=== PATIENT | female | born 1940 | race Caucasian/White ===

== ENCOUNTER → 2016-09-24 | Outpatient (REF) | payer MEDICARE, BC ==
[~2016-09-24] MED LIST: ACTO30TA OR; AMLO5TAB OR; CRES20TA OR; HYDR25TA6 OR; LOPERAMIDE OR; PLAV75TA2 OR; TRIC145T19 OR; VITAMIN D50000 UNT OR; XALATIN OU
== END ==
LOC: M LAB REF 09:21
PROVIDERS: ATTEND Physician Assistant
DX: R30.0 Dysuria (principal)

== ENCOUNTER → 2016-11-09 | Outpatient (CLI) | payer MEDICARE, BC ==
[2016-11-09 13:36] LABS: ALBUMIN 3.9 GM/DL (3.2-5.2); ALBUMIN/GLOBULIN RATIO 1.39 (1.00-1.93); BILIRUBIN,TOTAL 0.4 MG/DL (0.2-1.0); CALCIUM LEVEL 9.4 MG/DL (8.8-10.2); CREATININE FOR GFR 1.25 MG/DL (0.55-1.02); GLOMERULAR FILTRATION RATE 44.4 (>39); POTASSIUM SERUM 3.8 MEQ/L (3.5-5.1); TOTAL PROTEIN 6.7 GM/DL (6.4-8.2)
[2016-11-09 14:27] LABS: MEAN CORPUSCULAR HEMOGLOBIN 31.4 pg (27.0-33.0); MEAN CORPUSCULAR HGB CONC 32.9 g/dl (32.0-36.5); MEAN CORPUSCULAR VOLUME 95.6 fl (80.0-96.0); RED CELL DISTRIBUTION WIDTH 13.5 % (11.5-14.5)
== END ==
LOC: M WUC 09:08
PROVIDERS: ATTEND Nurse Practitioner Family
DX: E11.8 Type 2 diabetes mellitus with unspecified complications (principal); I10 Essential (primary) hypertension

== ENCOUNTER → 2017-03-24 | Outpatient (CLI) | payer MEDICARE, BC ==
[2017-03-24 18:28] LABS: CREATININE FOR GFR 1.62 MG/DL (0.55-1.02); GLOMERULAR FILTRATION RATE 32.9 (>39)
== END ==
LOC: M WUC 14:19
PROVIDERS: ATTEND Surgery Vascular Surgery
DX: I71.4 Abdominal aortic aneurysm, without rupture (principal)

== ENCOUNTER → 2017-04-06 | Outpatient (CLI) | payer MEDICARE, BC ==
[~2017-04-06] MED LIST changes: +ISOVUE-370 76% 100ML VIAL (Q9967) As Ordered ONE
--- NOTE | 2017-04-06 14:35 | REP ---
CT ANGIOGRAPHY WITH IV CONTRAST ABDOMINAL AORTA: HISTORY: Abdominal aortic aneurysm. The patient status post aortobi-iliac bypass. COMPARISON: CT study, 03/26/2016. CT CONTRAST DOSE: 100 mL of intravenous Isovue-370. CT TECHNIQUE: Helical scanning is acquired. Axial, coronal MPR, sagittal MPR, and 3D surface rendered color angiography images are acquired and viewed rotationally. Maximum intensity projection coronal images are also generated. CT ANGIOGRAPHIC FINDINGS: Preliminary direct service provider radiograph is unremarkable. There are clips in the right upper quadrant and a pacemaker is noted in the right heart. The lung bases are clear, except for a nodular subpleural density posterolaterally in the left lower lobe measuring 5 mm in greatest diameter. This not visibly calcified. It actually appears a little smaller than it did 03/26/2016 when it measured 8 mm. In any event, it is not new or progressed. The liver and the spleen remain normal in size, homogeneous in texture. Gallbladder is surgically absent. No adrenal lesion is seen. No pancreatic abnormality is noted. Singular renal arteries are noted bilaterally. No stenosis. Left colonic diverticulosis is seen. There is a periumbilical ventral hernia transmitting abdominal fat. Normal appendix seen. Aneurysmal dilation of the distal aorta and left common iliac artery is again seen status post aortobi-iliac graft procedure. The aneurysm measures 4.4 cm x 4.2 cm. By my measurement at the same location in the aorta on 03/26/2016, these measurements would be 4.2 x 4.2 cm and it is not felt to have increased in size. Today's contrast enhanced study does show some contrast enhancement extending into the aneurysm from the common iliac artery just above the distal graft anastomosis. This has an endoleak appearance. The external iliac arteries and internal iliac arteries are patent. 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 Endoleak appearance as above. No change in the size of the aneurysm. Signed by Kale Deleon MD 04/06/2017 05:03 P
== END ==
LOC: M RAD 10:56
PROVIDERS: ATTEND Surgery Vascular Surgery
DX: I71.4 Abdominal aortic aneurysm, without rupture (principal)
CPT/HCPCS: 74174; Q9967

== ENCOUNTER → 2017-05-19 | Outpatient (CLI) | payer MEDICARE, BC ==
[~2017-05-19] MED LIST changes: -ISOVUE-370 76% 100ML VIAL (Q9967) As Ordered ONE
== END ==
LOC: M WUC 15:16
PROVIDERS: ATTEND Family Medicine
DX: M35.3 Polymyalgia rheumatica (principal); N18.3 Chronic kidney disease, stage 3 (moderate)

== ENCOUNTER → 2017-06-23 | Outpatient (CLI) | payer MEDICARE, BC ==
--- NOTE | 2017-06-28 16:25 | REP ---
BILATERAL MAMMOGRAM: FAMILY HISTORY: Breast cancer in sister and paternal grandmother. History of several benign biopsies. COMPARISON: [facility] 12/28/2007. Mild scattered fibroglandular tissue is present, more so on the right than on the left. There is an oval lobulated nodule in the outer right breast posteriorly which has increased in size since the prior examination, measuring 1.5 cm in maximum diameter. New clustered microcalcifications appear to be present in the inferomedial left breast posteriorly. There is a pacemaker in the left axillary region. IMPRESSION: ACR 0 incomplete. Enlarging lobulated nodule lateral posterior right breast. This could represent an intramammary lymph node. I would recommend spot compression views and ultrasound to further evaluate. There appear to be new clustered microcalcifications in the inferomedial left breast. Recommend magnification views for further evaluation. BI-RADS/ACR category 0 mammogram, incomplete. Additional imaging and/or prior mammograms for comparison. This mammogram was interpreted with the aid of an FDA-approved computer-aided detection system. The patient states she/he has not had a clinical breast exam in over a year. The patient letter being requested is M0.
== END ==
LOC: M WHC 09:58
PROVIDERS: ATTEND Family Medicine
DX: Z12.31 Encounter for screening mammogram for malignant neoplasm of breast (principal)

== ENCOUNTER → 2017-07-06 | Outpatient (REF) | payer MEDICARE, BC ==
[2017-07-06 21:57] LABS: BACTERIA, URINE SMALL AMOUNT; HYALINE CAST, URINE NONE SEEN /lpf (0-1); RBC, URINE NONE SEEN /hpf (0-3); SQUAMOUS EPITHELIAL CELL URINE SMALL AMOUNT /hpf (SMALL AMT); WBC, URINE 0-1 /hpf (0-3)
[2017-07-06 21:58] LABS: MICROSCOPIC EXAM PERFORMED
== END ==
LOC: M LAB REF 17:21
PROVIDERS: ATTEND Internal Medicine Nephrology
DX: N18.3 Chronic kidney disease, stage 3 (moderate) (principal); R31.29 Other microscopic hematuria; N39.0 Urinary tract infection, site not specified

== ENCOUNTER → 2017-07-12 | Outpatient (CLI) | payer MEDICARE, BC ==
--- NOTE | 2017-07-12 11:54 | REP ---
RIGHT BREAST ULTRASOUND: 07/12/2017. Comparison: Diagnostic mammogram 07/12/2017, screening mammogram 06/23/2017. Clinical history: An enlarging lobulated nodule lower outer quadrant right breast close to the chest wall. Findings: In the lower outer quadrant at about the 9 o'clock position and far back from the nipple is a lobulated 10.4 x 3.8 x 7.6 mm nodule that is 12 cm from the nipple. It has ultrasound characteristics of a lymph node with hyperechoic central zone and hypoechoic periphery with color flow into it through a notched hilum. Impression: 1. BIRADS ACR category 2, benign. Benign finding. Nodular density lower outer quadrant right breast consistent with an intramammary node corresponding to the finding seen on mammogram. Please see the mammogram report this date for final assessment and recommendation. Signed by Mushtaq Shi MD 07/12/2017 08:29 P
--- NOTE | 2017-07-12 13:11 | REP ---
DIAGNOSTIC DIGITAL BILATERAL MAMMOGRAM: 07/12/2017. Clinical history: Nodular tissue asymmetry lower outer quadrant right breast and new group of microcalcifications left breast for additional imaging. Comparison: Right breast ultrasound 07/12/2017, digital screening mammogram 06/23/2017, 12/28/2007. Findings: Spot magnified CC, MLO and ML views of the lower outer quadrant right breast show lobulated elongated nodule close to the chest wall far back from the nipple. It is seen on the 2007 prior study as a 9 mm long nodule with lobulated margins. No abnormal calcifications are noted within this nodule. There are no other associated findings. The left breast shows spot magnification CC, MLO and true ML images of the pleomorphic group of microcalcifications some of these are coarse, others are fine and irregular. Impression: 1. BI-RADS/ACR category 4 mammogram. Suspicious abnormality - biopsy should be considered. Usually requires biopsy. Some findings suspicious for malignancy in a pleomorphic group of microcalcifications lower inner quadrant left breast. These could be targeted by stereotactic biopsy. 2. The right breast shows a lobulated nodule at least 15 mm long. The ultrasound in this area showed a nodule that measured a little over 10 mm and a previous mammogram in 2007 showed a 9 mm nodule. This is clearly larger than on the previous study and although morphologically it has a resemblance to lymph node by ultrasound and a mammography, it is significantly larger size over the interim raises the question of malignant change. I would recommend a stereotactic biopsy of that nodule as well. Both are quite approachable for needle biopsy. I would recommend stereotactic guided biopsy for both. This mammogram was interpreted with the aid of an FDA-approved computer-aided detection system. The patient states she has not had a clinical breast exam in over a year. The patient letter being requested is M4. Signed by Mushtaq Shi MD 07/12/2017 08:30 P
== END ==
LOC: M RAD 07:47
PROVIDERS: ATTEND Family Medicine
DX: R92.8 Other abnormal and inconclusive findings on diagnostic imaging of breast (principal)
CPT/HCPCS: 76642; G0204

== ENCOUNTER → 2017-08-09 | Outpatient (CLI) | payer MEDICARE, BC ==
[~2017-08-09] MED LIST changes: -ACTO30TA OR; -AMLO5TAB OR; -CRES20TA OR; -HYDR25TA6 OR; +LIDOCAINE 1% MDV 20ML VIAL As Ordered; -LOPERAMIDE OR; -PLAV75TA2 OR; -TRIC145T19 OR; -VITAMIN D50000 UNT OR; -XALATIN OU
== END ==
LOC: M RADPRO 10:04
DX: R92.0 Mammographic microcalcification found on diagnostic imaging of breast (principal); Z53.8 Procedure and treatment not carried out for other reasons
CPT/HCPCS: 77065

== ENCOUNTER 2017-11-08 07:49 | Day surgery (SDC) | payer MEDICARE, BC ==
[2017-11-08] MEDS: LIDOCAINE 5% (LIDODERM) PATCH TD (08:41)
[2017-11-08] MEDS: LR 1,000 ML IV (08:55)
[2017-11-08 09:08] LABS: BEDSIDE GLUCOSE 72 MG/DL (83-110)
[2017-11-08] MEDS ORDERED: diazePAM 5 MG TAB As Ordered (09:19)
[2017-11-08] MEDS: diazePAM 5 MG TAB PO (09:26)
[2017-11-08] MEDS ORDERED: LIDOCAINE 1% MDV 20ML VIAL As Ordered (09:37)
[2017-11-08] MEDS ORDERED: KETAMINE HCL 200 MG/20 ML VIAL As Ordered (11:46)
[2017-11-08] MEDS ORDERED: fentaNYL 100 MCG/2 ML INJECTION (J3010) As Ordered (11:46)
[2017-11-08] MEDS ORDERED: ONDANSETRON 4MG/2ML VIAL (J2405) As Ordered (11:47)
[2017-11-08] MEDS ORDERED: MIDAZOLAM INJ 2 MG/2 ML VIAL (J2250) As Ordered (11:47)
[2017-11-08] MEDS ORDERED: PROPOFOL 200 MG/20 ML VIAL As Ordered (11:47)
[2017-11-08] MEDS ORDERED: LIDOCAINE 2% INJ 100 MG/5 ML SDV (FOR ANES.) As Ordered (12:45)
[2017-11-08] MEDS ORDERED: ePHEDrine SULFATE 25 MG/5 ML(5MG/ML) SYRINGE As Ordered (12:58)
[2017-11-08] MEDS ORDERED: PHENYLephrine HCL 500 MCG/5 ML (100MCG/ML) SYRINGE (J2370) As Ordered (12:58)
[2017-11-08] MEDS: LIDOCAINE 1% SDV INJ 30 ML VIAL As Ordered (13:00)
== END 2017-11-08 14:25 | disposition home or self-care (01) ==
LOC: M SDC 07:49
DX: R92.1 Mammographic calcification found on diagnostic imaging of breast (principal); E11.9 Type 2 diabetes mellitus without complications; I10 Essential (primary) hypertension; E78.5 Hyperlipidemia, unspecified; M35.3 Polymyalgia rheumatica; Z86.73 Personal history of transient ischemic attack (TIA), and cerebral infarction without residual deficits; Z87.891 Personal history of nicotine dependence; Z79.01 Long term (current) use of anticoagulants; Z95.0 Presence of cardiac pacemaker
CPT/HCPCS: 19125

== ENCOUNTER → 2017-11-23 | Outpatient (CLI) | payer MEDICARE, BC ==
[2017-11-23 16:38] LABS: HEMATOCRIT 43.9 % (36.0-47.0); HEMOGLOBIN 14.3 g/dl (12.0-15.5); MEAN CORPUSCULAR HEMOGLOBIN 31.5 pg (27.0-33.0); MEAN CORPUSCULAR HGB CONC 32.6 g/dl (32.0-36.5); MEAN CORPUSCULAR VOLUME 96.7 fl (80.0-96.0); PLATELET COUNT, AUTOMATED 288 10^3/uL (150-450); RED BLOOD COUNT 4.54 10^6/uL (4.00-5.40); RED CELL DISTRIBUTION WIDTH 13.8 % (11.5-14.5); WHITE BLOOD COUNT 11.2 10^3/uL (4.0-10.0)
[2017-11-23 17:23] LABS: ALBUMIN/GLOBULIN RATIO 1.21 (1.00-1.93); ALKALINE PHOSPHATASE 30 U/L (45-117); ALT/SGPT 27 U/L (12-78); ANION GAP 7 MEQ/L (8-16); AST/SGOT 17 U/L (7-37); BILIRUBIN,TOTAL 0.5 MG/DL (0.2-1.0); BLOOD UREA NITROGEN 38 MG/DL (7-18); CALCIUM LEVEL 9.3 MG/DL (8.8-10.2); CARBON DIOXIDE LEVEL 30 MEQ/L (21-32); CHLORIDE LEVEL 107 MEQ/L (98-107); CHOLESTEROL LEVEL 163 MG/DL (<200); CHOLESTEROL RISK RATIO 2.263 (<5); GLOMERULAR FILTRATION RATE 35.8 (>39); GLUCOSE, FASTING 69 MG/DL (70-100); HDL CHOLESTEROL 72 MG/DL (>40); LDL CHOLESTEROL 57.8 MG/DL (<100); NON-HDL-C 91 MG/DL; SODIUM LEVEL 144 MEQ/L (136-145); TOTAL PROTEIN 7.3 GM/DL (6.4-8.2); TRIGLYCERIDES LEVEL 166 MG/DL (<150)
[2017-11-25 08:53] LABS: TOTAL 25(OH) VITAMIN D 31.9 NG/ML (30.0-100.0)
== END ==
LOC: M WUC 12:27
DX: E78.5 Hyperlipidemia, unspecified (principal); E55.9 Vitamin D deficiency, unspecified; R53.83 Other fatigue; I10 Essential (primary) hypertension
CPT/HCPCS: 84443

== ENCOUNTER → 2018-01-19 | Outpatient (CLI) | payer MEDICARE, BC | LOC: M RAD 07:09 | DX: I70.1 Atherosclerosis of renal artery (principal); N18.3 Chronic kidney disease, stage 3 (moderate) ==

== ENCOUNTER → 2018-01-19 | Outpatient (CLI) | payer MEDICARE, BC | LOC: M RAD 07:05 | DX: R93.5 Abnormal findings on diagnostic imaging of other abdominal regions, including retroperitoneum (principal); I71.4 Abdominal aortic aneurysm, without rupture; I70.1 Atherosclerosis of renal artery; N18.3 Chronic kidney disease, stage 3 (moderate) | CPT/HCPCS: 76770 ==

== ENCOUNTER → 2018-11-07 | Outpatient (REF) | payer MEDICARE, BC ==
[~2018-11-07] MED LIST changes: +ACTO30TA OR; +AMLO5TAB OR; +CRES20TA OR; +GLIP5TAB8 PO; +HYDR25TA6 OR; +JANU100T PO; -LIDOCAINE 1% MDV 20ML VIAL As Ordered; +LISI-542 PO; +LOPERAMIDE OR; +PLAV75TA2 OR; +PRED1TABL PO; +TRIC145T19 OR; +TYLE650T35 PO; +VITA100067 PO; +VITAMIN D50000 UNT OR; +XALA0.007 OU; +XALATIN OU; +XANA0.25 PO
== END ==
LOC: M LAB REF 15:25
PROVIDERS: ATTEND Internal Medicine Nephrology
DX: N39.0 Urinary tract infection, site not specified (principal)

== ENCOUNTER → 2019-01-11 | Outpatient (CLI) | payer MEDICARE, BC ==
--- NOTE | 2019-01-11 12:46 | REP ---
LUMBAR SPINE, FIVE VIEWS: HISTORY: Back pain. There is no acute fracture. There is an old compression fracture of the L1 vertebral body with minimal height loss. The lumbar intervertebral discs are decreased in height. Vacuum phenomenon is present at the L5-S1 level. These findings are consistent with disc degeneration. There is narrowing of the right L4-5 and L5-S1 and left L3-4 through L5-S1 facet joints. There are 6 mm of grade 1 spondylolisthesis of L4 on 5. There is scoliosis convex to the left. IMPRESSION: Degenerative change as described above. Electronically Signed by Savage Euceda MD 01/11/2019 01:01 P
[2019-01-11 19:22] LABS: HEMATOCRIT 42.2 % (36.0-47.0); HEMOGLOBIN 13.3 g/dl (12.0-15.5); MEAN CORPUSCULAR HEMOGLOBIN 31.2 pg (27.0-33.0); MEAN CORPUSCULAR HGB CONC 31.5 g/dl (32.0-36.5); MEAN CORPUSCULAR VOLUME 99.1 fl (80.0-96.0); PLATELET COUNT, AUTOMATED 269 10^3/uL (150-450); RED BLOOD COUNT 4.26 10^6/uL (4.00-5.40); WHITE BLOOD COUNT 12.6 10^3/uL (4.0-10.0)
[2019-01-11 20:02] LABS: ERYTHROCYTE SEDIMENTATION RATE 4 mm/hr (0-30)
== END ==
LOC: M WUC 11:31
PROVIDERS: ATTEND Family Medicine
DX: M48.07 Spinal stenosis, lumbosacral region (principal); M35.3 Polymyalgia rheumatica; M43.16 Spondylolisthesis, lumbar region; M41.9 Scoliosis, unspecified

== ENCOUNTER → 2019-02-07 | Outpatient (REF) | payer MEDICARE, BC | LOC: M SFHCPLAZ 08:36 | PROVIDERS: ATTEND Internal Medicine Rheumatology | DX: M35.3 Polymyalgia rheumatica (principal); Z53.8 Procedure and treatment not carried out for other reasons ==

== ENCOUNTER → 2019-02-07 | Outpatient (CLI) | payer MEDICARE, BC ==
[2019-02-07 13:44] LABS: C REACTIVE PROTEIN QUANTITATIV < 0.30 MG/DL (0.00-0.30); RHEUMATOID FACTOR QUANT < 10.0 IU/ML (<15.0)
== END ==
LOC: M WUC 09:05
PROVIDERS: ATTEND Internal Medicine Rheumatology
DX: M35.3 Polymyalgia rheumatica (principal)
CPT/HCPCS: 36415; 85652; 86140; 86200; 86431; G0463

== ENCOUNTER → 2019-03-01 | Outpatient (REF) | payer MEDICARE, BC ==
[2019-03-01 13:04] LABS: C REACTIVE PROTEIN QUANTITATIV < 0.30 MG/DL (0.00-0.30); RHEUMATOID FACTOR QUANT < 10.0 IU/ML (<15.0)
[2019-03-08 00:06] LABS: ANTI DOUBLE STRAND-DNA AB <1 IU/mL (0-9); ANTINUCLEAR ANTIBODIES DIRECT Positive (Negative); HLA-B27 Negative (.); SJOGREN'S ANTI SS-A <0.2 AI (0.0-0.9); SJOGREN'S ANTI SS-B <0.2 AI (0.0-0.9); SMITH ANTIBODIES <0.2 AI (0.0-0.9)
== END ==
LOC: M LABDRAW1 11:11
PROVIDERS: ATTEND Physician Assistant
DX: M47.817 Spondylosis without myelopathy or radiculopathy, lumbosacral region (principal)

== ENCOUNTER → 2019-04-10 | Outpatient (CLI) | payer MEDICARE, BC | LOC: M WUC 13:34 | PROVIDERS: ATTEND Family Medicine | DX: M35.3 Polymyalgia rheumatica (principal) ==

== ENCOUNTER → 2020-01-11 | Outpatient (CLI) | payer MEDICARE, BC ==
[~2020-01-11] MED LIST changes: +AMLO5TAB6 PO; +FENO145T7 PO; +HYDR25TAB PO; +PLAV1TAB2 PO; +PRED10PA PO; +ROSU20TA5 PO; +VITAD1000T PO
== END ==
LOC: M LABSMTC 11:42
PROVIDERS: ATTEND Anesthesiology
DX: Z01.818 Encounter for other preprocedural examination (principal); Z11.59 Encounter for screening for other viral diseases
CPT/HCPCS: C9803; U0003

== ENCOUNTER 2020-01-14 11:27 | Day surgery (SDC) | payer MEDICARE, BC ==
[~2020-01-14] VITALS: Ht 172.7 cm; Wt 74.4 kg
[~2020-01-14 11:27] MED LIST changes: +LIDOCAINE 2% 100MG/5ML SDV (FOR ANES.) As Ordered ONE; +LR 1,000 ML IV SCH; +MIDAZOLAM INJ 2MG/2ML VIAL (J2250 PER 1MG) As Ordered ONE; +ceFAZolin SOD 1 GM in D5W MINI-BAG PLUS 50 ML IV ONE; +fentaNYL 100 MCG/2 ML INJECTION (J3010) As Ordered ONE; +propofoL 500 MG/50 ML VIAL As Ordered ONE
[2020-01-14] MEDS ORDERED: ONDANSETRON 4MG/2ML VIAL As Ordered ONE (13:30)
[2020-01-14] MEDS ORDERED: propofoL 200 MG/20 ML VIAL As Ordered ONE ×2 (13:30→15:05)
[2020-01-14] MEDS ORDERED: fentaNYL 100 MCG/2 ML INJECTION (J3010) As Ordered ONE (13:30)
[2020-01-14] MEDS ORDERED: MIDAZOLAM INJ 2MG/2ML VIAL (J2250 PER 1MG) As Ordered ONE (13:30)
[2020-01-14] MEDS ORDERED: LIDOCAINE 2% 100MG/5ML SDV (FOR ANES.) As Ordered ONE (13:36)
[2020-01-14] MEDS ORDERED: ISOVUE-300 61% 50ML VIAL As Ordered ONE ×2 (13:41→15:18)
[2020-01-14] MEDS ORDERED: MUPIROCIN 2% OINT 22 GM TUBE As Ordered ONE (13:41)
[2020-01-14] MEDS ORDERED: LIDOCAINE 1% SDV 30ML VIAL As Ordered ONE (13:41)
[2020-01-14] MEDS ORDERED: ePHEDrine SULFATE 25 MG/5 ML(5MG/ML) SYRINGE As Ordered ONE (15:44)
[2020-01-14] MEDS ORDERED: ceFAZolin 1GM VIAL (J0690 PER 500MG) As Ordered ONE (15:53)
[2020-01-14] MEDS ORDERED: fentaNYL 100 MCG/2 ML INJECTION (J3010) IV PRN (16:45)
[2020-01-14] MEDS ORDERED: LR 1,000 ML IV SCH (16:45)
[2020-01-14] MEDS ORDERED: ACETAMINOPHEN TAB 650MG DOSE (2X325MG) PO PRN (17:00)
[2020-01-14 18:00] VITALS: BP 132/63
--- NOTE | 2020-01-14 18:54 | RO ---
DATE OF PROCEDURE: 01/14/2020 PREPROCEDURE DIAGNOSES: 1. Pacemaker battery depletion. 2. Complete heart block. POSTPROCEDURE DIAGNOSES: 1. Pacemaker battery depletion. 2. Complete heart block. FINDINGS: 1. Pacemaker battery depletion. 2. Complete heart block. PROCEDURE PERFORMED: Implantation of an atrial pacemaker lead to upgrade to a dual-chamber pacemaker system. Pacemaker pulse generator change. SURGEON: Andrea Gabriel MD MAGNETIC LOCATER: None. ANESTHESIA: Lidocaine 1% local/monitored anesthetic care. SPECIMENS: Old single-chamber pacemaker pulse generator. ESTIMATED BLOOD LOSS: 10 mL. No blood products replaced. No drains. No complications. DESCRIPTION OF PROCEDURE: The patient was prepped and draped over the left pectoral region. 3M Ioban film was applied. A left subclavian venogram was performed via a peripheral IV in the left upper extremity to ensure that the left subclavian vein was still patent to be able to upgrade to a dual-chamber pacemaker system with the addition of a new atrial pacing lead. This demonstrated that the left subclavian vein was patent. An incision approximately 3 inches in length was made over top of the existing pacemaker pulse generator and approximately over top of the course of the left subclavian vein using a #15 blade. Fine scissor dissection was used to get down to and through the anterior capsule overlying the pacemaker pulse generator. The suture holding down the pacemaker pulse generator was then cut. The existing pacemaker pulse generator was removed from the pocket still attached to the ventricular pacemaker lead. Next, some additional left subclavian venograms were injected and used in real time to localize the left subclavian vein percutaneous at the level of the pacemaker pocket using a micropuncture needle. This was then guidewire exchanged for the guidewire that came with the micropuncture needle. This was then guidewire exchanged for the guidewire that came with the micropuncture needle. The guidewire was then exchanged for a guidewire that came with the 7-Hungarian sheath. Next, the 7-Hungarian sheath with introducer was placed into the guidewire and advanced into the left subclavian vein. The sheath was left in place, and the guidewire and introducer were removed. The atrial lead was then placed under fluoroscopic guidance into the region of the right atrial appendage where it was secured with a total of 11 turns. This position was found to be electrically and anatomically satisfactory. The sheath was then broken apart and removed. The atrial lead was then sutured to the pectoral muscle using the supplied tie-down sleeve, using three individual sutures consisting of #0 Ethibond. Next, a TYRX medium size antimicrobial envelope was cut into four pieces and placed into the pacemaker pocket. Next, the terminal pin of the ventricle lead was removed from the existing pacemaker pulse generator and placed into the ventricle port of the new pacemaker pulse generator and secured by tightening the set screw. Next, the atrial lead was plugged into the atrial port of the new dual-chamber pacemaker pulse generator and secured by tightening the set screw. The excess lead material was then coiled underneath the pacemaker pulse generator and placed along with the pacemaker pulse generator into the pacemaker pocket with the pacemaker on top and the excess lead material below. The new pacemaker pulse generator was then secured to the pectoral muscle using an #0 Ethibond suture to secure it to the pectoral muscle. The deep layers was then closed using individual sutures consisting of #2-0 Vicryl. A few #3-0 Vicryl sutures were then used to help approximate the more superficial layer. The skin was then closed using kristen. The patient tolerated the procedure well without any immediate complications. The pacemaker pulse generator that was removed was a [employer] model 5626 with serial #[id number], originally implanted 03/24/2010. The new pacemaker pulse generator implanted was a [employer] Assurity MRI with model #[id number] with serial #[id number]. The existing right ventricle lead was a [employer] model 1948 with serial #[id number] originally implanted 03/24/2010. Testing in the operating room (OR) through the device showed a capture threshold of 0.75 volts at 0.4 milliseconds with R wave amplitude of 2.1 millivolts and lead impedance of 514 ohms. The new right atrial lead was a [employer] model [id number]/52 cm with serial #[id number]. Testing with the PSA analyzer for the new right atrial lead showed capture threshold 1.7 volts at 0.6 milliseconds with P wave amplitude of 3.6 millivolts and a lead impedance of 809 ohms. [facility]
--- NOTE | 2020-01-15 00:36 | ECGEPIP ---
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
--- NOTE | 2020-01-15 02:13 | REP ---
C-ARM VIEW OF THE CHEST: Single C-arm view of the chest is performed during placement of a dual-lead pacemaker. The two leads appear to be in good position. Fluoroscopy time 6 minutes 46 seconds. Electronically Signed by Maycol Morales MD 01/16/2020 09:47 P
--- NOTE | 2020-01-15 03:02 | REP ---
REASON: Pacemaker generator change. The latest prior for comparison is 11/06/2013, also portable. Since the prior exam, an additional lead has been placed. Both leads appear contiguous and appropriate. The lung de la o are clear. The pleural angles are sharp. There is cardiomegaly accentuated by technique. The technique utilized in obtaining the radiograph has magnified the cardiac silhouette and accentuated the interstitial markings. The osseous structures are stable and intact. IMPRESSION: No acute cardiopulmonary disease. Findings as described above. Electronically Signed by Jorge Villegas DO 01/15/2020 11:11 A
== END 2020-01-14 18:20 | disposition home or self-care (01) ==
LOC: M SDC 11:27
PROVIDERS: ATTEND Internal Medicine Cardiovascular Disease
DX: Z45.010 Encounter for checking and testing of cardiac pacemaker pulse generator [battery] (principal); I48.91 Unspecified atrial fibrillation; I44.2 Atrioventricular block, complete; E11.9 Type 2 diabetes mellitus without complications; I10 Essential (primary) hypertension; E78.00 Pure hypercholesterolemia, unspecified; E66.9 Obesity, unspecified; K21.9 Gastro-esophageal reflux disease without esophagitis; F41.9 Anxiety disorder, unspecified; Z88.5 Allergy status to narcotic agent; Z79.02 Long term (current) use of antithrombotics/antiplatelets; Z79.899 Other long term (current) drug therapy
CPT/HCPCS: 33214; 71045; 76000; 93005; C1785; C1898; J0690; J2250; J2405; J3010; Q9967

== ENCOUNTER → 2020-03-05 | Outpatient (REF) | payer MEDICARE, BC ==
[~2020-03-05] MED LIST changes: +ACET650T61 PO; +AMLO1TAB24 PO; -AMLO5TAB6 PO; +D31000TA2 PO; -LIDOCAINE 2% 100MG/5ML SDV (FOR ANES.) As Ordered ONE; -LR 1,000 ML IV SCH; -MIDAZOLAM INJ 2MG/2ML VIAL (J2250 PER 1MG) As Ordered ONE; -TYLE650T35 PO; -VITAD1000T PO; -ceFAZolin SOD 1 GM in D5W MINI-BAG PLUS 50 ML IV ONE; -fentaNYL 100 MCG/2 ML INJECTION (J3010) As Ordered ONE; -propofoL 500 MG/50 ML VIAL As Ordered ONE
[2020-04-10 02:02] LABS: ALBUMIN 3.9 GM/DL (3.2-5.2); CALCIUM LEVEL 9.6 MG/DL (8.8-10.2); CHOLESTEROL RISK RATIO 2.48 (<5); CREATININE FOR GFR 1.51 MG/DL (0.55-1.30); GLOMERULAR FILTRATION RATE 35.4 (>39); PHOSPHORUS LEVEL 3.8 MG/DL (2.5-4.9); POTASSIUM SERUM 4.1 MEQ/L (3.5-5.1)
== END ==
LOC: M WUC 07:31 → M LAB REF 07:31
PROVIDERS: ATTEND Internal Medicine Cardiovascular Disease
DX: E78.2 Mixed hyperlipidemia (principal); I48.0 Paroxysmal atrial fibrillation; I10 Essential (primary) hypertension

== ENCOUNTER → 2020-03-07 | Outpatient (REF) | payer MEDICARE, BC | LOC: M LAB REF 10:26 | PROVIDERS: ATTEND Internal Medicine Cardiovascular Disease | DX: E78.2 Mixed hyperlipidemia (principal); I48.0 Paroxysmal atrial fibrillation; I10 Essential (primary) hypertension ==

== ENCOUNTER → 2020-09-04 | Outpatient (REF) | payer MEDICARE, BC | LOC: M LAB REF 17:03 | PROVIDERS: ATTEND Internal Medicine Nephrology | DX: N39.0 Urinary tract infection, site not specified (principal) ==

== ENCOUNTER → 2020-10-13 | Outpatient (CLI) | payer MEDICARE, BC ==
[~2020-10-13] MED LIST changes: +HYDR-3490 PO; -HYDR25TAB PO; -LISI-542 PO; +LISI-898 PO
[2020-10-13 13:02] LABS: CHOLESTEROL RISK RATIO 2.239 (<5)
== END ==
LOC: M WUC 10:37
PROVIDERS: ATTEND Internal Medicine Cardiovascular Disease
DX: E78.2 Mixed hyperlipidemia (principal)

== ENCOUNTER → 2020-10-13 | Outpatient (CLI) | payer MEDICARE, BC ==
[2020-10-13 12:31] LABS: HEMATOCRIT 42.4 % (36.0-47.0); HEMOGLOBIN 13.6 g/dl (12.0-15.5); MEAN CORPUSCULAR HGB CONC 32.1 g/dl (32.0-36.5); MEAN CORPUSCULAR VOLUME 96.6 fl (80.0-96.0); PLATELET COUNT, AUTOMATED 235 10^3/uL (150-450); RED BLOOD COUNT 4.39 10^6/uL (4.00-5.40); WHITE BLOOD COUNT 11.3 10^3/uL (4.0-10.0)
[2020-10-13 13:10] LABS: BILIRUBIN,TOTAL 0.5 MG/DL (0.2-1.0); CALCIUM LEVEL 9.4 MG/DL (8.8-10.2); CREATININE FOR GFR 1.24 MG/DL (0.55-1.30); GLOMERULAR FILTRATION RATE 44.3 (>32); POTASSIUM SERUM 3.6 MEQ/L (3.5-5.1)
[2020-10-13 13:11] LABS: ALBUMIN 3.7 GM/DL (3.2-5.2); CHOLESTEROL RISK RATIO 2.404 (<5); THYROID STIMULATING HORMONE 1.71 uIU/ML (0.358-3.740); TOTAL PROTEIN 6.5 GM/DL (6.4-8.2)
[2020-10-13 20:19] LABS: ERYTHROCYTE SEDIMENTATION RATE 5 mm/hr (0-30)
== END ==
LOC: M WUC 10:32
PROVIDERS: ATTEND Family Medicine
DX: E11.22 Type 2 diabetes mellitus with diabetic chronic kidney disease (principal); I48.0 Paroxysmal atrial fibrillation; E78.2 Mixed hyperlipidemia; M35.3 Polymyalgia rheumatica

== ENCOUNTER → 2020-10-21 | Outpatient (REF) | payer MEDICARE, BC ==
[2020-10-21 17:27] LABS: CREATININE, URINE 55.4 MG/DL; MALB URINE SIEMENS < 5.0 MG/L
== END ==
LOC: M LAB REF 16:08
PROVIDERS: ATTEND Family Medicine
DX: E11.22 Type 2 diabetes mellitus with diabetic chronic kidney disease (principal)

== ENCOUNTER 2021-02-25 08:56 | Observation (INO) | payer BC, MEDICARE ==
[~2021-02-25] VITALS: Ht 172.7 cm; Wt 74.2 kg
--- NOTE | 2021-02-25 09:57 | REP ---
INDICATION: Altered Mental Status. COMPARISON: 01/14/2020. TECHNIQUE: Single portable AP view of the chest was performed. FINDINGS: There is no acute infiltrate or pulmonary edema. There is mild elevation of the left hemidiaphragm. The heart is not significantly enlarged. The mediastinal silhouette is unchanged. Left 2 lead pacemaker is noted. IMPRESSION: No acute pulmonary disease. <Electronically signed by Maycol Morales > 02/25/21 [id number]
[2021-02-25] MEDS ORDERED: ONDANSETRON 4MG/2ML VIAL IV ONE (10:00)
[2021-02-25] MEDS ORDERED: NS 1,000 ML IV ONE ×2 (10:00→16:00)
[2021-02-25 10:06] LABS: HEMATOCRIT 53.6 % (36.0-47.0); HEMOGLOBIN 17.7 g/dl (12.0-15.5); MEAN CORPUSCULAR HEMOGLOBIN 31.8 pg (27.0-33.0); MEAN CORPUSCULAR VOLUME 96.2 fl (80.0-96.0); PLATELET COUNT, AUTOMATED 277 10^3/uL (150-450); RED BLOOD COUNT 5.57 10^6/uL (4.00-5.40); WHITE BLOOD COUNT 19.7 10^3/uL (4.0-10.0)
[2021-02-25 10:32] LABS: ALBUMIN 4.3 GM/DL (3.2-5.2); ALT/SGPT 47 U/L (12-78); BILIRUBIN,DIRECT 0.3 MG/DL (0.0-0.2); BILIRUBIN,TOTAL 0.9 MG/DL (0.2-1.0); BLOOD UREA NITROGEN 44 MG/DL (7-18); CALCIUM LEVEL 10.4 MG/DL (8.8-10.2); CARBON DIOXIDE LEVEL 24 MEQ/L (21-32); CHLORIDE LEVEL 102 MEQ/L (98-107); CK-MB VALUE MASS 1.6 NG/ML (<3.6); CPK CREATINE PHOSPHOKINASE 58 U/L (26-192); CREATININE FOR GFR 1.74 MG/DL (0.55-1.30); ETHYL ALCOHOL (ETHANOL) < 0.003 % (0.000-0.010); FREE T4 1.22 NG/DL (0.76-1.46); GLUCOSE, FASTING 222 MG/DL (70-100); MB/CK RELATIVE INDEX 2.76 (< OR =4); PHOSPHORUS LEVEL 3.7 MG/DL (2.5-4.9); POTASSIUM SERUM 3.4 MEQ/L (3.5-5.1); SODIUM LEVEL 140 MEQ/L (136-145); TOTAL PROTEIN 8.1 GM/DL (6.4-8.2); TROPONIN I < 0.02 NG/ML (< 0.10)
--- NOTE | 2021-02-25 10:33 | REP ---
INDICATION: altered mental status. COMPARISON: 01/30/2014. TECHNIQUE: CT BRAIN PERFORMED IN THE AXIAL PLANE. CORONAL RECONSTRUCTION IMAGES ARE PERFORMED. FINDINGS: THE VENTRICLES ARE MIDLINE, SYMMETRIC AND THEIR SIZE PROPORTIONATE TO THE MILD DIFFUSE CEREBRAL AND CEREBELLAR ATROPHY, ALL AGE-APPROPRIATE AND WITHOUT SIGNIFICANT CHANGE. ATROPHY GREATEST IN THE TEMPORAL AND FRONTAL LOBES BUT PRESENT THROUGHOUT. THERE IS NO MIDLINE SHIFT OR MASS EFFECT. DONALDSON-WHITE DIFFERENTIATION IS WELL MAINTAINED. FEW SCATTERED HETEROGENEOUS WHITE MATTER CHANGES ARE NOTED SUGGESTING SMALL VESSEL ISCHEMIC DISEASE. THERE IS NO ACUTE INTRACRANIAL HEMORRHAGE OR EXTRA-AXIAL FLUID COLLECTION. BONE WINDOW EXAMINATION IS UNREMARKABLE. VISUALIZED MASTOID AIR CELLS AND PARANASAL SINUSES ARE CLEAR. ATHEROSCLEROTIC CALCIFICATIONS IN THE CAROTID SIPHONS. IMPRESSION: MILD VENTRICULAR ENLARGEMENT AND PROPORTIONATE CEREBRAL/CEREBELLAR ATROPHY. SOME MILD CHRONIC SMALL VESSEL WHITE MATTER ISCHEMIC CHANGES. NO ACUTE INFARCT, INTRACRANIAL HEMORRHAGE, MASS, MASS EFFECT OR EDEMA. CALVARIUM, SKULL BASE, MASTOIDS AND SINUSES GROSSLY UNREMARKABLE. NOTHING ACUTE. <Electronically signed by Mushtaq Shi > 02/25/21 [id number]
[2021-02-25] MEDS ORDERED: POTASSIUM CHLORIDE 10 MEQ SR TABLET PO ONE (10:40)
[2021-02-25 11:07] LABS: LYMPHOCYTES 17 % (16-44); NEUTROPHILS 82 % (28-66); PLATELET ESTIMATE NORMAL (NORMAL)
[2021-02-25] MEDS ORDERED: GLIP2.5T6 PO (12:53)
[2021-02-25] MEDS ORDERED: XARE15TA PO (12:53)
[2021-02-25] MEDS ORDERED: ALPR0.5T3 PO (12:53)
[2021-02-25] MEDS ORDERED: SITA50TAB PO (12:53)
[2021-02-25] MEDS ORDERED: MAGN400T2 PO (12:53)
[2021-02-25] MEDS ORDERED: C 50TAB PO (12:53)
[2021-02-25] MEDS ORDERED: XALA0.007 OU (12:53)
[2021-02-25] MEDS ORDERED: VASC1CAP2 PO (12:53)
[2021-02-25] MEDS ORDERED: CYCL5TAB PO (12:53)
[2021-02-25] MEDS ORDERED: PRED10TA2 PO (12:53)
[2021-02-25] MEDS ORDERED: REFR0.5D8 OU (12:56)
[2021-02-25] MEDS ORDERED: KCL 20MEQ in NS 1000ML 1,000 ML IV SCH (13:05)
[2021-02-25] MEDS ORDERED: GLUCAGON INJ 1MG VIAL SC PRN (13:05)
[2021-02-25] MEDS ORDERED: HEPARIN SOD (PORCINE) 5000UNITS/ML 1ML VIAL/SYRINGE SC SCH (13:05)
[2021-02-25] MEDS ORDERED: GLUCOSE 4GM CHEW TABLET PO PRN (13:05)
[2021-02-25] MEDS ORDERED: DEXTROSE 50% 50 ML SYRINGE IV PRN (13:05)
--- NOTE | 2021-02-25 13:32 | HPEPDOC ---
General Date of Admission Date of Service: Feb 25, 2021 Primary Care Physician: Rach Baez Attending Physician: ILENE JACOBO MD Chief Complaint The patient is a 80-year-old female admitted with a reason for visit of Weakness, Diarrhea. Source: Patient Exam Limitations: No limitations Timing/Duration: 24 hours Severity: Moderate Associated Symptoms: Weakness, Hypotension, Dizziness, Other (diarrhea) History of Present Illness Nadine is a 80-year-old woman with a past medical history of diabetes mellitus type 2, hypertension, hyperlipidemia, brain aneurysm and aortic aneurysm status post aortic iliac bypass in the past. Patient was in her usual state of health up until yesterday. Patient states that she ate a spicy salad dressing as well as mushrooms yesterday which really did not agree with her, since that time she's had ongoing diarrhea began approximately 2 AM morning. She reports having bloody diarrhea. When she attempted to stand up lightheaded and felt quite weak. EMS was summoned to her home, was brought to the emergency room. She was found to have potassium of 3.4, white blood cell count of 19,700, a creatinine of 1.7. She was initially noted to have soft blood pressures with a systolic blood pressure in the 90s, however her blood pressure has improved with IV fluids. At present moment she continues to have diarrhea and is also complaining of some lower abdominal tenderness. She denies any recent history of antibiotics, states that approximately 6 months ago she had antibiotics for a UTI. Home Medications Scheduled Acetaminophen (Tylenol Arthritis) 650 Mg Tab, 1,300 MG PO DAILY, (Reported) Alprazolam (Alprazolam) 0.5 Mg Tablet, 0.25 MG PO BID, (Reported) Amlodipine Besylate (Amlodipine Besylate) 5 Mg Tablet, 5 MG PO QHS, (Reported) Ascorbic Acid (Vitamin C) 500 Mg Tablet, 500 MG PO DAILY, (Reported) Carboxymethylcellulose Sodium (Refresh Tears) 15 Ml Drops, 1 DROP OU BID, (Reported) Cholecalciferol (Vitamin D3) (Vitamin D3) 1,000 Unit Tablet, 1,000 UNITS PO DAILY, (Reported) Cyclobenzaprine HCl (Cyclobenzaprine HCl) 5 Mg Tablet, 2.5 MG PO QHS, (Reported) Glipizide (Glipizide ER) 2.5 Mg Tab.er.24, 2.5 MG PO QHS, (Reported) Hydrochlorothiazide (Hydrochlorothiazide) 25 Mg Tablet, 25 MG PO DAILY, (Reported) Icosapent Ethyl (Vascepa) 1 Gm Capsule, 1 GM PO BID, (Reported) Latanoprost (Xalatan) 0.005% 2.5ML Drops, 1 DROP OU QHS, (Reported) Lisinopril (Lisinopril) 5 Mg Tab, 2.5 MG PO QHS, (Reported) Magnesium Oxide (Magnesium Oxide) 400 Mg Tablet, 800 MG PO DAILY, (Reported) Prednisone (Prednisone) 10 Mg Tablet, 10 MG PO DAILY, (Reported) Rivaroxaban (Xarelto) 15 Mg Tablet, 15 MG PO QPM, (Reported) Rosuvastatin Calcium (Rosuvastatin Calcium) 20 Mg Tablet, 20 MG PO QHS, (Reported) Sitagliptin (Januvia) 50 Mg Tablet, 50 MG PO DAILY, (Reported) Allergies Coded Allergies: codeine (Verified Adverse Reaction, Mild, feels seasick, 01/14/20) morphine (Verified Adverse Reaction, Mild, feels seasick, 01/14/20) Past Medical History Medical History Diabetes mellitus Hypertension Hyperlipidemia Brain aneurysm which she states are non-operative Sick sinus syndrome Aortic abdominal aneurysm Surgical History Status post aortic iliac bypass Cholecystectomy Cyst removed from breast Social History * Smoker: former Smoker, quit greater than 1 year Alcohol: Denies Drugs: denies Recent Travel/Sick Contacts: Denies: Recent travel A-FIB/[facility]ADSVASC A-FIB History Current/History of A-Fib/PAF?: Yes Current PO Anticoag Therapy: Yes Review of Systems Constitutional: Denies: Chills, Fever, Night Sweats Eyes: Denies: Pain, Vision change ENT: Denies: Head Aches, Ear Pain, Dysphagia Skin: Denies: Rash, Lesions, Breakdown Pulmonary: Denies: Dyspnea, Cough Cardiovascular: Reports: Lt Headedness Gastrointestinal: Reports: Abdominal Pain, Diarrhea Genitourinary: Denies: Dysuria, Frequency, Incontinence, Retention Hematologic: Denies: Bruising, Bleeding Excessively Musculoskeletal: Denies: Neck Pain, Back Pain, Joint Pain, Muscle Pain, Spasms Neurological: Denies: Weakness, Numbness, Change in speech, Confusion Psych: Reports: Mood Normal; Denies: Depression, Memory Issues Physical Examination General Exam: Positive: Alert, No Acute Distress Eye Exam: Positive: PERRLA, Conjunctiva & lids normal, EOMI; Negative: Sclera icteric ENT Exam: Positive: Atraumatic, Mucous membr. moist/pink, Pharynx Normal Neck Exam: Positive: Supple; Negative: JVD, thyromegaly Chest Exam: Positive: Clear to auscultation, Normal air movement Heart Exam: Positive: Rate Normal, Regular Rhythm, Normal S1, Normal S2; Negative: Murmurs, Rubs Telemetry: Positive: Other Telemetry: (AV paced rhythm) Abdomen Exam: Positive: Normal bowel sounds, Soft, Tenderness (mild tenderness in the mid lower abdominal quadrant); Negative: Hepatospenomegaly Extremity Exam: Positive: Normal pulses; Negative: Clubbing, Cyanosis, Edema Skin Exam: Positive: Nl turgor and temperature; Negative: Breakdown, Lesion Neuro Exam: Positive: Normal Gait, Normal Speech, Cranial Nerves 3-12 NL, Reflexes 2+ Psych Exam: Positive: Mental status NL, Mood NL, Oriented x 3 Vital Signs Vital Signs Date Time Temp Pulse Resp B/P (MAP) Pulse Ox O2 Delivery O2 Flow Rate FiO2 02/25/21 10:15 92/55 (67) 02/25/21 10:11 94 91 02/25/21 09:00 95.7 18 Room Air Laboratory Data Labs 24H Laboratory Tests 2 02/25/21 09:55: Neutrophils (%) (Auto) , Nucleated Red Blood Cells % (auto) 0.0, Neutrophils 82H, Band Neutrophils 1, Lymphocytes (Manual) 17, Macrocytosis 1+, Platelet Estimate NORMAL, Anion Gap 14, Glomerular Filtration Rate 30.0L, Calcium Level 10.4H, Phosphorus Level 3.7, Magnesium Level 2.0, Total Bilirubin 0.9, Direct B ilirubin 0.3H, Aspartate Amino Transf (AST/SGOT) 20, Alanine Aminotransferase (ALT/SGPT) 47, Alkaline Phosphatase 59, Ammonia 27, Total Creatine Kinase 58, Creatine Kinase MB 1.6, Creatine Kinase MB Relative Index 2.76, Troponin I < 0.02, Total Protein 8.1, Albumin 4.3, Albumin/Globulin Ratio 1.1L, Thyroid Stimulating Hormone (TSH) 8.520H, Free Thyroxine 1.22, Ethyl Alcohol Level < 0.003 CBC/BMP Laboratory Tests 02/25/21 09:55 RAD Interpretation STUDY: Assessment/Plan #Acute diarrhea rule out colitis Patient be admitted to observation for now. Obtain CT of the abdomen and pelvis with IV and oral contrast Will determine whether the patient requires any antibiotics based on imaging Check GI panel Clear liquid diet following imaging studies Normal saline with KCl at 100 mils an hour Check cortisol level in a.m. to rule out adrenal insufficiency as it appears patient is on chronic prednisone #Acute kidney injury secondary to prerenal losses #Chronic kidney disease stage III Repeat BMP in a.m. following IV hydration #Mild hypokalemia #Mild hypercalcemia Patient will have potassium supplementation Patient will be hydrated IV fluids we will recheck calcium levels #Diabetes mellitus type 2 with hyperglycemia Clear diabetic liquid diet for now Hold home medications #Hypertension Hold home medications. Blood pressure #Hyperlipidemia Continue with statin #Ethics DO NOT RESUSCITATE and DO NOT INTUBATE #DVT prophylaxis Xarelto Plan / VTE VTE Prophylaxis Ordered?: No VTE Exclusion Mechanical Proph: Other (patient is on Cymbalta) ILENE JACOBO MD Feb 25, 2021 13:32
[2021-02-25] MEDS: GASTROGRAFIN SOLUTION 30ML PO SCH ×2 (14:05→15:16)
[2021-02-25] MEDS ORDERED: ISOVUE-370 76% 100ML VIAL As Ordered ONE (15:06)
[2021-02-25 15:20] LABS: RSV AMPLIFICATION NEGATIVE (NEGATIVE)
--- NOTE | 2021-02-25 17:31 | ECGEPIP ---
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
[2021-02-25 18:00] VITALS: BP 133/65
[2021-02-25] MEDS: HumaLOG INSULIN (NovoLOG) PER UNIT SC SCH ×2 (18:00→18:28)
[2021-02-25] MEDS: ALPRAZolam 0.25 MG TAB PO SCH ×2 (18:27→20:09)
--- NOTE | 2021-02-25 18:36 | REPVR ---
PROCEDURE INFORMATION: Exam: CT Abdomen And Pelvis With Contrast Exam date and time: 02/25/2021 5:45 PM Age: 80 years old Clinical indication: Abdominal pain; Generalized; Additional info: Abd pain with diarrhea TECHNIQUE: Imaging protocol: Computed tomography of the abdomen and pelvis with contrast. Radiation optimization: All CT scans at this facility use at least one of these dose optimization techniques: automated exposure control; mA and/or kV adjustment per patient size (includes targeted exams where dose is matched to clinical indication); or iterative reconstruction. Contrast material: ISOVUE 370; Contrast volume: 100 ml; Contrast route: INTRAVENOUS (IV); COMPARISON: CT ABD PELVIS W/O CONTRAST 03/26/2016 7:51 AM FINDINGS: Lungs: The there are bibasilar dependent atelectatic changes. Mediastinal space: Small hiatal hernia. Liver: Normal. No mass. Gallbladder and bile ducts: Previous cholecystectomy. Pancreas: There is pancreatic atrophy. Spleen: Normal. No splenomegaly. Adrenal glands: Normal. No mass. Kidneys and ureters: There is bilateral renal atrophy. No hydronephrosis. Stable right peripelvic cyst. Stomach and bowel: There is diverticulosis without diverticulitis. Regions of colonic thickening are likely secondary to under distention. No acute pericolonic inflammatory change. Nonspecific colonic fluid. Appendix: Normal appendix. Intraperitoneal space: Unremarkable. No free air. No significant fluid collection. Vasculature: Vascular calcification. 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 This measures larger compared to prior study. Lymph nodes: Unremarkable. No enlarged lymph nodes. Urinary bladder: Unremarkable as visualized. Reproductive: Atrophic uterus. Bones/joints: There are degenerative changes involving the spine. Chronic appearing superior endplate compression fracture involving L1. Soft tissues: There are several small areas of ventral herniation containing fat. No bowel containing hernia. IMPRESSION: 1. No acute inflammatory process. 2. Colonic fluid without associated inflammatory change, nonspecific diarrheal disease. 3. Infrarenal abdominal aorta measuring 5.4 x 4.4 cm with extensive mural thrombus. This measures increased in size compared to prior study, 4.5 cm in maximal dimension on prior. 4. Additional findings as above. Electronically signed by: Bello Malave On 02/25/2021 18:36:13 PM
[2021-02-25] MEDS: ACETAMINOPHEN 650MG ER TAB (TYLENOL ARTHRITIS) PO SCH (18:37)
[2021-02-25] MEDS: CIPROFLOXACIN 400 MG in IV 1 EA IV SCH (18:37)
[2021-02-25] MEDS: predniSONE 10 MG TAB PO SCH (18:37)
[2021-02-25] MEDS: RIVAROXABAN 15 MG TAB (XARELTO) PO SCH (18:37)
[2021-02-25] MEDS: metroNIDAZOLE 500 MG in IV 1 EA IV SCH (20:08)
[2021-02-25] MEDS: CYCLOBENZAPRINE 5MG TABLET PO SCH (20:09)
[2021-02-25] MEDS: LATANOPROST 0.005% OPHTH SOLN 2.5 ML OU SCH (20:09)
[2021-02-25] MEDS: ROSUVASTATIN 10 MG TAB (CRESTOR) PO SCH (20:09)
[2021-02-25] MEDS ORDERED: NS 500 ML IV ONE (21:50)
[2021-02-25 22:00] VITALS: BP 110/60
[2021-02-26] MEDS: HumaLOG INSULIN (NovoLOG) PER UNIT SC SCH ×4 (01:06→18:16)
[2021-02-26] MEDS: metroNIDAZOLE 500 MG in IV 1 EA IV SCH (01:06)
[2021-02-26 02:00] VITALS: BP 101/56
[2021-02-26] MEDS: CIPROFLOXACIN 400 MG in IV 1 EA IV SCH (05:47)
[2021-02-26 06:00] VITALS: BP 110/60
[2021-02-26 07:19] LABS: HEMATOCRIT 39.4 % (36.0-47.0); MEAN CORPUSCULAR HEMOGLOBIN 32.1 pg (27.0-33.0); MEAN CORPUSCULAR HGB CONC 32.2 g/dl (32.0-36.5); MEAN CORPUSCULAR VOLUME 99.5 fl (80.0-96.0); PLATELET COUNT, AUTOMATED 178 10^3/uL (150-450); RED BLOOD COUNT 3.96 10^6/uL (4.00-5.40); WHITE BLOOD COUNT 11.9 10^3/uL (4.0-10.0)
[2021-02-26 07:21] LABS: HEMOGLOBIN 12.7 g/dl (12.0-15.5)
[2021-02-26 07:25] LABS: CREATININE FOR GFR 1.45 MG/DL (0.55-1.30); POTASSIUM SERUM 5.2 MEQ/L (3.5-5.1)
[2021-02-26 07:26] LABS: ALBUMIN 2.7 GM/DL (3.2-5.2); BILIRUBIN,TOTAL 0.6 MG/DL (0.2-1.0); CALCIUM LEVEL 7.9 MG/DL (8.8-10.2); TOTAL PROTEIN 6.2 GM/DL (6.4-8.2)
[2021-02-26] MEDS: predniSONE 10 MG TAB PO SCH (08:42)
[2021-02-26] MEDS: ALPRAZolam 0.25 MG TAB PO SCH ×2 (08:42→20:51)
[2021-02-26] MEDS: ACETAMINOPHEN 650MG ER TAB (TYLENOL ARTHRITIS) PO SCH (08:42)
[2021-02-26] MEDS: LR 1,000 ML IV SCH ×2 (08:42→20:52)
--- NOTE | 2021-02-26 11:13 | IPNPDOC ---
Subjective Date Seen The patient was seen on 02/26/21. Subjective Chief Complaint/HPI Nadine feels well this morning. She's not complaining of abdominal pain nor is she having any diarrhea. Her blood pressure stable. Objective Physical Examination General Exam: Positive: Alert, No Acute Distress Eye Exam: Positive: PERRLA, Conjunctiva & lids normal, EOMI; Negative: Sclera icteric ENT Exam: Positive: Atraumatic, Mucous membr. moist/pink, Pharynx Normal Neck Exam: Positive: Supple; Negative: JVD, thyromegaly Chest Exam: Positive: Clear to auscultation, Normal air movement Heart Exam: Positive: Rate Normal, Regular Rhythm, Normal S1, Normal S2; Negative: Murmurs, Rubs Telemetry: Positive: Other Telemetry: (AV paced rhythm) Abdomen Exam: Positive: Normal bowel sounds, Soft; Negative: Tenderness, Hepatospenomegaly Extremity Exam: Positive: Normal pulses; Negative: Clubbing, Cyanosis, Edema Skin Exam: Positive: Nl turgor and temperature; Negative: Breakdown, Lesion Neuro Exam: Positive: Normal Gait, Normal Speech, Cranial Nerves 3-12 NL, Reflexes 2+ Psych Exam: Positive: Mental status NL, Mood NL, Oriented x 3 Assessment /Plan Assessment #Acute diarrhea rule out colitis, this is been ruled out by a negative CT abdomen and pelvis Reduce IV fluid rate Cortisol level is pending #Acute kidney injury secondary to prerenal losses #Chronic kidney disease stage III #Hyperkalemia Creatinine is improved this a.m. Patient has mild hyperkalemia, we will stop her IV fluids which have potassium in it Patient will be transition LR 75 ML's an hour Will recheck BMP in a.m. #Mild hypokalemia #Mild hypercalcemia Hypokalemia has resolved Hypercalcemia has resolved #Diabetes mellitus type 2 with hyperglycemia Diabetic diet Hold home medications #Hypertension Hold home medications. Blood pressure #Hyperlipidemia Continue with statin #Ethics DO NOT RESUSCITATE and DO NOT INTUBATE #DVT prophylaxis Xarelto Plan/VTE VTE Prophylaxis Ordered?: No (on xarelto) VTE Exclusion Mechanical Proph: Other (patient is on Cymbalta) VS, I&O, 24H, Fishbone Vital Signs/I&O Vital Signs Date Time Temp Pulse Resp B/P (MAP) Pulse Ox O2 Delivery O2 Flow Rate FiO2 02/26/21 10:00 97.0 70 18 95 Nasal Cannula 1.0 02/26/21 06:00 110/60 (77) I&O- Last 24 Hours up to 6 AM 02/26/21 06:00 Intake Total 4050 ml Output Total 150 ml Balance 3900 ml Laboratory Data 24H LABS Laboratory Tests 2 02/25/21 13:59: Lactic Acid Level 4.4*H 02/25/21 14:26: Coronavirus (COVID-19)(PCR) NEGATIVE, Influenza Type A (RT-PCR) NEGATIVE, Influenza Type B (RT-PCR) NEGATIVE, Respiratory Syncytial Virus (PCR) NEGATIVE 02/25/21 18:37: Bedside Glucose (Misc Panel) 136H 02/25/21 18:39: Lactic Acid Followup at 4 Hours 4.2*H 02/26/21 00:06: Bedside Glucose (Misc Panel) 148H 02/26/21 05:38: Bedside Glucose (Misc Panel) 142H 02/26/21 06:28: Nucleated Red Blood Cells % (auto) 0.0, Anion Gap 6L, Glomerular Filtration Rate 37.0, Lactic Acid Level 1.4, Calcium Level 7.9#L, Total Bilirubin 0.6, Aspartate Amino Transf (AST/SGOT) 21, Alanine Aminotransferase (ALT/SGPT) 31, Alkaline Phosphatase 40L, Total Protein 6.2#L, Albumin 2.7#L, Albumin/Globulin Ratio 0.8L 02/26/21 07:58: CBC/BMP Laboratory Tests 02/26/21 06:28 ILENE JACOBO MD Feb 26, 2021 11:13
[2021-02-26 14:00] VITALS: BP_SYST 130; BP_SYST 156; BP_DIAS 60; BP_DIAS 70
[2021-02-26 18:00] VITALS: BP 140/60
[2021-02-26] MEDS: RIVAROXABAN 15 MG TAB (XARELTO) PO SCH (18:15)
[2021-02-26] MEDS: CYCLOBENZAPRINE 5MG TABLET PO SCH (20:51)
[2021-02-26] MEDS: ROSUVASTATIN 10 MG TAB (CRESTOR) PO SCH (20:51)
[2021-02-26] MEDS: LATANOPROST 0.005% OPHTH SOLN 2.5 ML OU SCH (20:52)
[2021-02-26] MEDS ORDERED: HumaLOG INSULIN (NovoLOG) PER UNIT SC SCH (21:00)
[2021-02-26 22:00] VITALS: BP 142/66
[2021-02-27 02:00] VITALS: BP 137/62
[2021-02-27 06:00] VITALS: BP 126/60
[2021-02-27] MEDS: HumaLOG INSULIN (NovoLOG) PER UNIT SC SCH (07:30)
[2021-02-27 08:46] LABS: BLOOD UREA NITROGEN 22 MG/DL (7-18); CALCIUM LEVEL 7.9 MG/DL (8.8-10.2); CARBON DIOXIDE LEVEL 26 MEQ/L (21-32); CHLORIDE LEVEL 114 MEQ/L (98-107); GLOMERULAR FILTRATION RATE > 60.0 (>32); GLUCOSE, FASTING 87 MG/DL (70-100); POTASSIUM SERUM 3.6 MEQ/L (3.5-5.1); SODIUM LEVEL 147 MEQ/L (136-145)
[2021-02-27] MEDS: ALPRAZolam 0.25 MG TAB PO SCH (09:30)
[2021-02-27] MEDS: ACETAMINOPHEN 650MG ER TAB (TYLENOL ARTHRITIS) PO SCH (09:31)
[2021-02-27] MEDS: predniSONE 10 MG TAB PO SCH (09:31)
--- NOTE | 2021-02-27 12:56 | ECHO ---
ECHOCARDIOGRAM DATE OF PROCEDURE: 02/26/2021 Age: 80 Gender: Female Height: 172 cm Weight: 78 kg REFERRING PHYSICIAN: Dr. Luiz Luna INDICATION: Syncope 2D MEASUREMENTS: Left atrium 4.0 cm Left atrial volume index 16 Aortic root 3.0 cm Intraventricular septum 1.25 cm Posterior wall 1.30 cm Left ventricle diastole 4.0 cm Inferior vena cava 2.6 cm with more than 50% respiratory variation Doppler Measurements: No aortic stenosis No aortic regurgitation Aortic valve velocity 177 cm/s Very mild mitral regurgitation Mitral E velocity 52.3 cm/s Mitral A velocity 76.7 cm/s Mitral deceleration time 203 msec Mild tricuspid regurgitation Estimated right ventricle systolic pressure 29-34 mmHg Estimated right atrial pressure 5-10 mmHg Pulmonary artery acceleration time 100 msec No pulmonic regurgitation MITRAL ANNULAR TISSUE DOPPLER E prime septal 4.4 cm/s DESCRIPTION: Rhythm was AV sequential paced rhythm at 70 beats per minute. Image quality was fair. This was a 2D, M-mode, color flow Doppler, and pulsed wave Doppler examination including mitral annular tissue Doppler. CONCLUSIONS: 1. Mild concentric left ventricle hypertrophy. Slight paradoxical septal motion involving the apical portion of the left ventricle. Normal regional LV wall motion and wall thickening. Normal LV systolic function. LVEF 65% by visual estimate. Grade 1 LV diastolic dysfunction. 2. No pericardial effusion. 3. Normal left atrial size by left atrial volume index. 4. Very mild aortic valve sclerosis of a 3-cusp aortic valve. No aortic regurgitation. 5. Visual appearance of mild right ventricle hypertrophy. Normal right ventricle size. Normal right ventricle systolic function. 6. Presence of endocardial, right atrial and right ventricle pacemaker leads. 7. Suggestive of estimated right ventricle systolic pressure to be near the upper limits of normal to mildly elevated. Suggestive of mild elevation of pulmonary artery systolic pressure. Suggestive of normal CVP. 8. Otherwise normal appearing echocardiogram Doppler findings. MTDD
--- NOTE | 2021-02-27 16:40 | DSES ---
DISCHARGE SUMMARY DATE OF ADMISSION: 02/25/2021 DATE OF DISCHARGE: 02/27/2021 DISCHARGE DIAGNOSES: 1. Acute diarrhea, likely secondary to irritable bowel syndrome. 2. Acute kidney injury secondary to prerenal losses. 3. Chronic kidney disease, stage III. 4. Hyperkalemia. 5. Mild hypokalemia. 6. Mild hypercalcemia. 7. Diabetes mellitus, type 2, with hyperglycemia. 8. Hypertension. 9. Hyperlipidemia. PROCEDURES PERFORMED DURING HOSPITALIZATION: None. CONSULTANTS ON THE CASE: None. DISPOSITION: Patient discharged home. CONDITION ON DISCHARGE: Stable, improved, improvement in her kidney function as well as resolution of her diarrhea. RELEVANT LABORATORY DATA: Gastrointestinal (GI) panel is negative. White count 11.9, hemoglobin 12.7, hematocrit 39.4, platelet count 178.000. Sodium 140, potassium 3.6, chloride 111, bicarbonate 23, BUN 22, creatinine 0.9, calcium 7.9. Cortisol is 7.3. Alcohol is less than 0.03. COVID swab and influenza swabs were negative. IMAGING STUDIES: Chest x-ray was unremarkable. A CT of the head without contrast unremarkable. CT of the abdomen and pelvis with oral and intravenous (IV) contrast showed no acute findings. DISCHARGE MEDICATIONS: - Tylenol 1300 mg daily - alprazolam 0.25 mg twice a day - Norvasc 5 mg at bedtime - ascorbic acid 500 mg by mouth daily - Refresh Tears 15 mL drops, one drop both eyes twice a day - cholecalciferol 1000 units daily - Flexeril 2.5 mg at bedtime - glipizide 2.5 mg at bedtime - hydrochlorothiazide 25 mg by mouth daily - Xalatan 0.005%, 2.5 mL drops, one drop both eyes at bedtime - lisinopril 5 mg tablets, half a tablet at bedtime - magnesium oxide 800 mg daily - prednisone 10 mg daily - Xarelto 15 mg in the evening - rosuvastatin 20 mg at bedtime - Januvia 50 mg by mouth daily DISCHARGE INSTRUCTIONS: Patient is instructed to followup with her primary care physician (PCP) as needed in the next 1-2 week's time. FOLLOWUP LABORATORIES AT THE TIME OF DISCHARGE: None. HOSPITAL COURSE: Nadine is an 80-year-old woman who presented to the hospital from home with acute onset of intractable diarrhea, abdominal pain. The patient was evaluated in the emergency room, where she was noted to be hemodynamically stable. The patient was noted to have acute kidney injury with mild hypokalemia and hypercalcemia. She was admitted to the hospitalist service for observation status. She was empirically placed on antibiotics. A CT of the abdomen and pelvis with oral and IV contrast was obtained, which was unremarkable. Patient was hydrated with IV fluids given her history of being on chronic steroids. Cortisol level was checked in the morning to rule out adrenal insufficiency. She was found to have appropriate level. The patient was weaned off of fluids after 48 hours with resolution of her acute kidney injury (SHANE) and diarrhea, and she was discharged home in stable condition. At the time of discharge her pulse is 69 and regular, temperature is 97.8, respirations 18, blood pressure 126/60, oxygen saturation 95% on room air. General: The patient is alert and oriented times three. She appears in no acute distress. Her skin is intact and warm to touch. Head is atraumatic. Pupils symmetric and reactive to light. Oropharynx is clear. Neck supple. Lung sounds present without rales or rhonchi. Heart is S1, S2 without murmurs, rubs, or gallops. Abdomen is soft, nontender, nondistended. Extremities without any cyanosis, clubbing or edema. A total of 30 minutes was spent completing all discharge paperwork.
== END 2021-02-27 11:05 | disposition home or self-care (01) ==
LOC: EDBD 08:56 → M ED 08:56 → M ED INP 08:57 → ENRESERV 16:15 → M MSPAV 17:58
PROVIDERS: ADMIT Internal Medicine; ATTEND Internal Medicine
DX: R19.7 Diarrhea, unspecified (principal); N17.9 Acute kidney failure, unspecified; N18.30 Chronic kidney disease, stage 3 unspecified; E87.5 Hyperkalemia; E87.6 Hypokalemia; E83.52 Hypercalcemia; E11.65 Type 2 diabetes mellitus with hyperglycemia; E78.5 Hyperlipidemia, unspecified; R53.1 Weakness; I67.1 Cerebral aneurysm, nonruptured; I12.9 Hypertensive chronic kidney disease with stage 1 through stage 4 chronic kidney disease, or unspecified chronic kidney disease; R10.9 Unspecified abdominal pain; R42 Dizziness and giddiness; Z66 Do not resuscitate; F41.9 Anxiety disorder, unspecified; M54.9 Dorsalgia, unspecified; Z95.0 Presence of cardiac pacemaker; Z79.899 Other long term (current) drug therapy; Z79.52 Long term (current) use of systemic steroids; Z79.01 Long term (current) use of anticoagulants; Z79.84 Long term (current) use of oral hypoglycemic drugs; Z87.891 Personal history of nicotine dependence; Z88.5 Allergy status to narcotic agent
CPT/HCPCS: 36415; 70450; 71045; 74177; 80048; 80053; 80076; 82077; 82140; 82533; 82550; 82553; 83605; 83735; 84100; 84439; 84443; 84484; 85025; 85027; 87631; 93005; 93041; 93306; 94760; 96361; 96365; 96366; 96367; 96375; 96376; 99285; J0744; J2405; J7512; Q9963; Q9967

== ENCOUNTER → 2021-04-10 | Outpatient (REF) | payer BC ==
[~2021-04-10] MED LIST changes: +ALPR0.5T3 PO; +C 50TAB PO; +CYCL5TAB PO; +GLIP2.5T6 PO; +MAGN400T2 PO; +PRED10TA2 PO; +REFR0.5D8 OU; +SITA50TAB PO; +VASC1CAP2 PO; +XARE15TA PO
== END ==
LOC: M LAB REF 13:11
PROVIDERS: ATTEND Internal Medicine Nephrology
DX: E83.42 Hypomagnesemia (principal)

== ENCOUNTER → 2021-06-04 | Outpatient (CLI) | payer MEDICARE, BC ==
--- NOTE | 2021-06-04 15:40 | REP ---
INDICATION: AAA W/O RUPTURE COMPARISON: 04/28/2020 TECHNIQUE: Multiple ultrasonographic images of the abdominal aorta were obtained from the level of the celiac access to the aortoiliac bifurcation and the longitudinal and transverse scan planes along with color Doppler imaging. FINDINGS: The maximal AP dimension of the abdominal aorta as measured in the longitudinal scan plane is 4.8 cm this has increased from the prior exam when the measurement was 4.4 cm. There is a bypass graft which appears patent. The proximal abdominal aorta was not able to be identified due to the patient's intestinal gas pattern. There is evidence of left common iliac arterial ectasia measuring 2.1 cm. IMPRESSION: Findings and limitations as described. <Electronically signed by Jorge Villegas > 06/04/21 [id number]
== END ==
LOC: M WHC 08:54
PROVIDERS: ATTEND Surgery Vascular Surgery
DX: I71.4 Abdominal aortic aneurysm, without rupture (principal)

== ENCOUNTER 2021-06-09 13:07 | Inpatient (IN) | payer MEDICARE, BC ==
[~2021-06-09] VITALS: Ht 170.2 cm; Wt 68.8 kg
[2021-06-09 09:18] VITALS: BP 109/69
[2021-06-09 14:25] LABS: BASO # 0.1 10^3/uL (0.0-0.2); BASO % 0.4 % (0.0-1.0); EOS # 0.1 10^3/uL (0.0-0.5); EOS % 0.5 % (0.0-3.0); HEMATOCRIT 46.8 % (36.0-47.0); HEMOGLOBIN 15.6 g/dl (12.0-15.5); LYMPH # 1.8 10^3/uL (1.5-5.0); LYMPH % 13.5 % (24.0-44.0); MEAN CORPUSCULAR HEMOGLOBIN 31.9 pg (27.0-33.0); MEAN CORPUSCULAR HGB CONC 33.3 g/dl (32.0-36.5); MEAN CORPUSCULAR VOLUME 95.7 fl (80.0-96.0); MONO # 1.2 10^3/uL (0.0-0.8); NEUTROPHILS % 76.4 % (36.0-66.0); PLATELET COUNT, AUTOMATED 228 10^3/uL (150-450); RED BLOOD COUNT 4.89 10^6/uL (4.00-5.40); WHITE BLOOD COUNT 13.1 10^3/uL (4.0-10.0)
--- OUTSIDE RECORDS SUMMARY | 2021-06-09 14:34 | CCD | Continuity of Care Document ---
Author Author [facility], Nadine Kylie Organization Unknown Address [address], [place] [address] Phone Unavailable Care Team Providers Care Tankroom Tender Name Role Phone Tri Enciso MD AUTM [phone] Lynn Preciado MD AUTM [phone] Venkata Philip MD AUTM [phone] Rach Baez MD AUTM [phone] Problems Active Problems Provider Date Pacemaker battery depletion Andrea Gabriel MD Onset: 11/2019 Paroxysmal atrial fibrillation Andrea Gabriel MD Onset: 0 01/10/2020 Complete atrioventricular block Andrea Gabriel MD Onset: 01/10/2020 Essential hypertension Andrea Gabriel MD Onset: 0 Mixed hyperlipidemia Andrea Gabriel MD Onset: 01/10/2020 Overweight Andrea Gabriel MD Onset: 01/10/2020 Dietary management surveillance Andrea Gabriel MD Onset: 01/10/2020 Cardiac pacemaker in situ Andrea Gabriel MD Onset: 2019 Electrocardiogram abnormal POONAM Dockery Onset: Social History Type Date Description Comments Sex Unknown ETOH Use Does not consume alcohol Tobacco Use Start: Unknown End: Unknown Patient is a former smoker smoked for about 30 years, stopped in 1988 Smoking Status Reviewed: 05/28/21 Patient is a former smoker sm oked for about 30 years, stopped in 1988 Exercise Type/Frequency Does housework sporadica lly Exercise Limitations Back Pain Exercise Limitations Other Pain in raul ateral legs, polymyalgia rheumatica Allergies and adverse reactions Active Allergies Criticality Reaction | Severity Comments Date Codeine Unable to assess criticality 01/10/2020 Morphine Unable to assess criticality 01/10/2020 Gabapentin Unable to assess criticality Dizziness 03/05/2020 Tramadol Unable to assess criticality Constipation 03/05/2020 Cyclobenzaprine Unable to assess criticality very dizz y 05/27/2021 Medications Active Medications SIG Qnty Indications Ordering Provide r Date Alprazolam 0.5mg Tablets 1/2 by mouth twice a day as needed mdd=1 Rach Baez MD 05/27/2021 Vitamin C 500mg Tablets 1 by mouth every day Unknown 05/27/2021 Vascepa 1gm Capsules 2 caps by mouth twice a day (take with meals) 360caps E78.2 Andrea Gabriel MD 06/2020 Xarelto 15mg Tablets Take 1 Tablet By Mouth Once Daily With The Evening Meal 90tabs I48.0 Andrea Gabriel MD 03/05/2020 Latanoprost 0.005% Solution 1 drop both eyes every night at bedtime Unknown 02/06 Refresh 1.4-0.6% Solution instill 2 drops into both eyes twice daily Unknown 03/04 Magnesium 400mg Tablets 1 by mouth twice every day Unknown 03/04/2020 Prednisone 10mg Tablets 1 by mouth every day Unknown 01/09/2020 Hydrochlorothiazide 25mg Tablets 1 by mouth every day Unknown 01/09/2020 Lisinopril 5mg Tablets 1/2 by mouth every day Unknown 01/09/2020 Glipizide ER 2.5mg Tablets ER 24HR 1 by mouth every day Unknown 01/09/2020 Vitamin D3 25mcg (1000 Ut) Capsule s 1 by mouth every day Unknown 01/09/2020 Rosuvastatin Calcium 20mg Tablets 1 by mouth daily at bedtime Unknown 0 Amlodipine Besylate 5mg Tablets 1 by mouth every day Unknown 01/09/2020 Januvia 50mg Tablets 1 by mouth every day Unknown 01/09/2020 Tylenol 8 Hour Arthritis Pain 650mg Tablets ER 1 by mouth three times a day Unknown 01/09/2020 Immunizations Description No Information Available Vital Signs Date Vital Result Comment 05/28/2021 2:44pm Weight 156.00 lb Home Weight 156lb Height 67 inches 5'7" BMI (Body Mass Index) 24.4 kg/m2 Heart Rate 70 /min BP Systolic Sitting 124 mmHg Ra, large cuff BP Diastolic Sitting 76 mmHg Ra, large cuff 10/13/2020 9:39am Weight 167.00 lb Home Weight 168lb home weight Height 67 inches 5'7" BMI (Body Mass Index) 26.2 kg/m2 Heart Rate 69 /min BP Systolic Sitting 133 mmHg CBP, adult cuff/Ra BP Diastolic Sitting 75 mmHg CBP, adult cuff/Ra Results Test Acquired Date Facility Test Result H/L Range Note Laboratory test finding 04/10/2021 [facility] - not interf aced (315)- - Magnesium Level 1.7 Low 1.8-2.4 BMP 02/27/2021 [facility] - not interfaced (315)- - Calcium Ser/Plasma Mass/Vol 7.9 Sodium 147 Carbon Dioxide Ser/Plasm 26 Chloride Serum/Plasma 114 Potassium 3.6 Glucose 87 83-110 Blood Urea Nitrogen 22 High 7-18 Creatinine 0.90 0.6-1.0 G F R >60.0 CBC without Differential 02/26/2021 [facility] - not inter faced (315)- - White Blood Count 11.9 High 5.0-10.0 Red Blood Count 3.96 Low 4.00-5.40 Platelets 178 172-450 Hemoglobin 12.7 Hematocrit 39.4 CMP 02/26/2021 [facility] - not interfaced (315)- - Albumin Serum/Plasma 2.7 Alt - SGPT 31 Calcium Ser/Plasma Mass/Vol 7.9 Carbon Dioxide Ser/Plasm 23 Chloride Serum/Plasma 111 Alkaline Phosphatase 40 Potassium 5.2 Protein Total 6.2 Sodium 140 Ast - Sgot 21 BUN - Urea Nitrogen 40 Glucose 154 High 83-110 Creatinine For GFR 1.45 Procedures Date Code Description Status 06/03/2021 43927 Remote Pacemaker/Cardio-Defibril lator Data Acquistion Completed 06/03/2021 42535 Remote Interrogation Device Eval Pacemaker System Up To 90 Days Completed 05/28/2021 67029 Office/Outpatient Established Mo d MDM 30-39 Min Completed 05/28/2021 44089 ECG 12-Lead Completed 03/04/2021 44428 Pacer Interrogation Any Leads Co mpleted Medical Devices Description No Information Available Encounters Type Date Location Provider Dx Diagnosis Office Visit 05/28/2021 3:00p Main Office POONAM Dockery I48 .0 Paroxysmal atrial fibrillation I10 Essential (primary) hyperten sarkis Z95.0 Presence of cardiac pacemake r I44.2 Atrioventricular block, comp lete E78.2 Mixed hyperlipidemia R94.31 Abnormal electrocardiogram [ ECG] [EKG] Z71.3 Dietary counseling and surve illance Assessments Date Code Description Provider 06/03/2021 Z95.0 Presence of cardiac pacemaker [facility] 05/28/2021 I48.0 Paroxysmal atrial fibrillation C POONAM Hanna 05/28/2021 I10 Essential (primary) hypertension POONAM Dockery 05/28/2021 Z95.0 Presence of cardiac pacemaker Ca POONAM Avila 05/28/2021 I44.2 Atrioventricular block, complete POONAM Dockery 05/28/2021 E78.2 Mixed hyperlipidemia POONAM Mares 05/28/2021 R94.31 Abnormal electrocardiogram [ECG] [EKG] POONAM Dockery 05/28/2021 Z71.3 Dietary counseling and surveilla nce POONAM Dockery 03/04/2021 Z95.0 Presence of cardiac pacemaker Ca POONAM Avila Plan of Treatment Future Appointment(s):* 09/02/2021 7:00 am - [facility] at Main Office * 11/27/2021 2:30 pm - POONAM Dockery at Main Office 05/28/2021 - POONAM Dockery* I48.0 Paroxysmal atrial fibrillation* Recommendations:* Continue Xarelto at the current dosage Patient agreeable to contact us with any episodes of tachycardia or palpitations * I10 Essential (primary) hypertension* New Labs:* BMP, Ordered: 05/28/21 * Recommendations:* Continue amlodipine and lisinopril at the current dosages Advised patient to please monitor blood pressures at home and to alert our office for readings >140/>90 or <110/<60 * Z95.0 Presence of cardiac pacemaker* Recommendations:* Continue 91 day home/12 month office pacer checks * I44.2 Atrioventricular block, complete * E78.2 Mixed hyperlipidemia* New Labs:* Lipid Panel, Ordered: 05/28/21 * Recommendations:* Continue rosuvastatin and Vascepa at the current dosages * R94.31 Abnormal electrocardiogram [ECG] [EKG]* Recommendations:* No further evaluation is needed at this time. * Z71.3 Dietary counseling and surveillance* Recommendations:* Recommended for patient to follow a more whole food diet. Advised patient to avoid overly processed foods and packaged foods. Advised patient to avoid sodas, juices and other liquid calories. Recommended at least 30 minutes of exercise 3 days a week. * All * Follow up:* Follow up in 6 months Functional Status Functional Condition Comment Date Status Independent with all ADL's Activ e Mental Status Description No Information Available Referrals Description No Information Available
--- OUTSIDE RECORDS SUMMARY | 2021-06-09 14:34 | CCD | Continuity of Care Document ---
Author Author Nadine TINSLEY Organization Unknown Address [address] [place] [address], [place] [address] Phone [phone] Care Team Providers Care Rubber Compounder Formulator Name Role Phone Tri Enciso MD AUTM [phone] Lynn Preciado MD AUTM [phone] Venkata Philip MD AUTM [phone] Rach Baez MD AUTM [phone] Problems Active Problems Provider Date Pacemaker battery [...] H/L Range Note Laboratory test finding 04/10/2021 [facility] - not interf aced (315)- - Magnesium Level 1.7 Low 1.8-2.4 BMP 02/27/2021 [facility] - not interfaced (315)- - Calcium Ser/Plasma Mass/Vol 7.9 Sodium 147 Carbon Dioxide Ser/Plasm 26 Chloride Serum/Plasma 114 Potassium 3.6 Glucose 87 83-110 Blood Urea Nitrogen 22 High 7-18 Creatinine 0.90 0.6-1.0 G F R >60.0 CBC without Differential 02/26/2021 [facility] - not inter faced (315)- - White Blood Count 11.9 High 5.0-10.0 Red Blood Count 3.96 Low 4.00-5.40 Platelets 178 172-450 Hemoglobin 12.7 Hematocrit 39.4 CMP 02/26/2021 [facility] - not interfaced (315)- - Albumin Serum/Plasma 2.7 Alt - SGPT 31 Calcium Ser/Plasma Mass/Vol 7.9 Carbon Dioxide Ser/Plasm 23 Chloride Serum/Plasma 111 Alkaline Phosphatase 40 Potassium 5.2 Protein Total 6.2 Sodium 140 Ast - Sgot 21 BUN - Urea Nitrogen 40 Glucose 154 High 83-110 Creatinine For GFR 1.45 Procedures Date Code Description Status 03/04/2021 23556 Pacer Interrogation Any Leads Co mpleted 12/03/2020 66496 Remote Pacemaker/Cardio-Defibril lator Data Acquistion Completed 12/03/2020 59764 Remote Interrogation Device Eval Pacemaker System Up To 90 Days Completed Medical Devices Description No Information Available Encounters Description No Information Available Assessments Date Code Description Provider 05/28/2021 I48.0 Paroxysmal atrial fibrillation C POONAM Hanna 05/28/2021 I10 Essential (primary) hypertension POONAM Dockery 05/28/2021 Z95.0 Presence of cardiac pacemaker Ca POONAM Avila 05/28/2021 I44.2 Atrioventricular block, complete POONAM Dockery 05/28/2021 E78.2 Mixed hyperlipidemia POONAM Mares 05/28/2021 R94.31 Abnormal electrocardiogram [ECG] [EKG] POONAM Dockery 05/28/2021 Z71.3 Dietary counseling and surveilla nce POONAM Dockery 03/04/2021 Z95.0 Presence of cardiac pacemaker POONAM Puga 12/03/2020 Z95.0 Presence of cardiac pacemaker [facility] Plan of Treatment Future Appointment(s):* 11/27/2021 2:30 pm - POONAM Dockery at Main Office * 06/03/2021 7:00 am - [facility] at Main Office 05/28/2021 - POONAM Dockery* [...]
--- OUTSIDE RECORDS SUMMARY | 2021-06-09 14:34 | CCD | Continuity of Care Document ---
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 Andrea Gabriel MD Onset: 2019 Social History Type Date Description Comments Sex Unknown ETOH Use Does not consume alcohol Tobacco Use Start: Unknown End: Unknown Patient is a former smoker smoked for about 30 years, stopped in 1988 Smoking Status Reviewed: 10/13/20 Patient is a former smoker sm oked for about 30 years, stopped in 1988 Exercise Type/Frequency Does housework sporadica lly Exercise Limitations Back Pain Exercise Limitations Other Pain in raul ateral legs Allergies and adverse reactions Active Allergies Criticality Reaction | Severity Comments Date Codeine Unable to assess criticality 01/10/2020 Morphine Unable to assess criticality 01/10/2020 Gabapentin Unable to assess criticality Dizziness 03/05/2020 Tramadol Unable to assess criticality Constipation 03/05/2020 Medications Active Medications SIG Qnty Indications Ordering Provide r Date Vascepa 1gm Capsules 2 caps by mouth [...] 1 by mouth every day Unknown 01/09/2020 Alprazolam 0.5mg Tablets 1 by mouth twice a day as needed mdd=2 Unknown 01/09/2020 Lisinopril 5mg Tablets 1/2 by [...] Available Vital Signs Date Vital Result Comment 10/13/2020 9:39am Weight 167.00 lb Home Weight 168lb home weight Height 67 inches 5'7" BMI (Body Mass Index) 26.2 kg/m2 Heart Rate 69 /min BP Systolic Sitting 133 mmHg CBP, adult cuff/Ra BP Diastolic Sitting 75 mmHg CBP, adult cuff/Ra 03/05/2020 10:51am Weight 162.00 lb Home Weight 164lb home weight Height 67 inches 5'7" BMI (Body Mass Index) 25.4 kg/m2 Heart Rate 71 /min BP Systolic Sitting 135 mmHg CBP, adult cuff/Ra BP Diastolic Sitting 78 mmHg CBP, adult cuff/Ra Results Test Acquired Date Facility Test Result H/L Range Note Laboratory test finding 04/10/2021 [facility] - not interf aced (315)- - Magnesium Level 1.7 Low 1.8-2.4 BMP 02/27/2021 [facility] - not interfaced (315)- - Calcium Ser/Plasma Mass/Vol 7.9 Sodium 147 Carbon Dioxide Ser/Plasm 26 Chloride Serum/Plasma 114 Potassium 3.6 Glucose 87 83-110 Blood Urea Nitrogen 22 High 7-18 Creatinine 0.90 0.6-1.0 G F R >60.0 CBC without Differential 02/26/2021 [facility] - not inter faced (315)- - White Blood Count 11.9 High 5.0-10.0 Red Blood Count 3.96 Low 4.00-5.40 Platelets 178 172-450 Hemoglobin 12.7 Hematocrit 39.4 CMP 02/26/2021 [facility] - not interfaced (315)- - Albumin Serum/Plasma 2.7 Alt - SGPT 31 Calcium Ser/Plasma Mass/Vol 7.9 Carbon Dioxide Ser/Plasm 23 Chloride Serum/Plasma 111 Alkaline Phosphatase 40 Potassium 5.2 Protein Total 6.2 Sodium 140 Ast - Sgot 21 BUN - Urea Nitrogen 40 Glucose 154 High 83-110 Creatinine For GFR 1.45 Procedures Date Code Description Status 03/04/2021 96061 Pacer Interrogation Any Leads Co mpleted 12/03/2020 56456 Remote Pacemaker/Cardio-Defibril lator Data Acquistion Completed 12/03/2020 86516 Remote Interrogation Device Eval Pacemaker System Up To 90 Days Completed Medical Devices Description No Information Available Encounters Description No Information Available Assessments Date Code Description Provider 03/04/2021 Z95.0 Presence of cardiac pacemaker POONAM Puga 12/03/2020 Z95.0 Presence of cardiac pacemaker [facility] Plan of Treatment Future Appointment(s):* 06/03/2021 7:00 am - [facility] at Main Office 10/13/2020 - Andrea Gabriel MD* I48.0 Paroxysmal atrial fibrillation* Recommendations:* Echocardiogram Doppler was ordered for further evaluation. Continue Xarelto at the current dosage. * I10 Essential (primary) hypertension* Recommendations:* Continue lisinopril, amlodipine, hydrochlorothiazide at the current dosages. * E78.2 Mixed hyperlipidemia* Recommendations:* Fasting lipid panel was ordered. Continue rosuvastatin Vascepa at the current dosages. Patient was encouraged to follow a low-fat, whole-food, plant-based diet. * E66.3 Overweight* Recommendations:* Nutrition advice as above. * Z71.3 Dietary counseling and surveillance * All * Follow up:* Follow-up in 6 months. Functional Status Functional Condition Comment Date Status Independent with all ADL's Activ e Mental Status Description No Information Available Referrals Description No Information Available
--- OUTSIDE RECORDS SUMMARY | 2021-06-09 14:34 | CCD | Continuity of Care Document ---
Author Author Nadine TINSLEY Organization Unknown Address [address] [place] [address], [place] [address] Phone [phone] Care Team Providers Care Handkerchief Folder Name Role Phone Tri Enciso MD AUTM [phone] Lynn Preciado MD AUTM [phone] Venkata Philip MD AUTM [phone] Rach Baez MD AUTM [phone] Problems Active Problems Provider Date Pacemaker battery [...] 1.45 Procedures Date Code Description Status 03/04/2021 84350 Pacer Interrogation Any Leads Co mpleted 12/03/2020 88631 Remote Pacemaker/Cardio-Defibril lator Data Acquistion Completed 12/03/2020 41943 Remote Interrogation Device Eval Pacemaker System Up [...]
--- OUTSIDE RECORDS SUMMARY | 2021-06-09 14:34 | CCD | Continuity of Care Document ---
Author Author Nadine TINSLEY Organization Unknown Address [address] [place] [address], [place] [address] Phone [phone] Care Team Providers Care Salt Plant Operator Name Role Phone Tri Enciso MD AUTM [phone] Lynn Preciado MD AUTM [phone] Venkata Philip MD AUTM [phone] Rach Baez MD AUTM [phone] Problems Active Problems Provider Date Pacemaker battery [...] H/L Range Note Laboratory test finding 04/10/2021 [facility] - not interf aced (315)- - Magnesium Level 1.7 Low 1.8-2.4 BMP 02/27/2021 [facility] - not interfaced (315)- - Calcium Ser/Plasma Mass/Vol 7.9 Sodium 147 Carbon Dioxide Ser/Plasm 26 Chloride Serum/Plasma 114 Potassium 3.6 Glucose 87 83-110 Blood Urea Nitrogen 22 High 7-18 Creatinine 0.90 0.6-1.0 G F R >60.0 CBC without Differential 02/26/2021 [facility] - not inter faced (315)- - White Blood Count 11.9 High 5.0-10.0 Red Blood Count 3.96 Low 4.00-5.40 Platelets 178 172-450 Hemoglobin 12.7 Hematocrit 39.4 CMP 02/26/2021 [facility] - not interfaced (315)- - Albumin Serum/Plasma 2.7 Alt - SGPT 31 Calcium Ser/Plasma Mass/Vol 7.9 Carbon Dioxide Ser/Plasm 23 Chloride Serum/Plasma 111 Alkaline Phosphatase 40 Potassium 5.2 Protein Total 6.2 Sodium 140 Ast - Sgot 21 BUN - Urea Nitrogen 40 Glucose 154 High 83-110 Creatinine For GFR 1.45 Procedures Date Code Description Status 03/04/2021 94488 Pacer Interrogation Any Leads Co mpleted 12/03/2020 19189 Remote Pacemaker/Cardio-Defibril lator Data Acquistion Completed 12/03/2020 79191 Remote Interrogation Device Eval Pacemaker System Up [...]
--- OUTSIDE RECORDS SUMMARY | 2021-06-09 14:34 | CCD ---
Continuity of Care Document (CCD) Created on: 05/28/2021 Nadine Kendall External Reference #: [id number] : [id number] Sex: Female Author Author Nadine TINSLEY Organization Unknown Address [address] [place] [address], [place] [address] Phone [phone] Care Team Providers Care Poultry Husbandry Teacher Name Role Phone Tri Enciso MD AUTM [phone] Lynn Preciado MD AUTM [phone] Venkata Philip MD AUTM [phone] Rach Baez MD AUTM [phone] Problems Active Problems Provider Date Pacemaker battery [...] H/L Range Note Laboratory test finding 04/10/2021 [facility] - not interf aced (315)- - Magnesium Level 1.7 Low 1.8-2.4 BMP 02/27/2021 [facility] - not interfaced (315)- - Calcium Ser/Plasma Mass/Vol 7.9 Sodium 147 Carbon Dioxide Ser/Plasm 26 Chloride Serum/Plasma 114 Potassium 3.6 Glucose 87 83-110 Blood Urea Nitrogen 22 High 7-18 Creatinine 0.90 0.6-1.0 G F R >60.0 CBC without Differential 02/26/2021 [facility] - not inter faced (315)- - White Blood Count 11.9 High 5.0-10.0 Red Blood Count 3.96 Low 4.00-5.40 Platelets 178 172-450 Hemoglobin 12.7 Hematocrit 39.4 CMP 02/26/2021 [facility] - not interfaced (315)- - Albumin Serum/Plasma 2.7 Alt - SGPT 31 Calcium Ser/Plasma Mass/Vol 7.9 Carbon Dioxide Ser/Plasm 23 Chloride Serum/Plasma 111 Alkaline Phosphatase 40 Potassium 5.2 Protein Total 6.2 Sodium 140 Ast - Sgot 21 BUN - Urea Nitrogen 40 Glucose 154 High 83-110 Creatinine For GFR 1.45 Procedures Date Code Description Status 03/04/2021 27301 Pacer Interrogation Any Leads Co mpleted 12/03/2020 51052 Remote Pacemaker/Cardio-Defibril lator Data Acquistion Completed 12/03/2020 97689 Remote Interrogation Device Eval Pacemaker System Up [...]
--- OUTSIDE RECORDS SUMMARY | 2021-06-09 14:34 | CCD | Continuity of Care Document ---
Author Author Nadine TINSLEY Organization Unknown Address [address] [place] [address], [place] [address] Phone [phone] Care Team Providers Care Welt Trimming Machine Operator Name Role Phone Tri Enciso MD AUTM [phone] Lynn Preciado MD AUTM [phone] Venkata Philip MD AUTM [phone] Rach Baez MD AUTM [phone] Problems Active Problems Provider Date Pacemaker battery [...] H/L Range Note Laboratory test finding 04/10/2021 [facility] - not interf aced (315)- - Magnesium Level 1.7 Low 1.8-2.4 BMP 02/27/2021 [facility] - not interfaced (315)- - Calcium Ser/Plasma Mass/Vol 7.9 Sodium 147 Carbon Dioxide Ser/Plasm 26 Chloride Serum/Plasma 114 Potassium 3.6 Glucose 87 83-110 Blood Urea Nitrogen 22 High 7-18 Creatinine 0.90 0.6-1.0 G F R >60.0 CBC without Differential 02/26/2021 [facility] - not inter faced (315)- - White Blood Count 11.9 High 5.0-10.0 Red Blood Count 3.96 Low 4.00-5.40 Platelets 178 172-450 Hemoglobin 12.7 Hematocrit 39.4 CMP 02/26/2021 [facility] - not interfaced (315)- - Albumin Serum/Plasma 2.7 Alt - SGPT 31 Calcium Ser/Plasma Mass/Vol 7.9 Carbon Dioxide Ser/Plasm 23 Chloride Serum/Plasma 111 Alkaline Phosphatase 40 Potassium 5.2 Protein Total 6.2 Sodium 140 Ast - Sgot 21 BUN - Urea Nitrogen 40 Glucose 154 High 83-110 Creatinine For GFR 1.45 Procedures Date Code Description Status 03/04/2021 16418 Pacer Interrogation Any Leads Co mpleted 12/03/2020 32428 Remote Pacemaker/Cardio-Defibril lator Data Acquistion Completed 12/03/2020 87252 Remote Interrogation Device Eval Pacemaker System Up [...] Clinic at Main Office 05/28/2021 - POONAM Dokcery* I48.0 Paroxysmal atrial fibrillation* Recommendations:* Continue Xarelto [...]
--- OUTSIDE RECORDS SUMMARY | 2021-06-09 14:34 | CCD | Continuity of Care Document ---
Author Author Nadine TINSLEY Organization Unknown Address [address] [place] [address], [place] [address] Phone [phone] Care Team Providers Care Financial Sales Professional Name Role Phone Tri Enciso MD AUTM [phone] Lynn Preciado MD AUTM [phone] Venkata Philip MD AUTM [phone] Rach Baez MD AUTM [phone] Problems Active Problems Provider Date Pacemaker battery [...] H/L Range Note Laboratory test finding 04/10/2021 [facility] - not interf aced (315)- - Magnesium Level 1.7 Low 1.8-2.4 BMP 02/27/2021 [facility] - not interfaced (315)- - Calcium Ser/Plasma Mass/Vol 7.9 Sodium 147 Carbon Dioxide Ser/Plasm 26 Chloride Serum/Plasma 114 Potassium 3.6 Glucose 87 83-110 Blood Urea Nitrogen 22 High 7-18 Creatinine 0.90 0.6-1.0 G F R >60.0 CBC without Differential 02/26/2021 [facility] - not inter faced (315)- - White Blood Count 11.9 High 5.0-10.0 Red Blood Count 3.96 Low 4.00-5.40 Platelets 178 172-450 Hemoglobin 12.7 Hematocrit 39.4 CMP 02/26/2021 [facility] - not interfaced (315)- - Albumin Serum/Plasma 2.7 Alt - SGPT 31 Calcium Ser/Plasma Mass/Vol 7.9 Carbon Dioxide Ser/Plasm 23 Chloride Serum/Plasma 111 Alkaline Phosphatase 40 Potassium 5.2 Protein Total 6.2 Sodium 140 Ast - Sgot 21 BUN - Urea Nitrogen 40 Glucose 154 High 83-110 Creatinine For GFR 1.45 Procedures Date Code Description Status 05/28/2021 42303 Office/Outpatient Established Mo d MDM 30-39 Min Completed 05/28/2021 88669 ECG 12-Lead Completed 03/04/2021 72943 Pacer Interrogation Any Leads Co mpleted 12/03/2020 62501 Remote Pacemaker/Cardio-Defibril lator Data Acquistion Completed 12/03/2020 81457 Remote Interrogation Device Eval Pacemaker System Up [...] surve illance Assessments Date Code Description Provider 05/28/2021 I48.0 [...]
--- OUTSIDE RECORDS SUMMARY | 2021-06-09 14:35 | CCD | Continuity of Care Document ---
Author Organization Unknown Address Unknown Phone Unavailable Care Team Providers Care Developmental Electronics Assembler Name Role Phone Tri Enciso MD AUTM [phone] Lynn Preciado MD AUTM [phone] Venkata Philpi MD AUTM [phone] Rach Baez MD AUTM [phone] Problems Active Problems Provider Date Pacemaker battery [...] Date Facility Test Result H/L Range Note CBC without Differential 02/26/2021 [facility] - not inter faced (315)- - White Blood Count 11.9 High 5.0-10.0 Red Blood Count 3.96 Low 4.00-5.40 Platelets 178 172-450 Hemoglobin 12.7 Hematocrit 39.4 CMP 02/26/2021 [facility] - not interfaced (315)- - Albumin Serum/Plasma 2.7 Alt - SGPT 31 Calcium Ser/Plasma Mass/Vol 7.9 Carbon Dioxide Ser/Plasm 23 Chloride Serum/Plasma 111 Alkaline Phosphatase 40 Potassium 5.2 Protein Total 6.2 Sodium 140 Ast - Sgot 21 BUN - Urea Nitrogen 40 Glucose 154 High 83-110 Creatinine For GFR 1.45 Procedures Date Code Description Status 03/04/2021 68515 Pacer Interrogation Any Leads Co mpleted 12/03/2020 03100 Remote Pacemaker/Cardio-Defibril lator Data Acquistion Completed 12/03/2020 64822 Remote Interrogation Device Eval Pacemaker System Up To 90 Days Completed Medical Devices Description No Information Available Encounters Description No Information Available Assessments Date Code Description Provider 03/04/2021 Z95.0 Presence of cardiac pacemaker Ca POONAM Avila 12/03/2020 Z95.0 Presence of cardiac pacemaker Pa [...]
--- OUTSIDE RECORDS SUMMARY | 2021-06-09 14:35 | CCD | Continuity of Care Document ---
Author Organization Unknown Address Unknown Phone Unavailable Care Team Providers Care Food Beverage Manager Name Role Phone Tri Enciso MD AUTM [phone] Lynn Preciado MD AUTM [phone] Venkata Philip MD AUTM [phone] Rach Baez MD AUTM [phone] Problems Active Problems Provider Date Pacemaker battery [...] Date Facility Test Result H/L Range Note BMP 02/27/2021 [facility] - not interfaced (315)- - Calcium Ser/Plasma Mass/Vol 7.9 Sodium 147 Carbon Dioxide Ser/Plasm 26 Chloride Serum/Plasma 114 Potassium 3.6 Glucose 87 83-110 Blood Urea Nitrogen 22 High 7-18 Creatinine 0.90 0.6-1.0 G F R >60.0 CBC without Differential 02/26/2021 [facility] - not inter faced (315)- - White Blood Count 11.9 High 5.0-10.0 Red Blood Count 3.96 Low 4.00-5.40 Platelets 178 172-450 Hemoglobin 12.7 Hematocrit 39.4 CMP 02/26/2021 [facility] - not interfaced (315)- - Albumin Serum/Plasma 2.7 Alt - SGPT 31 Calcium Ser/Plasma Mass/Vol 7.9 Carbon Dioxide Ser/Plasm 23 Chloride Serum/Plasma 111 Alkaline Phosphatase 40 Potassium 5.2 Protein Total 6.2 Sodium 140 Ast - Sgot 21 BUN - Urea Nitrogen 40 Glucose 154 High 83-110 Creatinine For GFR 1.45 Procedures Date Code Description Status 03/04/2021 02423 Pacer Interrogation Any Leads Co mpleted 12/03/2020 83895 Remote Pacemaker/Cardio-Defibril lator Data Acquistion Completed 12/03/2020 29819 Remote Interrogation Device Eval Pacemaker System Up [...]
--- OUTSIDE RECORDS SUMMARY | 2021-06-09 14:35 | CCD ---
Author Author [facility] Organization [facility] Address Unknown Phone Unavailable Care Team Providers Care Wound Care Nurse Name Role Phone Tyler Baez MD Unavailable Unavailable NestorTyler MD Unavailable Unavailable Nestor, Tyler Loyd MD Unavailable Unavailable Nestor, Tyler Loyd MD Unavailable Unavailable Nestor, Tyler Loyd MD Unavailable Unavailable Nestor, Tyler Loyd MD Unavailable Unavailable Nestor, Tyler Loyd MD Unavailable Unavailable Nestor, Tyler Loyd MD Unavailable Unavailable Nestor, Tyler Loyd MD Unavailable Unavailable Nestor, Tyler Loyd MD Unavailable Unavailable Nestor, Tyler Loyd MD Unavailable Unavailable Nestor, Tyler Loyd MD Unavailable Unavailable Nestor, Tyler Loyd MD Unavailable Unavailable Nestor, Tyler Loyd MD Unavailable Unavailable Nestor, Tyler Loyd MD Unavailable Unavailable NestorTyler MD Unavailable Unavailable Nestor, Tyler Loyd MD Unavailable Unavailable Nestor, Tyler Loyd MD Unavailable Unavailable Nestor, Tyler Loyd MD Unavailable Unavailable Nestor, Tyler Loyd MD Unavailable Unavailable Nestor, Tyler Loyd MD Unavailable Unavailable Nestor, Tyler Loyd MD Unavailable Unavailable Nestor, Tyler Loyd MD Unavailable Unavailable Nestor, Tyler Loyd MD Unavailable Unavailable Nestor, Tyler Loyd MD Unavailable Unavailable Nestor, Tyler Loyd MD Unavailable Unavailable Nestor, Tyler Loyd MD Unavailable Unavailable Nestor, Tyler Loyd MD Unavailable Unavailable Nestor, Tyler Loyd MD Unavailable Unavailable Nestor, Tyler Loyd MD Unavailable Unavailable Nestor, Tyler Loyd MD Unavailable Unavailable Nestor, Tyler Loyd MD Unavailable Unavailable Nestor, Tyler Loyd MD Unavailable Unavailable Nestor, Tyler Loyd MD Unavailable Unavailable Nestor, Tyler Loyd MD Unavailable Unavailable Nestor, Tyler Loyd MD Unavailable Unavailable Nestor, Tyler Loyd MD Unavailable Unavailable Nestor, Tyler Loyd MD Unavailable Unavailable Nestor, Tyler Loyd MD Unavailable Unavailable Nestor, Tyler Loyd MD Unavailable Unavailable Nestor, Tyler Loyd MD Unavailable Unavailable Nestor, Tyler Loyd MD Unavailable Unavailable Nestor, Tyler Loyd MD Unavailable Unavailable Nestor, Tyler Loyd MD Unavailable Unavailable Nsetor, Tyler Loyd MD Unavailable Unavailable Nestor, Tyler Loyd MD Unavailable Unavailable Nestor, Tyler Loyd MD Unavailable Unavailable Nestor, Tyler Loyd MD Unavailable Unavailable Nestor, Tyler Loyd MD Unavailable Unavailable Nestor, Tyler Loyd MD Unavailable Unavailable Nestor, Tyler Loyd MD Unavailable Unavailable Nestor, Tyler Loyd MD Unavailable Unavailable Nestor, Tyler Loyd MD Unavailable Unavailable Nestor, Tyler Loyd MD Unavailable Unavailable Nestor, Tyler Loyd MD Unavailable Unavailable Nestor, Tyler Loyd MD Unavailable Unavailable Nestor, Tyler Loyd MD Unavailable Unavailable Nestor, Tyler Loyd MD Unavailable Unavailable Nestor, Tyler Loyd MD Unavailable Unavailable Nestor, Tyler Loyd MD Unavailable Unavailable Nestor, Tyler Loyd MD Unavailable Unavailable Nestor, Tyler Loyd MD Unavailable Unavailable Nestor, Tyler Loyd MD Unavailable Unavailable Nestor, Tyler Loyd MD Unavailable Unavailable Nestor, Tyler Loyd MD Unavailable Unavailable Nestor, Tyler Loyd MD Unavailable Unavailable Nestor, Tyler Loyd MD Unavailable Unavailable Nestor, Tyler Loyd MD Unavailable Unavailable Nestor, Tyler Loyd MD Unavailable Unavailable Nestor, Tyler Loyd MD Unavailable Unavailable Nestor, Tyler Loyd MD Unavailable Unavailable Nestor, Tyler Loyd MD Unavailable Unavailable Nestor, Tyler Loyd MD Unavailable Unavailable Nestor, Tyler Loyd MD Unavailable Unavailable Nestor, Tyler Loyd MD Unavailable Unavailable Nestor, Tyler Loyd MD Unavailable Unavailable Nestor, Tyler Loyd MD Unavailable Unavailable ALVINA, L VAUGHN PA Unavailable Unavailable ALVINA, L VAUGHN PA Unavailable Unavailable ALVINA, L VAUGHN PA Unavailable Unavailable ALVINA, L VAUGHN PA Unavailable Unavailable ALVINA, L VAUGHN PA Unavailable Unavailable ALVINA, L VAUGHN PA Unavailable Unavailable ALVINA, L VAUGHN PA Unavailable Unavailable ALVINA, L VAUGHN PA Unavailable Unavailable ALVINA, L VAUGHN PA Unavailable Unavailable ALVINA, L VAUGHN PA Unavailable Unavailable ALVINA, L VAUGHN PA Unavailable Unavailable ALVINA, L VAUGHN PA Unavailable Unavailable ALVINA, L VAUGHN PA Unavailable Unavailable ALVINA, L VAUGHN PA Unavailable Unavailable ALVINA, L VAUGHN PA Unavailable Unavailable ALVINA, L VAUGHN PA Unavailable Unavailable ANTECOL, Usman MANCILLA MD Unavailable Unavailable ANTECOL, Usman MANCILLA MD Unavailable Unavailable ANTECOL, Usman MANCILLA MD Unavailable Unavailable ANTECOL, Usman MANCILLA MD Unavailable Unavailable ANTECOL, Usman MANCILLA MD Unavailable Unavailable ANTECOL, Usman MANCILLA MD Unavailable Unavailable ANTECOL, Usman MANCILLA MD Unavailable Unavailable ANTECOL, Usman MANCILLA MD Unavailable Unavailable ANTECOL, Usman MANCILLA MD Unavailable Unavailable ANTECOL, Usman MANCILLA MD Unavailable Unavailable ANTECOL, Usman MANCILLA MD Unavailable Unavailable ANTECOL, Usman MANCILLA MD Unavailable Unavailable ANTECOL, Usman MANCILLA MD Unavailable Unavailable ANTECOL, Usman MANCILLA MD Unavailable Unavailable ANTECOL, Usman MANCILLA MD Unavailable Unavailable ANTECOL, Usman MANCILLA MD Unavailable Unavailable ANTECOL, Usman MANCILLA MD Unavailable Unavailable ANTECOL, Usman MANCILLA MD Unavailable Unavailable ANTECOL, Usman MANCILLA MD Unavailable Unavailable ANTECOL, Usman MANCILLA MD Unavailable Unavailable ANTECOL, Usman MANCILLA MD Unavailable Unavailable ANTECOL, Usman MANCILLA MD Unavailable Unavailable ANTECOL, Usman MANCILLA MD Unavailable Unavailable ANTECOL, Usman MANCILLA MD Unavailable Unavailable ANTECOL, Usman MANCILLA MD Unavailable Unavailable ANTECOL, Usman MANCILLA MD Unavailable Unavailable ANTECOL, Usman MANCILLA MD Unavailable Unavailable ANTECOL, Usman MANCILLA MD Unavailable Unavailable ANTECOL, Usman MANCILLA MD Unavailable Unavailable ANTECOL, Usman MANCILLA MD Unavailable Unavailable ANTECOL, Usman MANCILLA MD Unavailable Unavailable ANTECOL, Usman MANCILLA MD Unavailable Unavailable ANTECOL, Usman MANCILLA MD Unavailable Unavailable ANTECOL, Usman MANCILLA MD Unavailable Unavailable ANTECOL, Usman MANCILLA MD Unavailable Unavailable ANTECOL, Usman MANCILLA MD Unavailable Unavailable ANTECOL, Usman MANCILLA MD Unavailable Unavailable ANTECOL, Usman MANCILLA MD Unavailable Unavailable ANTECOL, Usman MANCILLA MD Unavailable Unavailable ANTECOL, Usman MANCILLA MD Unavailable Unavailable ANTECOL, Usman MANCILLA MD Unavailable Unavailable ANTECOL, Usman MANCILLA MD Unavailable Unavailable ANTECOL, Usman MANCILLA MD Unavailable Unavailable ANTECOL, Usman MANCILLA MD Unavailable Unavailable ANTECOL, Usman MANCILLA MD Unavailable Unavailable ANTECOL, Usman MANCILLA MD Unavailable Unavailable ANTECOL, Usman MANCILLA MD Unavailable Unavailable ANTECOL, Usman MANCILLA MD Unavailable Unavailable ANTECOL, Usman MANCILLA MD Unavailable Unavailable ANTECOL, Usman MANCILLA MD Unavailable Unavailable ANTECOL, Usman MANCILLA MD Unavailable Unavailable ANTECOL, Usman MANCILLA MD Unavailable Unavailable ANTECOL, Usman MANCILLA MD Unavailable Unavailable ANTECOL, Usman MANCILLA MD Unavailable Unavailable RING, K RAMON PA Unavailable Unavailable RING, K RAMON PA Unavailable Unavailable RING, K RAMON PA Unavailable Unavailable RING, K RAMON PA Unavailable Unavailable RING, K RAMON PA Unavailable Unavailable RING, K RAMON PA Unavailable Unavailable RING, K RAMON PA Unavailable Unavailable RING, K RAMON PA Unavailable Unavailable RING, K RAMON PA Unavailable Unavailable RING, K RAMON PA Unavailable Unavailable RING, K RAMON PA Unavailable Unavailable RING, K RAMON PA Unavailable Unavailable RING, K RAMON PA Unavailable Unavailable RING, K RAMON PA Unavailable Unavailable RING, K RAMON PA Unavailable Unavailable RING, K RAMON PA Unavailable Unavailable RING, K RAMON PA Unavailable Unavailable RING, K RAMON PA Unavailable Unavailable RING, K RAMON PA Unavailable Unavailable RING, K RAMON PA Unavailable Unavailable RING, K RAMON PA Unavailable Unavailable Darrel, Mariae Fabiola METAL DOOR ASSEMBLER Unavailable Unavailable [place], Mariae [place] METAL DOOR ASSEMBLER Unavailable Unavailable [place], Mariae Fabiola METAL DOOR ASSEMBLER Unavailable Unavailable Darrel, Mariae Fabiola METAL DOOR ASSEMBLER Unavailable Unavailable [place], Mariae Fabiola METAL DOOR ASSEMBLER Unavailable Unavailable Darrel, Mariae Fabiola METAL DOOR ASSEMBLER Unavailable Unavailable [place], Mariae Fabiola METAL DOOR ASSEMBLER Unavailable Unavailable [place], Mariae [place] METAL DOOR ASSEMBLER Unavailable Unavailable [place], Mariae Fabiola METAL DOOR ASSEMBLER Unavailable Unavailable Darrel, Mariae Fabiola METAL DOOR ASSEMBLER Unavailable Unavailable Darrel, Mariae [place] METAL DOOR ASSEMBLER Unavailable Unavailable [place], Mariae Fabiola METAL DOOR ASSEMBLER Unavailable Unavailable Darrel, Mariae [place] METAL DOOR ASSEMBLER Unavailable Unavailable Darrel, Bubba Hicks METAL DOOR ASSEMBLER Unavailable Unavailable [place], Bubba Hicks METAL DOOR ASSEMBLER Unavailable Unavailable Darrel, Bubba Archuletaica METAL DOOR ASSEMBLER Unavailable Unavailable [place], Bubba Hicks METAL DOOR ASSEMBLER Unavailable Unavailable Re-disclosure Warning The records that you are about to access may contain information from federally-assisted alcohol or drug abuse programs. If such information is present, then the following federally mandated warning applies: This information has been disclosed to you from records protected by federal confidentiality rules (42 CFR part 2). The federal rules prohibit you from making any further disclosure of this information unless further disclosure is expressly permitted by the written consent of the person to whom it pertains or as otherwise permitted by 42 CFR part 2. A general authorization for the release of medical or other information is NOT sufficient for this purpose. The Federal rules restrict any use of the information to criminally investigate or prosecute any alcohol or drug abuse patient.The records that you are about to access may contain highly sensitive health information, the redisclosure of which is protected by Article 27-F of the [facility] Public Health law. If you continue you may have access to information: Regarding HIV / AIDS; Provided by facilities licensed or operated by the [facility] Office of Mental Health; or Provided by the [facility] Office for People With Developmental Disabilities. If such information is present, then the following [facility] mandated warning applies: This information has been disclosed to you from confidential records which are protected by state law. State law prohibits you from making any further disclosure of this information without the specific written consent of the person to whom it pertains, or as otherwise permitted by law. Any unauthorized further disclosure in violation of state law may result in a fine or correction sentence or both. A general authorization for the release of medical or other information is NOT sufficient authorization for further disc losure. Family History Family Member Name Family Member Gender Family Member Status Date o f Status Description Data Source(s) Unknown Unknown Problem [facility] ([facility]) mother,father Unknown Male Problem [facility] ([facility]) () Encounters Encounter Providers Location Date Indications Data Source(s ) Outpatient Attender: VAUGHN LEVIN Main Office 05/28/2021 0 3:00:00 PM EDT [facility] ([facility]) <td ID="encounterTypeDescriptionID0">STA NDARD OV</td><td>Fabiola Rojo NP</td><td>[facility]</td><td>02/03/2021</td><td>12:45PM</td><td>1:43PM</td><td><content ID="encounterDiagnosisID0-0">Muscle Spasm of Back</content>, <content ID="encounterDiagnosisID0-1">Diabetes Mellitus Type 2</content>, <content ID="encounterDiagnosisID0-2">Polymyalgia Rheumatica</content>, <content ID="encounterDiagnosisID0-3">Generalized Anxiety Disorder</content>, <content ID="encounterDiagnosisID0-4">Essential Hypertension Benign</content>, <content ID="encounterDiagnosisID0-5">Hyperlipidemia</content></td>Outpatient Attender: Faibola Rojo NP [facility] 02/03/2021 12:45:00 PM EDT - 02/03/2021 01:43:00 PM EDT Generalized Anxiety DisorderMuscle Spasm of BackPolymyalgia RheumaticaDiabetes Mellitus Type 2HyperlipidemiaEssential Hypertension Benign [place] ([facility]) Generalized Anxiety Disorder Muscle Spasm of Back Polymyalgia Rheumatica Diabetes Mellitus Type 2 Hyperlipidemia Essential Hypertension Benign Outpatient<td ID="encounterTypeDescripti onID1">RX UPDATE</td><td>Fabiola Rojo NP</td><td>[facility]</td><td>01/06/2021</td><td>11/05/2020 2:29PM</td><td>11/05/2020 11:59PM</td><td></td> Attender: Fabiola Rojo NP [facility] 11/05/2020 02:29:00 PM EDT - 11/05/2020 11:59:00 PM EDT [place] ([facility]) Outpatient<td ID="encounterTypeDescripti onID2">EXTENDED VISIT</td><td>Fabiolajordyn Taylorgabby Darrel INFANTE</td><td>[facility]</td><td>11/05/2020</td><td>10:21AM</td><td>11:37AM</td><td><content ID="encounterDiagnosisID2-0">Diabetes Mellitus Type 2</content>, <content ID="encounterDiagnosisID2-1">Polymyalgia Rheumatica</content>, <content ID="encounterDiagnosisID2-2">Generalized Anxiety Disorder</content>, <content ID="encounterDiagnosisID2-3">Essential Hypertension Benign</content>, <content ID="encounterDiagnosisID2-4">Hyperlipidemia</content>, <content ID="encounterDiagnosisID2-5">Vertigo</content>, <content ID="encounterDiagnosisID2-6">Cerumen Impaction - Right Ear</content>, <content ID="encounterDiagnosisID2-7">Otitis Media Left Ear</content></td> Attender: Fabiola Rojo NP [facility] 11/05/2020 10:21:00 AM EDT - 11/05/2020 11:37:00 AM EDT Otitis Media Left EarCerumen Impaction - Right EarVertigoGeneralized Anxiety DisorderOtitis Media Left EarCerumen Impaction - Right EarVertigoGeneralized Anxiety DisorderOtitis Media Left EarCerumen Impaction - Right EarVertigoGeneralized Anxiety DisorderPolymyalgia RheumaticaPolymyalgia RheumaticaPolymyalgia RheumaticaDiabetes Mellitus Type 2Diabetes Mellitus Type 2Diabetes Mellitus Type 2HyperlipidemiaEssential Hypertension BenignHyperlipidemiaEssential Hypertension BenignHyperlipidemiaEssential Hypertension Benign [place] ([facility]) Otitis Media Left Ear Cerumen Impaction - Right Ear Vertigo Generalized Anxiety Disorder Otitis Media Left Ear Cerumen Impaction - Right Ear Vertigo Generalized Anxiety Disorder Otitis Media Left Ear Cerumen Impaction - Right Ear Vertigo Generalized Anxiety Disorder Polymyalgia Rheumatica Polymyalgia Rheumatica Polymyalgia Rheumatica Diabetes Mellitus Type 2 Diabetes Mellitus Type 2 Diabetes Mellitus Type 2 Hyperlipidemia Essential Hypertension Benign Hyperlipidemia Essential Hypertension Benign Hyperlipidemia Essential Hypertension Benign Outpatient Attender: LAURENT GABRIEL MD Main Office 10/13/2020 09:00:00 AM EST [facility] ([facility]) Outpatient Attender: RAMON Brand [facility] 10/02/2020 12:00:00 PM EST [facility] ([facility]) <td ID="encounterTypeDescriptionID3">EXT ENDED VISIT</td><td>Rach Baez MD</td><td>[facility],</td><td>08/14/2020</td><td>9:00AM</td><td>10:52AM</td><td><content ID="encounterDiagnosisID3-0">Diabetes Mellitus Type 2</content>, <content ID="encounterDiagnosisID3-1">Peripheral Vascular Disease</content>, <content ID="encounterDiagnosisID3-2">Paroxysmal Atrial Fibrillation</content>, <content ID="encounterDiagnosisID3-3">Chronic Kidney Dis Stage 3 Due To Type 2 Diab Mellitus W/ Hypertension</content>, <content ID="encounterDiagnosisID3-4"> Polymyalgia Rheumatica</content>, <content ID="encounterDiagnosisID3- 5">Obesity</content>, <content ID="encounterDiagnosisID3-6">Essential Hypertension Benign</content>, <content ID="encounterDiagnosisID3-7">Hyperlipidemia</content></td>Outpatient Attender: Rach Baez MD [facility], 08/14/2020 09:00:00 AM EST - 08/14/2020 10:52:00 AM EST ObesityChronic Kidney Dis Stage 3 Due To Type 2 Diab Mellitus W/ HypertensionParoxysmal Atrial FibrillationPeripheral Vascular DiseaseObesityChronic Kidney Dis Stage 3 Due To Type 2 Diab Mellitus W/ HypertensionParoxysmal Atrial FibrillationPeripheral Vascular DiseaseObesityChronic Kidney Dis Stage 3 Due To Type 2 Diab Mellitus W/ HypertensionParoxysmal Atrial FibrillationPeripheral Vascular DiseasePolymyalgia RheumaticaPolymyalgia RheumaticaPolymyalgia RheumaticaDiabetes Mellitus Type 2Diabetes Mellitus Type 2Diabetes Mellitus Type 2HyperlipidemiaEssential Hypertension BenignHyperlipidemiaEssential Hypertension BenignHyperlipidemiaEssential Hypertension Benign [place] ([facility]) Obesity Chronic Kidney Dis Stage 3 Due To Type 2 Diab Mellitus W/ Hypertension Paroxysmal Atrial Fibrillation Peripheral Vascular Disease Obesity Chronic Kidney Dis Stage 3 Due To Type 2 Diab Mellitus W/ Hypertension Paroxysmal Atrial Fibrillation Peripheral Vascular Disease Obesity Chronic Kidney Dis Stage 3 Due To Type 2 Diab Mellitus W/ Hypertension Paroxysmal Atrial Fibrillation Peripheral Vascular Disease Polymyalgia Rheumatica Polymyalgia Rheumatica Polymyalgia Rheumatica Diabetes Mellitus Type 2 Diabetes Mellitus Type 2 Diabetes Mellitus Type 2 Hyperlipidemia Essential Hypertension Benign Hyperlipidemia Essential Hypertension Benign Hyperlipidemia Essential Hypertension Benign <td ID="encounterTypeDescriptionID5">EXT ENDED VISIT</td><td>Rach Baez MD</td><td>[facility]</td><td>04/22/2020</td><td>12:46PM</td><td>2:06PM</td><td></td>Outpa tient Attender: Rach Baez MD [facility] 12:46:00 PM EDT - 04/22/2020 02:06:00 PM EDT [place] ([facility]) Outpatient<td ID="encounterTypeDescripti onID4">CLINICAL USE ONLY</td><td>Fabiola Rojo NP</td><td>[facility]</td><td>06/11/2020</td><td>04/22/2020 8:09AM</td><td>04/22/2020 11:59PM</td><td></td> Attender: Fabiola Rojo NP [facility] 04/22/2020 08:09:00 AM EDT - 04/22/2020 11:59:00 PM EDT [place] ([facility]) Immunizations Vaccine Date Status Description Data Source(s) COVID-19 VACCINE Moderna 11/10/2020 12:00:00 AM EDT completed [facility] Vaccine Series Complete: YESThis Data wa s Submitted to [facility] Via [employer]. COVID-19 VACCINE, MRNA-1273, LNP-S (MODERNA)/PF 11/10/2020 1 2:00:00 AM EDT completed [facility] COVID-19 VACCINE, MRNA-1273, LNP-S (MODERNA)/PF 10/09/2020 1 2:00:00 AM EST completed [facility] COVID-19 VACCINE Moderna 10/09/2020 12:00:00 AM EST completed [facility] Vaccine Series Complete: NOThis Data was Submitted to [facility] Via [employer]. 06/24/2020 02:26:00 PM EST completed <td ID="Qksyzwbpglasz-Qyygukxqquw-YC92">[employer]</td><td ID="ImmunizationDose- 14">2</td><td>06/24/2020</td><td ID="Vyyfcbqcnkfuh-FftmpMtcp-RL44"></td><td></td><td ID="Tgzkcqcvyxncc-Xetiav-MW44">Complete (Reported)</td><td>Patient</td><td ID="Plpwkgsthtvvm-Cxelv-Ykex-Comment-[id number]"></td> [facility]) VARICELLA-ZOSTER VIRUS GLYCOPROTEIN E,REC/AS01B ADJUVA NT/PF 06/19/2020 12:00:00 AM EST completed [facility] 04/20/2020 02:25:00 PM EDT completed <td ID="Tagalzgkbaewo-Dwyivimtowx-HM89">[employer]</td><td ID="ImmunizationDose- 13">1</td><td>04/20/2020</td><td ID="Dosqdcclslfxx-HwlgjTgql-HH12"></td><td></td><td ID="Kzmciixlgnxdc-Hylcya-PK35">Complete (Reported)</td><td>Patient</td><td ID="Zrecxjvytkrrs-Eqrxn-Awwj-Comment-[id number]"></td> [facility]) INFLUENZA VACCINE QUADRIVALENT 2019- (65 YR UP)/MF59 C.1/PF 04/18/2020 12:00:00 AM EDT completed [facility] VARICELLA-ZOSTER VIRUS GLYCOPROTEIN E,REC/AS01B ADJUVA NT/PF 04/18/2020 12:00:00 AM EDT completed [facility] Medications Medication Brand Name Start Date Product Form Dose Route Admi nistrative Instructions Pharmacy Instructions Status Indications Reaction Description Data Source(s) Alprazolam 0.5 MG Oral Tablet Alprazolam 05/27/2021 12:00:00 AM EDT ORAL active [facility] ([facility]) Ascorbic Acid 500 MG Oral Tablet Vitamin C 05/27/2021 12:00:00 AM EDT ORAL active [facility] ([facility] 5 mg 05/15/2021 12:00:00 AM EDT tablet 90 TAKE ONE TABLET BY MOUTH EVERY DAY TAKE ONE TABLET BY MOUTH EVERY DAY SOLD: 05/18/2021 [facility] 5 mg 05/15/2021 12:00:00 AM EDT tablet 45 TAKE ONE HALF TABLET BY MOUTH DAILY TAKE ONE HALF TABLET BY MOUTH DAILY SOLD: 05/18/2021 [facility] 25 mg 05/15/2021 12:00:00 AM EDT tablet 90 TAKE ONE TABLET BY MOUTH EVERY DAY TAKE ONE TABLET BY MOUTH EVERY DAY SOLD: 05/18/2021 [facility] Rosuvastatin calcium 20 MG Oral Tablet ROSUVASTATIN CALCIUM 05/15/2021 12:00:00 AM EDT tablet 90 TAKE ONE TABLET BY MOUTH IKER RY DAY TAKE ONE TABLET BY MOUTH EVERY DAY SOLD: 05/18/2021 [facility] 2.5 mg 05/15/2021 12:00:00 AM EDT tablet extended release 24hr 90 TAKE ONE TABLET BY MOUTH EVERY DAY TAKE ONE TABLET BY MOUTH EVERY DAY SOLD: 05/18/2021 [facility] 50 mg 05/15/2021 12:00:00 AM EDT tablet 90 TAKE ONE TABLET BY MOUTH EVERY DAY TAKE ONE TABLET BY MOUTH EVERY DAY SOLD: 05/18/2021 [facility] Alprazolam 0.5 MG Oral Tablet ALPRAZOLAM 04/25/2021 12:00:00 AM EDT ta blet 90 TAKE ONE TABLET BY MOUTH THREE TIMES A DAY NEEDED FOR ANXIETY MAXIMUM DAILY DOSE = 3 TABLETS TAKE ONE TABLET BY MOUTH THREE TIMES A D AY NEEDED FOR ANXIETY MAXIMUM DAILY DOSE = 3 TABLETS SOLD: 04/29/2021 [facility] 0.005 % 04/17/2021 12:00:00 AM EDT drops 2 INSTILL 1 DROP IN EACH EYE AT BEDTIME DIRECTED INSTILL 1 DROP IN EACH EYE AT BEDTIME DIRECTED SOLD : 04/24/2021 [facility] 4 mg 04/16/2021 12:00:00 AM EDT tablet 42 TAKE ONE TABLET BY MOUTH EVERY 8 HOURS NEEDED FOR NAUSEA TAKE ONE TABLET BY MOUTH EVERY 8 HOURS A S NEEDED FOR NAUSEA SOLD: 04/17/2021 [facility] 10 mg 04/06/2021 12:00:00 AM EDT tablet 90 TAKE ONE TABLET BY MOUTH EVERY DAY TAKE ONE TABLET BY MOUTH EVERY DAY SOLD: 04/24/2021 [facility] Cyclobenzaprine hydrochloride 5 MG Oral Tablet CYCLOBENZAPRI NE HCL 03/11/2021 12:00:00 AM EDT tablet 45 TAKE ONE-HALF TA BLET BY MOUTH AT BEDTIME NEEDED FOR SPASMS TAKE ONE-HALF TABLET BY MOUTH AT BEDTIME NEEDED FOR SPASMS SOLD: 03/12/2021 [facility] Alprazolam 0.5 MG Oral Tablet ALPRAZOLAM 03/11/2021 12:00:00 AM EDT ta blet 90 TAKE ONE TABLET BY MOUTH THREE TIMES A DAY NEEDED FOR ANXIETY MAXIMUM DAILY DOSE = 3 TABLETS TAKE ONE TABLET BY MOUTH THREE TIMES A D AY NEEDED FOR ANXIETY MAXIMUM DAILY DOSE = 3 TABLETS SOLD: 03/12/2021 [facility] Cyclobenzaprine hydrochloride 5 MG Oral Tablet CYCLOBENZAPRI NE HCL 02/14/2021 12:00:00 AM EDT tablet 7 TAKE ONE TABLET BY MOUTH AT BEDTIME TAKE ONE TABLET BY MOUTH AT BEDTIME SOLD: 02/16/2021 [facility] Cyclobenzaprine hydrochloride 5 MG Oral Tablet CYCLOBENZAPRI NE HCL 02/10/2021 12:00:00 AM EDT tablet 7 TAKE ONE TABLET BY MOUTH AT BEDTIME TAKE ONE TABLET BY MOUTH AT BEDTIME SOLD: 02/10/2021 [facility] Cyclobenzaprine hydrochloride 5 MG Oral Tablet CYCLOBENZAPRI NE HCL 02/03/2021 12:00:00 AM EDT tablet 2 TAKE ONE-HALF TABLET BY M OUTH AT BEDTIME TAKE ONE- HALF TABLET BY MOUTH AT BEDTIME SOLD: 02/03/2021 [facility] Prednisone 10 MG Oral Tablet predniSONE 10 MG Oral Tab let predniSONE 10 MG Oral Tablet 02/03/2021 12:00:00 AM EDT active prednisone 10 MG Oral Tablet [facility]) Rosuvastatin calcium 20 MG Oral Tablet Rosuvastatin Ca lcium 20 MG Oral Tablet Rosuvastatin Calcium 20 MG Oral Tablet 02/03/2021 12:00:00 AM EDT active rosuvastatin calcium 20 MG Oral Tablet [facility]) sitagliptin 50 MG Oral Tablet [Januvia] Januvia 50 MG Oral Tablet Januvia 50 MG Oral Tablet 02/03/2021 12:00:00 AM EDT active sitagliptin 50 MG Oral Tablet [Januvia] [place] ([facility]) Lisinopril 5 MG Oral Tablet Lisinopril 5 MG Oral Tablet 01/07 12:00:00 AM EDT active lisinopril 5 MG O ral Tablet [facility]) Alprazolam 0.5 MG Oral Tablet ALPRAZOLAM 02/03/2021 12:00:00 AM EDT ta blet 90 TAKE ONE TABLET BY MOUTH THREE TIMES A DAY NEEDED FOR ANXIETY MAXIMUM DAILY DOSE = THREE TABLETS TAKE ONE TABLET BY MOUTH THREE TIMES A D AY NEEDED FOR ANXIETY MAXIMUM DAILY DOSE = THREE TABLETS SOLD: 02/03/2021 [facility] Hydrochlorothiazide 25 MG Oral Tablet hydroCHLOROthiaz meghann 25 MG Oral Tablet hydroCHLOROthiazide 25 MG Oral Tablet 02/03/2021 12:00:00 AM EDT active hydrochlorothiazide 25 MG Oral T ablet [facility]) 24 HR Glipizide 2.5 MG Extended Release Oral Tablet glipiZIDE ER 2.5 MG Oral Tablet Extended Release 24 Hour glipiZIDE ER 2.5 MG Oral Tablet Extended Release 24 Hour 02/03/2021 12:00:00 AM EDT active 24 HR glipizide 2.5 MG Extended Release Oral Tablet [facility]) Amlodipine 5 MG Oral Tablet amLODIPine Besylate 5 MG O ral Tablet amLODIPine Besylate 5 MG Oral Tablet 02/03/2021 12:00:00 AM EDT 1 active amlodipine 5 MG Oral Tablet [facility]) Cyclobenzaprine hydrochloride 5 MG Oral Tablet Cyclobenzaprine HCl 5 MG Oral Tablet Cyclobenzaprine HCl 5 MG Oral Tablet 02/03/2021 12:00:00 AM EDT active cyclobenzaprine hydrochlorid e 5 MG Oral Tablet [place] ([facility]) Alprazolam 0.5 MG Oral Tablet ALPRAZolam 0.5 MG Oral T ablet ALPRAZolam 0.5 MG Oral Tablet 02/03/2021 12:00:00 AM EDT 1 active alprazolam 0.5 MG Oral Tablet [place] ([facility]) 25 mg 01/07/2021 12:00:00 AM EDT tablet 90 TAKE ONE TABLET BY MOUTH EVERY DAY TAKE ONE TABLET BY MOUTH EVERY DAY SOLD: 01/08/2021 [facility] 5 mg 01/07/2021 12:00:00 AM EDT tablet 90 TAKE ONE TABLET BY MOUTH EVERY DAY TAKE ONE TABLET BY MOUTH EVERY DAY SOLD: 01/08/2021 [facility] 5 mg 01/07/2021 12:00:00 AM EDT tablet 45 TAKE ONE-HALF TABLET BY MOUTH ONCE DAILY TAKE ONE-HALF TABLET BY MOUTH ONCE DAILY SOLD: 01/08/2021 [facility] Lisinopril 5 MG Oral Tablet Lisinopril 5 MG Oral Tablet 08/2020 12:00:00 AM EDT aborted lisinopril 5 MG Oral Tablet [place] ([facility]) Hydrochlorothiazide 25 MG Oral Tablet hydroCHLOROthiaz meghann 25 MG Oral Tablet hydroCHLOROthiazide 25 MG Oral Tablet 01/06/2021 12:00:00 AM EDT aborted hydrochlorothiazide 25 MG Oral T ablet [place] ([facility]) Amlodipine 5 MG Oral Tablet amLODIPine Besylate 5 MG O ral Tablet amLODIPine Besylate 5 MG Oral Tablet 01/06/2021 12:00:00 AM EDT 1 aborted amlodipine 5 MG Oral Tablet [place] ([facility]) 15 mg 12/29/2020 12:00:00 AM EDT tablet 90 TAKE 1 TABLET BY MOUTH ONCE DAILY WITH THE EVENING MEAL TAKE 1 TABLET BY MOUTH ONCE DAILY WITH THE EVENING PATTY L SOLD: 01/08/2021 [facility] 15 mg 12/29/2020 12:00:00 AM EDT tablet 90 TAKE 1 TABLET BY MOUTH ONCE DAILY WITH THE EVENING MEAL TAKE 1 TABLET BY MOUTH ONCE DAILY WITH THE EVENING PATTY L SOLD: 04/01/2021 [facility] 10 mg 12/23/2020 12:00:00 AM EDT tablet 90 TAKE ONE TABLET BY MOUTH EVERY DAY TAKE ONE TABLET BY MOUTH EVERY DAY SOLD: 01/08/2021 [facility] Rosuvastatin calcium 20 MG Oral Tablet ROSUVASTATIN CALCIUM 12/23/2020 12:00:00 AM EDT tablet 90 TAKE 1 TABLET BY MOUTH ONCE DAILY TAKE 1 TABLET BY MOUTH ONCE DAILY SOLD: 01/08/2021 [facility] 2.5 mg 12/22/2020 12:00:00 AM EDT tablet extended release 24hr 90 TAKE ONE TABLET BY MOUTH EVERY DAY TAKE ONE TABLET BY MOUTH EVERY DAY SOLD: 01/08/2021 [facility] 1 gram 12/21/2020 12:00:00 AM EDT capsule 360 TAKE TWO CAPSULES BY MOUTH TWICE A DAY TAKE WITH MEALS TAKE TWO CAPSULES BY MOUTH TWICE A DAY T [place]UR[place] WITH MEALS SOLD: 01/08/2021 [facility] 1 gram 12/21/2020 12:00:00 AM EDT capsule 360 TAKE TWO CAPSULES BY MOUTH TWICE A DAY TAKE WITH MEALS TAKE TWO CAPSULES BY MOUTH TWICE A DAY T [place] WITH MEALS SOLD: 04/01/2021 [facility] 50 mg 12/15/2020 12:00:00 AM EDT tablet 90 TAKE ONE TABLET BY MOUTH EVERY DAY TAKE ONE TABLET BY MOUTH EVERY DAY SOLD: 01/08/2021 [facility] 5 mg 11/27/2020 12:00:00 AM EDT tablet 30 TAKE ONE TABLET BY MOUTH EVERY DAY TAKE ONE TABLET BY MOUTH EVERY DAY SOLD: 11/27/2020 [facility] 0.005 % 11/22/2020 12:00:00 AM EDT drops 7 INSTILL ONE DROP INTO BOTH EYES AT BEDTIME DIRECTED INSTILL ONE DROP INTO BOTH EYES AT BEDTIME DIRECTED SOLD: 11/25/2020 [facility] 0.005 % 11/22/2020 12:00:00 AM EDT drops 7 INSTILL ONE DROP INTO BOTH EYES AT BEDTIME DIRECTED INSTILL ONE DROP INTO BOTH EYES AT BEDTIME DIRECTED SOLD: 05/07/2021 [facility] 25 mg 11/10/2020 12:00:00 AM EDT tablet 60 TAKE ONE TABLET BY MOUTH EVERY DAY TAKE ONE TABLET BY MOUTH EVERY DAY SOLD: 11/10/2020 [facility] Alprazolam 0.5 MG Oral Tablet ALPRAZOLAM 11/05/2020 12:00:00 AM EDT ta blet 90 TAKE ONE TABLET BY MOUTH THREE TIMES A DAY NEEDED FOR ANXIETY MAXIMUM DAILY DOSE = 3 TABLETS TAKE ONE TABLET BY MOUTH THREE TIMES A D AY NEEDED FOR ANXIETY MAXIMUM DAILY DOSE = 3 TABLETS SOLD: 11/05/2020 [facility] 24 HR Glipizide 2.5 MG Extended Release Oral Tablet glipiZIDE ER 2.5 MG Oral Tablet Extended Release 24 Hour glipiZIDE ER 2.5 MG Oral Tablet Extended Release 24 Hour 11/05/2020 12:00:00 AM EDT aborted 24 HR glipizide 2.5 MG Extended Release Oral Tablet [place] ([facility]) Amlodipine 5 MG Oral Tablet amLODIPine Besylate 5 MG O ral Tablet amLODIPine Besylate 5 MG Oral Tablet 11/05/2020 12:00:00 AM EDT 1 aborted amlodipine 5 MG Oral Tablet [place] ([facility]) Alprazolam 0.5 MG Oral Tablet ALPRAZolam 0.5 MG Oral T ablet ALPRAZolam 0.5 MG Oral Tablet 11/05/2020 12:00:00 AM EDT 1 aborte d alprazolam 0.5 MG Oral Tablet [place] ([facility]) Lisinopril 5 MG Oral Tablet Lisinopril 5 MG Oral Tablet 10/08 12:00:00 AM EDT aborted lisinopril 5 MG Oral Tablet [place] ([facility]) Hydrochlorothiazide 25 MG Oral Tablet hydroCHLOROthiaz meghann 25 MG Oral Tablet hydroCHLOROthiazide 25 MG Oral Tablet 11/05/2020 12:00:00 AM EDT aborted hydrochlorothiazide 25 MG Oral T ablet [place] ([facility]) 500 mg 11/05/2020 12:00:00 AM EDT capsule 20 TAKE ONE CAPSULE BY MOUTH TWICE A DAY FOR 10 DAYS TAKE ONE CAPSULE BY MOUTH TWICE A DAY FOR 10 DAYS SOLD : 11/05/2020 [facility] 5 mg 11/05/2020 12:00:00 AM EDT tablet 45 TAKE ONE-HALF TABLET BY MOUTH ONCE DAILY TAKE ONE-HALF TABLET BY MOUTH ONCE DAILY SOLD: 11/10/2020 [facility] Alprazolam 0.5 MG Oral Tablet ALPRAZolam 0.5 MG Oral T ablet ALPRAZolam 0.5 MG Oral Tablet 11/05/2020 12:00:00 AM EDT 1 aborte d alprazolam 0.5 MG Oral Tablet [facility]) Fluconazole 150 MG Oral Tablet Fluconazole 150 MG Oral Table t 11/05/2020 12:00:00 AM EDT aborted flucona zole 150 MG Oral Tablet [facility]) 150 mg 11/05/2020 12:00:00 AM EDT tablet 2 ONE TABLET BY MOUTH ONCE A WEEK FOR 2 WEEKS ONE TABLET BY MOUTH ONCE A WEEK FOR 2 WEEKS SOLD: 11/05/2020 [facility] sitagliptin 50 MG Oral Tablet [Januvia] Januvia 50 MG Oral Tablet Januvia 50 MG Oral Tablet 11/05/2020 12:00:00 AM EDT aborte d sitagliptin 50 MG Oral Tablet [Januvia] [facility]) Rosuvastatin calcium 20 MG Oral Tablet Rosuvastatin Ca lcium 20 MG Oral Tablet Rosuvastatin Calcium 20 MG Oral Tablet 11/05/2020 12:00:00 AM EDT aborted rosuvastatin calcium 20 MG Oral Tablet [facility]) Prednisone 10 MG Oral Tablet predniSONE 10 MG Oral Tab let predniSONE 10 MG Oral Tablet 11/05/2020 12:00:00 AM EDT aborted prednisone 10 MG Oral Tablet [facility]) Amoxicillin 500 MG Oral Tablet Amoxicillin 500 MG Oral Table t 11/05/2020 12:00:00 AM EDT aborted amoxici llin 500 MG Oral Tablet [place] ([facility]) carbamide peroxide 65 MG/ML Otic Solution [Debrox] Kirstie jennyfer 6.5% Otic Solution Debrox 6.5% Otic Solution 11/05/2020 12:00:00 AM EDT aborted carbamide peroxide 65 MG/ML Otic Solution [Debrox] [place] ([facility]) Rosuvastatin calcium 20 MG Oral Tablet ROSUVASTATIN CALCIUM 10/21/2020 12:00:00 AM EDT tablet 75 TAKE ONE TABLET BY MOUTH IKER RY DAY TAKE ONE TABLET BY MOUTH EVERY DAY SOLD: 10/21/2020 [facility] 10 mg 10/20/2020 12:00:00 AM EDT tablet 75 TAKE ONE TABLET BY MOUTH EVERY DAY TAKE ONE TABLET BY MOUTH EVERY DAY SOLD: 10/21/2020 [facility] 2.5 mg 10/07/2020 12:00:00 AM EST tablet extended release 24hr 90 TAKE ONE TABLET BY MOUTH EVERY DAY TAKE ONE TABLET BY MOUTH EVERY DAY SOLD: 10/09/2020 [facility] 0.3-0.1 % 10/02/2020 12:00:00 AM EST drops,suspension 7 INSTILL 4 DROPS INT RIGHT EAR EVERY 12 HOURS FOR 7 DAYS INSTILL 4 DROPS INT RIGHT EAR EVERY 12 H OURS FOR 7 DAYS SOLD: 10/02/2020 [facility] Ciprofloxacin 3 MG/ML / Dexamethasone 1 MG/ML Otic Elisa pension [Ciprodex] Ciprodex 10/02/2020 12:00:00 AM EST AURICULAR active [place] ([facility]) rivaroxaban 15 MG Oral Tablet [Xarelto] Xarelto 10/02/2020 12:00:0 0 AM EST active [facility] ([facility]) icosapent ethyl 1000 MG Oral Capsule [Vascepa] Vascepa 10/02/2020 12:00:00 AM EST active [facility] ([facility]) 50 mg 09/29/2020 12:00:00 AM EST tablet 90 TAKE ONE TABLET BY MOUTH EVERY DAY TAKE ONE TABLET BY MOUTH EVERY DAY SOLD: 10/01/2020 [facility] sitagliptin 50 MG Oral Tablet [Januvia] Januvia 50 MG Oral Tablet Januvia 50 MG Oral Tablet 2020 12:00:00 AM EST aborte d sitagliptin 50 MG Oral Tablet [Januvia] [place] ([facility]) 5 mg 09/09/2020 12:00:00 AM EST tablet 90 TAKE ONE TABLET BY MOUTH EVERY DAY TAKE ONE TABLET BY MOUTH EVERY DAY SOLD: 09/11/2020 [facility] 250 mg 09/08/2020 12:00:00 AM EST tablet 3 TAKE ONE TABLET BY MOUTH EVERY DAY TAKE ONE TABLET BY MOUTH EVERY DAY SOLD: 09/08/2020 [facility] Prednisone 10 MG Oral Tablet predniSONE 10 MG Oral Tab let predniSONE 10 MG Oral Tablet 08/30/2020 12:00:00 AM EST aborted prednisone 10 MG Oral Tablet [facility]) Rosuvastatin calcium 20 MG Oral Tablet Rosuvastatin Ca lcium 20 MG Oral Tablet Rosuvastatin Calcium 20 MG Oral Tablet 08/30/2020 12:00:00 AM EST aborted rosuvastatin calcium 20 MG Oral Tablet [facility]) 0.005 % 08/20/2020 12:00:00 AM EST drops 7 INSTILL ONE DROP EVERY DAY INTO BOTH EYES AT BEDTIME DIRECTED INSTILL ONE DROP EVERY DAY INTO BOTH EYE S AT BEDTIME DIRECTED SOLD: 10/01/2020 [facility] 0.005 % 08/20/2020 12:00:00 AM EST drops 7 INSTILL ONE DROP EVERY DAY INTO BOTH EYES AT BEDTIME DIRECTED INSTILL ONE DROP EVERY DAY INTO BOTH EYE S AT BEDTIME DIRECTED SOLD: 08/20/2020 [facility] 24 HR Glipizide 2.5 MG Extended Release Oral Tablet glipiZIDE ER 2.5 MG Oral Tablet Extended Release 24 Hour glipiZIDE ER 2.5 MG Oral Tablet Extended Release 24 Hour 08/18/2020 12:00:00 AM EST aborted 24 HR glipizide 2.5 MG Extended Release Oral Tablet [facility]) Hydrochlorothiazide 25 MG Oral Tablet hydroCHLOROthiaz meghann 25 MG Oral Tablet hydroCHLOROthiazide 25 MG Oral Tablet 08/18/2020 12:00:00 AM EST aborted hydrochlorothiazide 25 MG Oral T ablet [facility]) Amlodipine 5 MG Oral Tablet amLODIPine Besylate 5 MG O ral Tablet amLODIPine Besylate 5 MG Oral Tablet 08/18/2020 12:00:00 AM EST 1 aborted amlodipine 5 MG Oral Tablet [facility]) Lisinopril 5 MG Oral Tablet Lisinopril 5 MG Oral Tablet 08/08 12:00:00 AM EST aborted lisinopril 5 MG Oral Tablet [facility]) 5 mg 08/14/2020 12:00:00 AM EST tablet 30 TAKE ONE TABLET BY MOUTH EVERY DAY TAKE ONE TABLET BY MOUTH EVERY DAY SOLD: 08/15/2020 [facility] icosapent ethyl 1000 MG Oral Capsule [Vascepa] Vascepa 1 GM Oral Capsule Vascepa 1 GM Oral Capsule 08/14/2020 12:00:00 AM EST active icosapent ethyl 1000 MG Oral Capsule [Vascepa] [place] ([facility]) Alprazolam 0.5 MG Oral Tablet ALPRAZOLAM 08/14/2020 12:00:00 AM EST ta blet 90 TAKE ONE TABLET BY MOUTH THREE TIMES A DAY NEEDED FOR ANXIETY MAXIMUM DAILY DOSE = THREE TABLETS TAKE ONE TABLET BY MOUTH THREE TIMES A D AY NEEDED FOR ANXIETY MAXIMUM DAILY DOSE = THREE TABLETS SOLD: 08/15/2020 [facility] Alprazolam 0.5 MG Oral Tablet ALPRAZolam 0.5 MG Oral T ablet ALPRAZolam 0.5 MG Oral Tablet 08/14/2020 12:00:00 AM EST 1 aborte d alprazolam 0.5 MG Oral Tablet [facility]) Hydrochlorothiazide 25 MG Oral Tablet hydroCHLOROthiaz meghann 25 MG Oral Tablet hydroCHLOROthiazide 25 MG Oral Tablet 08/14/2020 12:00:00 AM EST aborted hydrochlorothiazide 25 MG Oral T ablet [place] ([facility]) 24 HR Glipizide 2.5 MG Extended Release Oral Tablet glipiZIDE ER 2.5 MG Oral Tablet Extended Release 24 Hour glipiZIDE ER 2.5 MG Oral Tablet Extended Release 24 Hour 08/14/2020 12:00:00 AM EST aborted 24 HR glipizide 2.5 MG Extended Release Oral Tablet [place] ([facility]) Docusate Sodium 100 MG Oral Capsule [Colace] Colace 10 0 MG Oral Capsule Colace 100 MG Oral Capsule 08/14/2020 12:00:00 AM EST active docusate sodium 100 MG Oral Capsule [Colace] [place] ([facility]) Lisinopril 5 MG Oral Tablet Lisinopril 5 MG Oral Tablet 02/2021 12:00:00 AM EST aborted lisinopril 5 MG Oral Tablet [place] ([facility]) Amlodipine 5 MG Oral Tablet amLODIPine Besylate 5 MG O ral Tablet amLODIPine Besylate 5 MG Oral Tablet 08/14/2020 12:00:00 AM EST 1 aborted amlodipine 5 MG Oral Tablet [place] ([facility]) 24 HR Glipizide 2.5 MG Extended Release Oral Tablet glipiZIDE ER 2.5 MG Oral Tablet Extended Release 24 Hour glipiZIDE ER 2.5 MG Oral Tablet Extended Release 24 Hour 07/21/2020 12:00:00 AM EST aborted 24 HR glipizide 2.5 MG Extended Release Oral Tablet [place] ([facility]) Lisinopril 5 MG Oral Tablet Lisinopril 5 MG Oral Tablet 07/08 12:00:00 AM EST aborted lisinopril 5 MG Oral Tablet [place] ([facility]) 25 mg 07/21/2020 12:00:00 AM EST tablet 30 TAKE ONE TABLET BY MOUTH EVERY DAY TAKE ONE TABLET BY MOUTH EVERY DAY SOLD: 07/28/2020 [facility] 5 mg 07/21/2020 12:00:00 AM EST tablet 15 TAKE ONE-HALF TABLET BY MOUTH EVERY DAY TAKE ONE-HALF TABLET BY MOUTH EVERY DAY SOLD: 07/28/2020 [facility] Hydrochlorothiazide 25 MG Oral Tablet hydroCHLOROthiaz meghann 25 MG Oral Tablet hydroCHLOROthiazide 25 MG Oral Tablet 07/21/2020 12:00:00 AM EST aborted hydrochlorothiazide 25 MG Oral T ablet [place] ([facility]) 2.5 mg 07/21/2020 12:00:00 AM EST tablet extended release 24hr 30 TAKE ONE TABLET BY MOUTH EVERY DAY TAKE ONE TABLET BY MOUTH EVERY DAY SOLD: 07/28/2020 [facility] 50 mg 07/16/2020 12:00:00 AM EST tablet 90 TAKE ONE TABLET BY MOUTH EVERY DAY TAKE ONE TABLET BY MOUTH EVERY DAY SOLD: 07/28/2020 [facility] sitagliptin 50 MG Oral Tablet [Januvia] Januvia 50 MG Oral Tablet Januvia 50 MG Oral Tablet 07/14/2020 12:00:00 AM EST aborte d sitagliptin 50 MG Oral Tablet [Januvia] [place] ([facility]) 5 mg 07/14/2020 12:00:00 AM EST tablet 30 TAKE ONE TABLET BY MOUTH EVERY DAY TAKE ONE TABLET BY MOUTH EVERY DAY SOLD: 07/28/2020 [facility] 10 mg 07/12/2020 12:00:00 AM EST tablet 90 TAKE ONE TABLET BY MOUTH EVERY DAY TAKE ONE TABLET BY MOUTH EVERY DAY SOLD: 07/28/2020 [facility] Rosuvastatin calcium 20 MG Oral Tablet ROSUVASTATIN CALCIUM 07/12/2020 12:00:00 AM EST tablet 90 TAKE ONE TABLET BY MOUTH IKER DAY TAKE ONE TABLET BY MOUTH EVERY DAY SOLD: 07/28/2020 [facility] Rosuvastatin calcium 20 MG Oral Tablet Rosuvastatin Ca lcium 20 MG Oral Tablet Rosuvastatin Calcium 20 MG Oral Tablet 07/11/2020 12:00:00 AM EST aborted rosuvastatin calcium 20 MG [facility]t [facility] Prednisone 10 MG Oral Tablet predniSONE 10 MG Oral Tab let predniSONE 10 MG Oral Tablet 07/11/2020 12:00:00 AM EST aborted prednisone 10 MG Oral Tablet [facility]) Amlodipine 5 MG Oral Tablet amLODIPine Besylate 5 MG O ral Tablet amLODIPine Besylate 5 MG Oral Tablet 07/06/2020 12:00:00 AM EST 1 aborted amlodipine 5 MG Oral Tablet [facility]) Alprazolam 0.5 MG Oral Tablet ALPRAZolam 0.5 MG Oral T ablet ALPRAZolam 0.5 MG Oral Tablet 04/29/2020 12:00:00 AM EDT 1 aborte d alprazolam 0.5 MG Oral Tablet [facility]) Alprazolam 0.5 MG Oral Tablet ALPRAZOLAM 04/24/2020 12:00:00 AM EDT ta blet 90 TAKE ONE TABLET BY MOUTH THREE TIMES A DAY MAXIMUM DAILY DOSE = THREE TABLETS TAKE ONE TABLET BY MOUTH THREE TIMES A DAY MAXIMUM DAILY DOSE = THREE TABLETS SOLD: 04/24/2020 [facility] 5 mg 04/23/2020 12:00:00 AM EDT tablet 90 TAKE ONE TABLET BY MOUTH EVERY DAY TAKE ONE TABLET BY MOUTH EVERY DAY SOLD: 04/24/2020 [facility] 5 mg 04/23/2020 12:00:00 AM EDT tablet 45 TAKE ONE-HALF TABLET BY MOUTH EVERY DAY TAKE ONE-HALF TABLET BY MOUTH EVERY DAY SOLD: 04/24/2020 [facility] 25 mg 04/23/2020 12:00:00 AM EDT tablet 90 TAKE ONE TABLET BY MOUTH EVERY DAY TAKE ONE TABLET BY MOUTH EVERY DAY SOLD: 04/24/2020 [facility] 50 mg 04/23/2020 12:00:00 AM EDT tablet 90 TAKE ONE TABLET BY MOUTH EVERY DAY TAKE ONE TABLET BY MOUTH EVERY DAY SOLD: 04/24/2020 [facility] 2.5 mg 04/23/2020 12:00:00 AM EDT tablet extended release 24hr 90 TAKE ONE TABLET BY MOUTH EVERY DAY TAKE ONE TABLET BY MOUTH EVERY DAY SOLD: 04/24/2020 [facility] 10 mg 04/23/2020 12:00:00 AM EDT tablet 90 TAKE ONE TABLET BY MOUTH EVERY DAY TAKE ONE TABLET BY MOUTH EVERY DAY SOLD: 04/24/2020 [facility] Lisinopril 5 MG Oral Tablet Lisinopril 5 MG Oral Tablet 04/08 12:00:00 AM EDT aborted lisinopril 5 MG Oral Tablet [facility]) Hydrochlorothiazide 25 MG Oral Tablet hydroCHLOROthiaz meghann 25 MG Oral Tablet hydroCHLOROthiazide 25 MG Oral Tablet 04/22/2020 12:00:00 AM EDT aborted hydrochlorothiazide 25 MG Oral T ablet [facility]) Rosuvastatin calcium 20 MG Oral Tablet ROSUVASTATIN CALCIUM 04/22/2020 12:00:00 AM EDT tablet 90 TAKE ONE TABLET BY MOUTH IKER RY DAY TAKE ONE TABLET BY MOUTH EVERY DAY SOLD: 04/24/2020 [facility] Amlodipine 5 MG Oral Tablet [Norvasc] Norvasc 5 MG Ora l Tablet Norvasc 5 MG Oral Tablet 04/22/2020 12:00:00 AM EDT aborted amlodipine 5 MG Oral Tablet [Norvasc] [facility]) Prednisone 10 MG Oral Tablet predniSONE 10 MG Oral Tab let predniSONE 10 MG Oral Tablet 04/22/2020 12:00:00 AM EDT aborted prednisone 10 MG Oral Tablet [facility]) Rosuvastatin calcium 20 MG Oral Tablet [Crestor] Crest or 20 MG Oral Tablet Crestor 20 MG Oral Tablet 04/22/2020 12:00:00 AM EDT aborted rosuvastatin calcium 20 MG Oral Tablet [Crestor] [facility]) sitagliptin 50 MG Oral Tablet [Januvia] Januvia 50 MG Oral Tablet Januvia 50 MG Oral Tablet 04/22/2020 12:00:00 AM EDT aborte d sitagliptin 50 MG Oral Tablet [Januvia] [facility]) glipiZIDE XL 2.5 MG Oral Tablet Extended Release 24 Ho ur glipiZIDE XL 2.5 MG Oral Tablet Extended Release 24 Hour 04/22/2020 12:00:00 AM EDT aborted glipiZIDE XL [place] ([facility]) Ascorbic Acid 500 MG Oral Capsule Vitamin C 500 MG Ora l Capsule Vitamin C 500 MG Oral Capsule 04/22/2020 12:00:00 AM EDT acti ve ascorbic acid 500 MG Oral Capsule [facility]) icosapent ethyl 1000 MG Oral Capsule [Vascepa] Vascepa 1 GM Oral Capsule Vascepa 1 GM Oral Capsule 04/22/2020 12:00:00 AM EDT aborted icosapent ethyl 1000 MG Oral Capsule [Vascepa] [facility]) rivaroxaban 15 MG Oral Tablet [Xarelto] Xarelto 15 MG Oral Tablet Xarelto 15 MG Oral Tablet 04/22/2020 12:00:00 AM EDT active rivaroxaban 15 MG Oral Tablet [Xarelto] [facility]) 1 gram 03/18/2020 12:00:00 AM EDT capsule 120 TAKE TWO CAPSULES BY MOUTH TWICE A DAY WITH MEALS TAKE TWO CAPSULES BY MOUTH TWICE A DAY WITH MEALS SOLD : 09/11/2020 [facility] 1 gram 03/18/2020 12:00:00 AM EDT capsule 360 TAKE TWO CAPSULES BY MOUTH TWICE A DAY WITH MEALS TAKE TWO CAPSULES BY MOUTH TWICE A DAY WITH MEALS SOLD : 06/14/2020 [facility] 1 gram 03/18/2020 12:00:00 AM EDT capsule 360 TAKE TWO CAPSULES BY MOUTH TWICE A DAY WITH MEALS TAKE TWO CAPSULES BY MOUTH TWICE A DAY WITH MEALS SOLD : 10/09/2020 [facility] 15 mg 03/05/2020 12:00:00 AM EDT tablet 90 TAKE 1 TABLET BY MOUTH ONCE DAILY WITH THE EVENING MEAL TAKE 1 TABLET BY MOUTH ONCE DAILY WITH THE EVENING PATTY L SOLD: 09/01/2020 [facility] 15 mg 03/05/2020 12:00:00 AM EDT tablet 40 TAKE 1 TABLET BY MOUTH ONCE DAILY WITH THE EVENING MEAL TAKE 1 TABLET BY MOUTH ONCE DAILY WITH THE EVENING PATTY L SOLD: 11/27/2020 [facility] 15 mg 03/05/2020 12:00:00 AM EDT tablet 90 TAKE 1 TABLET BY MOUTH ONCE DAILY WITH THE EVENING MEAL TAKE 1 TABLET BY MOUTH ONCE DAILY WITH THE EVENING PATTY L SOLD: 06/03/2020 [facility] Alprazolam 0.5 MG Oral Tablet ALPRAZolam 0.5 MG Oral T ablet ALPRAZolam 0.5 MG Oral Tablet 01/22/2020 12:00:00 AM EDT 1 aborte d alprazolam 0.5 MG Oral Tablet [place] ([facility]) sitagliptin 50 MG Oral Tablet [Januvia] Januvia 50 MG Oral Tablet Januvia 50 MG Oral Tablet 01/15/2020 12:00:00 AM EDT aborte d sitagliptin 50 MG Oral Tablet [Januvia] [place] ([facility]) Lisinopril 5 MG Oral Tablet Lisinopril 5 MG Oral Tablet 04/2020 12:00:00 AM EDT aborted lisinopril 5 MG Oral Tablet [place] ([facility]) clopidogrel 75 MG Oral Tablet [Plavix] Plavix 75 MG Or al Tablet Plavix 75 MG Oral Tablet 01/15/2020 12:00:00 AM EDT aborte d clopidogrel 75 MG Oral Tablet [Plavix] [place] ([facility]) Fenofibrate 145 MG Oral Tablet [Tricor] Tricor 145 MG Oral Tablet Tricor 145 MG Oral Tablet 01/15/2020 12:00:00 AM EDT aborte d fenofibrate 145 MG Oral Tablet [Tricor] [place] ([facility]) Rosuvastatin calcium 20 MG Oral Tablet [Crestor] Crest or 20 MG Oral Tablet Crestor 20 MG Oral Tablet 01/15/2020 12:00:00 AM EDT aborted rosuvastatin calcium 20 MG Oral Tablet [Crestor] [place] ([facility]) glipiZIDE XL 2.5 MG Oral Tablet Extended Release 24 Ho ur glipiZIDE XL 2.5 MG Oral Tablet Extended Release 24 Hour 01/15/2020 12:00:00 AM EDT aborted glipiZIDE XL [place] ([facility]) Prednisone 10 MG Oral Tablet predniSONE 10 MG Oral Tab let predniSONE 10 MG Oral Tablet 01/15/2020 12:00:00 AM EDT aborted prednisone 10 [facility] Amlodipine 5 MG Oral Tablet [Norvasc] Norvasc 5 MG Ora l Tablet Norvasc 5 MG Oral Tablet 01/15/2020 12:00:00 AM EDT aborted amlodipine 5 MG Oral Tablet [Norvasc] [place] ([facility]) Hydrochlorothiazide 25 MG Oral Tablet hydroCHLOROthiaz meghann 25 MG Oral Tablet hydroCHLOROthiazide 25 MG Oral Tablet 01/15/2020 12:00:00 AM EDT aborted hydrochlorothiazide 25 MG Oral T ablet [place] (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 Supplemental Policy 0 [id number] Self 0 BCBS of [facility] Supplemental Policy 0 [id number] Self 0 BCBS of [facility] Supplemental Policy 0 [id number] Self 0 BCBS of [facility] Supplemental Policy 0 [id number] Self 0 BCBS of [facility] Supplemental Policy 0 [id number] Self 0 BCBS of [facility] Supplemental Policy 0 [id number] Self 0 BCBS of [facility] Supplemental Policy 0 [id number] Self 0 BCBS of [facility] [place] Supplemental Policy 0 [id number] Self 0 [facility] of [facility] [place] Supplemental Policy 0 [id number] Self 0 [facility] of [facility] [place] Supplemental Policy 0 [id number] Self 0 [facility] of [facility] [place] Supplemental Policy 0 [id number] Self 0 [facility] of [facility] [place] Supplemental Policy 0 [id number] Self 0 [facility] of [facility] [place] Supplemental Policy 0 [id number] Self 0 [facility] of [facility] [place] Supplemental Policy 0 [id number] Self 0 [facility] of [facility] [place] Supplemental Policy 0 [id number] Self 0 [facility] of [facility] [place] Supplemental Policy 0 [id number] Self 0 [place] 200/700 [id number] SP [id number] BCBS of [facility] [place] Supplemental Policy 0 [id number] Self 0 [facility] of [facility] [place] Supplemental Policy 0 [id number] Self 0 [facility] of [facility] [place] Supplemental Policy 0 [id number] Self 0 [facility] of [facility] [place] Supplemental Policy 0 [id number] Self 0 BC[facility] of [facility] [place] Supplemental Policy 0 [id number] Self 0 [facility] of [facility] [place] Supplemental Policy 0 [id number] Self 0 BCBS of [facility] [place] Supplemental Policy 0 [id number] Self 0 [facility] of [facility] [place] Supplemental Policy 0 [id number] Self 0 BC[facility] of [facility] [place] Supplemental Policy 0 [id number] Self 0 [place] 200/700 [id number] SP [id number] BCBS of [facility] [place] Supplemental Policy 0 [id number] Self 0 BCBS of [facility] [place] Supplemental Policy 0 [id number] Self 0 BCBS of [facility] [place] Supplemental Policy 0 [id number] Self 0 BCBS of [facility] Supplemental Policy 0 [id number] Self 0 [place] 200/700 [id number] SP [id number] MEDICARE PART A-O/P UNAVAILABLE UNAVAILABLE Medicare Part B of [facility] Other 0 [id number] Self 0 BS [facility] Medigap Part B [id number] Self Medicare Natl Gov't Servi Medicare Primary [id number] Self Medicare Part B of [facility] Other 0 [id number] Self 0 [place] 200/700 UNAVAILABLE SP UNAVAILABLE Medicare Part B of [facility] Other 0 [id number] Self 0 BCBS OF [facility] 305/805 [id number] SP [id number] Medicare Part B of [facility] Medicare Primary 0 [id number] Self 0 Medicare Part B of [place] Medicare Primary 0 [id number] Self 0 Medicare Part B of [facility] Other 0 [id number] Self 0 Medicare Part B of [facility] Medicare Primary 0 [id number] Self 0 BS [facility] Medigap Part B [id number] Self [id number] Medicare Natl Gov't Servi Medicare Primary [id number] Self [id number] MEDICARE C [id number] S [id number] A [place] P [id number] S [id number] Medicare Part B of [facility] Medicare Primary 0 [id number] Self 0 EXCELL[employer] BCBS O [id number] S [id number] Medicare Part B of [facility] Medicare Primary 0 [id number] Self 0 MEDICARE S [id number] S [id number] Medicare Part B of [facility] Medicare Primary 0 [id number] Self 0 Medicare Part B of [facility] Other 0 [id number] Self 0 [place] 200/700 [id number] SP [id number] MEDICARE [id number] SP [id number] A [employer] (HMO) [id number] Self [id number] [employer] BCBS Medigap Part B [id number] Self [id number] Medicare [place] Medicare Primary [id number] Self [id number] OTHER NO FAULT P [id number] S [id number] Medicare Part B of [place] Medicare Primary 0 [id number] Self 0 [employer] NO FAULT [id number] SP [id number] [employer] BCBS Medigap Part B [id number] Self [id number] Medicare [place] Medicare Primary [id number] Self [id number] OTHER NO FAULT [id number] SP [id number] Medicare Part B of [place] Medicare Primary 0 [id number] Self 0 [employer] BCBS Medigap Part B [id number] Self [id number] Medicare [place] Medicare Primary [id number] Self [id number] [employer] BCBS Medigap Part B [id number] Self [id number] Medicare [place] Medicare Primary [id number] Self [id number] [employer] BCBS B [id number] S [id number] BS [place] Medigap Part B [id number] Self [id number] Medicare Natl Gov't Servi Medicare Primary [id number] Self [id number] Medicare Part B of [facility] Other 0 [id number] Self 0 Medicare Part B of [facility] Other 0 [id number] Self 0 BCBS [place] 302/307 [id number] SP [id number] Medicare Part B of [facility] Other 0 [id number] Self 0 MEDICARE C [id number] S [id number] Medicare Part B of [facility] Other 0 [id number] Self 0 [place] OF [place] 200/700 [id number] SP [id number] Medicare Part B of [facility] Other 0 [id number] Self 0 [id number] Medicare Part B of [facility] Other 0 [id number] Self 0 BCBS [place] PPO 302/307 [id number] SP [id number] Medicare Part B of [facility] Other 0 [id number] Self 0 Medicare Part B of [facility] Other 0 [id number] Self 0 Medicare Part B of [facility] Other 0 [id number] Self 0 MEDICARE PART A-O/P [id number] Medicare Part B of [facility] Other 0 [id number] Self 0 MEDICARE [id number] SP [id number] Medicare Part B of [facility] Other 0 [id number] Self 0 Medicare Part B [facility] Other 0 [id number] Self 0 Medicare Part B [facility] Other 0 [id number] Self 0 [employer] [id number] Self [id number] [facility] [id number] Self [id number] Medicare [place] Medicare Primary [id number] Self [id number] ANSI-Commercial [id number] ANSI-Medicare Part B [id number] Problems, Conditions, and Diagnoses Code Display Name Description Problem Type Effective Dates Data Source(s) R94.31 Electrocardiogram abnormal Electrocardiogram abnormal Problem 05/28/2021 12:00:00 AM EDT [facility] ([facility]) Surgeries/Procedures Procedure Description Date Indications Data Source(s) INTERROGATION EVAL REMOTE </90 D 1/2/ASSISTANT ASSOCIATE PROFESSOR LEAD PM 06/03 12:00:00 AM EDT [facility] ([facility]) INTERROGATION REMOTE </90 D SOCIAL INSURANCE ANALYST REVIEW 06/03/20 12:00:00 AM EDT [facility] ([facility]) ECG ROUTINE ECG W/LEAST 12 LDS W/I&R 05/28/2021 12:00: 00 AM EDT [facility] ([facility]) OFFICE OUTPATIENT VISIT 25 MINUTES 05/28/2021 12:00:00 AM EDT [facility] ([facility]) INTERROGATION EVAL IN PERSON 1/DUAL/ASSISTANT ASSOCIATE PROFESSOR LEAD PM 2020 12:00:00 AM EDT [facility] ([facility]) INTERROGATION EVAL REMOTE </90 D 1/2/ASSISTANT ASSOCIATE PROFESSOR LEAD PM 12/03 12:00:00 AM EDT [facility] ([facility]) INTERROGATION REMOTE </90 D SOCIAL INSURANCE ANALYST REVIEW 12/04/19 12:00:00 AM EDT [facility] ([facility]) REMOVE CERUMEN (w/LAVAGE,IRRIGATION) REMOVE CERUMEN (w/LAVAG E,IRRIGATION) 11/05/2020 12:00:00 AM EDT [place] ([facility]) REMOVE CERUMEN (w/LAVAGE,IRRIGATION) REMOVE CERUMEN (w/LAVAG E,IRRIGATION) 11/05/2020 12:00:00 AM EDT [place] ([facility]) ECHO TTHRC R-T 2D W/WOM-MODE COMPL SPEC&COLR DOP 11/03 12:00:00 AM EDT [facility] ([facility]) ECG ROUTINE ECG W/LEAST 12 LDS W/I&R 10/13/2020 12:00: 00 AM EST [facility] ([facility]) Arterial Pressure Waveform Analysis For Assessment Of Centra l Art 10/13/2020 12:00:00 AM EST [facility] (M[facility]ally [facility]) OFFICE OUTPATIENT VISIT 25 MINUTES 10/13/2020 12:00:00 AM EST [facility] ([facility]) INTERROGATION EVAL REMOTE </90 D 1/2/ASSISTANT ASSOCIATE PROFESSOR LEAD PM 09/03 12:00:00 AM EST [facility] ([facility]) INTERROGATION REMOTE </90 D SOCIAL INSURANCE ANALYST REVIEW 09/03/19 12:00:00 AM EST [facility] ([facility]) HbA1c (Glycosolated) (waived laboratory) HbA1c (Glycos olated) (waived laboratory) 08/14/2020 12:00:00 AM EST [place] ([facility]) GLUCOSE (waived laboratory) GLUCOSE (waived laboratory) 02/2021 12:00:00 AM [facility] ([facility]) ROUTINE VENIPUNCTURE ROUTINE VENIPUNCTURE 08/14/2020 12:00:00 AM ES [facility] ([facility]) INTERROGATION EVAL REMOTE </90 D 1/2/ASSISTANT ASSOCIATE PROFESSOR LEAD PM 06/04 12:00:00 AM EDT [facility] ([facility]) INTERROGATION REMOTE </90 D SOCIAL INSURANCE ANALYST REVIEW 06/04/20 12:00:00 AM EDT [facility] ([facility]) HbA1c (Glycosolated) (waived laboratory) HbA1c (Glycos olated) (waived laboratory) 04/22/2020 12:00:00 AM EDT [place] ([facility]) GLUCOSE (waived laboratory) GLUCOSE (waived laboratory) 04/08 12:00:00 AM EDT [place] ([facility]) ROUTINE VENIPUNCTURE ROUTINE VENIPUNCTURE 04/22/2020 12:00:00 AM [facility] ([facility]) Results ID Date Data Source [id number] 04/10/2021 10:13:00 AM EDT [facility]) Name Value Range Interpretation Code Description Data Deysi rce(s) Supporting Document(s) Magnesium Level 1.7 1.8-2.4 [facility] ([facility]) ID Date Data Source [id number] 02/27/2021 10:12:00 AM EDT [facility] ([facility]i [facility]) Name Value Range Interpretation Code Description Data Deysi rce(s) Supporting Document(s) Sodium 147 [facility] ([facility]) Calcium [Mass/volume] in Serum or Plasma 7.9 [facility] ([facility]) Carbon dioxide, total [Moles/volume] in Serum or Plasma 26 [facility] ([facility]) Chloride [Moles/volume] in Serum or Plasma 114 [facility] ([facility]) Blood Urea Nitrogen 22 7-18 [facility] (Ca [facility]di[facility]) Potassium [Moles/volume] in Serum or Plasma 3.6 [facility] ([facility]) Glucose 87 83-110 [facility] ([facility]) Glomerular filtration rate/1.73 sq M.pre dicted [Volume Rate/Area] in Serum or Plasma by Creatinine-based formula (MDRD) Laboratory test result [facility] ([facility]) Creatinine 0.90 0.6-1.0 [facility] ([facility]) ID Date Data Source [id number] 02/26/2021 10:11:00 AM EDT [facility] Name Value Range Interpretation Code Description Data Deysi rce(s) Supporting Document(s) Albumin [Mass/volume] in Serum or Plasma 2.7 [facility] ([facility]) Alanine aminotransferase [Enzymatic activity/volume] in Serum or Pl asma 31 [facility] ([facility]) Calcium [Mass/volume] in Serum or Plasma 7.9 [facility] ([facility]) Carbon dioxide, total [Moles/volume] in Serum or Plasma 23 [facility] ([facility]) Chloride [Moles/volume] in Serum or Plasma 111 [facility] ([facility]) Alkaline phosphatase [Enzymatic activity/volume] in Serum or Plasma 4 0 [facility] ([facility]) Potassium [Moles/volume] in Serum or Plasma 5.2 [facility] ([facility]) Protein [Mass/volume] in Serum or Plasma 6.2 [facility] ([facility]) Aspartate aminotransferase [Enzymatic activity/volume] in Serum or Plasma 21 [facility] ([facility]) Sodium 140 [facility] ([facility]) Urea nitrogen [Mass/volume] in Serum or Plasma 40 [facility] ([facility]) Creatinine For GFR 1.45 [facility] ([facility]) Glucose 154 83-110 [facility] ([facility]iology [facility]) ID Date Data Source [id number] 02/26/2021 10:11:00 AM EDT [facility] Name Value Range Interpretation Code Description Data Deysi rce(s) Supporting Document(s) White Blood Count 11.9 5.0-10.0 [facility] ([facility]) Red Blood Count 3.96 4.00-5.40 [facility] ([facility]) Platelets 178 172-450 [facility] ([facility]) Hemoglobin 12.7 [facility] ([facility]) Hematocrit 39.4 [facility] ([facility]) ID Date Data Source [id number] 02/25/2021 02:26:00 PM EDT [facility] Name Value Range Interpretation Code Description Data Deysi rce(s) Supporting Document(s) SARS coronavirus 2 RNA [Presence] in Res piratory specimen by DARIUS with probe detection NEGATIVE [facility] This lab was ordered by [facility] a nd reported by [facility]. ID Date Data Source [id number] 11/05/2020 11:22:00 AM EDT [place] ([facility]) Name Value Range Interpretation Code Description Data Deysi rce(s) Supporting Document(s) Glucose [Mass/volume] in Urine collected for unspecified duration 9 5 Normal Glucose [place] ([facility]) ID Date Data Source [id number] 11/05/2020 11:22:00 AM EDT [place] ([facility]) Name Value Range Interpretation Code Description Data Deysi rce(s) Supporting Document(s) Hemoglobin A1c/Hemoglobin.total in Blood 7.1 Abnormal (applies to non-numeric results) HbA1C [place] ([facility]) ID Date Data Source [id number] 10/21/2020 09:20:00 AM EDT [place] ([facility]) Name Value Range Interpretation Code Description Data Deysi rce(s) Supporting Document(s) Reported Physicians See Note Reported Physici ans [place] ([facility]) Note: Reported Physicians:Ordering: Rach Evans AAttending: Harris Baez To: Rach Baez ID Date Data Source [id number] 10/21/2020 09:20:00 AM EDT [place] ([facility]) Name Value Range Interpretation Code Description Data Deysi rce(s) Supporting Document(s) CREATININE, URINE 55.4 MG/DL Normal CREATININE, URINE [place] ([facility]) MALB URINE SIEMENS < 5.0 MG/L Normal MALB URINE SIEMEN S [place] ([facility]) SHANAE/CREAT RATIO 9.0 MCG/MG Normal SHANAE/CREAT RATIO [facility] ([facility]) Note: THE [employer] STATES THAT MICROALBUMINURIA IS PRESENT IF THE MICROALBUMIN/CREATININE RATIO EXCEEDS 30 MCG/MG. THE THRESHOLD FOR CLINICAL ALBUMINURIA IS REACHED AT 300 MCG/MG. THE CLASSIFICATION OF A PATIENT SHOULD BE BASED UPON AT LEAST 2 OF 3 ABNORMAL RESULTS ON SPECIMENS COLLECTED WITHIN A 3 TO 6 MONTH TIME FRAME. ID Date Data Source [id number] 10/13/2020 10:59:00 AM EST [facility] ([facility]) Name Value Range Interpretation Code Description Data Deysi rce(s) Supporting Document(s) White Blood Count 11.3 4.3-10.9 [facility] (Card [facility]) Red Blood Count 4.39 4.70-6.20 [facility] ([facility]io [facility]) Hemoglobin 13.6 13.0-17.0 [facility] (Cardiology [facility]) Platelets 235 130-400 [facility] (Cardiology [facility]) Hematocrit 42.4 39.0-50.0 [facility] ([facility]iology [facility]) ID Date Data Source [id number] 10/13/2020 10:34:00 AM EST [facility] ([facility]) Name Value Range Interpretation Code Description Data Deysi rce(s) Supporting Document(s) Erythrocyte sedimentation rate by Westergren method 5 mm/hr 0-30 [facility] ([facility]) ID Date Data Source [id number] 10/13/2020 10:34:00 AM EST [facility] ([facility]) Name Value Range Interpretation Code Description Data Deysi rce(s) Supporting Document(s) White Blood Count 11.3 10 4.0-10.0 [facility] ([facility]) Red Blood Count 4.39 10 4.00-5.40 [facility] (Card[facility]) Hemoglobin 13.6 g/dL 12.0-15.5 [facility] ([facility]) Hematocrit 42.4 % 36.0-47.0 [facility] ([facility]) Mean Corpuscular Volume 96.6 fl 80.0-96.0 M [facility] ([facility]) Mean Corpuscular Hemoglobin 31.0 pg 27.0-33.0 [facility] ([facility]) Mean Corpuscular HGB Conc 32.1 g/dL 32.0-36.5 [facility] ([facility]iology [facility]) Platelet Count, Automated 235 10 150-450 [facility] ([facility]) Red Cell Distribution Width 13.6 % 11.5-14.5 [facility] ([facility]) Nucleated Red Blood Cell % 0.0 % 0-0 [facility] ([facility]) ID Date Data Source [id number] 10/13/2020 10:34:00 AM EST [facility] ([facility]) Name Value Range Interpretation Code Description Data Deysi rce(s) Supporting Document(s) Thyrotropin [Units/volume] in Serum or Plasma 1.710 uIU/ML 0.358-3.74 0 [facility] ([facility]) Creatine kinase [Enzymatic activity/volume] in Serum or Plasma 67 U /L 26-192 [facility] ([facility]iology [facility]) ID Date Data Source [id number] 10/13/2020 10:34:00 AM EST [facility] ([facility]) Name Value Range Interpretation Code Description Data Deysi rce(s) Supporting Document(s) Triglycerides Level 215 mg/dL [facility] ([facility]) Cholesterol Level 214 mg/dL [facility] (Card [facility]) HDL Cholesterol 89 mg/dL [facility] ([facility]io [facility]) LDL Cholesterol 82 mg/dL [facility] ([facility]io [facility]) Non-HDL-C 125 mg/dL [facility] ([facility]) Cholesterol Risk Ratio 2.404 [facility] (Cardiology [facility]) ID Date Data Source [id number] 10/13/2020 10:34:00 AM EST [facility] ([facility]) Name Value Range Interpretation Code Description Data Deysi rce(s) Supporting Document(s) Glucose, Fasting 93 mg/dL 70-100 [facility] ([facility]) Blood Urea Nitrogen 36 mg/dL 7-18 [facility] ([facility]) Glomerular Filtration Rate 44.3 [facility] ([facility]iology [facility]) <content>Units are mL/min/1.73 m2</content>
<content></content>
<content>Chronic Kidney Disease Staging per NKF:</content>
<content></content>
<content>Stage I & II GFR >=60 Normal to Mildly Decreased</content>
<content>Stage III GFR 30-59 Moderately Decreased</content>
<content>Stage IV GFR 15-29 Severely Decreased</content>
<content>Stage V GFR <15 Very Little GFR Left</content>
<content>ESRD GFR <15 on SET O TYPE OPERATOR</content>
<content></content> Creatinine For GFR 1.24 mg/dL 0.55-1.30 [facility] ([facility]) Sodium Level 141 meq/L 136-145 [facility] ([facility]) Chloride Level 106 meq/L 98-107 [facility] ([facility]iol [facility]) Potassium Serum 3.6 meq/L 3.5-5.1 [facility] ([facility]io [facility]) Carbon Dioxide Level 28 meq/L 21-32 [facility] (C ar[facility]) Anion Gap 7 meq/L 8-16 [facility] ([facility]iology A [facility]) Alt/SGPT 35 U/L 12-78 [facility] ([facility]) Calcium Level 9.4 mg/dL 8.8-10.2 [facility] ([facility]) Ast/Sgot 13 U/L 7-37 [facility] ([facility]) Alkaline Phosphatase 49 U/L 45-117 [facility] ([facility]) Bilirubin,Total 0.5 mg/dL 0.2-1.0 [facility] ([facility]) Total Protein 6.5 GM/DL 6.4-8.2 [facility] (Cardiolo gy [facility]) Albumin 3.7 GM/DL 3.2-5.2 [facility] ([facility]) Albumin/Globulin Ratio 1.3 1.2-2.2 [facility] ([facility]) ID Date Data Source [id number] 10/13/2020 10:34:00 AM EST [facility] ([facility]i [facility]) Name Value Range Interpretation Code Description Data Deyis rce(s) Supporting Document(s) Triglycerides Level 219 mg/dL [facility] (Ca [facility]) LDL Cholesterol 70 mg/dL [facility] ([facility]io [facility]) Cholesterol Level 206 mg/dL [facility] ([facility] [place] [facility] HDL Cholesterol 92 mg/dL [facility] ([facility]) Cholesterol Risk Ratio 2.239 [facility] ([facility]) Non-HDL-C 114 mg/dL [facility] ([facility]) ID Date Data Source [id number] 10/13/2020 10:34:00 AM EST [place] ([facility]) Name Value Range Interpretation Code Description Data Deysi rce(s) Supporting Document(s) TRIGLYCERIDES LEVEL 215 MG/DL Above high normal TRIGLYCER IDES LEVEL [place] ([facility]) HDL CHOLESTEROL 89 MG/DL Normal HDL CHOLESTEROL [facility] ([facility]) CHOLESTEROL LEVEL 214 MG/DL Above high normal CHOLESTEROL LEVEL [place] ([facility]) CHOLESTEROL RISK RATIO 2.404 Normal CHOLESTEROL R ISK RATIO [place] ([facility]) LDL CHOLESTEROL 82 MG/DL Normal LDL CHOLESTEROL [facility] ([facility]) NON-HDL-C 125 MG/DL Normal NON-HDL-C [place] ([facility]) ID Date Data Source [id number] 10/13/2020 10:34:00 AM EST [facility] ([facility]) Name Value Range Interpretation Code Description Data Deysi rce(s) Supporting Document(s) Reported Physicians See Note Reported Physici ans [place] ([facility]) Note: Reported Physicians:Ordering: Rach vEans AAttending: Rach BaezReferring: Antecol, DavidCopy To: Doug BaezynCopy To: Antecol, Laurent ID Date Data Source [id number] 10/13/2020 10:34:00 AM EST [facility] ([facility]) Name Value Range Interpretation Code Description Data Deysi rce(s) Supporting Document(s) Hematocrit [Pure volume fraction] of Blood by Automated count 42.4 % Normal HEMATOCRIT [place] ([facility]) RED BLOOD COUNT 4.39 6/uL Normal [facility] WHITE BLOOD COUNT 11.3 3/uL Above high normal WHITE BLOOD COUNT [facility]) Hemoglobin [Mass/volume] in Mixed venous blood by Oximetry 13.6 g/d l Normal HEMOGLOBIN [facility]) MEAN CORPUSCULAR HGB CONC 32.1 g/dl Normal MEAN CORPU SCULAR HGB CONC [facility]) MEAN CORPUSCULAR VOLUME 96.6 fl Above high normal MEAN CORPUSCULAR VOLUME [facility]) MEAN CORPUSCULAR HEMOGLOBIN 31.0 pg Normal MEAN COR PUSCULAR HEMOGLOBIN [facility]) RED CELL DISTRIBUTION WIDTH 13.6 % Normal RED CELL DISTRIBUTION WIDTH [facility]) PLATELET COUNT, AUTOMATED 235 3/uL Normal PLATELET C OUNT, AUTOMATED [place] ([facility]) NUCLEATED RED BLOOD CELL % 0.0 % Normal NUCLEATED RED BLOOD CELL % [place] ([facility]) ID Date Data Source [id number] 10/13/2020 10:34:00 AM EST [place] ([facility]) Name Value Range Interpretation Code Description Data Deysi rce(s) Supporting Document(s) Reported Physicians See Note Reported Physici ans [place] ([facility]) Note: Reported Physicians:Ordering: Malaika Evanscelyn AAttending: Rach BaezReferring: Antecol, DavidCopy To: Nestor JocelynCopy To: Antecol, Laurent ID Date Data Source [id number] 10/13/2020 10:34:00 AM EST [place] ([facility]) Name Value Range Interpretation Code Description Data Deysi rce(s) Supporting Document(s) Erythrocyte sedimentation rate by [place] method 5 mm/hr Normal ERYTHROCYTE SEDIMENTATION RATE [facility]) ID Date Data Source [id number] 10/13/2020 10:34:00 AM EST [facility] ([facility]) Name Value Range Interpretation Code Description Data Deysi rce(s) Supporting Document(s) Reported Physicians See Note Reported Physici ans [place] ([facility]) Note: Reported Physicians:Ordering: Shin e, Rach AAttending: Doug BaezynReferring: Antecol, DavidCopy To: Nestor JocelynCopy To: Antecol, Laurent ID Date Data Source [id number] 10/13/2020 10:34:00 AM EST [place] ([facility]) Name Value Range Interpretation Code Description Data Deysi rce(s) Supporting Document(s) CPK CREATINE PHOSPHOKINASE 67 U/L Normal CPK CREAT INE PHOSPHOKINASE [facility]) ID Date Data Source [id number] 10/13/2020 10:34:00 AM EST [place] ([facility]) Name Value Range Interpretation Code Description Data Deysi rce(s) Supporting Document(s) Reported Physicians See Note Reported Physici ans [place] ([facility]) Note: Reported Physicians:Ordering: Rach Evans AAttending: Doug BaezynReferring: Antecol, DavidCopy To: Malaika BaezcelynCopy To: YolandaolLaurent ID Date Data Source [id number] 10/13/2020 10:34:00 AM EST [place] ([facility]) Name Value Range Interpretation Code Description Data [facility] rce(s) Supporting Document(s) GLUCOSE, FASTING 93 MG/DL Normal [facility], FASTING [facility]) GLOMERULAR FILTRATION RATE 44.3 Normal GLOMERULA R FILTRATION RATE [facility]) Note: Units are mL/min/1.73 m2 Chroni c Kidney Disease Staging per NKF: Stage I & II GFR >=60 Normal to Mildly Decreased Stage III GFR 30- 59 Moderately Decreased Stage IV GFR 15-29 Severely Decreased Stage V GFR <15 Very Little GFR Left ESRD GFR <15 on SET O TYPE OPERATOR CREATININE FOR GFR 1.24 MG/DL Normal CREATININE FOR GF R [place] ([facility]) BLOOD UREA NITROGEN 36 MG/DL Above high normal BLOOD URE A NITROGEN [place] ([facility]) POTASSIUM SERUM 3.6 MEQ/L Normal POTASSIUM SERUM [facility]) SODIUM LEVEL 141 MEQ/L Normal SODIUM LEVEL [facility]) CARBON DIOXIDE LEVEL 28 MEQ/L Normal CARBON DIOXIDE LEVEL [facility]) Anion gap in Body fluid 7 MEQ/L Below low normal ANION GAP [facility]) CHLORIDE LEVEL 106 MEQ/L Normal CHLORIDE LEVEL [facility]) AST/SGOT 13 U/L Normal AST/SGOT [place] ([facility]) ALT/SGPT 35 U/L Normal ALT/SGPT [facility]) CALCIUM LEVEL 9.4 MG/DL Normal CALCIUM LEVEL [facility]) Alkaline phosphatase [Enzymatic activity/volume] in Se rum, Plasma or Blood 49 U/L Normal ALKALINE PHOSPHATASE [facility]) TOTAL PROTEIN 6.5 GM/DL Normal TOTAL PROTEIN [facility]) BILIRUBIN,TOTAL 0.5 MG/DL Normal BILIRUBIN,TOTAL [facility] ([facility]) ALBUMIN/GLOBULIN RATIO 1.3 Normal ALBUMIN/GLOBU RAF RATIO [facility]) Albumin [Mass/volume] in Blood by Bromocresol purple ( BCP) dye binding method 3.7 GM/DL Normal ALBUMIN [facility]) ID Date Data Source [id number] 10/13/2020 10:34:00 AM EST [place] ([facility]) Name Value Range Interpretation Code Description Data Deysi rce(s) Supporting Document(s) Reported Physicians See Note Reported Physici ans [facility]) Note: Reported Physicians:Ordering: Rach Evans AAttending: Rach BaezReferring: Laurent GabrielCopy To: Rach BaezCopy To: Laurent Gabriel ID Date Data Source [id number] 10/13/2020 10:34:00 AM EST [place] ([facility]) Name Value Range Interpretation Code Description Data Deysi rce(s) Supporting Document(s) THYROID STIMULATING HORMONE 1.710 uIU/ML Normal THYROI D STIMULATING HORMONE [facility]) ID Date Data Source [id number] 10/13/2020 10:34:00 AM EST [place] ([facility]) Name Value Range Interpretation Code Description Data Deysi rce(s) Supporting Document(s) Reported Physicians See Note Reported Physici ans [place] ([facility]) Note: Reported Physicians:Ordering: Rach Evans AAttending: Rach BaezReferring: Zoë Gabriel To: Harris Baez To: Laurent Gabriel ID Date Data Source [id number] 08/14/2020 10:43:00 AM EST [place] ([facility]) Name Value Range Interpretation Code Description Data Deysi rce(s) Supporting Document(s) GLUCOSE (FASTING) 98 Normal GLUCOSE (FASTING) [place] ([facility]) ID Date Data Source [id number] 08/14/2020 10:42:00 AM EST [place] ([facility]) Name Value Range Interpretation Code Description Data Deysi rce(s) Supporting Document(s) Hemoglobin A1c/Hemoglobin.total in Blood 7.8 Abnormal (applies to non-numeric results) HbA1C [place] ([facility]) ID Date Data Source [id number] 07/18/2020 12:00:00 AM EST [facility] Fabiola Darrel Avery Patient Name: CINTHYA BENNETT [facility] [place] [place] [address]- Date of Exam: 07/18/2020#: Fax: [phone] EXAM: MAMMO SCREENING WITH CADCLINICAL INFORMATION: Screening.Comparison 06/15/2019 as well as other prior exams.Family history of sister with breast cancer at age 61 and grandmother in30's.Based on the personal and family history information your patient suppliedat the time of imaging, her lifetime risk of breast cancer estimated by theTyrer-Cuzick model is 7.8%. Given that this patient has less than 20% TCrisk score, no further medical management is currently recommended at thistime.Your patient's personal and/or family history of cancer submitted at thetime of imaging is suggestive of a hereditary cancer syndrome. She meetsthe criteria for genetic testing established by [facility] and [place] [employer] guidelines. She should pursue arisk assessment with a hereditary cancer specialist which may includetesting based on these criteria. The benefits and limitations of genetictesting would be discussed, including potential changes to medicalmanagement based on the results. Your patient declined myRisk genetictesting at this time.Digital screening (2D) mammography was performed bilaterally.Additionally, breast tomosynthesis (3D mammography) was performedbilaterally in the CC and MLO projections and compared to the priorexam(s).There is a fairly symmetric fibroglandular pattern in the breasts. Therehas been no interval development of masses, areas of structural distortionor clusters of microcalcifications typical of malignancy. Large coarsecalcifications are present, of no clinical significance. There are stablepost surgical changes on the left.The Volpara volumetric breast density category is B, there are scatteredareas of fibroglandular density.IMPRESSION:BI- RADS Category 2 - Benign Finding(s). Currently no mammographic evidenceof malignancy. Routine follow-up is recommended.This mammogram was read with the assistance of Liz MyEdu, an FDAapproved computer aided detection system for mammography.Negative x-ray reports should not delay surgical consultation if a dominantor clinically suspicious mass is present.Not all breast cancers can be identified by mammography. Therefore, werecommend that you continue to perform regular breast self-examination andphysical examination and then promptly contact your physician of anyconcerns or changes.Adenosis and dense breasts may obscure an underlying neoplasm.The patient states that a clinical breast examination was over a year ago.LEENA Owen/Joann you for referring ALICIA DAILY to our office. Electronically Signed - ALEA DONALDSON MD 07/18/20 18:53 Name Value Range Interpretation Code Description Data Deysi rce(s) Supporting Document(s) ID Date Data Source [id number] 04/28/2020 12:00:00 AM EDT [facility] Lorraine Aditya LEVIN Patient Name: DAILY,RAY [address] Date of : [address] Date of Exam: 04/28/2020LU[place] [id number]#: Fax: [phone] EXAM: US RETROPERITONEAL, LIMITED (AORTA, NODES OR KID)CLINICAL INFORMATION: Followup abdominal aortic aneurysm.Prior examination 03/26/2019 was reviewed. That examination showed a stable4.4 cm sized infrarenal abdominal aortic aneurysm which measured 5.6 cm inlength.Today's examination was performed in the same fashion as the prior exam.There is no significant change in the appearance of the infrarenalabdominal aortic aneurysm. Once again, it measures approximately 4.4 cm inits AP dimension measured on the longitudinal scan plane and measuresapproximately 5.6 cm in length.IMPRESSION:No change.Accredited by the [employer] in General Ultrasound.SALVADOR Stone/Joann you for referring ALICIA DAILY to our office.Electronically Signed - GREG LANDRUM DO 04/28/20 13:16 Name Value Range Interpretation Code Description Data Deysi rce(s) Supporting Document(s) ID Date Data Source [id number] 04/22/2020 01:45:00 PM EDT [place] ([facility]) Name Value Range Interpretation Code Description Data Deysi rce(s) Supporting Document(s) Glucose [Mass/volume] in Urine collected for unspecified duration 1 66 Normal Glucose [place] ([facility]) ID Date Data Source [id number] 04/22/2020 01:45:00 PM EDT [place] ([facility]) Name Value Range Interpretation Code Description Data Deysi rce(s) Supporting Document(s) Hemoglobin A1c/Hemoglobin.total in Blood 6.8 Abnormal (applies to non-numeric results) HbA1C [place] ([facility]) Procedure Social History Code Duration Value Status Description Data Source(s ) Smoking 05/28/2021 12:00:00 AM EDT Patient is a former smoker completed Patient is a former smoker [facility] ([facility]) Smoking 10/02/2020 12:00:00 AM EST Patient is a former smoker completed Patient is a former smoker [facility] ([facility]) Vital Signs ID Date Data Source UNK Name Value Range Interpretation Code Description Data Source(s) Body weight 156.00 [lb_av] 156.00 [lb_av] [facility] ([facility]) Body height 67 [in_i] 67 [in_i] [facility] 5'7" Body mass index (BMI) [Ratio] 24.4 kg/m2 24.4 k g/m2 [facility] ([facility]) Heart rate 70 /min 70 /min [facility] ([facility]) Systolic blood pressure--sitting 124 mm[Hg] 124 mm[Hg] [facility]) Ra, large cuff Diastolic blood pressure--sitting 76 mm[Hg] 76 mm[Hg] [facility] ([facility]) Ra, large cuff Body surface area Derived from formula 1.85 m2 1.85 m2 [place] ([facility]) Systolic blood pressure 122 mm[Hg] 122 mm[Hg] [facility] ([facility]) Body height 67 [in_i] 67 [in_i] [place] ([facility]) Body weight 163 [lb_av] 163 [lb_av] [place] ([facility]) Body mass index (BMI) [Ratio] 25.5 kg/m2 25.5 k g/m2 [place] ([facility]) Oxygen saturation in Arterial blood by Pulse oximetry 98 % 98 % [place] ([facility]) Inhaled oxygen flow rate 0 L/min 0 L/min [place] ([facility]) Diastolic blood pressure 68 mm[Hg] 68 mm[Hg] [place] ([facility]) Heart rate 68 /min 68 /min [place] ([facility]) Inhaled oxygen concentration 21 % 21 % [place] ([facility]) Respiratory rate 24 /min 24 /min [place] ([facility]) Body temperature 97.8 [degF] 97.8 [degF] [place] ([facility]) Body weight 167 [lb_av] 167 [lb_av] [place] ([facility]) Systolic blood pressure 118 mm[Hg] 118 mm[Hg] G [facility] ([facility]) Diastolic blood pressure 68 mm[Hg] 68 mm[Hg] [place] ([facility]) Heart rate 74 /min 74 /min [place] ([facility]) Respiratory rate 20 /min 20 /min [place] ([facility]) Body temperature 96.5 [degF] 96.5 [degF] [place] ([facility]) Body height 67 [in_i] 67 [in_i] [place] ([facility]) Body mass index (BMI) [Ratio] 26.2 kg/m2 26.2 k g/m2 [place] ([facility]) Body surface area Derived from formula 1.87 m2 1.87 m2 [place] ([facility]) Oxygen saturation in Arterial blood by Pulse oximetry 96 % 96 % [place] ([facility]) Body weight 167.00 [lb_av] 167.00 [lb_av] [facility] ([facility] Body height 67 [in_i] 67 [in_i] [facility] ([facility]) 5'7" Body mass index (BMI) [Ratio] 26.2 kg/m2 26.2 k g/m2 [facility] ([facility]) Heart rate 69 /min 69 /min [facility] ([facility]) Systolic blood pressure--sitting 133 mm[Hg] 133 mm[Hg] [facility] ([facility]) CBP, adult cuff/Ra Diastolic blood pressure--sitting 75 mm[Hg] 75 mm[Hg] [facility] ([facility]) CBP, adult cuff/Ra Oxygen saturation in Arterial blood by Pulse oximetry 98 % 98 % [facility]) Body temperature 97.5 [degF] 97.5 [degF] [facility]) Body weight 165.00 [lb_av] 165.00 [lb_av] [facility] ([facility]) Body height 68 [in_i] 68 [in_i] [facility] ([facility]) 5'8" Body mass index (BMI) [Ratio] 25.1 kg/m2 25.1 k g/m2 [facility] ([facility]) Systolic blood pressure 129 mm[Hg] 129 mm[Hg] [facility] Diastolic blood pressure 81 mm[Hg] 81 mm[Hg] [facility] ([facility]) Heart rate 75 /min 75 /min [facility] ([facility]) Respiratory rate 13 /min 13 /min [facility] ( [facility]) Body mass index (BMI) [Ratio] 26.3 kg/m2 26.3 k g/m2 [place] ([facility]) Systolic blood pressure 120 mm[Hg] 120 mm[Hg] [facility]) Diastolic blood pressure 68 mm[Hg] 68 mm[Hg] [place] ([facility]) Heart rate 73 /min 73 /min [place] ([facility]) Respiratory rate 24 /min 24 /min [place] ([facility]) Body temperature 97.6 [degF] 97.6 [degF] [facility] ([facility]) Body height 67 [in_i] 67 [in_i] [place] ([facility]) Body weight 168 [lb_av] 168 [lb_av] [place] ([facility]) Body surface area Derived from formula 1.88 m2 1.88 m2 [place] ([facility]) Oxygen saturation in Arterial blood by Pulse oximetry 98 % 98 % [place] ([facility]) Inhaled oxygen flow rate 0 L/min 0 L/min [place] ([facility]) Inhaled oxygen concentration 21 % 21 % [place] ([facility]) Body temperature 97.4 [degF] 97.4 [degF] [facility] ([facility]) Body surface area Derived from formula 1.88 m2 1.88 m2 [place] ([facility]) Systolic blood pressure 118 mm[Hg] 118 mm[Hg] [facility]) Diastolic blood pressure 70 mm[Hg] 70 mm[Hg] [place] ([facility]) Heart rate 64 /min 64 /min [place] ([facility]) Respiratory rate 20 /min 20 /min [place] ([facility]) Body height 67 [in_i] 67 [in_i] [place] [facility] Body weight 168 [lb_av] 168 [lb_av] [facility] ( [facility] Body mass index (BMI) [Ratio] 26.3 kg/m2 26.3 k g/m2 [place] ([facility]) Oxygen saturation in Arterial blood by Pulse oximetry 96 % 96 % [place] ([facility]) Patient Treatment Plan of Care Planned Activity Planned Date Details Description Data Source (s) Alprazolam 0.5 MG Oral Tablet 02/03/2021 12:00:00 AM EDT [place] ([facility]) Cyclobenzaprine hydrochloride 5 MG Oral Tablet 02/03/2021 12:00:00 AM EDT [place] ([facility]) Amlodipine 5 MG Oral Tablet 02/03/2021 12:00:00 AM EDT [facility]) 24 HR Glipizide 2.5 MG Extended Release Oral Tablet 02/04/20 12:00:00 AM EDT [place] ([facility]) Hydrochlorothiazide 25 MG Oral Tablet 02/03/2021 12:00:00 AM EDT [place] ([facility]) Lisinopril 5 MG Oral Tablet 02/03/2021 12:00:00 AM EDT [place] ([facility]) sitagliptin 50 MG Oral Tablet [Januvia] 02/03/2021 12:00:00 AM EDT [facility]) Prednisone 10 MG Oral Tablet 02/03/2021 12:00:00 AM EDT [place] ([facility]) Rosuvastatin calcium 20 MG Oral Tablet 02/03/2021 12:00:00 AM EDT [place] ([facility]) Lisinopril 5 MG Oral Tablet 01/06/2021 12:00:00 AM EDT [facility]) Hydrochlorothiazide 25 MG Oral Tablet 01/06/2021 12:00:00 AM EDT [facility]) Amlodipine 5 MG Oral Tablet 01/06/2021 12:00:00 AM EDT [facility]) Alprazolam 0.5 MG Oral Tablet 11/05/2020 12:00:00 AM EDT [facility]) Amlodipine 5 MG Oral Tablet 11/05/2020 12:00:00 AM EDT [facility]) 24 HR Glipizide 2.5 MG Extended Release Oral Tablet 11/06/19 12:00:00 AM EDT [facility]) Hydrochlorothiazide 25 MG Oral Tablet 11/05/2020 12:00:00 AM EDT [facility]) Lisinopril 5 MG Oral Tablet 11/05/2020 12:00:00 [facility] Prednisone 10 MG Oral Tablet 11/05/2020 12:00:00 AM EDT [place] ([facility]) Rosuvastatin calcium 20 MG Oral Tablet 11/05/2020 12:00:00 AM EDT [facility]) sitagliptin 50 MG Oral Tablet [Januvia] 11/05/2020 12:00:00 AM EDT [place] ([facility]) carbamide peroxide 65 MG/ML Otic Solution [Debrox] 11/05/2020 12 :00:00 AM EDT [place] ([facility]) Amoxicillin 500 MG Oral Tablet 11/05/2020 12:00:00 AM EDT [place] ([facility]) Fluconazole 150 MG Oral Tablet 11/05/2020 12:00:00 AM EDT [place] ([facility] [facility] Alprazolam 0.5 MG Oral Tablet 11/05/2020 12:00:00 AM EDT [place] ([facility]) sitagliptin 50 MG Oral Tablet [Januvia] 2020 12:00:00 AM EST [place] ([facility]) Rosuvastatin calcium 20 MG Oral Tablet 08/30/2020 12:00:00 AM EST [place] [facility]) Prednisone 10 MG Oral Tablet 08/30/2020 12:00:00 AM EST [place] [facility]) Amlodipine 5 MG Oral Tablet 08/18/2020 12:00:00 AM EST [place] [facility]) 24 HR Glipizide 2.5 MG Extended Release Oral Tablet 08/18/19 21 12:00:00 AM EST [place] [facility]) Hydrochlorothiazide 25 MG Oral Tablet 08/18/2020 12:00:00 AM EST [place] [facility]) Lisinopril 5 MG Oral Tablet 08/18/2020 12:00:00 AM EST [place] [facility]) Alprazolam 0.5 MG Oral Tablet 08/14/2020 12:00:00 AM EST [place] [facility]) 24 HR Glipizide 2.5 MG Extended Release Oral Tablet 08/14/19 21 12:00:00 AM EST [place] [facility]) Hydrochlorothiazide 25 MG Oral Tablet 08/14/2020 12:00:00 AM EST [place] [facility]) Lisinopril 5 MG Oral Tablet 08/14/2020 12:00:00 AM EST [place] ([facility]) Amlodipine 5 MG Oral Tablet 08/14/2020 12:00:00 AM EST [place] [facility]) Lisinopril 5 MG Oral Tablet 07/21/2020 12:00:00 AM EST [place] ([facility]) 24 HR Glipizide 2.5 MG Extended Release Oral Tablet 07/21/20 20 12:00:00 AM EST [place] [facility]) Hydrochlorothiazide 25 MG Oral Tablet 07/21/2020 12:00:00 AM EST [place] [facility]) sitagliptin 50 MG Oral Tablet [Januvia] 07/14/2020 12:00:00 AM EST [place] [facility]) Rosuvastatin calcium 20 MG Oral Tablet 07/11/2020 12:00:00 AM EST [place] [facility]) Prednisone 10 MG Oral Tablet 07/11/2020 12:00:00 AM EST [place] [facility]) Amlodipine 5 MG Oral Tablet 07/06/2020 [facility] Alprazolam 0.5 MG Oral Tablet 04/29/2020 12:00:00 AM EDT [place] [facility]) glipiZIDE XL 2.5 MG Oral Tablet Extended Release 24 Ho ur 04/22/2020 12:00:00 AM EDT [place] ([facility]) sitagliptin 50 MG Oral Tablet [Januvia] 04/22/2020 12:00:00 [facility] Hydrochlorothiazide 25 MG Oral Tablet 04/22/2020 12:00:00 AM EDT [place] [facility]) Lisinopril 5 MG Oral Tablet 04/22/2020 12:00:00 AM EDT [place] ([facility]) Amlodipine 5 MG Oral Tablet [Norvasc] 04/22/2020 12:00:00 AM EDT [place] [facility]) Prednisone 10 MG Oral Tablet 04/22/2020 12:00:00 AM EDT [place] [facility]) Rosuvastatin calcium 20 MG Oral Tablet [Crestor] 04/22/2020 12:00:0 0 AM EDT [place] [facility]) Alprazolam 0.5 MG Oral Tablet 01/22/2020 12:00:00 AM EDT [place] ([facility]) Fenofibrate 145 MG Oral Tablet [Tricor] 01/15/2020 12:00:00 AM EDT [place] ([facility]) glipiZIDE XL 2.5 MG Oral Tablet Extended Release 24 Ho ur 01/15/2020 12:00:00 AM EDT [place] ([facility]) Hydrochlorothiazide 25 MG Oral Tablet 01/15/2020 12:00:00 AM EDT [place] ([facility]) sitagliptin 50 MG Oral Tablet [Januvia] 01/15/2020 12:00:00 AM EDT [place] ([facility]) Prednisone 10 MG Oral Tablet 01/15/2020 12:00:00 AM EDT [place] ([facility]) Rosuvastatin calcium 20 MG Oral Tablet [Crestor] 01/15/2020 12:00:0 0 AM EDT [place] ([facility]) Lisinopril 5 MG Oral Tablet 01/15/2020 12:00:00 AM EDT [place] ([facility]) Amlodipine 5 MG Oral Tablet [Norvasc] 01/15/2020 12:00:00 AM EDT [place] ([facility]) clopidogrel 75 MG Oral Tablet [Plavix] 01/15/2020 12:00:00 [facility]
[2021-06-09] MEDS ORDERED: ISOVUE-370 76% 100ML VIAL As Ordered ONE (14:39)
[2021-06-09] MEDS ORDERED: NS 1,000 ML IV ONE (14:40)
--- NOTE | 2021-06-09 15:25 | REP ---
INDICATION: rectal pain; r/o abscess COMPARISON: 02/25/2021. TECHNIQUE: CT Scan of the abdomen and pelvis was performed with intravenous administration of 100 cc of Isovue 370, without oral contrast. Sagittal and coronal reconstruction images are performed. FINDINGS: Lung bases: Mild chronic changes. There is a small hiatal hernia. Liver: Normal Gallbladder: Prior cholecystectomy, no evidence of biliary dilatation. Spleen: Normal. Adrenals: Normal. Pancreas: Normal. Kidneys: There are small bilateral parapelvic cysts. Small and large bowel: There is a large amount of fecal material in the rectum likely representing fecal impaction. There is mild edema in the perirectal fat. There is sigmoid diverticulosis without evidence of acute diverticulitis. There are several small anterior abdominal wall hernias containing noninflamed fat. Free fluid: None. Abdominal aorta: There is a large stable aneurysm of the distal abdominal aorta just above and at the aortic bifurcation. It contains intraluminal thrombus. Portion of the lumen is patent. It measures 5.7 x 4.3 cm and is essentially unchanged in size compared to the prior study.. Adenopathy: None. Appendix: Not inflamed. Osseous structures: There are degenerative changes of the spine without acute compression deformity. Pelvis: There is a small stable cystic structure of the left ovary 1.9 cm in diameter. IMPRESSION: There are findings compatible with fecal impaction in the rectum. There is mild edema in the perirectal fat. No free fluid or fluid collection is seen. There is sigmoid diverticulosis without evidence of acute diverticulitis. Stable abdominal aortic aneurysm. <Electronically signed by Maycol Morales > 06/09/21 [id number]
[2021-06-09] MEDS ORDERED: FLEET OIL RETENTION ENEMA PR STA (15:32)
[2021-06-09] MEDS ORDERED: LIDOCAINE 2% 5ML JELLY UROJET TOP ONE (15:35)
[2021-06-09] MEDS ORDERED: fentaNYL 100 MCG/2 ML INJECTION (J3010) IV ONE (16:55)
[2021-06-09] MEDS ORDERED: cefTRIAXone SOD 1 GM in D5W MINI-BAG PLUS 50 ML IV ONE (17:20)
[2021-06-09] MEDS ORDERED: HOME MED LIST COMPLETE! XX SCH (18:05)
[2021-06-09 18:29] LABS: RSV AMPLIFICATION NEGATIVE (NEGATIVE)
--- OUTSIDE RECORDS SUMMARY | 2021-06-09 18:37 | CCD ---
Author Author [facility] Organization [facility] Address Unknown Phone Unavailable Care Team Providers Care Ceiling Insulation Blower Name Role Phone Tyler Baez MD Unavailable [...] Nestor, Tyler Loyd MD Unavailable Unavailable Nestor, Tylre Loyd MD Unavailable Unavailable Nestor, Tyler Loyd [...] Unavailable Nestor, Tyler Loyd MD Unavailable Unavailable Enstor, Tyler Loyd MD Unavailable Unavailable Nestor, Tyler [...] RAMON PA Unavailable Unavailable Darrel, Mariae Fabiola CLOTHING CONSULTANT Unavailable Unavailable Albin, Mariae Guilford CLOTHING CONSULTANT Unavailable Unavailable Albin, Mariae Fabiola CLOTHING CONSULTANT Unavailable Unavailable Darrel, Mariae Fabiola CLOTHING CONSULTANT Unavailable Unavailable Albin, Mariae Fabiola CLOTHING CONSULTANT Unavailable Unavailable Darrel, Mariae Fabiola CLOTHING CONSULTANT Unavailable Unavailable Albin, Mariae Fabiola CLOTHING CONSULTANT Unavailable Unavailable Albin, Mariae Guilford CLOTHING CONSULTANT Unavailable Unavailable Albin, Mariae Fabiola CLOTHING CONSULTANT Unavailable Unavailable Darrel, Mariae Fabiola CLOTHING CONSULTANT Unavailable Unavailable Darrel, Mariae Guilford CLOTHING CONSULTANT Unavailable Unavailable Albin, Mariae Fabiola CLOTHING CONSULTANT Unavailable Unavailable Darrel, Mariae Guilford CLOTHING CONSULTANT Unavailable Unavailable Darrel, Bubba Hicks CLOTHING CONSULTANT Unavailable Unavailable Albin, Bubba Hicks CLOTHING CONSULTANT Unavailable Unavailable Darrel, Bubba Archuletaica CLOTHING CONSULTANT Unavailable Unavailable Albin, Bubba Hicks CLOTHING CONSULTANT Unavailable Unavailable Re-disclosure Warning The records that [...] is protected by Article 27-F of the [facility] Public Health law. If you continue you may have access to information: Regarding HIV / AIDS; Provided by facilities licensed or operated by the [facility] Office of Mental Health; or Provided by the [facility] Office for People With Developmental Disabilities. If such information is present, then the following [facility] mandated warning applies: This information has [...] law may result in a fine or intermediate sentence or both. A general authorization for [...] PM EDT [facility] ([facility]) Outpatient<td ID="encounterTypeDescripti onID0">STANDARD OV</td><td>Fabiola Rojo NP</td><td>[facility]</td><td>02/03/2021</td><td>12:45PM</td><td>1:43PM</td><td><content ID="encounterDiagnosisID0-0">Muscle Spasm of Back</content>, <content ID="encounterDiagnosisID0-1">Diabetes Mellitus Type 2</content>, <content ID="encounterDiagnosisID0-2">Polymyalgia Rheumatica</content>, <content ID="encounterDiagnosisID0-3">Generalized Anxiety Disorder</content>, <content ID="encounterDiagnosisID0-4">Essential Hypertension Benign</content>, <content ID="encounterDiagnosisID0-5">Hyperlipidemia</content></td> Attender: Fabiola Rojo NP [facility] 02/03/2021 12:45:00 PM EDT - 02/03/2021 01:43:00 PM EDT Generalized Anxiety DisorderMuscle Spasm of BackPolymyalgia RheumaticaDiabetes Mellitus Type 2HyperlipidemiaEssential Hypertension Benign [place] ([facility]) Generalized Anxiety Disorder Muscle Spasm of Back Polymyalgia Rheumatica Diabetes Mellitus Type 2 Hyperlipidemia Essential Hypertension Benign Outpatient<td ID="encounterTypeDescripti onID1">RX UPDATE</td><td>Fabiola Rojo NP</td><td>[facility]</td><td>01/06/2021</td><td>11/05/2020 2:29PM</td><td>11/05/2020 11:59PM</td><td></td> Attender: Fabiola Rojo NP [facility] gabby 11/05/2020 02:29:00 PM EDT - 11/05/2020 11:59:00 PM EDT [place] ([facility]) Outpatient<td ID="encounterTypeDescripti onID2">EXTENDED VISIT</td><td>Fabiola Taylorgabby Darrel INFANTE</td><td>[facility]</td><td>11/05/2020</td><td>10:21AM</td><td>11:37AM</td><td><content ID="encounterDiagnosisID2-0">Diabetes Mellitus Type 2</content>, <content ID="encounterDiagnosisID2-1">Polymyalgia Rheumatica</content>, <content ID="encounterDiagnosisID2-2">Generalized Anxiety Disorder</content>, <content ID="encounterDiagnosisID2-3">Essential Hypertension Benign</content>, <content ID="encounterDiagnosisID2-4">Hyperlipidemia</content>, <content ID="encounterDiagnosisID2-5">Vertigo</content>, <content ID="encounterDiagnosisID2-6">Cerumen Impaction - Right Ear</content>, <content ID="encounterDiagnosisID2-7">Otitis Media Left Ear</content></td> Attender: Fabiola Rojo NP [facility] 11/05/2020 10:21:00 AM EDT - 11/05/2020 11:37:00 AM EDT Otitis Media Left EarCerumen Impaction - Right EarVertigoGeneralized Anxiety DisorderOtitis Media Left EarCerumen Impaction - Right EarVertigoGeneralized Anxiety DisorderOtitis Media Left EarCerumen Impaction - Right EarVertigoGeneralized Anxiety DisorderPolymyalgia RheumaticaPolymyalgia RheumaticaPolymyalgia RheumaticaDiabetes Mellitus Type 2Diabetes Mellitus Type 2Diabetes Mellitus Type 2HyperlipidemiaEssential Hypertension BenignHyperlipidemiaEssential Hypertension BenignHyperlipidemiaEssential Hypertension Benign [place] ([facility]) Otitis Media Left Ear Cerumen Impaction - [...] 10/13/2020 09:00:00 AM EST [facility] ([facility]) Outpatient Attender: RAMON Brand [facility] 10/02/2020 12:00:00 PM EST [facility] ([facility]) Outpatient<td ID="encounterTypeDescripti onID3">EXTENDED VISIT</td><td>Rach Baez MD</td><td>[facility],</td><td>08/14/2020</td><td>9:00AM</td><td>10:52AM</td><td><content ID="encounterDiagnosisID3-0">Diabetes Mellitus Type 2</content>, <content ID="encounterDiagnosisID3-1">Peripheral Vascular Disease</content>, <content ID="encounterDiagnosisID3-2">Paroxysmal Atrial Fibrillation</content>, <content ID="encounterDiagnosisID3-3">Chronic Kidney Dis Stage 3 Due To Type 2 Diab Mellitus W/ Hypertension</content>, <content ID="encounterDiagnosisID3-4"> Polymyalgia Rheumatica</content>, <content ID="encounterDiagnosisID3- 5">Obesity</content>, <content ID="encounterDiagnosisID3-6">Essential Hypertension Benign</content>, <content ID="encounterDiagnosisID3-7">Hyperlipidemia</content></td> Attender: Rach Baez MD [facility] 08/14/2020 09:00:00 AM EST - 08/14/2020 10:52:00 [...] Hypertension BenignHyperlipidemiaEssential Hypertension BenignHyperlipidemiaEssential Hypertension Benign [place] ([facility]) Obesity Chronic Kidney Dis Stage 3 Due [...] Essential Hypertension Benign Hyperlipidemia Essential Hypertension Benign Outpatient<td ID="encounterTypeDescripti onID5">EXTENDED VISIT</td><td>Rach Baez MD</td><td>[facility]</td><td>04/22/2020</td><td>12:46PM</td><td>2:06PM</td><td></td> Attender: Rach Baez MD [facility], 04/22/2020 12:46:00 PM EDT - 04/22/2020 02:06:00 PM EDT [place] ([facility]) <td ID="encounterTypeDescriptionID4">CLI NICAL USE ONLY</td><td>Fabiola Rojo NP</td><td>[facility]</td><td>06/11/2020</td><td>04/22/2020 8:09AM</td><td>04/22/2020 11:59PM</td><td></td>Outpatient Attender: Fabiola Rojo NP [facility] 04/22/2020 08:09:00 AM EDT - 04/22/2020 11:59:00 PM EDT [place] ([facility]) Immunizations Vaccine Date Status Description Data Source(s) COVID-19 VACCINE Moderna 11/10/2020 12:00:00 AM EDT completed [facility] Vaccine Series Complete: YESThis Data wa s Submitted to [facility] Via [employer] COVID-19 VACCINE, MRNA-1273, LNP-S (MODERNA)/PF 11/10/2020 1 2:00:00 AM EDT completed [facility] COVID-19 VACCINE, MRNA-1273, LNP-S (MODERNA)/PF 10/09/2020 1 2:00:00 AM EST completed [facility] COVID-19 VACCINE Moderna 10/09/2020 12:00:00 AM EST completed [facility] Vaccine Series Complete: NOThis Data was Submitted to [facility] Via [employer] 06/24/2020 02:26:00 PM EST completed <td ID="Jgejyxxuussvd-Bypsxzevfai-BK66">[facility]</td><td ID="ImmunizationDose- 14">2</td><td>06/24/2020</td><td ID="Xewdzntrepxte-LkavqGins-AT86"></td><td></td><td ID="Wicisoyndjyak-Orskmm-UO14">Complete (Reported)</td><td>Patient</td><td ID="Ljjichbfpizuc-Bkqeq-Vvln-Comment-ID14"></td> [facility]) VARICELLA-ZOSTER VIRUS GLYCOPROTEIN E,REC/AS01B ADJUVA NT/PF 06/19/2020 12:00:00 AM EST completed [facility] 04/20/2020 02:25:00 PM EDT completed <td ID="Rgtjiaklwxjuz-Ospywoohctb-TK76">[employer]</td><td ID="ImmunizationDose- 13">1</td><td>04/20/2020</td><td ID="Bzcsvdnfjiyeu-AbsqxPrtb-MA86"></td><td></td><td ID="Noayyainyzult-Btmflc-JF38">Complete (Reported)</td><td>Patient</td><td ID="Zreiivrtkdiss-Qawdt-Ebdy-Comment-ID13"></td> [facility]) INFLUENZA VACCINE QUADRIVALENT (65 YR UP)/MF59 C.1/PF 04/18/2020 12:00:00 AM EDT completed [facility] VARICELLA-ZOSTER VIRUS GLYCOPROTEIN E,REC/AS01B ADJUVA NT/PF 04/18/2020 12:00:00 AM EDT completed [facility] Medications Medication Brand Name Start Date Product Form Dose Route Admi nistrative Instructions Pharmacy Instructions Status Indications Reaction Description Data Source(s) Alprazolam 0.5 MG Oral Tablet Alprazolam 05/27/2021 12:00:00 AM EDT ORAL [facility] Ascorbic Acid 500 MG Oral Tablet Vitamin C 05/27/2021 12:00:00 AM EDT ORAL active [facility] 5 mg 05/15/2021 12:00:00 AM EDT tablet [...] BEDTIME NEEDED FOR SPASMS SOLD: 03/12/2021 [facility] Alprazolam 0.5 MG Oral Tablet ALPRAZOLAM 03/11/2021 [...] EDT active prednisone 10 MG Oral Tablet [facility]) Rosuvastatin calcium 20 MG Oral Tablet Rosuvastatin Ca lcium 20 MG Oral Tablet Rosuvastatin Calcium 20 MG Oral Tablet 02/03/2021 12:00:00 AM EDT active rosuvastatin calcium 20 MG Oral Tablet [place] ([facility]) sitagliptin 50 MG Oral Tablet [Januvia] Januvia 50 MG Oral Tablet Januvia 50 MG Oral Tablet 02/03/2021 12:00:00 AM EDT active sitagliptin 50 MG Oral Tablet [Januvia] [facility] ([facility]) Lisinopril 5 MG Oral Tablet Lisinopril 5 MG Oral Tablet 01/07 12:00:00 AM EDT active lisinopril 5 MG O ral Tablet [facility]) Alprazolam 0.5 MG Oral Tablet ALPRAZOLAM 02/03/2021 [...] active hydrochlorothiazide 25 MG Oral T ablet [facility]) 24 HR Glipizide 2.5 MG Extended Release Oral Tablet glipiZIDE ER 2.5 MG Oral Tablet Extended Release 24 Hour glipiZIDE ER 2.5 MG Oral Tablet Extended Release 24 Hour 02/03/2021 12:00:00 AM EDT active 24 HR glipizide 2.5 MG Extended Release Oral Tablet [facility]) Amlodipine 5 MG Oral Tablet amLODIPine Besylate 5 MG O ral Tablet amLODIPine Besylate 5 MG Oral Tablet 02/03/2021 12:00:00 AM EDT 1 active amlodipine 5 MG Oral Tablet [facility]) Cyclobenzaprine hydrochloride 5 MG Oral Tablet Cyclobenzaprine HCl 5 MG Oral Tablet Cyclobenzaprine HCl 5 MG Oral Tablet 02/03/2021 12:00:00 AM EDT active cyclobenzaprine hydrochlorid e 5 MG Oral Tablet [place] ([facility]) Alprazolam 0.5 MG Oral Tablet ALPRAZolam 0.5 MG Oral T ablet ALPRAZolam 0.5 MG Oral Tablet 02/03/2021 12:00:00 AM EDT 1 active alprazolam 0.5 MG Oral Tablet [place] ([facility]) 25 mg 01/07/2021 12:00:00 AM EDT tablet [...] EDT aborted lisinopril 5 MG Oral Tablet [place] ([facility]) Hydrochlorothiazide 25 MG Oral Tablet hydroCHLOROthiaz meghann 25 MG Oral Tablet hydroCHLOROthiazide 25 MG Oral Tablet 01/06/2021 12:00:00 AM EDT aborted hydrochlorothiazide 25 MG Oral T ablet [place] ([facility]) Amlodipine 5 MG Oral Tablet amLODIPine Besylate 5 MG O ral Tablet amLODIPine Besylate 5 MG Oral Tablet 01/06/2021 12:00:00 AM EDT 1 aborted amlodipine 5 MG Oral Tablet [place] ([facility]) 15 mg 12/29/2020 12:00:00 AM EDT tablet [...] glipizide 2.5 MG Extended Release Oral Tablet [place] ([facility]) Amlodipine 5 MG Oral Tablet amLODIPine Besylate 5 MG O ral Tablet amLODIPine Besylate 5 MG Oral Tablet 11/05/2020 12:00:00 AM EDT 1 aborted amlodipine 5 MG Oral Tablet [place] ([facility]) Alprazolam 0.5 MG Oral Tablet ALPRAZolam 0.5 MG Oral T ablet ALPRAZolam 0.5 MG Oral Tablet 11/05/2020 12:00:00 AM EDT 1 aborte d alprazolam 0.5 MG Oral Tablet [place] ([facility]) Lisinopril 5 MG Oral Tablet Lisinopril 5 MG Oral Tablet 10/08 12:00:00 AM EDT aborted lisinopril 5 MG Oral Tablet [place] ([facility]) Hydrochlorothiazide 25 MG Oral Tablet hydroCHLOROthiaz meghann 25 MG Oral Tablet hydroCHLOROthiazide 25 MG Oral Tablet 11/05/2020 12:00:00 AM EDT aborted hydrochlorothiazide 25 MG Oral T ablet [place] ([facility]) 500 mg 11/05/2020 12:00:00 AM EDT capsule [...] aborte d alprazolam 0.5 MG Oral Tablet [facility]) Fluconazole 150 MG Oral Tablet Fluconazole 150 MG Oral Table t 11/05/2020 12:00:00 AM EDT aborted flucona zole 150 MG Oral Tablet [facility]) 150 mg 11/05/2020 12:00:00 AM EDT tablet 2 ONE TABLET BY MOUTH ONCE A WEEK FOR 2 WEEKS ONE TABLET BY MOUTH ONCE A WEEK FOR 2 WEEKS SOLD: 11/05/2020 [facility] sitagliptin 50 MG Oral Tablet [Januvia] Januvia 50 MG Oral Tablet Januvia 50 MG Oral Tablet 11/05/2020 12:00:00 AM EDT aborte d sitagliptin 50 MG Oral Tablet [Januvia] [facility]) Rosuvastatin calcium 20 MG Oral Tablet Rosuvastatin Ca lcium 20 MG Oral Tablet Rosuvastatin Calcium 20 MG Oral Tablet 11/05/2020 12:00:00 AM EDT aborted rosuvastatin calcium 20 MG Oral Tablet [facility]) Prednisone 10 MG Oral Tablet predniSONE 10 MG Oral Tab let predniSONE 10 MG Oral Tablet 11/05/2020 12:00:00 AM EDT aborted prednisone 10 MG Oral Tablet [place] ([facility]) Amoxicillin 500 MG Oral Tablet Amoxicillin 500 MG Oral Table t 11/05/2020 12:00:00 AM EDT aborted amoxici llin 500 MG Oral Tablet [place] ([facility]) carbamide peroxide 65 MG/ML Otic Solution [Debrox] Kirstie jennyfer 6.5% Otic Solution Debrox 6.5% Otic Solution 11/05/2020 12:00:00 AM EDT aborted carbamide peroxide 65 MG/ML Otic Solution [Debrox] [place] ([facility]) Rosuvastatin calcium 20 MG Oral Tablet ROSUVASTATIN [...] 10/02/2020 12:00:00 AM EST AURICULAR active [facility] ([facility]) rivaroxaban 15 MG Oral Tablet [Xarelto] Xarelto 10/02/2020 12:00:0 0 AM EST active [facility] ([facility]) icosapent ethyl 1000 MG Oral Capsule [Vascepa] Vascepa 10/02/2020 12:00:00 AM EST active [facility] ([facility]) 50 mg 09/29/2020 12:00:00 AM EST tablet 90 TAKE ONE TABLET BY MOUTH EVERY DAY TAKE ONE TABLET BY MOUTH EVERY DAY SOLD: 10/01/2020 [facility] sitagliptin 50 MG Oral Tablet [Januvia] Januvia 50 MG Oral Tablet Januvia 50 MG Oral Tablet 2020 12:00:00 AM EST aborte d sitagliptin 50 MG Oral Tablet [Januvia] [place] ([facility]) 5 mg 09/09/2020 12:00:00 AM EST tablet [...] EST aborted prednisone 10 MG Oral Tablet [facility]) Rosuvastatin calcium 20 MG Oral Tablet Rosuvastatin Ca lcium 20 MG Oral Tablet Rosuvastatin Calcium 20 MG Oral Tablet 08/30/2020 12:00:00 AM EST aborted rosuvastatin calcium 20 MG Oral Tablet [place] ([facility]) 0.005 % 08/20/2020 12:00:00 AM EST drops [...] glipizide 2.5 MG Extended Release Oral Tablet [facility]) Hydrochlorothiazide 25 MG Oral Tablet hydroCHLOROthiaz meghann 25 MG Oral Tablet hydroCHLOROthiazide 25 MG Oral Tablet 08/18/2020 12:00:00 AM EST aborted hydrochlorothiazide 25 MG Oral T ablet [facility]) Amlodipine 5 MG Oral Tablet amLODIPine Besylate 5 MG O ral Tablet amLODIPine Besylate 5 MG Oral Tablet 08/18/2020 12:00:00 AM EST 1 aborted amlodipine 5 MG Oral Tablet [facility]) Lisinopril 5 MG Oral Tablet Lisinopril 5 MG Oral Tablet 08/08 12:00:00 AM EST aborted lisinopril 5 MG Oral Tablet [facility]) 5 mg 08/14/2020 12:00:00 AM EST tablet 30 TAKE ONE TABLET BY MOUTH EVERY DAY TAKE ONE TABLET BY MOUTH EVERY DAY SOLD: 08/15/2020 [facility] icosapent ethyl 1000 MG Oral Capsule [Vascepa] Vascepa 1 GM Oral Capsule Vascepa 1 GM Oral Capsule 08/14/2020 12:00:00 AM EST active icosapent ethyl 1000 MG Oral Capsule [Vascepa] [place] ([facility]) Alprazolam 0.5 MG Oral Tablet ALPRAZOLAM 08/14/2020 [...] aborte d alprazolam 0.5 MG Oral Tablet [place] ([facility]) Hydrochlorothiazide 25 MG Oral Tablet hydroCHLOROthiaz meghann 25 MG Oral Tablet hydroCHLOROthiazide 25 MG Oral Tablet 08/14/2020 12:00:00 AM EST aborted hydrochlorothiazide 25 MG Oral T ablet [place] ([facility]) 24 HR Glipizide 2.5 MG Extended Release Oral Tablet glipiZIDE ER 2.5 MG Oral Tablet Extended Release 24 Hour glipiZIDE ER 2.5 MG Oral Tablet Extended Release 24 Hour 08/14/2020 12:00:00 AM EST aborted 24 HR glipizide 2.5 MG Extended Release Oral Tablet [place] ([facility]) Docusate Sodium 100 MG Oral Capsule [Colace] Colace 10 0 MG Oral Capsule Colace 100 MG Oral Capsule 08/14/2020 12:00:00 AM EST active docusate sodium 100 MG Oral Capsule [Colace] [place] ([facility]) Lisinopril 5 MG Oral Tablet Lisinopril 5 MG Oral Tablet 02/2021 12:00:00 AM EST aborted lisinopril 5 MG Oral Tablet [place] ([facility]) Amlodipine 5 MG Oral Tablet amLODIPine Besylate 5 MG O ral Tablet amLODIPine Besylate 5 MG Oral Tablet 08/14/2020 12:00:00 AM EST 1 aborted amlodipine 5 MG Oral Tablet [place] ([facility]) 24 HR Glipizide 2.5 MG Extended Release Oral Tablet glipiZIDE ER 2.5 MG Oral Tablet Extended Release 24 Hour glipiZIDE ER 2.5 MG Oral Tablet Extended Release 24 Hour 07/21/2020 12:00:00 AM EST aborted 24 HR glipizide 2.5 MG Extended Release Oral Tablet [place] ([facility]) Lisinopril 5 MG Oral Tablet Lisinopril 5 MG Oral Tablet 07/08 12:00:00 AM EST aborted lisinopril 5 MG Oral Tablet [place] ([facility]) 25 mg 07/21/2020 12:00:00 AM EST tablet 30 TAKE ONE TABLET BY MOUTH EVERY DAY TAKE ONE TABLET BY MOUTH EVERY DAY SOLD: 07/28/2020 [facility] 5 mg 07/21/2020 12:00:00 AM EST tablet 15 TAKE ONE-HALF TABLET BY MOUTH EVERY DAY TAKE ONE-HALF TABLET BY MOUTH EVERY DAY SOLD: 07/28/2020 [facility] Hydrochlorothiazide 25 MG Oral Tablet hydroCHLOROthiaz meghann 25 MG Oral Tablet hydroCHLOROthiazide 25 MG Oral Tablet 07/21/2020 12:00:00 AM EST aborted hydrochlorothiazide 25 MG Oral T ablet [place] ([facility]) 2.5 mg 07/21/2020 12:00:00 AM EST tablet [...] d sitagliptin 50 MG Oral Tablet [Januvia] [place] ([facility]) 5 mg 07/14/2020 12:00:00 AM EST tablet [...] aborted rosuvastatin calcium 20 MG Oral Tablet [place] ([facility]) Prednisone 10 MG Oral Tablet predniSONE 10 MG Oral Tab let predniSONE 10 MG Oral Tablet 07/11/2020 12:00:00 AM EST aborted prednisone 10 MG Oral Tablet [facility]) Amlodipine 5 MG Oral Tablet amLODIPine Besylate 5 MG O ral Tablet amLODIPine Besylate 5 MG Oral Tablet 07/06/2020 12:00:00 AM EST 1 aborted amlodipine 5 MG Oral Tablet [facility]) Alprazolam 0.5 MG Oral Tablet ALPRAZolam 0.5 MG Oral T ablet ALPRAZolam 0.5 MG Oral Tablet 04/29/2020 12:00:00 AM EDT 1 aborte d alprazolam 0.5 MG Oral Tablet [facility]) Alprazolam 0.5 MG Oral Tablet ALPRAZOLAM 04/24/2020 [...] EDT aborted lisinopril 5 MG Oral Tablet [facility]) Hydrochlorothiazide 25 MG Oral Tablet hydroCHLOROthiaz meghann 25 MG Oral Tablet hydroCHLOROthiazide 25 MG Oral Tablet 04/22/2020 12:00:00 AM EDT aborted hydrochlorothiazide 25 MG Oral T ablet [facility]) Rosuvastatin calcium 20 MG Oral Tablet ROSUVASTATIN CALCIUM 04/22/2020 12:00:00 AM EDT tablet 90 TAKE ONE TABLET BY MOUTH IKER RY DAY TAKE ONE TABLET BY MOUTH EVERY DAY SOLD: 04/24/2020 [facility] Amlodipine 5 MG Oral Tablet [Norvasc] Norvasc 5 MG Ora l Tablet Norvasc 5 MG Oral Tablet 04/22/2020 12:00:00 AM EDT aborted amlodipine 5 MG Oral Tablet [Norvasc] [facility]) Prednisone 10 MG Oral Tablet predniSONE 10 MG Oral Tab let predniSONE 10 MG Oral Tablet 04/22/2020 12:00:00 AM EDT aborted prednisone 10 MG Oral Tablet [facility]) Rosuvastatin calcium 20 MG Oral Tablet [Crestor] Crest or 20 MG Oral Tablet Crestor 20 MG Oral Tablet 04/22/2020 12:00:00 AM EDT aborted rosuvastatin calcium 20 MG Oral Tablet [Crestor] [facility]) sitagliptin 50 MG Oral Tablet [Januvia] Januvia 50 MG Oral Tablet Januvia 50 MG Oral Tablet 04/22/2020 12:00:00 AM EDT aborte d sitagliptin 50 MG Oral Tablet [Januvia] [facility]) glipiZIDE XL 2.5 MG Oral Tablet Extended Release 24 Ho ur glipiZIDE XL 2.5 MG Oral Tablet Extended Release 24 Hour 04/22/2020 12:00:00 AM EDT aborted glipiZIDE XL [place] ([facility]) Ascorbic Acid 500 MG Oral Capsule Vitamin C 500 MG Ora l Capsule Vitamin C 500 MG Oral Capsule 04/22/2020 12:00:00 AM EDT acti ve ascorbic acid 500 MG Oral Capsule [facility]) icosapent ethyl 1000 MG Oral Capsule [Vascepa] Vascepa 1 GM Oral Capsule Vascepa 1 GM Oral Capsule 04/22/2020 12:00:00 AM EDT aborted icosapent ethyl 1000 MG Oral Capsule [Vascepa] [facility]) rivaroxaban 15 MG Oral Tablet [Xarelto] Xarelto 15 MG Oral Tablet Xarelto 15 MG Oral Tablet 04/22/2020 12:00:00 AM EDT active rivaroxaban 15 MG Oral Tablet [Xarelto] [facility]) 1 gram 03/18/2020 12:00:00 AM EDT capsule [...] aborte d alprazolam 0.5 MG Oral Tablet [place] ([facility]) sitagliptin 50 MG Oral Tablet [Januvia] Januvia 50 MG Oral Tablet Januvia 50 MG Oral Tablet 01/15/2020 12:00:00 AM EDT aborte d sitagliptin 50 MG Oral Tablet [Januvia] [facility] ([facility]) Lisinopril 5 MG Oral Tablet Lisinopril 5 MG Oral Tablet 04/2020 12:00:00 AM EDT aborted lisinopril 5 MG Oral Tablet [facility] ([facility]) clopidogrel 75 MG Oral Tablet [Plavix] Plavix 75 MG Or al Tablet Plavix 75 MG Oral Tablet 01/15/2020 12:00:00 AM EDT aborte d clopidogrel 75 MG Oral Tablet [Plavix] [facility] ([facility]) Fenofibrate 145 MG Oral Tablet [Tricor] Tricor 145 MG Oral Tablet Tricor 145 MG Oral Tablet 01/15/2020 12:00:00 AM EDT aborte d fenofibrate 145 MG Oral Tablet [Tricor] [facility] ([facility]) Rosuvastatin calcium 20 MG Oral Tablet [Crestor] Crest or 20 MG Oral Tablet Crestor 20 MG Oral Tablet 01/15/2020 12:00:00 AM EDT aborted rosuvastatin calcium 20 MG Oral Tablet [Crestor] [facility] ([facility]) glipiZIDE XL 2.5 MG Oral Tablet Extended Release 24 Ho ur glipiZIDE XL 2.5 MG Oral Tablet Extended Release 24 Hour 01/15/2020 12:00:00 AM EDT aborted glipiZIDE XL [place] ([facility]) Prednisone 10 MG Oral Tablet predniSONE 10 MG Oral Tab let predniSONE 10 MG Oral Tablet 01/15/2020 12:00:00 AM EDT aborted prednisone 10 MG Oral Tablet [facility]) Amlodipine 5 MG Oral Tablet [Norvasc] Norvasc 5 MG Ora l Tablet Norvasc 5 MG Oral Tablet 01/15/2020 12:00:00 AM EDT aborted amlodipine 5 MG Oral Tablet [Norvasc] [facility] ([facility]) Hydrochlorothiazide 25 MG Oral Tablet hydroCHLOROthiaz meghann 25 MG Oral Tablet hydroCHLOROthiazide 25 MG Oral Tablet 01/15/2020 12:00:00 AM EDT aborted hydrochlorothiazide 25 MG Oral T ablet [facility] ([facility]) 0.005 % 11/10/2019 12:00:00 AM EDT drops 7 INSTILL ONE DROP IN EACH EYE AT BEDTIME DIRECTED INSTILL ONE DROP IN EACH EYE AT BEDTIME DIRECTED SO LD: 06/17/2020 [facility] Insurance Providers Payer name Policy type / Coverage type Policy ID Covered democrat ID Covered democrat's relationship to clay Policy Clay Plan Information Medicare Part B of [place] Medicare Primary 0 [id number] Self 0 [place] OF [place] 200/700 [id number] SP [id number] MEDICARE [id number] SP [id number] MEDICARE [id number] SP [id number] A MEDICARE [id number] SP [id number] Medicare Part B of [place] Medicare Primary 0 [id number] Self 0 [id number] Medicare Part B of [place] Medicare Primary 0 [id number] Self 0 BCBS of [facility] [place] Supplemental Policy 0 [id number] Self 0 BCBS of [facility] [place] Supplemental Policy 0 [id number] Self 0 BCBS of [facility] [place] Supplemental Policy 0 [id number] Self 0 BCBS of [facility] [place] Supplemental Policy 0 [id number] Self 0 BCBS of [facility] [place] Supplemental Policy 0 [id number] Self 0 BCBS of [facility] [place] Supplemental Policy 0 [id number] Self 0 BCBS of [facility] [place] Supplemental Policy 0 [id number] Self 0 [place] of [place] Supplemental Policy 0 [id number] Self 0 [place] Supplemental Policy 0 [id number] Self 0 [place] Supplemental Policy 0 [id number] Self 0 [place] Supplemental Policy 0 [id number] Self 0 [place] Supplemental Policy 0 [id number] Self 0 [place] Supplemental Policy 0 [id number] Self 0 [place] Supplemental Policy 0 [id number] Self 0 [place] Supplemental Policy 0 [id number] Self 0 [place] Supplemental Policy 0 [id number] Self 0 [place] 200/700 [id number] SP [id number] BC[place] Supplemental Policy 0 [id number] Self 0 [place] Supplemental Policy 0 [id number] Self 0 [place] Supplemental Policy 0 [id number] Self 0 [place] Supplemental Policy 0 [id number] Self 0 [place] Supplemental Policy 0 [id number] Self 0 BC[place] of [place] Supplemental Policy 0 [id number] Self 0 BC[place] Supplemental Policy 0 [id number] Self 0 [place] Supplemental Policy 0 [id number] Self 0 [place] Supplemental Policy 0 [id number] Self 0 [place] 200/700 [id number] SP [id number] BCBS of [place] Supplemental Policy 0 [id number] Self 0 [place] Supplemental Policy 0 [id number] Self 0 [place] Supplemental Policy 0 [id number] Self 0 BCBS of [facility] Supplemental Policy 0 [id number] Self 0 [place] 200/700 [id number] SP [id number] MEDICARE PART A-O/P UNAVAILABLE UNAVAILABLE Medicare Part B of [facility] Other 0 [id number] Self 0 BS [facility] Medigap Part B [id number] Self Medicare Natl Gov't Servi Medicare Primary [id number] Self Medicare Part B of [facility] Other 0 [id number] Self 0 [place] 200/700 UNAVAILABLE SP UNAVAILABLE Medicare Part B of [facility] Other 0 [id number] Self 0 BCBS OF [facility] 305/805 [id number] SP [id number] Medicare Part B of [facility] Medicare Primary 0 [id number] Self 0 Medicare Part B of [place] Medicare Primary 0 [id number] Self 0 Medicare Part B of [facility] Other 0 [id number] Self 0 Medicare Part B of [facility] Medicare Primary 0 [id number] Self 0 BS [facility] Medigap Part B [id number] Self [id number] Medicare Natl Gov't Servi Medicare Primary [id number] Self [id number] MEDICARE C [id number] S [id number] A STATE [facility] INS. NF P [id number] S [id number] Medicare Part B of [facility] Medicare Primary 0 [id number] Self 0 EXCELLUS BCBS O [id number] S [id number] Medicare Part B of [facility] Medicare Primary 0 [id number] Self 0 MEDICARE S [id number] S [id number] Medicare Part B of [facility] Medicare Primary 0 [id number] Self 0 Medicare Part B of [facility] Other 0 [id number] Self 0 [place] 200/700 [id number] SP [id number] MEDICARE [id number] SP [id number] A [employer] (HMO) [id number] Self [id number] Excell[employer] BCBS Medigap Part B [id number] Self [id number] Medicare [place] Medicare Primary [id number] Self [id number] OTHER NO FAULT P [id number] S [id number] Medicare Part B of [place] Medicare Primary 0 [id number] Self 0 STATE [employer] NO FAULT [id number] SP [id number] [employer] BCBS Medigap Part B [id number] Self [id number] Medicare [place]GS Medicare Primary [id number] Self [id number] OTHER NO FAULT [id number] SP [id number] Medicare Part B of [facility] Medicare Primary 0 [id number] Self 0 Excell[employer] BCBS Medigap Part B [id number] Self [id number] Medicare [place] Medicare Primary [id number] Self [id number] Excell[employer] BCBS Medigap Part B [id number] Self [id number] Medicare [place] Medicare Primary [id number] Self [id number] EXCELLUS BCBS B [id number] S [id number] BS [place] Medigap Part B [id number] Self [id number] Medicare Natl Gov't Servi Medicare Primary [id number] Self [id number] Medicare Part B of [facility] Other 0 [id number] Self 0 Medicare Part B of [facility] Other 0 [id number] Self 0 BCBS [place] 302/307 [id number] SP [id number] Medicare Part B of [facility] Other 0 [id number] Self 0 MEDICARE C [id number] S [id number] Medicare Part B of [facility] Other 0 [id number] Self 0 BC[place] 200/700 [id number] SP [id number] Medicare Part B of [facility] Other 0 [id number] Self 0 [id number] Medicare Part B of [facility] Other 0 [id number] Self 0 BCBS [place] P[place] 302/307 [id number] SP [id number] Medicare Part B of [facility] Other 0 [id number] Self 0 Medicare Part B of [facility] Other 0 [id number] Self 0 Medicare Part B of [facility] Other 0 [id number] Self 0 MEDICARE PART A-O/P [id number] 18 [id number] Medicare Part B of [facility] Other 0 [id number] Self 0 MEDICARE [id number] SP [id number] Medicare Part B of [facility] Other 0 [id number] Self 0 Medicare Part B [facility] Other 0 [id number] Self 0 Medicare Part B [facility] Other 0 [id number] Self 0 [employer] ([employer] Workers Compensation [id number] Self [id number] [place] Part B [id number] Self [id number] Medicare [place] Medicare Primary [id number] Self [id number] ANSI-Commercial [id number] ANSI-Medicare Part B [id number] Problems, Conditions, and Diagnoses Code Display Name Description Problem Type Effective Dates Data Source(s) R94.31 Electrocardiogram abnormal Electrocardiogram abnormal Problem 05/28/2021 12:00:00 AM EDT 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) ECG ROUTINE ECG W/LEAST 12 LDS W/I&R 05/28/2021 12:00: 00 AM EDT [facility] ([facility]) OFFICE OUTPATIENT VISIT 25 MINUTES 05/28/2021 12:00:00 AM EDT [facility]) INTERROGATION EVAL IN PERSON 1/DUAL/AUTO CLOCKS REPAIRER LEAD PM 2020 12:00:00 AM EDT [facility]) INTERROGATION EVAL REMOTE </90 D 1/2/AUTO CLOCKS REPAIRER LEAD PM 12/03 12:00:00 AM EDT [facility] ([facility]) INTERROGATION REMOTE </90 D FURNITURE SALES ASSOCIATE REVIEW 12/04/19 12:00:00 AM EDT [facility]) REMOVE CERUMEN (w/LAVAGE,IRRIGATION) REMOVE CERUMEN (w/LAVAG E,IRRIGATION) 11/05/2020 12:00:00 AM EDT [facility] ([facility]) REMOVE CERUMEN (w/LAVAGE,IRRIGATION) REMOVE CERUMEN (w/LAVAG E,IRRIGATION) 11/05/2020 12:00:00 AM EDT [facility] ([facility]) ECHO TTHRC R-T 2D W/WOM-MODE COMPL SPEC&COLR DOP 11/03 12:00:00 AM EDT [facility]) ECG ROUTINE ECG W/LEAST 12 LDS W/I&R 10/13/2020 12:00: 00 AM EST [facility] ([facility]) Arterial Pressure Waveform Analysis For Assessment Of Centra l Art 10/13/2020 12:00:00 AM EST [facility] (Health And Safety Representative [facility]) OFFICE OUTPATIENT VISIT 25 MINUTES 10/13/2020 12:00:00 AM EST [facility]) INTERROGATION EVAL REMOTE </90 D 1/2/AUTO CLOCKS REPAIRER LEAD PM 09/03 12:00:00 AM EST [facility] ([facility]) INTERROGATION REMOTE </90 D FURNITURE SALES ASSOCIATE REVIEW 09/03/19 12:00:00 AM EST 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 ([facility]) HbA1c (Glycosolated) (waived laboratory) HbA1c (Glycos olated) (waived laboratory) 04/22/2020 12:00:00 AM EDT [facility] ([facility]) GLUCOSE (waived laboratory) GLUCOSE (waived laboratory) 04/08 12:00:00 AM EDT [facility] ([facility]) ROUTINE VENIPUNCTURE ROUTINE VENIPUNCTURE 04/22/2020 12:00:[address] [facility] ([facility]) Results ID Date Data Source [id number] 04/10/2021 10:13:00 AM EDT [facility] ([facility]) Name Value Range Interpretation Code Description Data Deysi rce(s) Supporting Document(s) Magnesium Level 1.7 1.8-2.4 [facility] ([facility]) ID Date Data Source [id number] 02/27/2021 10:12:00 AM EDT [facility] ([facility]) Name Value Range Interpretation Code Description Data Deysi rce(s) Supporting Document(s) Sodium 147 [facility] ([facility]) Calcium [Mass/volume] in Serum or Plasma 7.9 [facility] ([facility]) Carbon dioxide, total [Moles/volume] in Serum or Plasma 26 [facility] ([facility]) Chloride [Moles/volume] in Serum or Plasma 114 [facility] ([facility]) Blood Urea Nitrogen 22 7-18 [facility] ([facility]) Potassium [Moles/volume] in Serum or Plasma 3.6 [facility] ([facility]) Glucose 87 83-110 [facility] ([facility]) Glomerular filtration rate/1.73 sq M.pre dicted [Volume Rate/Area] in Serum or Plasma by Creatinine-based formula (MDRD) Laboratory test result [facility] ([facility]) Creatinine 0.90 0.6-1.0 [facility] ([facility]) ID Date Data Source [id number] 02/26/2021 10:11:00 AM EDT [facility] Name Value Range Interpretation Code Description Data Deysi rce(s) Supporting Document(s) Albumin [Mass/volume] in Serum or Plasma 2.7 [facility] ([facility]) Alanine aminotransferase [Enzymatic activity/volume] in Serum or Pl asma 31 [facility] ([facility]) Calcium [Mass/volume] in Serum or Plasma 7.9 [facility] ([facility]) Carbon dioxide, total [Moles/volume] in Serum or Plasma 23 [facility] ([facility]) Chloride [Moles/volume] in Serum or Plasma 111 [facility] ([facility]) Alkaline phosphatase [Enzymatic activity/volume] in Serum or Plasma 4 0 [facility] ([facility]) Potassium [Moles/volume] in Serum or Plasma 5.2 [facility] ([facility]) Protein [Mass/volume] in Serum or Plasma 6.2 [facility] ([facility]) Aspartate aminotransferase [Enzymatic activity/volume] in Serum or Plasma 21 [facility] ([facility]) Sodium 140 [facility] ([facility]) Urea nitrogen [Mass/volume] in Serum or Plasma 40 [facility] ([facility]) Creatinine For GFR 1.45 [facility] ([facility]) Glucose 154 83-110 [facility] ([facility]) ID Date Data Source [id number] 02/26/2021 10:11:00 AM EDT [facility] Name Value Range Interpretation Code Description Data Deysi rce(s) Supporting Document(s) White Blood Count 11.9 5.0-10.0 [facility] ([facility]) Red Blood Count 3.96 4.00-5.40 [facility] ([facility]) Platelets 178 172-450 [facility] ([facility]) Hemoglobin 12.7 [facility] ([facility]) Hematocrit 39.4 [facility] ([facility]) ID Date Data Source [id number] 02/25/2021 02:26:00 PM EDT [facility] Name Value Range Interpretation Code Description Data Deysi rce(s) Supporting Document(s) SARS coronavirus 2 RNA [Presence] in Res piratory specimen by DARIUS with probe detection NEGATIVE [facility] This lab was ordered by [facility] a nd reported by [facility]. ID Date Data Source [id number] 11/05/2020 11:22:00 AM EDT [facility] ([facility]) Name Value Range Interpretation Code Description Data Deysi rce(s) Supporting Document(s) Glucose [Mass/volume] in Urine collected for unspecified duration 9 5 Normal Glucose [facility] ([facility]) ID Date Data Source [id number] 11/05/2020 11:22:00 AM EDT [facility] ([facility]) Name Value Range Interpretation Code Description Data Deysi rce(s) Supporting Document(s) Hemoglobin A1c/Hemoglobin.total in Blood 7.1 Abnormal (applies to non-numeric results) HbA1C [facility] ([facility]) ID Date Data Source [id number] 10/21/2020 09:20:00 AM EDT [facility] ([facility]) Name Value Range Interpretation Code Description Data Deysi rce(s) Supporting Document(s) Reported Physicians See Note Reported Physici ans [facility] ([facility]) Note: Reported Physicians:Ordering: Rach Evans AAttending: Harris Baez To: Rach Baez ID Date Data Source [id number] 10/21/2020 09:20:00 AM EDT [facility] ([facility]) Name Value Range Interpretation Code Description Data Deysi rce(s) Supporting Document(s) CREATININE, URINE 55.4 MG/DL Normal CREATININE, URINE [facility] ([facility]) MALB URINE SIEMENS < 5.0 MG/L Normal MALB URINE SIEMEN S [facility] ([facility]) SHANAE/CREAT RATIO 9.0 MCG/MG Normal SHANAE/CREAT RATIO [facility] ([facility]) Note: THE [employer] STATES THAT MICROALBUMINURIA IS PRESENT IF THE MICROALBUMIN/CREATININE RATIO EXCEEDS 30 MCG/MG. THE THRESHOLD FOR CLINICAL ALBUMINURIA IS REACHED AT 300 MCG/MG. THE CLASSIFICATION OF A PATIENT SHOULD BE BASED UPON AT LEAST 2 OF 3 ABNORMAL RESULTS ON SPECIMENS COLLECTED WITHIN A 3 TO 6 MONTH TIME FRAME. ID Date Data Source [id number] 10/13/2020 10:59:00 AM EST [facility] ([facility]) Name Value Range Interpretation Code Description Data Deysi rce(s) Supporting Document(s) White Blood Count 11.3 4.3-10.9 [facility] Red Blood Count 4.39 4.70-6.20 [facility] Hemoglobin 13.6 13.0-17.0 [facility] (Cardiology [facility]) Platelets 235 130-400 [facility] ([facility]iology [facility]) Hematocrit 42.4 39.0-50.0 [facility] (Cardiology [facility]) ID Date Data Source [id number] 10/13/2020 10:34:00 AM EST [facility] ([facility]) Name Value Range Interpretation Code Description Data Deysi rce(s) Supporting Document(s) Erythrocyte sedimentation rate by Westergren method 5 mm/hr 0-30 [facility] (Cardiology [facility]) ID Date Data Source [id number] 10/13/2020 10:34:00 AM EST [facility] ([facility]) Name Value Range Interpretation Code Description Data Deysi rce(s) Supporting Document(s) White Blood Count 11.3 10 4.0-10.0 [facility] ([facility] Red Blood Count 4.39 10 4.00-5.40 [facility] (Cardio logy [facility]) Hemoglobin 13.6 g/dL 12.0-15.5 [facility] (Cardiology [facility]) Hematocrit 42.4 % 36.0-47.0 [facility] ([facility]iology [facility]) Mean Corpuscular Volume 96.6 fl 80.0-96.0 M EDENT ([facility]iology [facility]) Mean Corpuscular Hemoglobin 31.0 pg 27.0-33.0 [facility] ([facility]iology [facility]) Mean Corpuscular HGB Conc 32.1 g/dL 32.0-36.5 [facility] ([facility]iology [facility]) Platelet Count, Automated 235 10 150-450 [facility] ([facility]iology [facility]) Red Cell Distribution Width 13.6 % 11.5-14.5 [facility] ([facility]) Nucleated Red Blood Cell % 0.0 % 0-0 [facility] (Cardiology [facility]) ID Date Data Source [id number] 10/13/2020 10:34:00 AM EST [facility] Name Value Range Interpretation Code Description Data Deysi rce(s) Supporting Document(s) Thyrotropin [Units/volume] in Serum or Plasma 1.710 uIU/ML 0.358-3.74 0 [facility] (Cardiology [facility]) Creatine kinase [Enzymatic activity/volume] in Serum or Plasma 67 U /L 26-192 [facility] (Cardiology [facility]) ID Date Data Source [id number] 10/13/2020 10:34:00 AM EST [facility] ([facility]) Name Value Range Interpretation Code Description Data Deysi rce(s) Supporting Document(s) Triglycerides Level 215 mg/dL [facility] ([facility]) Cholesterol Level 214 mg/dL [facility] ([facility]) HDL Cholesterol 89 mg/dL [facility] ([facility]) LDL Cholesterol 82 mg/dL [facility] ([facility]) Non-HDL-C 125 mg/dL [facility] Cholesterol Risk Ratio 2.404 [facility] (Cardiology [facility]) ID Date Data Source [id number] 10/13/2020 10:34:00 AM EST [facility] ([facility]) Name Value Range Interpretation Code Description Data Deysi rce(s) Supporting Document(s) Glucose, Fasting 93 mg/dL 70-100 [facility] ([facility]) Blood Urea Nitrogen 36 mg/dL 7-18 [facility] ([facility]) Glomerular Filtration Rate 44.3 MED [facility] ([facility]) <content>Units are mL/min/1.73 m2</content>
<content></content>
<content>Chronic Kidney Disease Staging per NKF:</content>
<content></content>
<content>Stage I & II GFR >=60 Normal to Mildly Decreased</content>
<content>Stage III GFR 30-59 Moderately Decreased</content>
<content>Stage IV GFR 15-29 Severely Decreased</content>
<content>Stage V GFR <15 Very Little GFR Left</content>
<content>ESRD GFR <15 on COORDINATOR VOLUNTEER SERVICES</content>
<content></content> Creatinine For GFR 1.24 mg/dL 0.55-1.30 [facility] ([facility]) Sodium Level 141 meq/L 136-145 [facility] ([facility]) Chloride Level 106 meq/L 98-107 [facility] ([facility]) Potassium Serum 3.6 meq/L 3.5-5.1 [facility] ([facility]) Carbon Dioxide Level 28 meq/L 21-32 MED[facility] ([facility]) Anion Gap 7 meq/L 8-16 MED[facility] ([facility]) Alt/SGPT 35 U/L 12-78 [facility] ([facility]) Calcium Level 9.4 mg/dL 8.8-10.2 [facility] ([facility]) Ast/Sgot 13 U/L 7-37 MED[facility] ([facility]) Alkaline Phosphatase 49 U/L 45-117 [facility] ([facility]) Bilirubin,Total 0.5 mg/dL 0.2-1.0 [facility] ([facility]) Total Protein 6.5 GM/DL 6.4-8.2 [facility] ([facility]) Albumin 3.7 GM/DL 3.2-5.2 [facility] ([facility]) Albumin/Globulin Ratio 1.3 1.2-2.2 [facility] ([facility]) ID Date Data Source [id number] 10/13/2020 10:34:00 AM EST MEDENT ([facility]) Name Value Range Interpretation Code Description Data Deysi rce(s) Supporting Document(s) Triglycerides Level 219 mg/dL MEDENT ([facility]) LDL Cholesterol 70 mg/dL [facility] ([facility]) Cholesterol Level 206 mg/dL [facility] ([facility]) HDL Cholesterol 92 mg/dL [facility] ([facility]) Cholesterol Risk Ratio 2.239 MEDENT ([facility]) Non-HDL-C 114 mg/dL [facility] ([facility]) ID Date Data Source [id number] 10/13/2020 10:34:00 AM EST [facility] ([facility]) Name Value Range Interpretation Code Description Data Deysi rce(s) Supporting Document(s) TRIGLYCERIDES LEVEL 215 MG/DL Above high normal TRIGLYCER IDES LEVEL [facility] ([facility]) HDL CHOLESTEROL 89 MG/DL Normal HDL CHOLESTEROL [facility]) CHOLESTEROL LEVEL 214 MG/DL Above high normal CHOLESTEROL LEVEL [facility] ([facility]) CHOLESTEROL RISK RATIO 2.404 Normal CHOLESTEROL R ISK RATIO [facility] ([facility]) LDL CHOLESTEROL 82 MG/DL Normal [facility] ([facility]) NON-HDL-C 125 MG/DL Normal NON-HDL-C [facility] ([facility]) ID Date Data Source [id number] 10/13/2020 10:34:00 AM [employer] ([facility]) Name Value Range Interpretation Code Description Data Deysi rce(s) Supporting Document(s) Reported Physicians See Note Reported Physici ans [facility] ([facility]) Note: Reported Physicians:Ordering: Rach Evans AAttending: Rach BaezReferring: Antecol, DavidCopy To: Doug BaezynCopy To: Antecol, Laurent ID Date Data Source [id number] 10/13/2020 10:34:00 AM [employer] ([facility]) Name Value Range Interpretation Code Description Data Deysi rce(s) Supporting Document(s) Hematocrit [Pure volume fraction] of Blood by Automated count 42.4 % Normal HEMATOCRIT [facility] ([facility]) RED BLOOD COUNT 4.39 6/uL Normal RED [facility]LOOD COUNT [facility] ([facility]) WHITE BLOOD COUNT 11.3 3/uL Above high normal WHITE BLOOD COUNT [facility]) Hemoglobin [Mass/volume] in Mixed venous blood by Oximetry 13.6 g/d l Normal HEMOGLOBIN [facility]) MEAN CORPUSCULAR HGB CONC 32.1 g/dl Normal MEAN CORPU SCULAR HGB CONC [facility]) MEAN CORPUSCULAR VOLUME 96.6 fl Above high normal MEAN CORPUSCULAR VOLUME [facility]) MEAN CORPUSCULAR HEMOGLOBIN 31.0 pg Normal MEAN COR PUSCULAR HEMOGLOBIN [facility]) RED CELL DISTRIBUTION WIDTH 13.6 % Normal RED CELL DISTRIBUTION WIDTH [facility]) PLATELET COUNT, AUTOMATED 235 3/uL Normal PLATELET C OUNT, AUTOMATED [facility] ([facility]) NUCLEATED RED BLOOD CELL % 0.0 % Normal NUCLEATED RED BLOOD CELL % [facility] ([facility]) ID Date Data Source [id number] 10/13/2020 10:34:00 AM EST [facility] ([facility]) Name Value Range Interpretation Code Description Data Deysi rce(s) Supporting Document(s) Reported Physicians See Note Reported Physici ans [facility] ([facility]) Note: Reported Physicians:Ordering: Shin e Rach AAttending: Nestor JocelynReferring: Antecol, DavidCopy To: Nestor JocelynCopy To: Antecol, Laurent ID Date Data Source [id number] 10/13/2020 10:34:00 AM EST [facility] ([facility]) Name Value Range Interpretation Code Description Data Deysi rce(s) Supporting Document(s) Erythrocyte sedimentation rate by [place] method 5 mm/hr Normal ERYTHROCYTE SEDIMENTATION RATE [facility]) ID Date Data Source [id number] 10/13/2020 10:34:00 AM EST [place] ([facility]) Name Value Range Interpretation Code Description Data Deysi rce(s) Supporting Document(s) Reported Physicians See Note Reported Physici ans [facility] ([facility]) Note: Reported Physicians:Ordering: Shin e, Rach AAttending: Nestor, JocelynReferring: Antecol, DavidCopy To: Nestor, JocelynCopy To: Antecol, Laurent ID Date Data Source [id number] 10/13/2020 10:34:00 AM EST [facility] ([facility]) Name Value Range Interpretation Code Description Data Deysi rce(s) Supporting Document(s) CPK CREATINE PHOSPHOKINASE 67 U/L Normal CPK CREAT INE PHOSPHOKINASE [facility]) ID Date Data Source [id number] 10/13/2020 10:34:00 AM EST [facility] ([facility]) Name Value Range Interpretation Code Description Data Deysi rce(s) Supporting Document(s) Reported Physicians See Note Reported Physici ans [facility] ([facility]) Note: Reported Physicians:Ordering: Rach Evans AAttending: Malaika BaezcelynReferring: Antecol, DavidCopy To: Malaika BaezcelynCopy To: YolandaolLaurent ID Date Data Source [id number] 10/13/2020 10:34:00 AM EST [facility] ([facility]) Name Value Range Interpretation Code Description Data [facility] rce(s) Supporting Document(s) GLUCOSE, FASTING 93 MG/DL Normal GLUCOSE, FASTING [facility]) GLOMERULAR FILTRATION RATE 44.3 Normal GLOMERULA R FILTRATION RATE [facility]) Note: Units are mL/min/1.73 m2 Chroni c Kidney Disease Staging per NKF: Stage I & II GFR >=60 Normal to Mildly Decreased Stage III GFR 30- 59 Moderately Decreased Stage IV GFR 15-29 Severely Decreased Stage V GFR <15 Very Little GFR Left ESRD GFR <15 on [employer] CREATININE FOR GFR 1.24 MG/DL Normal CREATININE FOR GF R [facility] ([facility]) BLOOD UREA NITROGEN 36 MG/DL Above high normal BLOOD URE A NITROGEN [facility] ([facility]) POTASSIUM SERUM 3.6 MEQ/L Normal POTASSIUM SERUM [facility]) SODIUM LEVEL 141 MEQ/L Normal SODIUM LEVEL [facility]) CARBON DIOXIDE LEVEL 28 MEQ/L Normal CARBON DIOXIDE LEVEL [facility]) Anion gap in Body fluid 7 MEQ/L Below low normal ANION GAP [facility] ([facility]) CHLORIDE LEVEL 106 MEQ/L Normal CHLORIDE LEVEL [facility]) AST/SGOT 13 U/L Normal AST/SGOT [facility] ([facility]) ALT/SGPT 35 U/L Normal ALT/SGPT [facility]) CALCIUM LEVEL 9.4 MG/DL Normal CALCIUM LEVEL [facility] ([facility]) Alkaline phosphatase [Enzymatic activity/volume] in Se rum, Plasma or Blood 49 U/L Normal ALKALINE PHOSPHATASE [facility] ([facility]) TOTAL PROTEIN 6.5 GM/DL Normal TOTAL PROTEIN [facility]) BILIRUBIN,TOTAL 0.5 MG/DL Normal BILIRUBIN,TOTAL GREE [facility] ([facility]) ALBUMIN/GLOBULIN RATIO 1.3 Normal ALBUMIN/GLOBU RAF RATIO [facility]) Albumin [Mass/volume] in Blood by Bromocresol purple ( BCP) dye binding method 3.7 GM/DL Normal ALBUMIN [facility]) ID Date Data Source [id number] 10/13/2020 10:34:00 AM EST [facility] ([facility]) Name Value Range Interpretation Code Description Data Deysi rce(s) Supporting Document(s) Reported Physicians See Note Reported Physici ans [facility]) Note: Reported Physicians:Ordering: Rach Evans AAttending: Rach BaezReferring: Laurent GabrielCopy To: Rach BaezCopy To: Laurent Gabriel ID Date Data Source [id number] 10/13/2020 10:34:00 AM EST [facility] ([facility]) Name Value Range Interpretation Code Description Data Deysi rce(s) Supporting Document(s) THYROID STIMULATING HORMONE 1.710 uIU/ML Normal THYROI D STIMULATING HORMONE [facility]) ID Date Data Source [id number] 10/13/2020 10:34:00 AM EST [facility] ([facility]) Name Value Range Interpretation Code Description Data Deysi rce(s) Supporting Document(s) Reported Physicians See Note Reported Physici ans [facility] ([facility]) Note: Reported Physicians:Ordering: Rach Evans AAttending: Rach BaezReferring: Zoë Gabriel To: Harris Baez To: Laurent Gabriel ID Date Data Source [id number] 08/14/2020 10:43:00 AM EST [facility] ([facility]) Name Value Range Interpretation Code Description Data Deysi rce(s) Supporting Document(s) GLUCOSE (FASTING) 98 Normal GLUCOSE (FASTING) [facility] ([facility]) ID Date Data Source [id number] 08/14/2020 10:42:00 AM EST [facility] ([facility]) Name Value Range Interpretation Code Description Data Deysi rce(s) Supporting Document(s) Hemoglobin A1c/Hemoglobin.total in Blood 7.8 Abnormal (applies to non-numeric results) HbA1C [facility] ([facility]) ID Date Data Source [id number] 07/18/2020 12:00:00 AM EST [facility] Fabiola Darrel Avery Patient Name: CINTHYA BENNETT [facility] Date [place] : [address] [address]- Date of Exam: 07/18/2020#: Fax: [phone] EXAM: [...] criteria for genetic testing established by National [facility] and [employer] guidelines. She should [facility] with a hereditary cancer specialist which may includetesting based on these criteria. The benefits and limitations of genetictesting would be discussed, including potential changes to medicalmanagement based on the results. [facility].Digital screening (2D) mammography [...] was read with the assistance of Liz Riggins Downstream, an FDAapproved computer aided detection system for [...] rce(s) Supporting Document(s) ID Date Data Source [id number] 04/28/2020 12:00:00 AM EDT [facility] Lorraine Aditya LEVIN Patient Name: DAILY,RAY [address] Date of : [address] Date of Exam: 04/28/2020LUPE Abbott [id number]#: Fax: [phone] EXAM: US RETROPERITONEAL, LIMITED (AORTA, [...] 5.6 cm in length.IMPRESSION:No change.Accredited by the [employer] in General Ultrasound.SALVADOR Stone/Joann you for referring ALICIA DAILY to our office.Electronically Signed - GREG LANDRUM DO 04/28/20 13:16 Name Value Range Interpretation Code Description Data Deysi rce(s) Supporting Document(s) ID Date Data Source [id number] 04/22/2020 01:45:00 PM MARIELA MARINA ([facility]) Name Value Range Interpretation Code Description Data Deysi rce(s) Supporting Document(s) Glucose [Mass/volume] in Urine collected for unspecified duration 1 66 Normal Glucose [facility] ([facility]) ID Date Data Source [id number] 04/22/2020 01:45:00 PM EDT [facility] ([facility]) Name Value Range Interpretation Code Description Data Deysi rce(s) Supporting Document(s) Hemoglobin A1c/Hemoglobin.total in Blood 6.8 Abnormal (applies to non-numeric results) HbA1C [facility] ([facility]) Procedure Social History Code Duration Value Status Description Data Source(s ) Smoking 05/28/2021 12:00:00 AM EDT Patient is a former smoker completed Patient is a former smoker [facility] ([facility]) Smoking 10/02/2020 12:00:00 AM EST Patient is a former smoker completed Patient is a former smoker [facility] ([facility]) Vital Signs ID Date Data Source UNK Name Value Range Interpretation Code Description Data Source(s) Body weight 156.00 [lb_av] 156.00 [lb_av] MEDEN T ([facility]) Body height 67 [in_i] 67 [in_i] [facility] 5'7" Body mass index (BMI) [Ratio] 24.4 kg/m2 24.4 k g/m2 [facility] Heart rate 70 /min 70 /min [facility]) Systolic blood pressure--sitting 124 mm[Hg] 124 mm[Hg] [facility]) Ra, large cuff Diastolic blood pressure--sitting 76 mm[Hg] 76 mm[Hg] [facility]) Ra, large cuff Body surface area Derived from formula 1.85 m2 1.85 m2 [facility] ([facility]) Systolic blood pressure 122 mm[Hg] 122 mm[Hg] [facility] ([facility]) Body height 67 [in_i] 67 [in_i] [facility] ([facility]) Body weight 163 [lb_av] 163 [lb_av] LA[facility] ([facility]) Body mass index (BMI) [Ratio] 25.5 kg/m2 25.5 k g/m2 [facility] ([facility]) Oxygen saturation in Arterial blood by Pulse oximetry 98 % 98 % [facility] ([facility]) Inhaled oxygen flow rate 0 L/min 0 L/min [facility] ([facility]) Diastolic blood pressure 68 mm[Hg] 68 mm[Hg] [facility] ([facility]) Heart rate 68 /min 68 /min [facility] ([facility]) Inhaled oxygen concentration 21 % 21 % [facility] ([facility]) Respiratory rate 24 /min 24 /min [facility] ([facility]) Body temperature 97.8 [degF] 97.8 [degF] [place] ([facility]) Body weight 167 [lb_av] 167 [lb_av] [facility] ([facility]) Systolic blood pressure 118 mm[Hg] 118 mm[Hg] [facility] Diastolic blood pressure 68 mm[Hg] 68 mm[Hg] [facility] ([facility]) Heart rate 74 /min 74 /min [facility] ([facility]) Respiratory rate 20 /min 20 /min [facility] ([facility]) Body temperature 96.5 [degF] 96.5 [degF] [place] ([facility]) Body height 67 [in_i] 67 [in_i] [facility] ([facility]) Body mass index (BMI) [Ratio] 26.2 kg/m2 26.2 k g/m2 [facility] ([facility]) Body surface area Derived from formula 1.87 m2 1.87 m2 [facility] ([facility]) Oxygen saturation in Arterial blood by Pulse oximetry 96 % 96 % [facility] ([facility]) Body weight 167.00 [lb_av] 167.00 [lb_av] MEDEN T ([facility]) Body height 67 [in_i] 67 [in_i] MED[facility] ([facility]) 5'7" Body mass index (BMI) [Ratio] 26.2 kg/m2 26.2 k g/m2 [facility] ([facility]) Heart rate 69 /min 69 /min [facility] ([facility]) Systolic blood pressure--sitting 133 mm[Hg] 133 mm[Hg] [facility] ([facility]) CBP, adult cuff/Ra Diastolic blood pressure--sitting 75 mm[Hg] 75 mm[Hg] [facility]) CBP, adult cuff/Ra Oxygen saturation in Arterial blood by Pulse oximetry 98 % 98 % [facility] ([facility], [facility]) Body temperature 97.5 [degF] 97.5 [degF] [facility], [facility]) Body weight 165.00 [lb_av] 165.00 [lb_av] MEDEN T ([facility], [facility]) Body height 68 [in_i] 68 [in_i] [facility] ([facility], [facility]) 5'8" Body mass index (BMI) [Ratio] 25.1 kg/m2 25.1 k g/m2 [facility] ([facility]) Systolic blood pressure 129 mm[Hg] 129 mm[Hg] [facility], [facility]) Diastolic blood pressure 81 mm[Hg] 81 mm[Hg] [facility] ([facility], [facility]) Heart rate 75 /min 75 /min [facility] ([facility], [facility]) Respiratory rate 13 /min 13 /min [facility] ( [facility], [facility]) Body mass index (BMI) [Ratio] 26.3 kg/m2 26.3 k g/m2 [facility] ([facility]) Systolic blood pressure 120 mm[Hg] 120 mm[Hg] [facility]) Diastolic blood pressure 68 mm[Hg] 68 mm[Hg] [facility] ([facility]) Heart rate 73 /min 73 /min [facility] ([facility]) Respiratory rate 24 /min 24 /min [facility] ([facility]) Body temperature 97.6 [degF] 97.6 [degF] [facility] ([facility]) Body height 67 [in_i] 67 [in_i] [facility] ([facility]) Body weight 168 [lb_av] 168 [lb_av] [facility] ([facility]) Body surface area Derived from formula 1.88 m2 1.88 m2 [facility] ([facility]) Oxygen saturation in Arterial blood by Pulse oximetry 98 % 98 % [facility] ([facility]) Inhaled oxygen flow rate 0 L/min 0 L/min [facility] ([facility]) Inhaled oxygen concentration 21 % 21 % [facility] ([facility]) Body temperature 97.4 [degF] 97.4 [degF] [facility] ([facility]) Body surface area Derived from formula 1.88 m2 1.88 m2 [facility] ([facility]) Systolic blood pressure 118 mm[Hg] 118 mm[Hg] [facility] Diastolic blood pressure 70 mm[Hg] 70 mm[Hg] [facility] ([facility]) Heart rate 64 /min 64 /min [facility] ([facility]) Respiratory rate 20 /min 20 /min [facility] ([facility]) Body height 67 [in_i] 67 [in_i] [facility] ([facility]) Body weight 168 [lb_av] 168 [lb_av] [facility] ([facility]) Body mass index (BMI) [Ratio] 26.3 kg/m2 26.3 k g/m2 [facility] ([facility]) Oxygen saturation in Arterial blood by Pulse oximetry 96 % 96 % [facility] ([facility]) Patient Treatment Plan of Care Planned Activity Planned Date Details Description Data Source (s) Alprazolam 0.5 MG Oral Tablet 02/03/2021 12:00:00 AM EDT [facility] ([facility]) Cyclobenzaprine hydrochloride 5 MG Oral Tablet 02/03/2021 12:00:00 AM EDT [facility] ([facility]) Amlodipine 5 MG Oral Tablet 02/03/2021 12:00:00 AM EDT [facility]) 24 HR Glipizide 2.5 MG Extended Release Oral Tablet 02/04/20 12:00:00 AM EDT [facility]) Hydrochlorothiazide 25 MG Oral Tablet 02/03/2021 12:00:00 AM EDT [facility]) Lisinopril 5 MG Oral Tablet 02/03/2021 12:00:00 AM EDT [place] ([facility]) sitagliptin 50 MG Oral Tablet [Januvia] 02/03[facility]2021 [facility] Prednisone 10 MG Oral Tablet 02/03/2021 12:00:00 AM EDT [place] ([facility]) Rosuvastatin calcium 20 MG Oral Tablet 02/03/2021 12:00:00 AM EDT [place] ([facility]) Lisinopril 5 MG Oral Tablet 01/06/2021 12[facility]00[facility] Hydrochlorothiazide 25 MG Oral Tablet 01/06/2021 12:00:00 AM EDT [facility]) Amlodipine 5 MG Oral Tablet 01/06/2021 12:00:00 AM EDT [facility]) Alprazolam 0.5 MG Oral Tablet 11/05/2020 12:00:00 AM EDT [place] ([facility]) Amlodipine 5 MG Oral Tablet 11/05/2020 12:00[facility] 24 HR Glipizide 2.5 MG Extended Release Oral Tablet 11/06/19 12:00:00 AM EDT [facility]) Hydrochlorothiazide 25 MG Oral Tablet 11/05/2020 12[facility]00[facility] Lisinopril 5 MG Oral Tablet 11/05/2020 12:00:00 AM EDT [place] ([facility]) Prednisone 10 MG Oral Tablet 11/05/2020 12:00:00 AM EDT [place] ([facility]) Rosuvastatin calcium 20 MG Oral Tablet 11/05/2020 12:00:00 AM EDT [place] ([facility]) sitagliptin 50 MG Oral Tablet [Januvia] 11/05/2020 12:00:00 AM EDT [place] ([facility]) carbamide peroxide 65 MG/ML Otic Solution [Debrox] 11/05/2020 12 :00:00 AM EDT [place] ([facility]) Amoxicillin 500 MG Oral Tablet 11/05/2020 12:00:00 AM EDT [place] ([facility]) Fluconazole 150 MG Oral Tablet 11/05/2020 12:00:00 AM EDT [place] ([facility]) Alprazolam 0.5 MG Oral Tablet 11/05/2020 12:00:00 AM EDT [place] ([facility]) sitagliptin 50 MG Oral Tablet [Januvia] 2020 12:00:00 AM EST [place] ([facility]) Rosuvastatin calcium 20 MG Oral Tablet 08/30/2020 12:00:00 AM EST [facility]) Prednisone 10 MG Oral Tablet 08/30/2020 12:00:00 AM EST [facility]) Amlodipine 5 MG Oral Tablet 08/18/2020 12:00:00 AM EST [facility]) 24 HR Glipizide 2.5 MG Extended Release Oral Tablet 08/18/19 21 12:00:00 AM EST [facility]) Hydrochlorothiazide 25 MG Oral Tablet 08/18/2020 12:00:00 AM EST [facility]) Lisinopril 5 MG Oral Tablet 08/18/2020 12:00:00 AM EST [facility]) Alprazolam 0.5 MG Oral Tablet 08/14/2020 12:00:00 AM EST [facility]) 24 HR Glipizide 2.5 MG Extended Release Oral Tablet 08/14/19 21 12:00:00 AM EST [facility]) Hydrochlorothiazide 25 MG Oral Tablet 08/14/2020 12:00:00 AM EST [facility]) Lisinopril 5 MG Oral Tablet 08/14/2020 12:00:00 AM EST [place] ([facility]) Amlodipine 5 MG Oral Tablet 08/14/2020 12:00:00 AM EST [facility]) Lisinopril 5 MG Oral Tablet 07/21/2020 12:00:00 AM EST [place] ([facility]) 24 HR Glipizide 2.5 MG Extended Release Oral Tablet 07/21/20 20 12:00:00 AM EST [facility]) Hydrochlorothiazide 25 MG Oral Tablet 07/21/2020 12:00:00 AM EST [facility]) sitagliptin 50 MG Oral Tablet [Januvia] 07/14/2020 12:00:00 AM EST [facility]) Rosuvastatin calcium 20 MG Oral Tablet 07/11/2020 12:00:00 AM EST [facility]) Prednisone 10 MG Oral Tablet 07/11/2020 12:00:00 AM EST [facility]) Amlodipine 5 MG Oral Tablet 07/06[facility]2020 [facility] Alprazolam 0.5 MG Oral Tablet 04/29/2020 12:00:00 AM EDT [facility] ([facility]) glipiZIDE XL 2.5 MG Oral Tablet Extended Release 24 Ho ur 04/22/2020 12:00:00 AM EDT [facility] ([facility]) sitagliptin 50 MG Oral Tablet [Januvia] 04/22/2020 [facility] Hydrochlorothiazide 25 MG Oral Tablet 04/22/2020 12:00:00 AM EDT [facility]) Lisinopril 5 MG Oral Tablet 04/22/2020 12:00:00 AM EDT [facility] ([facility]) Amlodipine 5 MG Oral Tablet [Norvasc] 04/22/2020 12:00:00 AM EDT [facility] ([facility]) Prednisone 10 MG Oral Tablet 04/22/2020 12:00:00 AM EDT [facility]) Rosuvastatin calcium 20 MG Oral Tablet [Crestor] 04/22/2020 12:00:0 0 AM EDT [facility]) Alprazolam 0.5 MG Oral Tablet 01/22/2020 12:00:00 AM EDT [facility] ([facility]) Fenofibrate 145 MG Oral Tablet [Tricor] 01/15/2020 12:00:00 AM EDT [facility] ([facility]) glipiZIDE XL 2.5 MG Oral Tablet Extended Release 24 Ho ur 01/15/2020 12:00:00 AM EDT [facility] ([facility]) Hydrochlorothiazide 25 MG Oral Tablet 01/15/2020 12:00:00 AM EDT [facility] ([facility]) sitagliptin 50 MG Oral Tablet [Januvia] 01/15/2020 12:00:00 AM EDT [facility] ([facility]) Prednisone 10 MG Oral Tablet 01/15/2020 12:00:00 AM EDT [facility] ([facility]) Rosuvastatin calcium 20 MG Oral Tablet [Crestor] 01/15/2020 12:00:0 0 AM EDT [facility] ([facility]) Lisinopril 5 MG Oral Tablet 01/15/2020 12:00:00 AM EDT [facility] ([facility]) Amlodipine 5 MG Oral Tablet [Norvasc] 01/15/2020 12:00:00 AM EDT [facility] ([facility]) clopidogrel 75 MG Oral Tablet [Plavix] 01/15/2020 [facility]
[2021-06-09] MEDS ORDERED: SOD POLYSTYRENE SULFONATE SUSP 15 GM/60 ML UD PO STA (19:03)
[2021-06-09] MEDS ORDERED: GLUCAGON INJ 1MG VIAL SC PRN (19:05)
[2021-06-09] MEDS ORDERED: DEXTROSE 50% 50 ML SYRINGE IV PRN (19:05)
[2021-06-09] MEDS ORDERED: GLUCOSE 4GM CHEW TABLET PO PRN (19:05)
[2021-06-09 20:33] LABS: ALBUMIN 2.8 GM/DL (3.2-5.2); BILIRUBIN,DIRECT 0.6 MG/DL (0.0-0.2); BILIRUBIN,TOTAL 1.3 MG/DL (0.2-1.0); TOTAL PROTEIN 6.2 GM/DL (6.4-8.2)
[2021-06-09] MEDS: HumaLOG INSULIN (NovoLOG) PER UNIT SC SCH (21:00)
[2021-06-09] MEDS ORDERED: MIRALAX *UNIT DOSE* 17GM PACKET PO PRN (21:35)
--- NOTE | 2021-06-09 22:00 | HPEPDOC ---
General Date of Admission Jun 09, 2021 at 18:25 Date of Service: Jun 09, 2021 Chief Complaint The patient is a 80-year-old female admitted with a reason for visit of Elpidio, Fecal Impaction, Uti. History of Present Illness Mrs. Kendall is an 80 year old female with hypertension, dyslipidemia, and diabet es mellitus who presents with rectal discomfort and found to have UTI. Tuesday was patient's last good BM. Since then, she has not yet had a good bowel movement, but had some liquid diarrhea. On Tuesday, she took Senna and strained, but she pushed too hard and bled. She started to have rectal discomfort on Tuesday. She came in today for evaluation. While here, she had a CT abd/pelvis which demonstrated fecal impaction. Patient was given 2 enemas. She eventually had a good bowel movement. Otherwise, her UA is highly suspicious of UTI. Patient tells me that she has been having dysuria and incontinence (of a few drops) since her rectal discomfort started. Patient's creatinine is mildly elevated. Patient will be admitted for UTI. Home Medications Scheduled Acetaminophen (Tylenol Arthritis) 650 Mg Tab, 1,300 MG PO DAILY, (Reported) Alprazolam (Alprazolam) 0.5 Mg Tablet, 0.25 MG PO BID, (Reported) Amlodipine Besylate (Amlodipine Besylate) 5 Mg Tablet, 5 MG PO QHS, (Reported) Ascorbic Acid (Vitamin C) 500 Mg Tablet, 500 MG PO DAILY, (Reported) Carboxymethylcellulose Sodium (Refresh Tears) 15 Ml Drops, 1 DROP OU BID, (Reported) Cholecalciferol (Vitamin D3) (Vitamin D3) 1,000 Unit Tablet, 1,000 UNITS PO DAILY, (Reported) Glipizide (Glipizide ER) 2.5 Mg Tab.er.24, 2.5 MG PO DAILY, (Reported) Hydrochlorothiazide (Hydrochlorothiazide) 25 Mg Tablet, 25 MG PO DAILY, (Reported) Icosapent Ethyl (Vascepa) 1 Gm Capsule, 2 GM PO BID, (Reported) TAKES WITH LUNCH/DINNER Latanoprost (Xalatan) 0.005% 2.5ML Drops, 1 DROP OU QHS, (Reported) Lisinopril (Lisinopril) 5 Mg Tab, 2.5 MG PO QHS, (Reported) Magnesium Oxide (Magnesium Oxide) 400 Mg Tablet, 800 MG PO DAILY, (Reported) Prednisone (Prednisone) 10 Mg Tablet, 10 MG PO DAILY, (Reported) Rivaroxaban (Xarelto) 15 Mg Tablet, 15 MG PO QPM, (Reported) Rosuvastatin Calcium (Rosuvastatin Calcium) 20 Mg Tablet, 20 MG PO QHS, (Reported) Sitagliptin (Januvia) 50 Mg Tablet, 50 MG PO DAILY, (Reported) Allergies Coded Allergies: gabapentin (Verified Allergy, Mild, 06/09/21) codeine (Verified Adverse Reaction, Mild, feels seasick, 01/14/20) morphine (Verified Adverse Reaction, Mild, feels seasick, 01/14/20) Past Medical History Medical History 1. Diabetes mellitus 2. Hypertension 3. Hyperlipidemia 4. Brain aneurysm 5. Sick sinus syndrome 6. Aortic abdominal aneurysm Surgical History 1. Status post aortic iliac bypass 2. Cholecystectomy 3. Cyst removed from breast Family History Noncontributory Social History * Smoker: former Smoker Alcohol: rarely Drugs: denies A-FIB/CHADSVASC A-FIB History Current/History of A-Fib/PAF?: Yes Current PO Anticoag Therapy: Yes Review of Systems Constitutional: Denies: Chills, Fever Eyes: Denies: Vision change ENT: Reports: Sore Throat Skin: Denies: Rash Pulmonary: Denies: Dyspnea, Cough Cardiovascular: Denies: Chest Pain Gastrointestinal: Reports: Constipation, Other Symptoms (rectal discomfort); Denies: Abdominal Pain Genitourinary: Reports: Dysuria, Incontinence Hematologic: Denies: Bruising Neurological: Denies: Numbness Psych: Reports: Anxiety Physical Examination General Exam: Positive: Alert, Cooperative Eye Exam: Positive: EOMI; Negative: Sclera icteric ENT Exam: Positive: Atraumatic Neck Exam: Positive: Supple Chest Exam: Positive: Clear to auscultation; Negative: Rales, Rhonchi, Wheezing Heart Exam: Positive: Rate Normal, Regular Rhythm Abdomen Exam: Positive: BS Hypoactive, Soft; Negative: Tenderness Extremity Exam: Negative: Edema Neuro Exam: Positive: Normal Speech, Cranial Nerves 3-12 NL Psych Exam: Positive: Mental status NL, Mood NL Vital Signs Vital Signs Date Time Temp Pulse Resp B/P (MAP) Pulse Ox O2 Delivery O2 Flow Rate FiO2 06/09/21 17:27 98.4 85 16 118/62 (80) 97 Room Air Laboratory Data Labs 24H Laboratory Tests 2 06/09/21 13:44: Urine Color JOEY, Urine Appearance TURBIDH, Urine pH 5.0, Urine Specific [place] 1.024, Urine Protein 1+H, Urine Glucose (UA) NEGATIVE, Urine Ketones TRACEH, Urine Blood 1+H, Urine Nitrite NEGATIVE, Urine Bilirubin NEGATIVE, Urine Urobilinogen 0.2, Urine Leukocyte Esterase 3+H, Urine WBC (Auto) TNTCH, Urine RBC (Auto) 3, Urine Hyaline Casts (Auto) 0, Urine Bacteria (Auto) 2+H, Urine Squamous Epithelial Cells 3, Urine Sperm (Auto) 06/09/21 13:46: Immature Granulocyte % (Auto) 0.2, Neutrophils (%) (Auto) 76.4H, Lymphocytes (%) (Auto) 13.5L, Monocytes (%) (Auto) 9.0H, Eosinophils (%) (Auto) 0.5, Basophils (%) (Auto) 0.4, Neutrophils # (Auto) 10.0H, Lymphocytes # (Auto) 1.8, Monocytes # (Auto) 1.2H, Eosinophils # (Auto) 0.1, Basophils # (Auto) 0.1, Nucleated Red Blood Cells % (auto) 0.0 06/09/21 14:19: POC Glucose (Misc Panel) 114H, POC Sodium (Misc Panel) 135L, POC Potassium (Misc Panel) 5.7H, POC Chloride (Misc Panel) 102, POC Total CO2 (Misc Panel) 25.0, POC Blood Urea Nitrogen (Misc Panel 47H, POC Ionized Calcium (Misc Panel) 3.7L, POC Creatinine (Misc Panel) 1.5H, POC Hematocrit (Misc Panel) 45.0 06/09/21 17:29: Coronavirus (COVID-19)(PCR) NEGATIVE, Influenza Type A (RT-PCR) NEGATIVE, Influenza Type B (RT-PCR) NEGATIVE, Respiratory Syncytial Virus (PCR) NEGATIVE 06/09/21 19:39: Total Bilirubin 1.3H, Direct Bilirubin 0.6H, Aspartate Amino Transf (AST/SGOT) 15, Alanine Aminotransferase (ALT/SGPT) 27, Alkaline Phosphatase 66, Total Protein 6.2L, Albumin 2.8L, Albumin/Globulin Ratio 0.8L, Lipase 115 CBC/BMP Laboratory Tests 06/09/21 13:46 Microbiology Microbiology 06/09/21 Urine Culture, Received Pending Assessment/Plan Mrs. Kendall is an 80 year old female with hypertension, dyslipidemia, and diabetes mellitus who presents with rectal discomfort and found to have UTI. Patient's overflow diarrhea may have caused patient's UTI. Patient will be empirically started on Ceftriaxone while waiting for urine culture results. Plan / VTE VTE Prophylaxis Ordered?: Yes Plan Plan 1. UTI -Patient reports dysuria and urinary inconstance -UA suspicious for UTI -Possibly secondary to overflow diarrhea -Empirically on Ceftriaxone day 1 -Pending culture results 2. Dehydration -Patient has poor oral intake due to rectal impaction and abdominal discomfort -Creatinine elevated -IVF 3. Diabetes mellitus -Carbohydrate consistent diet -Sliding scale insulin 4. Hypertension -Continue amlodipine -Hold HCTZ and lisinopril 5. Glaucoma -Continue latanoprost 6. Sick sinus syndrome -Continue Xarelto 7. Hyperlipidemia -Continue rosuvastatin 8. DVT ppx -On Xarelto Disposition: Pending clinical improvement MELISA BARDALES DO Jun 09, 2021 22:00
[2021-06-09] MEDS: ROSUVASTATIN 10 MG TAB (CRESTOR) PO SCH (22:06)
[2021-06-09] MEDS: LATANOPROST 0.005% OPHTH SOLN 2.5 ML OU SCH (22:06)
[2021-06-09] MEDS: ALPRAZolam 0.25 MG TAB PO SCH (22:06)
[2021-06-09] MEDS: DOCUSATE SODIUM 100MG CAPSULE PO SCH (22:06)
[2021-06-09] MEDS: amLODIPine 5 MG TAB PO SCH (22:07)
[2021-06-09] MEDS ORDERED: ONDANSETRON 4MG/2ML VIAL IV PRN (22:20)
[2021-06-09] MEDS: NS 1,000 ML IV SCH (22:40)
[2021-06-10 00:05] LABS: CALCIUM LEVEL 8.6 MG/DL (8.8-10.2); CREATININE FOR GFR 1.13 MG/DL (0.55-1.30); GLOMERULAR FILTRATION RATE 49.3 (>32); POTASSIUM SERUM 3.7 MEQ/L (3.5-5.1)
[2021-06-10] MEDS ORDERED: PROMETHAZINE INJ 25 MG/ML VIAL (J2550) IV ONE (01:15)
[2021-06-10 06:00] VITALS: BP 137/77
[2021-06-10 06:31] LABS: HEMATOCRIT 40.3 % (36.0-47.0); MEAN CORPUSCULAR HEMOGLOBIN 31.8 pg (27.0-33.0); MEAN CORPUSCULAR VOLUME 96.4 fl (80.0-96.0); PLATELET COUNT, AUTOMATED 207 10^3/uL (150-450); RED BLOOD COUNT 4.18 10^6/uL (4.00-5.40); WHITE BLOOD COUNT 9.8 10^3/uL (4.0-10.0)
[2021-06-10 06:40] LABS: HEMOGLOBIN 13.3 g/dl (12.0-15.5)
[2021-06-10 06:48] LABS: CALCIUM LEVEL 7.8 MG/DL (8.8-10.2); GLOMERULAR FILTRATION RATE 56.8 (>32); MAGNESIUM LEVEL 1.8 MG/DL (1.8-2.4); POTASSIUM SERUM 3.2 MEQ/L (3.5-5.1)
[2021-06-10] MEDS: HumaLOG INSULIN (NovoLOG) PER UNIT SC SCH ×4 (07:30→20:19)
[2021-06-10] MEDS ORDERED: POTASSIUM CHLORIDE 10MEQ SR TABLET PO ONE (07:30)
[2021-06-10] MEDS: ACETAMINOPHEN 650MG ER TAB (TYLENOL ARTHRITIS) PO SCH (08:18)
[2021-06-10] MEDS: VITAMIN D 1,000 INTERNATIONAL UNITS TABLET PO SCH (08:18)
[2021-06-10] MEDS: ASCORBIC ACID 500 MG TAB PO SCH (08:18)
[2021-06-10] MEDS: ALPRAZolam 0.25 MG TAB PO SCH ×2 (08:18→20:11)
[2021-06-10] MEDS: DOCUSATE SODIUM 100MG CAPSULE PO SCH ×2 (08:18→20:11)
[2021-06-10] MEDS: predniSONE 10 MG TAB PO SCH (08:18)
[2021-06-10] MEDS: NS 1,000 ML IV SCH (08:19)
--- NOTE | 2021-06-10 12:54 | IPNPDOC ---
Subjective Date Seen The patient was seen on 06/10/21. Subjective Chief Complaint/HPI Mrs. Kendall is an 80 year old female with hypertension, dyslipidemia, and diabetes mellitus who presents with rectal discomfort and found to have UTI. This morning, she was not feeling well. Appetite not yet at baseline. Otherwise, she is anxious and concerned about rectal impaction. I've encourage oral intake of fluids. I'll add on mineral oil enema. Otherwise, pending urine culture results. Objective Physical Examination General Exam: Positive: Alert, Cooperative Eye Exam: Positive: EOMI; Negative: Sclera icteric ENT Exam: Positive: Atraumatic Neck Exam: Positive: Supple Chest Exam: Positive: Clear to auscultation; Negative: Rales, Rhonchi, Wheezing Heart Exam: Positive: Rate Normal, Regular Rhythm Abdomen Exam: Positive: BS Hypoactive, Soft; Negative: Tenderness Extremity Exam: Negative: Edema Neuro Exam: Positive: Normal Speech, Cranial Nerves 3-12 NL Psych Exam: Positive: Mental status NL, Mood NL Assessment /Plan Assessment Mrs. Kendall is an 80 year old female with hypertension, dyslipidemia, and diabetes mellitus who presents with rectal discomfort and found to have UTI. Patient's overflow diarrhea may have caused patient's UTI. Patient will be empirically started on Ceftriaxone while waiting for urine culture results. Plan/VTE VTE Prophylaxis Ordered?: Yes Plan 1. UTI -Patient reports dysuria and urinary inconstance -UA suspicious for UTI -Possibly secondary to overflow diarrhea -Empirically on Ceftriaxone day 2 -Pending culture results 2. Dehydration -Patient has poor oral intake due to rectal impaction and abdominal discomfort -Creatinine elevated -IVF 3. Diabetes mellitus -Carbohydrate consistent diet -Sliding scale insulin 4. Hypertension -Continue amlodipine -Hold HCTZ and lisinopril 5. Glaucoma -Continue latanoprost 6. Sick sinus syndrome -Continue Xarelto 7. Hyperlipidemia -Continue rosuvastatin 8. DVT ppx -On Xarelto Disposition: Pending clinical improvement VS, I&O, 24H, [place] Vital Signs/I&O Vital Signs Date Time Temp Pulse Resp B/P (MAP) Pulse Ox O2 Delivery O2 Flow Rate FiO2 06/10/21 06:00 100.0 86 17 137/77 (97) 92 Room Air I&O- Last 24 Hours up to 6 AM0 06/10/21 06:00 Intake Total 1570 ml Balance 1570 ml Laboratory Data 24H LABS Laboratory Tests 2 06/09/21 13:44: Urine Color JOEY, Urine Appearance TURBIDH, Urine pH 5.0, Urine Specific [place] 1.024, Urine Protein 1+H, Urine Glucose (UA) NEGATIVE, Urine Ketones TRACEH, Urine Blood 1+H, Urine Nitrite NEGATIVE, Urine Bilirubin NEGATIVE, Urine Urobilinogen 0.2, Urine Leukocyte Esterase 3+H, Urine WBC (Auto) TNTCH, Urine R BC (Auto) 3, Urine Hyaline Casts (Auto) 0, Urine Bacteria (Auto) 2+H, Urine Squamous Epithelial Cells 3, Urine Sperm (Auto) 06/09/21 13:46: Immature Granulocyte % (Auto) 0.2, Neutrophils (%) (Auto) 76.4H, Lymphocytes (%) (Auto) 13.5L, Monocytes (%) (Auto) 9.0H, Eosinophils (%) (Auto) 0.5, Basophils (%) (Auto) 0.4, Neutrophils # (Auto) 10.0H, Lymphocytes # (Auto) 1.8, Monocytes # (Auto) 1.2H, Eosinophils # (Auto) 0.1, Basophils # (Auto) 0.1, Nucleated Red Blood Cells % (auto) 0.0 06/09/21 14:19: POC Glucose (Misc Panel) 114H, POC Sodium (Misc Panel) 135L, POC Potassium (Misc Panel) 5.7H, POC Chloride (Misc Panel) 102, POC Total CO2 (Misc Panel) 25.0, POC Blood Urea Nitrogen (Misc Panel 47H, POC Ionized Calcium (Misc Panel) 3.7L, POC Creatinine (Misc Panel) 1.5H, POC Hematocrit (Misc Panel) 45.0 06/09/21 17:29: Coronavirus (COVID-19)(PCR) NEGATIVE, Influenza Type A (RT-PCR) NEGATIVE, Influenza Type B (RT-PCR) NEGATIVE, Respiratory Syncytial Virus (PCR) NEGATIVE 06/09/21 19:39: Total Bilirubin 1.3H, Direct Bilirubin 0.6H, Aspartate Amino Transf (AST/SGOT) 15, Alanine Aminotransferase (ALT/SGPT) 27, Alkaline Phosphatase 66, Total Protein 6.2L, Albumin 2.8L, Albumin/Globulin Ratio 0.8L, Lipase 115 06/09/21 21:36: Bedside Glucose (Misc Panel) 90 06/09/21 23:25: Anion Gap 7L, Glomerular Filtration Rate 49.3, Calcium Level 8.6L 06/10/21 05:33: Anion Gap 11, Glomerular Filtration Rate 56.8, Calcium Level 7.8L, Nucleated Red Blood Cells % (auto) 0.0, Magnesium Level 1.8 06/10/21 11:50: Bedside Glucose (Misc Panel) 140H CBC/BMP Laboratory Tests 06/09/21 13:46 06/09/21 23:25 06/10/21 05:33 Microbiology Microbiology 06/09/21 Urine Culture, Received Pending MELISA BARDALES DO Jun 10, 2021 12:54
[2021-06-10] MEDS ORDERED: FLEET OIL RETENTION ENEMA PR PRN (12:55)
[2021-06-10 14:00] VITALS: BP 143/70
[2021-06-10] MEDS ORDERED: cefTRIAXone SOD 1 GM in D5W MINI-BAG PLUS 50 ML IV SCH (17:00)
[2021-06-10] MEDS ORDERED: RIVAROXABAN 15 MG TAB (XARELTO) PO SCH (18:00)
[2021-06-10] MEDS: ROSUVASTATIN 10 MG TAB (CRESTOR) PO SCH (20:11)
[2021-06-10 20:12] VITALS: BP 142/78
[2021-06-10] MEDS: LATANOPROST 0.005% OPHTH SOLN 2.5 ML OU SCH (20:12)
[2021-06-10] MEDS: amLODIPine 5 MG TAB PO SCH (20:12)
[2021-06-10 22:00] VITALS: BP 142/78
[2021-06-11 06:00] VITALS: BP 119/61
[2021-06-11 07:21] LABS: HEMATOCRIT 38.6 % (36.0-47.0); HEMOGLOBIN 12.7 g/dl (12.0-15.5); MEAN CORPUSCULAR HEMOGLOBIN 31.5 pg (27.0-33.0); MEAN CORPUSCULAR HGB CONC 32.9 g/dl (32.0-36.5); MEAN CORPUSCULAR VOLUME 95.8 fl (80.0-96.0); PLATELET COUNT, AUTOMATED 201 10^3/uL (150-450); RED BLOOD COUNT 4.03 10^6/uL (4.00-5.40); WHITE BLOOD COUNT 9.3 10^3/uL (4.0-10.0)
[2021-06-11] MEDS: HumaLOG INSULIN (NovoLOG) PER UNIT SC SCH (07:30)
[2021-06-11 07:45] LABS: BLOOD UREA NITROGEN 19 MG/DL (7-18); CALCIUM LEVEL 7.8 MG/DL (8.8-10.2); CARBON DIOXIDE LEVEL 28 MEQ/L (21-32); CHLORIDE LEVEL 108 MEQ/L (98-107); CREATININE FOR GFR 0.94 MG/DL (0.55-1.30); GLOMERULAR FILTRATION RATE > 60.0 (>32); GLUCOSE, FASTING 97 MG/DL (70-100); MAGNESIUM LEVEL 1.9 MG/DL (1.8-2.4); POTASSIUM SERUM 3.7 MEQ/L (3.5-5.1); SODIUM LEVEL 142 MEQ/L (136-145)
[2021-06-11] MEDS: VITAMIN D 1,000 INTERNATIONAL UNITS TABLET PO SCH (08:24)
[2021-06-11] MEDS: DOCUSATE SODIUM 100MG CAPSULE PO SCH (08:24)
[2021-06-11] MEDS: predniSONE 10 MG TAB PO SCH (08:24)
[2021-06-11] MEDS: ASCORBIC ACID 500 MG TAB PO SCH (08:25)
[2021-06-11] MEDS: ACETAMINOPHEN 650MG ER TAB (TYLENOL ARTHRITIS) PO SCH (08:25)
[2021-06-11] MEDS: ALPRAZolam 0.25 MG TAB PO SCH (08:25)
[2021-06-11] MEDS ORDERED: COLA100C5 PO (09:29)
[2021-06-11] MEDS ORDERED: CEFD1CAP8 PO (09:29)
[2021-06-11] MEDS ORDERED: MAGN400T2 PO (09:29)
[2021-06-11] MEDS ORDERED: MIRA1POW3 PO (09:29)
[2021-06-11] MEDS ORDERED: FLEETOIL PR (09:29)
--- NOTE | 2021-06-11 18:44 | DS.PDOC ---
Discharge Summary General Date of Admission Jun 09, 2021 at 18:25 Date of Discharge Jun 11, 2021 Discharge Summary PROCEDURES PERFORMED DURING STAY: None. ADMITTING DIAGNOSES: 1. UTI 2. Dehydration 3. Diabetes mellitus 4. Hypertension 5. Glaucoma 6. Sick sinus syndrome 7. Hyperlipidemia DISCHARGE DIAGNOSES: 1. Klebsiella UTI 2. Dehydration 3. Diabetes mellitus 4. Hypertension 5. Glaucoma 6. Sick sinus syndrome 7. Hyperlipidemia COMPLICATIONS/CHIEF COMPLAINT: Elpidio, Fecal Impaction, Uti. HISTORY OF PRESENT ILLNESS: Mrs. Kendall is an 80 year old female with hypertension, dyslipidemia, and diabetes mellitus who presents with rectal discomfort and found to have UTI. Tuesday was patient's last good BM. Since then, she has not yet had a good bowel movement, but had some liquid diarrhea. On Tuesday, she took Senna and strained, but she pushed too hard and bled. She started to have rectal discomfort on Tuesday. She came in today for evaluation. While here, she had a CT abd/pelvis which demonstrated fecal impaction. Patient was given 2 enemas. She eventually had a good bowel movement. Otherwise, her UA is highly suspicious of UTI. Patient tells me that she has been having dysuria and incontinence (of a few drops) since her rectal discomfort started. Patient's creatinine is mildly elevated. Patient will be admitted for UTI. HOSPITAL COURSE: Patient did well during hospitalization. She is very anxious about having another episode of rectal impaction. Started patient on twice daily Colace and as needed MiraLAX. She may take enema as desired. Otherwise recommended that she stay well-hydrated. Patient urine culture grew greater than 100,000 Klebsiella pneumoniae. Patient was switched from IV ceftriaxone to p.o. cefdinir. Patient felt ready for home today and was discharged home. DISCHARGE MEDICATIONS: Please see below. ALLERGIES: Please see below. PHYSICAL EXAMINATION ON DISCHARGE: VITAL SIGNS: Please see below. GENERAL: Comfortable, in no apparent distress. HEENT: Head normocephalic/atraumatic, EOMI, sclera clear. NECK: Supple. RESPIRATORY: Lungs clear to auscultation bilaterally, no rales, wheeze or rhonchi. CARDIOVASCULAR: Regular rate and rhythm. ABDOMEN: Soft, nontender, no guarding or rebound tenderness. Normal bowel sounds. MUSCLE SKELETAL: Muscle strength 5/5 in all extremities. NEUROLOGICAL: CN 312 grossly intact, no focal deficits noted. PSYCHOLOGICAL: Anxious LABORATORY DATA: Please see below. IMAGING: Radiology interpretation CT of the abdomen pelvis with IV contrast only There are findings compatible with fecal impaction in the rectum. There is mild edema in the perirectal fat. No free fluid or fluid collection is seen. There is sigmoid diverticulosis without evidence of acute diverticulitis. PROGNOSIS: Good ACTIVITY: As tolerated. DIET: Carbohydrate consistent diet DISCHARGE PLAN: Home DISPOSITION: Home, Self-Care. DISCHARGE INSTRUCTIONS: 1. Follow-up with PCP within a week. DISCHARGE CONDITION: Stable. Total time spent on discharge planning, discharge summary, and medication reconciliation: 45 minutes Vital Signs/I&Os Vital Signs Date Time Temp Pulse Resp B/P (MAP) Pulse Ox O2 Delivery O2 Flow Rate FiO2 06/11/21 06:00 98.2 76 16 119/61 (80) 95 Room Air I&O- Last 24 Hours up to 6 AM 06/11/21 06:00 Intake Total 980 ml Output Total 400 ml Balance 580 ml Laboratory Data Labs 24H Laboratory Tests 2 06/10/21 20:19: Bedside Glucose (Misc Panel) 209H 06/11/21 07:01: Nucleated Red Blood Cells % (auto) 0.0, Anion Gap 6L, Glomerular Filtration Rate > 60.0, Calcium Level 7.8L, Magnesium Level 1.9 06/11/21 11:20: Bedside Glucose (Misc Panel) 139H CBC/BMP Laboratory Tests 06/11/21 07:01 FSBS Laboratory Tests Test 06/10/21 20:19 06/11/21 11:20 Range/Units Bedside Glucose (Misc Panel) 209 139 83-110 MG/DL Microbiology Microbiology 06/09/21 Urine Culture - Final, Complete Klebsiella Pneumoniae Discharge Medications Scheduled Acetaminophen (Tylenol Arthritis) 650 Mg Tab, 1,300 MG PO DAILY, (Reported) Alprazolam (Alprazolam) 0.5 Mg Tablet, 0.25 MG PO BID, (Reported) Amlodipine Besylate (Amlodipine Besylate) 5 Mg Tablet, 5 MG PO QHS, (Reported) Ascorbic Acid (Vitamin C) 500 Mg Tablet, 500 MG PO DAILY, (Reported) Carboxymethylcellulose Sodium (Refresh Tears) 15 Ml Drops, 1 DROP OU BID, (Reported) Cefdinir (Cefdinir) 300 Mg Capsule, 300 MG PO BID Cholecalciferol (Vitamin D3) (Vitamin D3) 1,000 Unit Tablet, 1,000 UNITS PO DAILY, (Reported) Docusate Sodium (Colace) 100 Mg Capsule, 100 MG PO BID Glipizide (Glipizide ER) 2.5 Mg Tab.er.24, 2.5 MG PO DAILY, (Reported) Icosapent Ethyl (Vascepa) 1 Gm Capsule, 2 GM PO BID, (Reported) TAKES WITH LUNCH/DINNER Latanoprost (Xalatan) 0.005% 2.5ML Drops, 1 DROP OU QHS, (Reported) Lisinopril (Lisinopril) 5 Mg Tab, 2.5 MG PO QHS, (Reported) Magnesium Oxide (Magnesium Oxide) 400 Mg Tablet, 800 MG PO DAILY@noon Prednisone (Prednisone) 10 Mg Tablet, 10 MG PO DAILY, (Reported) Rivaroxaban (Xarelto) 15 Mg Tablet, 15 MG PO QPM, (Reported) Rosuvastatin Calcium (Rosuvastatin Calcium) 20 Mg Tablet, 20 MG PO QHS, (Reported) Sitagliptin (Januvia) 50 Mg Tablet, 50 MG PO DAILY, (Reported) Scheduled PRN Mineral Oil (Mineral Oil Enema) 133 Ml Enema, 1 EA [place] DAILYPRN PRN for CONSTIPATION Polyethylene Glycol 3350 (Miralax) 17 Gm Powd.pack, 1 PKT PO DAILYPRN PRN for CONSTIPATION Allergies Coded Allergies: gabapentin (Verified Allergy, Mild, 06/09/21) codeine (Verified Adverse Reaction, Mild, feels seasick, 01/14/20) morphine (Verified Adverse Reaction, Mild, feels seasick, 01/14/20) MELISA BARDALES DO Jun 11, 2021 18:44
== END 2021-06-11 12:15 | disposition home or self-care (01) | DRG 389 ==
LOC: M ED 13:07 → EDBD 13:07 → M ED INP 18:25 → ENRESERV 19:43 → M MSPAV 21:10
PROVIDERS: ADMIT Internal Medicine; ATTEND Internal Medicine
DX: K56.41 Fecal impaction (principal); N17.9 Acute kidney failure, unspecified; N39.0 Urinary tract infection, site not specified; E11.9 Type 2 diabetes mellitus without complications; I10 Essential (primary) hypertension; E78.5 Hyperlipidemia, unspecified; I49.5 Sick sinus syndrome; I71.4 Abdominal aortic aneurysm, without rupture; E86.0 Dehydration; B96.1 Klebsiella pneumoniae [K. pneumoniae] as the cause of diseases classified elsewhere; H40.9 Unspecified glaucoma; Z66 Do not resuscitate; Z90.49 Acquired absence of other specified parts of digestive tract; Z79.84 Long term (current) use of oral hypoglycemic drugs; Z79.01 Long term (current) use of anticoagulants; Z79.899 Other long term (current) drug therapy; Z87.891 Personal history of nicotine dependence; Z20.822 Contact with and (suspected) exposure to COVID-19

== ENCOUNTER → 2021-07-21 | Outpatient (CLI) | payer MEDICARE, BC ==
[~2021-07-21] MED LIST changes: +CEFD300C41 PO; +CEFD300CAP PO; +COLA100C5 PO; +DOCU100C16 PO; +FLEEENE12 PR; +FLEETOIL PR; -LISI-898 PO; +LISI5TAB11 PO; +METH-1164 PO; +MIRA1POW3 PO; +ONDA-83; +SPIR-10; +TRAM37.53; +TRAM50TA2 PO
[2021-07-21 16:47] LABS: ALBUMIN 3.4 GM/DL (3.2-5.2); BILIRUBIN,TOTAL 0.5 MG/DL (0.2-1.0); CALCIUM LEVEL 9.5 MG/DL (8.8-10.2); CHOLESTEROL RISK RATIO 2.47 (<5); CREATININE FOR GFR 1.18 MG/DL (0.55-1.30); FREE T3 2.6 PG/ML (2.2-4.0); FREE T4 1.02 NG/DL (0.76-1.46); GLOMERULAR FILTRATION RATE 46.9 (>32); POTASSIUM SERUM 4.3 MEQ/L (3.5-5.1); THYROID STIMULATING HORMONE 2.25 uIU/ML (0.358-3.740); TOTAL PROTEIN 6.5 GM/DL (6.4-8.2)
== END ==
LOC: M WUC 10:13
PROVIDERS: ATTEND Registered Nurse
DX: E11.9 Type 2 diabetes mellitus without complications (principal); E78.2 Mixed hyperlipidemia; Z13.29 Encounter for screening for other suspected endocrine disorder; I10 Essential (primary) hypertension; E83.51 Hypocalcemia

== ENCOUNTER → 2021-07-21 | Outpatient (CLI) | payer MEDICARE, BC ==
[2021-07-21 16:43] LABS: ALBUMIN 3.6 GM/DL (3.2-5.2)
[2021-07-21 16:52] LABS: TOTAL 25(OH) VITAMIN D 36.7 NG/ML (30.0-100.0)
== END ==
LOC: M WUC 10:16
PROVIDERS: ATTEND Family Medicine
DX: E83.51 Hypocalcemia (principal)

== ENCOUNTER → 2021-08-03 | Outpatient (REF) | payer MEDICARE, BC | LOC: M LAB REF 12:55 | PROVIDERS: ATTEND Nurse Practitioner Family | DX: N39.0 Urinary tract infection, site not specified (principal); E83.42 Hypomagnesemia ==

== ENCOUNTER → 2021-08-04 | Outpatient (CLI) | payer MEDICARE, BC | LOC: M WUC 13:20 | PROVIDERS: ATTEND Registered Nurse | DX: M54.6 Pain in thoracic spine (principal) ==

== ENCOUNTER 2021-08-24 15:11 | Inpatient (IN) | payer MEDICARE, BC ==
[~2021-08-24] VITALS: Ht 170.2 cm; Wt 68.0 kg
[~2021-08-24 15:11] MED LIST changes: -CEFD300CAP PO; -DOCU100C16 PO; -FLEEENE12 PR; -METH-1164 PO; -ONDA-83; -SPIR-10; -TRAM37.53; -TRAM50TA2 PO
[2021-08-24 18:05] LABS: BASO # 0.1 10^3/uL (0.0-0.2); BASO % 0.5 % (0.0-1.0); EOS # 0.1 10^3/uL (0.0-0.5); EOS % 0.6 % (0.0-3.0); HEMATOCRIT 42.6 % (36.0-47.0); HEMOGLOBIN 14.5 g/dl (12.0-15.5); LYMPH # 1.4 10^3/uL (1.5-5.0); LYMPH % 13.2 % (24.0-44.0); MEAN CORPUSCULAR HEMOGLOBIN 31.7 pg (27.0-33.0); MONO # 1.1 10^3/uL (0.0-0.8); MONO % 10.2 % (2.0-8.0); NEUTROPHILS # 8.2 10^3/uL (1.5-8.5); NEUTROPHILS % 75.1 % (36.0-66.0); PLATELET COUNT, AUTOMATED 264 10^3/uL (150-450); RED BLOOD COUNT 4.58 10^6/uL (4.00-5.40); WHITE BLOOD COUNT 10.8 10^3/uL (4.0-10.0)
[2021-08-24 18:33] LABS: INR 1.03; PROTHROMBIN TIME 13.9 SECONDS (12.7-14.5)
[2021-08-24 18:34] LABS: PARTIAL THROMBOPLASTIN TIME 33.1 SECONDS (25.9-37.0)
[2021-08-24 18:43] LABS: ALBUMIN 3.2 GM/DL (3.2-5.2); BILIRUBIN,DIRECT 0.5 MG/DL (0.0-0.2); CALCIUM LEVEL 9.7 MG/DL (8.8-10.2); CREATININE FOR GFR 1.49 MG/DL (0.55-1.30); FREE T4 1.67 NG/DL (0.76-1.46); GLOMERULAR FILTRATION RATE 35.8 (>32); POTASSIUM SERUM 3.5 MEQ/L (3.5-5.1); THYROID STIMULATING HORMONE 1.25 uIU/ML (0.358-3.740); TOTAL PROTEIN 6.6 GM/DL (6.4-8.2)
[2021-08-24] MEDS ORDERED: ISOVUE-370 76% 100ML VIAL As Ordered ONE (19:14)
[2021-08-24] MEDS ORDERED: fentaNYL 100 MCG/2 ML INJECTION (J3010) IV ONE (19:20)
[2021-08-25] MEDS ORDERED: fentaNYL 100 MCG/2 ML INJECTION (J3010) IV ONE (00:30)
[2021-08-25] MEDS ORDERED: ACETAMINOPHEN TAB 650MG DOSE (2X325MG) PO PRN (02:10)
[2021-08-25] MEDS ORDERED: DEXTROSE 50% 50 ML SYRINGE IV PRN (02:30)
[2021-08-25] MEDS ORDERED: GLUCOSE 4GM CHEW TABLET PO PRN (02:30)
[2021-08-25] MEDS ORDERED: GLUCAGON INJ 1MG VIAL SC PRN (02:30)
[2021-08-25] MEDS ORDERED: GI COCKTAIL 50ML BTL(HYOSCYAMINE/MAALOX/LIDOCAINE VISCOUS)(1:3:1) PO ONE (03:40)
[2021-08-25] MEDS ORDERED: DICYCLOMINE 10 MG CAP PO ONE (03:40)
[2021-08-25] MEDS ORDERED: NS 1,000 ML IV SCH (03:40)
[2021-08-25] MEDS ORDERED: MAGN400T2 PO (03:53)
[2021-08-25] MEDS ORDERED: DOCU100C16 PO (03:53)
[2021-08-25] MEDS ORDERED: MIRA1POW3 PO (03:59)
[2021-08-25] MEDS ORDERED: FLEEENE12 PR (03:59)
[2021-08-25] MEDS ORDERED: TRAM50TA2 PO (03:59)
[2021-08-25] MEDS ORDERED: METH-1164 PO (03:59)
[2021-08-25] MEDS ORDERED: HOME MED LIST COMPLETE! XX SCH (04:00)
[2021-08-25] MEDS ORDERED: MIRALAX *UNIT DOSE* 17GM PACKET PO PRN (04:05)
[2021-08-25] MEDS ORDERED: ALPRAZolam 0.5 MG TAB PO PRN (04:05)
[2021-08-25] MEDS ORDERED: ALPRAZolam 0.25 MG TAB PO PRN (04:30)
[2021-08-25] MEDS: cefTRIAXone SOD 1 GM in D5W MINI-BAG PLUS 50 ML IV SCH (05:50)
[2021-08-25] MEDS: traMADol 50 MG TAB PO PRN ×2 (05:51→17:32)
[2021-08-25 06:00] VITALS: BP 148/72
[2021-08-25 06:28] LABS: HEMATOCRIT 41.3 % (36.0-47.0); HEMOGLOBIN 13.8 g/dl (12.0-15.5); MEAN CORPUSCULAR HEMOGLOBIN 31.2 pg (27.0-33.0); MEAN CORPUSCULAR HGB CONC 33.4 g/dl (32.0-36.5); MEAN CORPUSCULAR VOLUME 93.2 fl (80.0-96.0); NEUTROPHILS % 72.3 % (36.0-66.0); PLATELET COUNT, AUTOMATED 248 10^3/uL (150-450); RED BLOOD COUNT 4.43 10^6/uL (4.00-5.40); WHITE BLOOD COUNT 9.2 10^3/uL (4.0-10.0)
[2021-08-25 06:29] LABS: BASO % 0.3 % (0.0-1.0); EOS # 0.1 10^3/uL (0.0-0.5); EOS % 1.3 % (0.0-3.0); LYMPH # 1.4 10^3/uL (1.5-5.0); LYMPH % 14.8 % (24.0-44.0); MONO % 10.9 % (2.0-8.0); NEUTROPHILS # 6.7 10^3/uL (1.5-8.5)
[2021-08-25 06:49] LABS: ERYTHROCYTE SEDIMENTATION RATE 29 mm/hr (0-30)
[2021-08-25 07:00] LABS: C REACTIVE PROTEIN QUANTITATIV 7.05 MG/DL (0.00-0.30); CALCIUM LEVEL 9.5 MG/DL (8.8-10.2); CREATININE FOR GFR 1.27 MG/DL (0.55-1.30); GLOMERULAR FILTRATION RATE 43.1 (>32); MAGNESIUM LEVEL 1.9 MG/DL (1.8-2.4); POTASSIUM SERUM 3.2 MEQ/L (3.5-5.1)
[2021-08-25] MEDS: ASCORBIC ACID 500 MG TAB PO SCH (08:13)
[2021-08-25] MEDS: DOCUSATE SODIUM 100MG CAPSULE PO SCH ×2 (08:13→20:52)
[2021-08-25] MEDS: predniSONE 10 MG TAB PO SCH (08:13)
[2021-08-25] MEDS: LACTOBACILLUS ACIDOPHILUS CAP (BACID) PO SCH (08:13)
[2021-08-25] MEDS: VITAMIN D 1,000 INTERNATIONAL UNITS TABLET PO SCH (08:13)
[2021-08-25] MEDS: HumaLOG INSULIN (NovoLOG) PER UNIT SC SCH ×4 (08:15→20:56)
[2021-08-25] MEDS: methocarbamoL 750 MG TAB PO SCH ×2 (09:01→20:51)
[2021-08-25] MEDS: PANTOPRAZOLE 20 MG TAB PO SCH (09:01)
[2021-08-25] MEDS: ONDANSETRON 4 MG ORAL DISINTEGRATING TAB PO PRN ×2 (09:31→17:32)
[2021-08-25] MEDS: POTASSIUM CHLORIDE 10MEQ SR TABLET PO SCH ×2 (11:21→13:37)
[2021-08-25] MEDS: MAGNESIUM OXIDE 400MG TAB (MAG-OX) PO SCH (12:13)
[2021-08-25] MEDS ORDERED: VANCOMYCIN HCL 1,000 MG, VIAL MATE ADAPTER 1 EACH in NS 250 ML IV SCH (13:00)
[2021-08-25] MEDS: DICLOFENAC EPOLAMINE 1.3 % PATCH TOP SCH ×2 (13:37→20:52)
[2021-08-25 14:00] VITALS: BP 139/68
[2021-08-25] MEDS ORDERED: VANCOMYCIN HCL 500 MG in D5W MINI-BAG PLUS 100 ML IV ONE (14:00)
[2021-08-25] MEDS: RIVAROXABAN 15 MG TAB (XARELTO) PO SCH (17:32)
[2021-08-25] MEDS: LATANOPROST 0.005% OPHTH SOLN 2.5 ML OU SCH (20:50)
[2021-08-25] MEDS: ROSUVASTATIN 10 MG TAB (CRESTOR) PO SCH (20:51)
[2021-08-25] MEDS: amLODIPine 5 MG TAB PO SCH (20:51)
[2021-08-25 22:00] VITALS: BP 109/58
[2021-08-26] MEDS: ONDANSETRON 4 MG ORAL DISINTEGRATING TAB PO PRN ×3 (05:20→22:12)
[2021-08-26] MEDS: traMADol 50 MG TAB PO PRN ×3 (05:23→22:05)
[2021-08-26] MEDS: cefTRIAXone SOD 1 GM in D5W MINI-BAG PLUS 50 ML IV SCH (05:23)
[2021-08-26 06:00] VITALS: BP 137/75
[2021-08-26] MEDS: HumaLOG INSULIN (NovoLOG) PER UNIT SC SCH ×4 (07:30→21:00)
[2021-08-26 07:47] LABS: BASO % 0.4 % (0.0-1.0); EOS # 0.1 10^3/uL (0.0-0.5); EOS % 1.1 % (0.0-3.0); HEMATOCRIT 40.9 % (36.0-47.0); HEMOGLOBIN 13.6 g/dl (12.0-15.5); LYMPH # 1.6 10^3/uL (1.5-5.0); LYMPH % 15.3 % (24.0-44.0); MEAN CORPUSCULAR HEMOGLOBIN 31.5 pg (27.0-33.0); MEAN CORPUSCULAR HGB CONC 33.3 g/dl (32.0-36.5); MEAN CORPUSCULAR VOLUME 94.7 fl (80.0-96.0); MONO % 9.6 % (2.0-8.0); NEUTROPHILS # 7.8 10^3/uL (1.5-8.5); NEUTROPHILS % 73.1 % (36.0-66.0); PLATELET COUNT, AUTOMATED 278 10^3/uL (150-450); RED BLOOD COUNT 4.32 10^6/uL (4.00-5.40); WHITE BLOOD COUNT 10.6 10^3/uL (4.0-10.0)
[2021-08-26 08:03] LABS: HEMOGLOBIN A1c 6.6 %
[2021-08-26 08:17] LABS: CREATININE FOR GFR 1.06 MG/DL (0.55-1.30); FREE T4 1.47 NG/DL (0.76-1.46); GLOMERULAR FILTRATION RATE 53.1 (>32); POTASSIUM SERUM 3.5 MEQ/L (3.5-5.1); THYROID STIMULATING HORMONE 1.25 uIU/ML (0.358-3.740); VANCOMYCIN RANDOM 12.4 UG/ML
[2021-08-26] MEDS: PANTOPRAZOLE 20 MG TAB PO SCH (08:48)
[2021-08-26] MEDS: DOCUSATE SODIUM 100MG CAPSULE PO SCH ×2 (08:48→22:06)
[2021-08-26] MEDS: ASCORBIC ACID 500 MG TAB PO SCH (08:48)
[2021-08-26] MEDS: VITAMIN D 1,000 INTERNATIONAL UNITS TABLET PO SCH (08:48)
[2021-08-26] MEDS: LACTOBACILLUS ACIDOPHILUS CAP (BACID) PO SCH (08:48)
[2021-08-26] MEDS: ACETAMINOPHEN 650MG ER TAB (TYLENOL ARTHRITIS) PO PRN ×2 (08:48→17:15)
[2021-08-26] MEDS: predniSONE 10 MG TAB PO SCH (08:48)
[2021-08-26] MEDS: methocarbamoL 750 MG TAB PO SCH ×2 (08:52→22:05)
[2021-08-26] MEDS: DICLOFENAC EPOLAMINE 1.3 % PATCH TOP SCH ×2 (08:53→21:00)
[2021-08-26] MEDS ORDERED: VANCOMYCIN HCL 1,000 MG, VIAL MATE ADAPTER 1 EACH in NS 250 ML IV SCH (09:00)
[2021-08-26 10:01] LABS: FREE T3 1.9 PG/ML (2.2-4.0)
[2021-08-26] MEDS: MAGNESIUM OXIDE 400MG TAB (MAG-OX) PO SCH (12:14)
[2021-08-26 14:00] VITALS: BP 125/73
[2021-08-26] MEDS: RIVAROXABAN 15 MG TAB (XARELTO) PO SCH (17:14)
[2021-08-26 22:00] VITALS: BP 121/80
[2021-08-26 22:06] VITALS: BP 121/80
[2021-08-26] MEDS: ROSUVASTATIN 10 MG TAB (CRESTOR) PO SCH (22:06)
[2021-08-26] MEDS: amLODIPine 5 MG TAB PO SCH (22:06)
[2021-08-26] MEDS: LATANOPROST 0.005% OPHTH SOLN 2.5 ML OU SCH (22:10)
[2021-08-27] MEDS: cefTRIAXone SOD 1 GM in D5W MINI-BAG PLUS 50 ML IV SCH (05:16)
[2021-08-27 06:00] VITALS: BP 123/81
[2021-08-27] MEDS: ONDANSETRON 4 MG ORAL DISINTEGRATING TAB PO PRN (06:28)
[2021-08-27] MEDS: traMADol 50 MG TAB PO PRN (06:29)
[2021-08-27] MEDS: HumaLOG INSULIN (NovoLOG) PER UNIT SC SCH ×2 (07:30→12:00)
[2021-08-27] MEDS: ASCORBIC ACID 500 MG TAB PO SCH (09:05)
[2021-08-27] MEDS: VITAMIN D 1,000 INTERNATIONAL UNITS TABLET PO SCH (09:05)
[2021-08-27] MEDS: PANTOPRAZOLE 20 MG TAB PO SCH (09:05)
[2021-08-27] MEDS: DOCUSATE SODIUM 100MG CAPSULE PO SCH (09:05)
[2021-08-27] MEDS: predniSONE 10 MG TAB PO SCH (09:05)
[2021-08-27] MEDS: ACETAMINOPHEN 650MG ER TAB (TYLENOL ARTHRITIS) PO PRN (09:05)
[2021-08-27] MEDS: LACTOBACILLUS ACIDOPHILUS CAP (BACID) PO SCH (09:05)
[2021-08-27] MEDS: methocarbamoL 750 MG TAB PO SCH (09:05)
[2021-08-27] MEDS: DICLOFENAC EPOLAMINE 1.3 % PATCH TOP SCH (09:06)
[2021-08-27] MEDS ORDERED: oxyCODONE 5MG TAB PO PRN (09:50)
[2021-08-27] MEDS ORDERED: CEFD300CAP PO (10:56)
[2021-08-27] MEDS: MAGNESIUM OXIDE 400MG TAB (MAG-OX) PO SCH (12:50)
[2021-08-27] MEDS ORDERED: CEFDINIR 300 MG CAP (OMNICEF) PO SCH (21:00)
== END 2021-08-27 14:28 | disposition home health service (06) | DRG 690 ==
LOC: EDBD 15:11 → M ED 15:11 → M ED INP 15:12 → M MSPAV 08-25 05:43 → OBSVTOIN 08-25 13:08
PROVIDERS: ADMIT Family Medicine; ATTEND Family Medicine
DX: N39.0 Urinary tract infection, site not specified (principal); N17.9 Acute kidney failure, unspecified; R78.81 Bacteremia; I10 Essential (primary) hypertension; E78.5 Hyperlipidemia, unspecified; M35.3 Polymyalgia rheumatica; M54.9 Dorsalgia, unspecified; E11.9 Type 2 diabetes mellitus without complications; M62.830 Muscle spasm of back; I71.4 Abdominal aortic aneurysm, without rupture; K44.9 Diaphragmatic hernia without obstruction or gangrene; F41.9 Anxiety disorder, unspecified; K21.9 Gastro-esophageal reflux disease without esophagitis; I49.5 Sick sinus syndrome; H40.9 Unspecified glaucoma; B95.8 Unspecified staphylococcus as the cause of diseases classified elsewhere; Z66 Do not resuscitate; Z79.84 Long term (current) use of oral hypoglycemic drugs; Z79.52 Long term (current) use of systemic steroids; Z79.01 Long term (current) use of anticoagulants; Z79.899 Other long term (current) drug therapy; Z79.891 Long term (current) use of opiate analgesic; Z88.5 Allergy status to narcotic agent; Z88.8 Allergy status to other drugs, medicaments and biological substances; Z95.0 Presence of cardiac pacemaker; Z87.891 Personal history of nicotine dependence

== ENCOUNTER 2021-09-16 09:45 | Emergency (ER) | payer MEDICARE, BC ==
[~2021-09-16] VITALS: Ht 170.2 cm; Wt 68.2 kg
[~2021-09-16 09:45] MED LIST changes: +CEFD300CAP PO; +DOCU100C16 PO; +FLEEENE12 PR; +METH-1164 PO; +TRAM50TA2 PO
[2021-09-16] MEDS ORDERED: TRAM37.53 (09:55)
[2021-09-16] MEDS ORDERED: ONDA-83 (09:55)
[2021-09-16] MEDS ORDERED: SPIR-10 (09:55)
[2021-09-16 12:45] LABS: BASO % 0.3 % (0.0-1.0); EOS # 0.1 10^3/uL (0.0-0.5); EOS % 0.8 % (0.0-3.0); HEMATOCRIT 44.6 % (36.0-47.0); HEMOGLOBIN 14.6 g/dl (12.0-15.5); LYMPH # 2.4 10^3/uL (1.5-5.0); LYMPH % 19.7 % (24.0-44.0); MEAN CORPUSCULAR HEMOGLOBIN 31.1 pg (27.0-33.0); MEAN CORPUSCULAR HGB CONC 32.7 g/dl (32.0-36.5); MEAN CORPUSCULAR VOLUME 95.1 fl (80.0-96.0); MONO # 1.1 10^3/uL (0.0-0.8); MONO % 8.9 % (2.0-8.0); NEUTROPHILS # 8.6 10^3/uL (1.5-8.5); NEUTROPHILS % 69.9 % (36.0-66.0); PLATELET COUNT, AUTOMATED 279 10^3/uL (150-450); RED BLOOD COUNT 4.69 10^6/uL (4.00-5.40); WHITE BLOOD COUNT 12.3 10^3/uL (4.0-10.0)
[2021-09-16 13:19] LABS: ALBUMIN 3.2 GM/DL (3.2-5.2); BILIRUBIN,DIRECT 0.2 MG/DL (0.0-0.2); BILIRUBIN,TOTAL 0.7 MG/DL (0.2-1.0); CALCIUM LEVEL 9.3 MG/DL (8.8-10.2); CREATININE FOR GFR 1.16 MG/DL (0.55-1.30); GLOMERULAR FILTRATION RATE 47.9 (>32); POTASSIUM SERUM 3.1 MEQ/L (3.5-5.1); TOTAL PROTEIN 6.5 GM/DL (6.4-8.2)
[2021-09-16] MEDS ORDERED: POTASSIUM CHLORIDE 10MEQ SR TABLET PO ONE (13:25)
[2021-09-16 13:30] VITALS: BP 132/74
== END 2021-09-16 14:07 | disposition home or self-care (01) ==
LOC: M ED 09:45
DX: F41.9 Anxiety disorder, unspecified (principal); E87.6 Hypokalemia; E11.9 Type 2 diabetes mellitus without complications; E78.5 Hyperlipidemia, unspecified; I10 Essential (primary) hypertension; Z87.891 Personal history of nicotine dependence; Z88.6 Allergy status to analgesic agent; Z88.8 Allergy status to other drugs, medicaments and biological substances; Z79.84 Long term (current) use of oral hypoglycemic drugs; Z79.899 Other long term (current) drug therapy

== ENCOUNTER → 2021-09-23 | Outpatient (REF) | payer MEDICARE, BC ==
[~2021-09-23] MED LIST changes: +ONDA-83; +SPIR-10; +TRAM37.53
[2021-09-23 15:48] LABS: APPEARANCE, URINE CLEAR (CLEAR); BACTERIA, URINE AUTO NEGATIVE (NEGATIVE); BILIRUBIN, URINE AUTO NEGATIVE (NEGATIVE); BLOOD, URINE BLOOD NEGATIVE (NEGATIVE); COLOR, URINE STRAW (YELLOW); GLUCOSE, URINE (UA) AUTO NEGATIVE (NEGATIVE); KETONE, URINE AUTO NEGATIVE (NEGATIVE); LEUKOCYTE ESTERASE, URINE AUTO 3+ (NEGATIVE); NITRITE, URINE AUTO NEGATIVE (NEGATIVE); PROTEIN, URINE AUTO NEGATIVE (NEGATIVE); RBC, URINE AUTO 1 /HPF (0-3); SPECIFIC GRAVITY URINE AUTO 1.006 (1.002-1.035); SQUAMOUS EPITHELIAL CELL UR AU 0 /HPF (0-6); UROBILINOGEN, URINE AUTO 0.2 mg/dL (0.0-2.0); WBC, URINE AUTO 9 /HPF (0-3)
[2021-09-23 16:18] LABS: CREATININE, URINE 29.2 MG/DL; MALB URINE SIEMENS 9.8 MG/L; MAU/CREAT RATIO 33.5 MCG/MG (0.0-30.0)
== END ==
LOC: M WUC 15:25
PROVIDERS: ATTEND Registered Nurse
DX: E87.6 Hypokalemia (principal); E11.9 Type 2 diabetes mellitus without complications

== ENCOUNTER → 2022-02-11 | Outpatient (CLI) | payer MEDICARE, BC ==
[~2022-02-11] MED LIST changes: -D31000TA2 PO; +VITA100093 PO
== END ==
LOC: M WHC 13:27
PROVIDERS: ATTEND Family Medicine
DX: Z12.31 Encounter for screening mammogram for malignant neoplasm of breast (principal); M85.88 Other specified disorders of bone density and structure, other site; M85.851 Other specified disorders of bone density and structure, right thigh; M85.852 Other specified disorders of bone density and structure, left thigh

== ENCOUNTER → 2022-04-24 | Outpatient (REF) | payer MEDICARE, BC | LOC: M WUC 19:04 | PROVIDERS: ATTEND Student in an Organized Health Care Education/Training Program | DX: R30.0 Dysuria (principal) ==

== ENCOUNTER → 2022-05-05 | Outpatient (REF) | payer MEDICARE, BC ==
[2022-05-05 17:13] LABS: APPEARANCE, URINE MANUAL CLEAR (CLEAR); COLOR, URINE MANUAL YELLOW (YELLOW)
[2022-05-05 17:14] LABS: BILIRUBIN, URINE MANUAL NEGATIVE (NEGATIVE); BLOOD URINE MANUAL NEGATIVE (NEGATIVE); GLUCOSE, URINE (UA) MANUAL NEGATIVE (NEGATIVE); KETONE, URINE MANUAL NEGATIVE (NEGATIVE); LEUKOCYTE ESTERASE, URINE MAN POSITIVE (NEGATIVE); NITRITE, URINE MANUAL NEGATIVE (NEGATIVE); PROTEIN, URINE MANUAL NEGATIVE (NEGATIVE); SPECIFIC GRAVITY,URINE MANUAL 1.015 (1.002-1.035); UROBILINOGEN, URINE MANUAL NORMAL (NORMAL)
[2022-05-05 17:53] LABS: RBC, URINE NONE SEEN /hpf (0-3)
[2022-05-05 17:54] LABS: BACTERIA, URINE LARGE AMOUNT; HYALINE CAST, URINE NONE SEEN /lpf (0-1); SQUAMOUS EPITHELIAL CELL URINE SMALL AMOUNT /hpf (SMALL AMT)
== END ==
LOC: M LAB REF 16:10
PROVIDERS: ATTEND Registered Nurse
DX: N39.0 Urinary tract infection, site not specified (principal)

== ENCOUNTER → 2022-05-10 | Outpatient (CLI) | payer MEDICARE, BC ==
[2022-05-10 12:45] LABS: ALBUMIN 3.7 GM/DL (3.2-5.2); BILIRUBIN,TOTAL 0.6 MG/DL (0.2-1.0); CALCIUM LEVEL 9.3 MG/DL (8.8-10.2); CREATININE FOR GFR 1.31 MG/DL (0.55-1.30); GLOMERULAR FILTRATION RATE 41.5 (>32); POTASSIUM SERUM 3.6 MEQ/L (3.5-5.1); TOTAL PROTEIN 6.7 GM/DL (6.4-8.2)
== END ==
LOC: M WUC 09:40
PROVIDERS: ATTEND Registered Nurse
DX: Z00.00 Encounter for general adult medical examination without abnormal findings (principal); E11.9 Type 2 diabetes mellitus without complications

== ENCOUNTER → 2022-05-14 | Outpatient (REF) | payer MEDICARE, BC | LOC: M LAB REF 17:03 | PROVIDERS: ATTEND Nurse Practitioner Family | DX: N39.0 Urinary tract infection, site not specified (principal) ==

== ENCOUNTER → 2022-09-28 | Outpatient (CLI) | payer MEDICARE, BC ==
[~2022-09-28] MED LIST changes: +CLOP75TA99 PO; -PLAV1TAB2 PO
[2022-09-28 10:07] LABS: HEMATOCRIT 45.8 % (36.0-47.0); HEMOGLOBIN 14.8 g/dl (12.0-15.5); MEAN CORPUSCULAR HEMOGLOBIN 31.8 pg (27.0-33.0); MEAN CORPUSCULAR HGB CONC 32.3 g/dl (32.0-36.5); MEAN CORPUSCULAR VOLUME 98.5 fl (80.0-96.0); PLATELET COUNT, AUTOMATED 260 10^3/uL (150-450); RED BLOOD COUNT 4.65 10^6/uL (4.00-5.40); WHITE BLOOD COUNT 11.7 10^3/uL (4.0-10.0)
[2022-09-28 10:45] LABS: FREE T4 1.3 NG/DL (0.89-1.76); THYROID STIMULATING HORMONE 2.45 uIU/ML (0.55-4.78)
[2022-09-28 10:46] LABS: ALBUMIN 3.6 G/DL (3.2-5.2); BILIRUBIN,TOTAL 0.6 MG/DL (0.3-1.2); CALCIUM LEVEL 9.4 MG/DL (8.3-10.6); CREATININE FOR GFR 1.27 MG/DL (0.55-1.30); GLOMERULAR FILTRATION RATE 42.9 (>32); TOTAL PROTEIN 6.4 G/DL (5.7-8.2)
== END ==
LOC: M WUC 08:28
PROVIDERS: ATTEND Registered Nurse
DX: R00.2 Palpitations (principal)

== ENCOUNTER → 2022-10-09 | Outpatient (REF) | payer MEDICARE, BC | LOC: M LAB 18:54 | PROVIDERS: ATTEND Physician Assistant | DX: R30.0 Dysuria (principal) ==

== ENCOUNTER → 2022-10-12 | Outpatient (REF) | payer MEDICARE, BC | LOC: M LAB REF 08:30 | PROVIDERS: ATTEND Physician Assistant | DX: R30.0 Dysuria (principal) ==

== ENCOUNTER → 2022-11-03 | Outpatient (CLI) | payer MEDICARE, BC | LOC: M WUC 15:06 | PROVIDERS: ATTEND Registered Nurse | DX: M25.511 Pain in right shoulder (principal) ==

== ENCOUNTER 2022-12-31 16:14 | Emergency (ER) | payer MEDICARE, BC ==
[~2022-12-31] VITALS: Ht 165.1 cm; Wt 63.6 kg
[2022-12-31 20:40] LABS: BASO % 0.4 % (0.0-1.0); EOS # 0.1 10^3/uL (0.0-0.5); EOS % 0.5 % (0.0-3.0); HEMATOCRIT 47.1 % (36.0-47.0); LYMPH # 2.1 10^3/uL (1.5-5.0); LYMPH % 22.8 % (24.0-44.0); MEAN CORPUSCULAR HEMOGLOBIN 32.6 pg (27.0-33.0); MEAN CORPUSCULAR VOLUME 95.9 fl (80.0-96.0); MONO % 10.7 % (2.0-8.0); NEUTROPHILS % 65.1 % (36.0-66.0); PLATELET COUNT, AUTOMATED 218 10^3/uL (150-450); RED BLOOD COUNT 4.91 10^6/uL (4.00-5.40); WHITE BLOOD COUNT 9.2 10^3/uL (4.0-10.0)
[2022-12-31 22:37] VITALS: BP 127/71
== END 2022-12-31 22:42 | disposition short-term general hospital (02) ==
LOC: M ED 16:14 → EDBD 16:14 → M ED 22:42
DX: S32.010A Wedge compression fracture of first lumbar vertebra, initial encounter for closed fracture (principal); X58.XXXA Exposure to other specified factors, initial encounter; Y92.89 Other specified places as the place of occurrence of the external cause; Y93.89 Activity, other specified; Y99.8 Other external cause status; E11.9 Type 2 diabetes mellitus without complications; F41.9 Anxiety disorder, unspecified; F32.A Depression, unspecified; N18.30 Chronic kidney disease, stage 3 unspecified; M48.00 Spinal stenosis, site unspecified; I67.1 Cerebral aneurysm, nonruptured; Z79.01 Long term (current) use of anticoagulants; Z88.5 Allergy status to narcotic agent; Z88.8 Allergy status to other drugs, medicaments and biological substances; Z79.899 Other long term (current) drug therapy; Z79.52 Long term (current) use of systemic steroids

== ENCOUNTER → 2023-01-27 | Outpatient (REF) | payer MEDICARE, BC ==
[~2023-01-27] MED LIST changes: -ROSU20TA5 PO; +ROSU20TA61 PO
[2023-01-27 15:40] LABS: APPEARANCE, URINE HAZY (CLEAR); BACTERIA, URINE AUTO 1+ (NEGATIVE); BILIRUBIN, URINE AUTO NEGATIVE (NEGATIVE); BLOOD, URINE BLOOD NEGATIVE (NEGATIVE); COLOR, URINE YELLOW (YELLOW); GLUCOSE, URINE (UA) AUTO NEGATIVE (NEGATIVE); KETONE, URINE AUTO NEGATIVE (NEGATIVE); LEUKOCYTE ESTERASE, URINE AUTO 2+ (NEGATIVE); NITRITE, URINE AUTO NEGATIVE (NEGATIVE); PROTEIN, URINE AUTO NEGATIVE (NEGATIVE); RBC, URINE AUTO 2 /HPF (0-3); SPECIFIC GRAVITY URINE AUTO 1.009 (1.002-1.035); SQUAMOUS EPITHELIAL CELL UR AU 0 /HPF (0-6); TRANSITIONAL EPITHELIAL AUTO <1 /HPF; UROBILINOGEN, URINE AUTO 0.2 mg/dL (0.0-2.0); WBC, URINE AUTO 40 /HPF (0-3)
== END ==
LOC: M LAB REF 14:27
PROVIDERS: ATTEND Registered Nurse
DX: R39.15 Urgency of urination (principal)

== ENCOUNTER → 2023-01-31 | Outpatient (CLI) | payer MEDICARE, BC | LOC: M WUC 15:47 | PROVIDERS: ATTEND Registered Nurse | DX: M79.672 Pain in left foot (principal) ==

== ENCOUNTER 2023-02-09 08:58 | Emergency (ER) | payer MEDICARE, BC ==
[~2023-02-09] VITALS: Ht 160 cm; Wt 58.2 kg
[2023-02-09 11:55] LABS: BASO % 0.3 % (0.0-1.0); EOS # 0.1 10^3/uL (0.0-0.5); EOS % 0.7 % (0.0-3.0); HEMATOCRIT 45.7 % (36.0-47.0); HEMOGLOBIN 14.9 g/dl (12.0-15.5); LYMPH # 1.7 10^3/uL (1.5-5.0); LYMPH % 17.7 % (24.0-44.0); MEAN CORPUSCULAR HEMOGLOBIN 31.9 pg (27.0-33.0); MEAN CORPUSCULAR HGB CONC 32.6 g/dl (32.0-36.5); MEAN CORPUSCULAR VOLUME 97.9 fl (80.0-96.0); MONO # 0.8 10^3/uL (0.0-0.8); MONO % 8.8 % (2.0-8.0); NEUTROPHILS # 6.8 10^3/uL (1.5-8.5); NEUTROPHILS % 71.9 % (36.0-66.0); PLATELET COUNT, AUTOMATED 275 10^3/uL (150-450); RED BLOOD COUNT 4.67 10^6/uL (4.00-5.40); WHITE BLOOD COUNT 9.5 10^3/uL (4.0-10.0)
[2023-02-09 12:19] LABS: BLOOD UREA NITROGEN 20 MG/DL (9-23); CALCIUM LEVEL 9.6 MG/DL (8.3-10.6); CARBON DIOXIDE LEVEL 20 MMOL/L (20-31); CHLORIDE LEVEL 105 MMOL/L (98-107); CREATININE FOR GFR 0.93 MG/DL (0.55-1.30); GLOMERULAR FILTRATION RATE > 60.0 (>32); GLUCOSE, FASTING 77 MG/DL (74-106); POTASSIUM SERUM 4.2 MMOL/L (3.5-5.1); SODIUM LEVEL 140 MMOL/L (136-145)
[2023-02-09] MEDS ORDERED: ISOVUE-370 76% 100ML VIAL As Ordered ONE (12:46)
[2023-02-09] MEDS ORDERED: oxyCODONE 5MG TAB PO ONE (14:35)
[2023-02-09] MEDS ORDERED: PILL CUTTER 1 EACH XX ONE (15:00)
[2023-02-09 17:28] VITALS: BP 116/63; TEMP 98.5; O2SAT 96
[2023-02-09] MEDS ORDERED: ONDANSETRON 4MG 2ML VIAL IV ONE (17:30)
== END 2023-02-09 17:42 | disposition short-term general hospital (02) ==
LOC: M ED 08:58 → EDBD 08:58 → M ED 17:42
DX: S32.010A Wedge compression fracture of first lumbar vertebra, initial encounter for closed fracture (principal); X58.XXXA Exposure to other specified factors, initial encounter; Y92.89 Other specified places as the place of occurrence of the external cause; Y93.89 Activity, other specified; Y99.8 Other external cause status; I71.40 Abdominal aortic aneurysm, without rupture, unspecified; Z88.5 Allergy status to narcotic agent; Z88.8 Allergy status to other drugs, medicaments and biological substances; Z79.899 Other long term (current) drug therapy; Z79.52 Long term (current) use of systemic steroids
CPT/HCPCS: 72110; 72131; 74175; 80048; 83605; 85025; 87040; 87088; 87186; 87635; 96374; 99285; J2405; Q9967

== ENCOUNTER → 2023-04-28 | Outpatient (REF) | payer MEDICARE, BC ==
[2023-04-28 12:58] LABS: ALBUMIN 2.6 G/DL (3.2-5.2); ALKALINE PHOSPHATASE 90 U/L (46-116); ALT/SGPT 12 U/L (7.0-40); AST/SGOT 13 U/L (<34); BILIRUBIN,TOTAL 0.5 MG/DL (0.3-1.2); BLOOD UREA NITROGEN 20 MG/DL (9-23); CARBON DIOXIDE LEVEL 25 MMOL/L (20-31); CHLORIDE LEVEL 109 MMOL/L (98-107); CHOLESTEROL LEVEL 172 MG/DL (<200); CHOLESTEROL RISK RATIO 3.17 (<5); CREATININE FOR GFR 0.68 MG/DL (0.55-1.30); FREE T4 1.26 NG/DL (0.89-1.76); GLOMERULAR FILTRATION RATE > 60.0 (>32); GLUCOSE, FASTING 79 MG/DL (74-106); HDL CHOLESTEROL 54.2 MG/DL (>40); LDL CHOLESTEROL 70.6 MG/DL (<100); NON-HDL-C 117.8 MG/DL; POTASSIUM SERUM 3.6 MMOL/L (3.5-5.1); SODIUM LEVEL 143 MMOL/L (136-145); THYROID STIMULATING HORMONE 2.045 uIU/ML (0.55-4.78); TOTAL PROTEIN 5.3 G/DL (5.7-8.2); TRIGLYCERIDES LEVEL 236 MG/DL (<150)
[2023-04-28 15:24] LABS: URIC ACID 4.5 MG/DL (3.1-7.8)
[2023-04-28 15:27] LABS: RHEUMATOID FACTOR QUANT < 3.5 IU/ML (<14)
[2023-04-29 23:07] LABS: ANA (HEP2) Negative (.); CYCLIC CITRULLINATED PEPTIDE 15 units (0-19)
== END ==
LOC: M LAB REF 11:55
PROVIDERS: ATTEND Registered Nurse
DX: Z01.812 Encounter for preprocedural laboratory examination (principal)

== ENCOUNTER → 2023-05-30 | Outpatient (REF) | payer MEDICARE, BC ==
[~2023-05-30] MED LIST changes: -CEFD300C41 PO; +CEFD300C42 PO; +GLIP5TAB17 PO; -GLIP5TAB8 PO; +PRED5TA PO; +PREG25CA3 PO
[2023-05-30 16:04] LABS: APPEARANCE, URINE CLOUDY (CLEAR); BACTERIA, URINE AUTO 1+ (NEGATIVE); BILIRUBIN, URINE AUTO NEGATIVE (NEGATIVE); BLOOD, URINE BLOOD NEGATIVE (NEGATIVE); CALCIUM OXALATE CRYSTALS MODERATE; COLOR, URINE AMBER (YELLOW); GLUCOSE, URINE (UA) AUTO NEGATIVE (NEGATIVE); KETONE, URINE AUTO NEGATIVE (NEGATIVE); LEUKOCYTE ESTERASE, URINE AUTO 1+ (NEGATIVE); MUCUS, URINE SMALL (NEGATIVE); NITRITE, URINE AUTO POSITIVE (NEGATIVE); PROTEIN, URINE AUTO NEGATIVE (NEGATIVE); RBC, URINE AUTO 4 /HPF (0-3); SPECIFIC GRAVITY URINE AUTO 1.016 (1.002-1.035); SQUAMOUS EPITHELIAL CELL UR AU 2 /HPF (0-6); UROBILINOGEN, URINE AUTO 0.2 mg/dL (0.0-2.0); WBC, URINE AUTO 67 /HPF (0-3)
== END ==
LOC: M LAB REF 14:29
PROVIDERS: ATTEND Registered Nurse
DX: N31.9 Neuromuscular dysfunction of bladder, unspecified (principal)

== ENCOUNTER 2023-06-03 17:46 | Emergency (ER) | payer MEDICARE, BC ==
[~2023-06-03] VITALS: Ht 162.6 cm; Wt 60.8 kg
[~2023-06-03 17:46] MED LIST changes: -PRED5TA PO; -PREG25CA3 PO
[2023-06-03 18:15] VITALS: TEMP 97.9
[2023-06-03 18:46] LABS: BASO % 0.3 % (0.0-1.0); EOS # 0.1 10^3/uL (0.0-0.5); EOS % 1.2 % (0.0-3.0); HEMATOCRIT 38.8 % (36.0-47.0); HEMOGLOBIN 12.6 g/dl (12.0-15.5); LYMPH # 1.6 10^3/uL (1.5-5.0); LYMPH % 15.6 % (24.0-44.0); MEAN CORPUSCULAR HEMOGLOBIN 30.2 pg (27.0-33.0); MEAN CORPUSCULAR HGB CONC 32.5 g/dl (32.0-36.5); MONO # 0.9 10^3/uL (0.0-0.8); MONO % 8.8 % (2.0-8.0); NEUTROPHILS # 7.6 10^3/uL (1.5-8.5); NEUTROPHILS % 73.6 % (36.0-66.0); PLATELET COUNT, AUTOMATED 302 10^3/uL (150-450); RED BLOOD COUNT 4.17 10^6/uL (4.00-5.40); WHITE BLOOD COUNT 10.3 10^3/uL (4.0-10.0)
[2023-06-03 18:53] LABS: ERYTHROCYTE SEDIMENTATION RATE 33 mm/hr (0-30)
[2023-06-03 18:59] LABS: INR 1.87; PARTIAL THROMBOPLASTIN TIME 40.6 SECONDS (24.8-34.2); PROTHROMBIN TIME 21.1 SECONDS (12.5-14.5)
[2023-06-03 19:18] LABS: ALBUMIN 2.6 G/DL (3.2-5.2); ALKALINE PHOSPHATASE 90 U/L (46-116); ALT/SGPT 13 U/L (7.0-40); AST/SGOT 40 U/L (<34); BILIRUBIN,DIRECT < 0.1 MG/DL (<0.4); BILIRUBIN,TOTAL 0.3 MG/DL (0.3-1.2); BLOOD UREA NITROGEN 20 MG/DL (9-23); CALCIUM LEVEL 8.1 MG/DL (8.3-10.6); CARBON DIOXIDE LEVEL 22 MMOL/L (20-31); CHLORIDE LEVEL 103 MMOL/L (98-107); CK-MB VALUE MASS < 1.0 NG/ML (<3.6); CPK CREATINE PHOSPHOKINASE 40 U/L (34-145); FREE T4 1.06 NG/DL (0.89-1.76); GLOMERULAR FILTRATION RATE > 60.0 (>32); GLUCOSE, FASTING 184 MG/DL (74-106); LIPASE 36 U/L (12-53); POTASSIUM SERUM 4.3 MMOL/L (3.5-5.1); SODIUM LEVEL 139 MMOL/L (136-145); THYROID STIMULATING HORMONE 2.189 uIU/ML (0.55-4.78); TOTAL PROTEIN 5.8 G/DL (5.7-8.2)
[2023-06-03] MEDS ORDERED: PREG25CA3 PO (19:19)
[2023-06-03] MEDS ORDERED: PRED5TA PO (19:19)
[2023-06-03 19:24] LABS: RSV AMPLIFICATION NEGATIVE (NEGATIVE)
[2023-06-03] MEDS ORDERED: HOME MED LIST COMPLETE! XX SCH (19:25)
[2023-06-03 19:37] LABS: CK-MB VALUE MASS < 1.0 NG/ML (<3.6)
[2023-06-03 19:38] LABS: CPK CREATINE PHOSPHOKINASE < 15 U/L (34-145)
[2023-06-03 21:23] VITALS: BP 144/78; O2SAT 97
== END 2023-06-03 21:33 | disposition home or self-care (01) ==
LOC: EDBD 17:46 → M ED 17:46
DX: R22.33 Localized swelling, mass and lump, upper limb, bilateral (principal); R22.43 Localized swelling, mass and lump, lower limb, bilateral; M79.641 Pain in right hand; M79.642 Pain in left hand; M79.671 Pain in right foot; R91.8 Other nonspecific abnormal finding of lung field; M79.672 Pain in left foot; E11.9 Type 2 diabetes mellitus without complications; I10 Essential (primary) hypertension; E78.5 Hyperlipidemia, unspecified; N18.30 Chronic kidney disease, stage 3 unspecified; F41.9 Anxiety disorder, unspecified; F32.9 Major depressive disorder, single episode, unspecified; Z95.0 Presence of cardiac pacemaker; Z95.828 Presence of other vascular implants and grafts; Z79.01 Long term (current) use of anticoagulants; Z79.899 Other long term (current) drug therapy; Z88.5 Allergy status to narcotic agent; Z88.8 Allergy status to other drugs, medicaments and biological substances

== ENCOUNTER → 2023-06-10 | Outpatient (REF) | payer MEDICARE, BC ==
[~2023-06-10] MED LIST changes: +PRED5TA PO; +PREG25CA3 PO
[2023-06-10 13:30] LABS: URIC ACID 6.6 MG/DL (3.1-7.8)
[2023-06-10 13:32] LABS: CPK CREATINE PHOSPHOKINASE 17 U/L (34-145); LDH LACTATE DEHYDROGENASE 208 U/L (120-246)
[2023-06-10 13:33] LABS: ALBUMIN 2.4 G/DL (3.2-5.2); ALKALINE PHOSPHATASE 84 U/L (46-116); ALT/SGPT 11 U/L (7.0-40); AST/SGOT 12 U/L (<34); BILIRUBIN,TOTAL 0.7 MG/DL (0.3-1.2); BLOOD UREA NITROGEN 19 MG/DL (9-23); CALCIUM LEVEL 8.4 MG/DL (8.3-10.6); CARBON DIOXIDE LEVEL 23 MMOL/L (20-31); CHLORIDE LEVEL 108 MMOL/L (98-107); CHOLESTEROL LEVEL 208 MG/DL (<200); CREATININE FOR GFR 0.88 MG/DL (0.55-1.30); GLOMERULAR FILTRATION RATE > 60.0 (>32); GLUCOSE, FASTING 111 MG/DL (74-106); SODIUM LEVEL 142 MMOL/L (136-145); TOTAL PROTEIN 5.4 G/DL (5.7-8.2); TRIGLYCERIDES LEVEL 227 MG/DL (<150)
[2023-06-10 13:34] LABS: RHEUMATOID FACTOR QUANT < 3.5 IU/ML (<14)
[2023-06-11 19:06] LABS: ANA (HEP2) Negative (.)
== END ==
LOC: M LAB REF 12:25
PROVIDERS: ATTEND Registered Nurse
DX: Z01.812 Encounter for preprocedural laboratory examination (principal); Z79.899 Other long term (current) drug therapy

== ENCOUNTER → 2023-07-29 | Outpatient (CLI) | payer MEDICARE, BC ==
[~2023-07-29] MED LIST changes: +CEFD1CAP9 PO; -CEFD300C42 PO
== END ==
LOC: M WHC 12:49
PROVIDERS: ATTEND Registered Nurse
DX: M81.0 Age-related osteoporosis without current pathological fracture (principal)

== ENCOUNTER → 2023-08-11 | Outpatient (REF) | payer MEDICARE, BC | LOC: M LAB REF 18:02 | PROVIDERS: ATTEND Nurse Practitioner Family | DX: E87.5 Hyperkalemia (principal) ==

== ENCOUNTER → 2023-09-14 | Outpatient (REF) | payer MEDICARE, BC | LOC: M SFHCDERM 14:06 | PROVIDERS: ATTEND Physician Assistant | DX: L64.9 Androgenic alopecia, unspecified (principal) ==

== ENCOUNTER → 2023-09-20 | Outpatient (REF) | payer MEDICARE, BC ==
[~2023-09-20] MED LIST changes: -MIRA1POW3 PO; +MIRA33506 PO
== END ==
LOC: M LAB REF 12:14
PROVIDERS: ATTEND Physician Assistant
DX: R30.0 Dysuria (principal)

== ENCOUNTER → 2023-10-18 | Outpatient (REF) | payer MEDICARE, BC ==
[2023-10-18 18:32] LABS: BASO % 0.5 % (0.0-1.0); EOS # 0.3 10^3/uL (0.0-0.5); EOS % 3.2 % (0.0-3.0); HEMATOCRIT 39.4 % (36.0-47.0); HEMOGLOBIN 12.4 g/dl (12.0-15.5); LYMPH % 23.8 % (24.0-44.0); MEAN CORPUSCULAR HEMOGLOBIN 27.7 pg (27.0-33.0); MEAN CORPUSCULAR HGB CONC 31.5 g/dl (32.0-36.5); MEAN CORPUSCULAR VOLUME 87.9 fl (80.0-96.0); MONO # 0.9 10^3/uL (0.0-0.8); MONO % 10.5 % (2.0-8.0); NEUTROPHILS # 5.2 10^3/uL (1.5-8.5); NEUTROPHILS % 61.6 % (36.0-66.0); PLATELET COUNT, AUTOMATED 339 10^3/uL (150-450); RED BLOOD COUNT 4.48 10^6/uL (4.00-5.40); WHITE BLOOD COUNT 8.5 10^3/uL (4.0-10.0)
[2023-10-18 18:43] LABS: ERYTHROCYTE SEDIMENTATION RATE 51 mm/hr (0-30)
[2023-10-18 19:03] LABS: HEPATITIS B SURFACE ANTIBODY NEGATIVE (POSITIVE)
[2023-10-18 19:04] LABS: ALBUMIN 2.9 G/DL (3.2-5.2); ALKALINE PHOSPHATASE 160 U/L (46-116); ALT/SGPT < 9 U/L (7.0-40); AST/SGOT 14 U/L (<34); BILIRUBIN,DIRECT 0.2 MG/DL (<0.4); BILIRUBIN,TOTAL 0.7 MG/DL (0.3-1.2); BLOOD UREA NITROGEN 29 MG/DL (9-23); CALCIUM LEVEL 9.3 MG/DL (8.3-10.6); CARBON DIOXIDE LEVEL 26 MMOL/L (20-31); CHLORIDE LEVEL 102 MMOL/L (98-107); COMPLEMENT C3 163.3 MG/DL (90.0-170.0); COMPLEMENT C4 38.4 MG/DL (12-36); GLOMERULAR FILTRATION RATE 45.7 (>32); GLUCOSE, FASTING 92 MG/DL (74-106); MAGNESIUM LEVEL 1.8 MG/DL (1.8-2.4); PHOSPHORUS LEVEL 4.6 MG/DL (2.4-5.1); POTASSIUM SERUM 3.9 MMOL/L (3.5-5.1); PTH INTACT 8.1 PG/ML (18.5-88.0); SODIUM LEVEL 136 MMOL/L (136-145); TOTAL PROTEIN 6.2 G/DL (5.7-8.2)
[2023-10-18 19:36] LABS: HEPATITIS C VIRUS ABY INDEX 0.05 INDEX (<0.8)
== END ==
LOC: M SFHCRHEU 15:23
PROVIDERS: ATTEND Internal Medicine
DX: M06.4 Inflammatory polyarthropathy (principal); M81.8 Other osteoporosis without current pathological fracture; Z11.59 Encounter for screening for other viral diseases

== ENCOUNTER → 2023-10-24 | Outpatient (REF) | payer MEDICARE, BC ==
[2023-10-24 13:26] LABS: HEMATOCRIT 41.1 % (36.0-47.0); HEMOGLOBIN 13.1 g/dl (12.0-15.5); MEAN CORPUSCULAR HGB CONC 31.9 g/dl (32.0-36.5); MEAN CORPUSCULAR VOLUME 87.8 fl (80.0-96.0); PLATELET COUNT, AUTOMATED 450 10^3/uL (150-450); RED BLOOD COUNT 4.68 10^6/uL (4.00-5.40); WHITE BLOOD COUNT 6.8 10^3/uL (4.0-10.0)
[2023-10-24 13:56] LABS: CREATININE, URINE 66.6 MG/DL
[2023-10-24 14:00] LABS: FREE T4 0.97 NG/DL (0.89-1.76); THYROID STIMULATING HORMONE 4.077 uIU/ML (0.55-4.78)
[2023-10-24 14:03] LABS: ALBUMIN 3.1 G/DL (3.2-5.2); BILIRUBIN,TOTAL 0.4 MG/DL (0.3-1.2); CALCIUM LEVEL 9.7 MG/DL (8.3-10.6); CHOLESTEROL RISK RATIO 5.01 (<5); CREATININE FOR GFR 1.13 MG/DL (0.55-1.30); HDL CHOLESTEROL 41.3 MG/DL (>40); LDL CHOLESTEROL 116.5 MG/DL (<100); NON-HDL-C 165.7 MG/DL; POTASSIUM SERUM 4.2 MMOL/L (3.5-5.1); TOTAL PROTEIN 6.4 G/DL (5.7-8.2)
[2023-10-24 14:07] LABS: FREE T3 2.7 PG/ML (2.3-4.2)
[2023-10-24 14:10] LABS: HEMOGLOBIN A1c 6.1 % (4.0-6.0)
== END ==
LOC: M LAB REF 12:02
PROVIDERS: ATTEND Registered Nurse
DX: F41.1 Generalized anxiety disorder (principal); E11.9 Type 2 diabetes mellitus without complications; E78.2 Mixed hyperlipidemia; N39.0 Urinary tract infection, site not specified; L64.9 Androgenic alopecia, unspecified; M06.4 Inflammatory polyarthropathy

== ENCOUNTER → 2023-10-24 | Outpatient (REF) | payer MEDICARE, BC ==
[2023-10-24 13:27] LABS: APPEARANCE, URINE HAZY (CLEAR); BACTERIA, URINE AUTO 1+ (NEGATIVE); BILIRUBIN, URINE AUTO NEGATIVE (NEGATIVE); BLOOD, URINE BLOOD NEGATIVE (NEGATIVE); COLOR, URINE YELLOW (YELLOW); GLUCOSE, URINE (UA) AUTO NEGATIVE (NEGATIVE); KETONE, URINE AUTO NEGATIVE (NEGATIVE); LEUKOCYTE ESTERASE, URINE AUTO 3+ (NEGATIVE); NITRITE, URINE AUTO POSITIVE (NEGATIVE); PROTEIN, URINE AUTO 1+ mg/dL (NEGATIVE); RBC, URINE AUTO 3 /HPF (0-3); SPECIFIC GRAVITY URINE AUTO 1.013 (1.002-1.035); SQUAMOUS EPITHELIAL CELL UR AU 0 /HPF (0-6); UROBILINOGEN, URINE AUTO 0.2 mg/dL (0.0-2.0); WBC, URINE AUTO 175 /HPF (0-3)
== END ==
LOC: M LAB REF 12:08
PROVIDERS: ATTEND Nurse Practitioner Family
DX: N39.0 Urinary tract infection, site not specified (principal)

== ENCOUNTER → 2023-10-24 | Outpatient (REF) | payer MEDICARE, BC ==
[2023-10-24 14:01] LABS: FREE T4 0.93 NG/DL (0.89-1.76); THYROID STIMULATING HORMONE 3.893 uIU/ML (0.55-4.78)
== END ==
LOC: M LAB REF 12:10
PROVIDERS: ATTEND Physician Assistant
DX: L64.9 Androgenic alopecia, unspecified (principal)

== ENCOUNTER → 2023-10-24 | Outpatient (REF) | payer MEDICARE, BC ==
[2023-10-24 13:51] LABS: TOTAL PROTEIN,RANDOM URINE 17.7 MG/DL (0.0-14.0)
[2023-10-24 13:56] LABS: CREATININE,RANDOM URINE 66.5 MG/DL
== END ==
LOC: M LAB REF 12:12
PROVIDERS: ATTEND Internal Medicine
DX: M06.4 Inflammatory polyarthropathy (principal)

== ENCOUNTER → 2023-10-25 | Outpatient (CLI) | payer MEDICARE, BC | LOC: M WUC 11:39 | PROVIDERS: ATTEND Internal Medicine | DX: M06.4 Inflammatory polyarthropathy (principal) ==

== ENCOUNTER → 2023-10-27 | Outpatient (REF) | payer MEDICARE, BC ==
[2023-10-27 15:47] LABS: APPEARANCE, URINE HAZY (CLEAR); BACTERIA, URINE AUTO 1+ (NEGATIVE); BILIRUBIN, URINE AUTO NEGATIVE (NEGATIVE); BLOOD, URINE BLOOD NEGATIVE (NEGATIVE); COLOR, URINE YELLOW (YELLOW); GLUCOSE, URINE (UA) AUTO NEGATIVE (NEGATIVE); KETONE, URINE AUTO NEGATIVE (NEGATIVE); LEUKOCYTE ESTERASE, URINE AUTO 1+ (NEGATIVE); MUCUS, URINE SMALL (NEGATIVE); NITRITE, URINE AUTO POSITIVE (NEGATIVE); PROTEIN, URINE AUTO NEGATIVE (NEGATIVE); RBC, URINE AUTO 1 /HPF (0-3); SPECIFIC GRAVITY URINE AUTO 1.015 (1.002-1.035); SQUAMOUS EPITHELIAL CELL UR AU 0 /HPF (0-6); UROBILINOGEN, URINE AUTO 0.2 mg/dL (0.0-2.0); WBC, URINE AUTO 30 /HPF (0-3)
== END ==
LOC: M SMT 15:20
PROVIDERS: ATTEND Nurse Practitioner Family
DX: R30.0 Dysuria (principal)

== ENCOUNTER → 2023-11-03 | Outpatient (CLI) | payer MEDICARE, BC | LOC: M WHC 12:48 | PROVIDERS: ATTEND Nurse Practitioner Family | DX: R33.9 Retention of urine, unspecified (principal) ==

== ENCOUNTER → 2023-11-22 | Outpatient (REF) | payer MEDICARE, BC ==
[2023-11-22 14:27] LABS: BASO # 0.1 10^3/uL (0.0-0.2); BASO % 0.6 % (0.0-1.0); EOS # 0.2 10^3/uL (0.0-0.5); EOS % 1.9 % (0.0-3.0); HEMATOCRIT 38.3 % (36.0-47.0); HEMOGLOBIN 12.3 g/dl (12.0-15.5); LYMPH # 1.9 10^3/uL (1.5-5.0); LYMPH % 23.9 % (24.0-44.0); MEAN CORPUSCULAR HEMOGLOBIN 28.3 pg (27.0-33.0); MEAN CORPUSCULAR HGB CONC 32.1 g/dl (32.0-36.5); MEAN CORPUSCULAR VOLUME 88.2 fl (80.0-96.0); MONO # 0.6 10^3/uL (0.0-0.8); MONO % 8.1 % (2.0-8.0); NEUTROPHILS # 5.1 10^3/uL (1.5-8.5); NEUTROPHILS % 65.2 % (36.0-66.0); PLATELET COUNT, AUTOMATED 319 10^3/uL (150-450); RED BLOOD COUNT 4.34 10^6/uL (4.00-5.40); WHITE BLOOD COUNT 7.8 10^3/uL (4.0-10.0)
[2023-11-22 14:34] LABS: ERYTHROCYTE SEDIMENTATION RATE 30 mm/hr (0-30)
[2023-11-22 14:59] LABS: ALBUMIN 2.7 G/DL (3.2-5.2); ALKALINE PHOSPHATASE 95 U/L (46-116); ALT/SGPT < 9 U/L (7.0-40); AST/SGOT 12 U/L (<34); BILIRUBIN,DIRECT 0.1 MG/DL (<0.4); BILIRUBIN,TOTAL 0.4 MG/DL (0.3-1.2); BLOOD UREA NITROGEN 23 MG/DL (9-23); CARBON DIOXIDE LEVEL 26 MMOL/L (20-31); CHLORIDE LEVEL 105 MMOL/L (98-107); CREATININE FOR GFR 1.06 MG/DL (0.55-1.30); GLOMERULAR FILTRATION RATE 52.7 (>32); GLUCOSE, FASTING 161 MG/DL (74-106); POTASSIUM SERUM 4.2 MMOL/L (3.5-5.1); SODIUM LEVEL 139 MMOL/L (136-145); TOTAL PROTEIN 6.1 G/DL (5.7-8.2)
== END ==
LOC: M LAB REF 14:00
PROVIDERS: ATTEND Internal Medicine
DX: M06.09 Rheumatoid arthritis without rheumatoid factor, multiple sites (principal)

== ENCOUNTER → 2023-12-08 | Outpatient (REF) | payer MEDICARE, BC ==
[2023-12-08 18:15] LABS: APPEARANCE, URINE HAZY (CLEAR); BACTERIA, URINE AUTO 1+ (NEGATIVE); BILIRUBIN, URINE AUTO NEGATIVE (NEGATIVE); BLOOD, URINE BLOOD NEGATIVE (NEGATIVE); COLOR, URINE YELLOW (YELLOW); GLUCOSE, URINE (UA) AUTO NEGATIVE (NEGATIVE); KETONE, URINE AUTO NEGATIVE (NEGATIVE); LEUKOCYTE ESTERASE, URINE AUTO TRACE (NEGATIVE); NITRITE, URINE AUTO POSITIVE (NEGATIVE); PROTEIN, URINE AUTO 1+ mg/dL (NEGATIVE); RBC, URINE AUTO 1 /HPF (0-3); SPECIFIC GRAVITY URINE AUTO 1.009 (1.002-1.035); SQUAMOUS EPITHELIAL CELL UR AU 0 /HPF (0-6); UROBILINOGEN, URINE AUTO 0.2 mg/dL (0.0-2.0); WBC, URINE AUTO 19 /HPF (0-3)
== END ==
LOC: M SMT 17:08
PROVIDERS: ATTEND Nurse Practitioner Family
DX: R30.0 Dysuria (principal)

== ENCOUNTER → 2024-01-13 | Outpatient (CLI) | payer MEDICARE, BC ==
[2024-01-13 18:03] LABS: ALBUMIN 3.2 G/DL (3.2-5.2); ALKALINE PHOSPHATASE 100 U/L (46-116); ALT/SGPT 14 U/L (7.0-40); AST/SGOT 13 U/L (<34); BILIRUBIN,DIRECT < 0.1 MG/DL (<0.4); BILIRUBIN,TOTAL 0.4 MG/DL (0.3-1.2); BLOOD UREA NITROGEN 26 MG/DL (9-23); CALCIUM LEVEL 9.4 MG/DL (8.3-10.6); CARBON DIOXIDE LEVEL 28 MMOL/L (20-31); CHLORIDE LEVEL 109 MMOL/L (98-107); CREATININE FOR GFR 1.02 MG/DL (0.55-1.30); GLOMERULAR FILTRATION RATE 55.1 (>32); GLUCOSE, FASTING 86 MG/DL (74-106); POTASSIUM SERUM 4.3 MMOL/L (3.5-5.1); SODIUM LEVEL 143 MMOL/L (136-145); TOTAL PROTEIN 6.7 G/DL (5.7-8.2)
[2024-01-13 18:04] LABS: BASO % 0.5 % (0.0-1.0); EOS # 0.2 10^3/uL (0.0-0.5); EOS % 1.8 % (0.0-3.0); HEMATOCRIT 38.2 % (36.0-47.0); HEMOGLOBIN 12.3 g/dl (12.0-15.5); LYMPH # 3.1 10^3/uL (1.5-5.0); LYMPH % 35.1 % (24.0-44.0); MEAN CORPUSCULAR HEMOGLOBIN 28.7 pg (27.0-33.0); MEAN CORPUSCULAR HGB CONC 32.2 g/dl (32.0-36.5); MONO # 1.1 10^3/uL (0.0-0.8); MONO % 12.9 % (2.0-8.0); NEUTROPHILS # 4.3 10^3/uL (1.5-8.5); NEUTROPHILS % 49.5 % (36.0-66.0); PLATELET COUNT, AUTOMATED 284 10^3/uL (150-450); RED BLOOD COUNT 4.29 10^6/uL (4.00-5.40); WHITE BLOOD COUNT 8.7 10^3/uL (4.0-10.0)
[2024-01-13 18:17] LABS: ERYTHROCYTE SEDIMENTATION RATE 34 mm/hr (0-30)
== END ==
LOC: M WUC 14:12
PROVIDERS: ATTEND Internal Medicine
DX: M06.09 Rheumatoid arthritis without rheumatoid factor, multiple sites (principal)

== ENCOUNTER → 2024-01-13 | Outpatient (REF) | payer MEDICARE, BC ==
[2024-01-13 18:04] LABS: ALBUMIN 3.3 G/DL (3.2-5.2); BILIRUBIN,TOTAL 0.4 MG/DL (0.3-1.2); CALCIUM LEVEL 9.6 MG/DL (8.3-10.6); CREATININE FOR GFR 1.01 MG/DL (0.55-1.30); GLOMERULAR FILTRATION RATE 55.7 (>32); POTASSIUM SERUM 4.3 MMOL/L (3.5-5.1); TOTAL PROTEIN 6.8 G/DL (5.7-8.2)
[2024-01-13 18:06] LABS: TOTAL 25(OH) VITAMIN D 22.9 NG/ML (20.0-100.0)
== END ==
LOC: M LABWUC 17:17
PROVIDERS: ATTEND Registered Nurse
DX: M81.0 Age-related osteoporosis without current pathological fracture (principal)

== ENCOUNTER → 2024-01-18 | Outpatient (REF) | payer MEDICARE, BC ==
[~2024-01-18] MED LIST changes: +ACET-683 PO; +ALEN70TA82 PO; +DULO1CAP4 PO; +ETAN50PE SC; +FAMO20TA4 PO; +HYDR50TA70 PO; +MIRA3350 PO; +NARC1SPR; +OXYC-517 PO; +PRED25TA PO; +PREG25CA PO; +PROBCAP2 PO; +TAMS1CAP17 PO; +TRAM1TAB42; -TRAM37.53
== END ==
LOC: M SMT 16:58
PROVIDERS: ATTEND Urology
DX: R33.9 Retention of urine, unspecified (principal)

== ENCOUNTER → 2024-02-16 | Outpatient (CLI) | payer MEDICARE, BC ==
[~2024-02-16] MED LIST changes: -ACET-683 PO; -ALEN70TA82 PO; -DULO1CAP4 PO; -ETAN50PE SC; -FAMO20TA4 PO; -HYDR50TA70 PO; -MIRA3350 PO; -NARC1SPR; -OXYC-517 PO; -PRED25TA PO; -PREG25CA PO; -PROBCAP2 PO; -TAMS1CAP17 PO; +TRAM-443; -TRAM1TAB42
[2024-02-16 17:00] LABS: BASO # 0.1 10^3/uL (0.0-0.2); BASO % 0.6 % (0.0-1.0); EOS # 0.1 10^3/uL (0.0-0.5); EOS % 1.6 % (0.0-3.0); HEMATOCRIT 40.2 % (36.0-47.0); HEMOGLOBIN 12.8 g/dl (12.0-15.5); LYMPH % 34.6 % (24.0-44.0); MEAN CORPUSCULAR HEMOGLOBIN 29.3 pg (27.0-33.0); MEAN CORPUSCULAR HGB CONC 31.8 g/dl (32.0-36.5); MONO # 0.9 10^3/uL (0.0-0.8); MONO % 10.8 % (2.0-8.0); NEUTROPHILS # 4.6 10^3/uL (1.5-8.5); NEUTROPHILS % 52.2 % (36.0-66.0); PLATELET COUNT, AUTOMATED 303 10^3/uL (150-450); RED BLOOD COUNT 4.37 10^6/uL (4.00-5.40); WHITE BLOOD COUNT 8.7 10^3/uL (4.0-10.0)
[2024-02-16 17:10] LABS: ERYTHROCYTE SEDIMENTATION RATE 20 mm/hr (0-30)
[2024-02-16 17:18] LABS: C REACTIVE PROTEIN QUANTITATIV < 0.40 MG/DL (<1.0)
[2024-02-16 17:20] LABS: ALBUMIN 3.3 G/DL (3.2-5.2); ALKALINE PHOSPHATASE 93 U/L (46-116); ALT/SGPT 15 U/L (7.0-40); AST/SGOT 9 U/L (<34); BILIRUBIN,DIRECT < 0.1 MG/DL (<0.4); BILIRUBIN,TOTAL 0.4 MG/DL (0.3-1.2); BLOOD UREA NITROGEN 27 MG/DL (9-23); CALCIUM LEVEL 8.9 MG/DL (8.3-10.6); CARBON DIOXIDE LEVEL 27 MMOL/L (20-31); CHLORIDE LEVEL 106 MMOL/L (98-107); CREATININE FOR GFR 1.22 MG/DL (0.55-1.30); GLOMERULAR FILTRATION RATE 44.8 (>32); GLUCOSE, FASTING 214 MG/DL (74-106); POTASSIUM SERUM 3.9 MMOL/L (3.5-5.1); SODIUM LEVEL 142 MMOL/L (136-145); TOTAL PROTEIN 6.5 G/DL (5.7-8.2)
== END ==
LOC: M WUC 11:13
PROVIDERS: ATTEND Internal Medicine
DX: M06.09 Rheumatoid arthritis without rheumatoid factor, multiple sites (principal)

== ENCOUNTER 2024-03-02 09:58 | Inpatient (IN) | payer MEDICARE, BC ==
[~2024-03-02] VITALS: Ht 162.6 cm; Wt 64.5 kg
[2024-03-02] VITALS (8 sets, daily range): BP systolic 122–158; BP diastolic 58–72; TEMP 97.1–97.4; O2SAT 92–99
[~2024-03-02 09:58] MED LIST changes: -TRAM-443; +TRAM1TAB42
[2024-03-02] MEDS: ONDANSETRON 4MG 2ML VIAL IV ONE (11:15)
[2024-03-02] MEDS: NS 1,000 ML IV SCH (11:15)
[2024-03-02] MEDS: fentaNYL 100 MCG/2 ML INJECTION IV PRN (11:15)
[2024-03-02] MEDS: fentaNYL 100 MCG/2 ML INJECTION IV ONE (12:19)
[2024-03-02 12:38] LABS: ABG BASE EXCESS -0.5 (-2.0-2.0); ABG HCO3 23.9 MMOL/L (22.0-26.0); ABG PARTIAL PRESSURE CO2 38.2 mmHg (35.0-45.0); ABG PARTIAL PRESSURE O2 90.7 mmHg (75.0-100.0); ABG STANDARD HCO3 24.1 MMOL/L. (22.0-26.0); ABG TOTAL CO2 25.1 MMOL/L (23.0-31.0); ABG pH (ARTERIAL) 7.414 UNITS (7.350-7.450)
[2024-03-02] MEDS ORDERED: MAALOX 30 ML SUSP *UDC PO PRN (13:10)
[2024-03-02] MEDS ORDERED: GLUCOSE 4 GM CHEW PO PRN (13:10)
[2024-03-02] MEDS ORDERED: MOM 30ML SUSPENSION UDC PO PRN (13:10)
[2024-03-02] MEDS ORDERED: GLUCAGON INJ 1MG VIAL SC PRN (13:10)
[2024-03-02] MEDS ORDERED: DEXTROSE 50% 50ML SYRINGE IV PRN (13:10)
[2024-03-02] MEDS: MORPHINE 2 MG/ML 1ML VIAL IV PRN (13:35)
[2024-03-02] MEDS ORDERED: DULO1CAP4 PO (13:36)
[2024-03-02] MEDS ORDERED: ETAN50PE SC (13:36)
[2024-03-02] MEDS ORDERED: PRED25TA PO (13:36)
[2024-03-02] MEDS ORDERED: HYDR50TA70 PO (13:36)
[2024-03-02] MEDS ORDERED: ALEN70TA82 PO (13:36)
[2024-03-02] MEDS ORDERED: PREG25CA PO ×2 (13:36)
[2024-03-02] MEDS ORDERED: PROBCAP2 PO (13:36)
[2024-03-02] MEDS ORDERED: FAMO20TA4 PO (13:36)
[2024-03-02] MEDS ORDERED: TAMS1CAP17 PO (13:36)
[2024-03-02] MEDS ORDERED: HOME MED LIST COMPLETE! XX SCH (13:50)
[2024-03-02 13:51] LABS: BASO % 0.3 % (0.0-1.0); EOS # 0.1 10^3/uL (0.0-0.5); EOS % 0.8 % (0.0-3.0); HEMATOCRIT 35.9 % (36.0-47.0); HEMOGLOBIN 11.7 g/dl (12.0-15.5); LYMPH # 2.2 10^3/uL (1.5-5.0); LYMPH % 20.6 % (24.0-44.0); MEAN CORPUSCULAR HGB CONC 32.6 g/dl (32.0-36.5); MEAN CORPUSCULAR VOLUME 88.9 fl (80.0-96.0); MONO # 0.9 10^3/uL (0.0-0.8); NEUTROPHILS # 7.5 10^3/uL (1.5-8.5); NEUTROPHILS % 69.8 % (36.0-66.0); PLATELET COUNT, AUTOMATED 220 10^3/uL (150-450); RED BLOOD COUNT 4.04 10^6/uL (4.00-5.40); WHITE BLOOD COUNT 10.7 10^3/uL (4.0-10.0)
[2024-03-02] MEDS: ALPRAZolam 0.25 MG TAB PO PRN (14:03)
[2024-03-02 14:04] LABS: INR 1.21; PARTIAL THROMBOPLASTIN TIME 33.7 SECONDS (24.8-34.2); PROTHROMBIN TIME 14.9 SECONDS (12.5-14.5)
[2024-03-02 14:12] LABS: ALBUMIN 3.1 G/DL (3.2-5.2); BILIRUBIN,DIRECT 0.1 MG/DL (<0.4); BILIRUBIN,TOTAL 0.5 MG/DL (0.3-1.2); CALCIUM LEVEL 8.4 MG/DL (8.3-10.6); CREATININE FOR GFR 1.02 MG/DL (0.55-1.30); GLOMERULAR FILTRATION RATE 55.1 (>32); POTASSIUM SERUM 4.3 MMOL/L (3.5-5.1); TOTAL PROTEIN 6.2 G/DL (5.7-8.2)
[2024-03-02] MEDS: INSULIN LISPRO (NovoLOG) PER UNIT SC SCH ×2 (17:28→20:14)
[2024-03-02] MEDS: hydrOXYzine 50 MG TAB PO SCH (20:13)
[2024-03-02] MEDS: DOCUSATE SODIUM 100MG CAPSULE PO SCH (20:13)
[2024-03-02] MEDS: PREGABALIN 25 MG CAP (LYRICA) PO SCH (20:13)
[2024-03-02] MEDS: ACETAMINOPHEN TAB 650MG DOSE (2X325MG) PO PRN (20:14)
[2024-03-02] MEDS: LATANOPROST 0.005% OPHTH SOLN 2.5 ML OU SCH (20:19)
[2024-03-03] VITALS (30 sets, daily range): BP systolic 96–169; BP diastolic 53–91; TEMP 97.6–98.6; O2SAT 80–97
[2024-03-03 06:56] LABS: BASO % 0.4 % (0.0-1.0); EOS # 0.1 10^3/uL (0.0-0.5); EOS % 1.6 % (0.0-3.0); HEMATOCRIT 33.4 % (36.0-47.0); HEMOGLOBIN 10.9 g/dl (12.0-15.5); LYMPH # 1.7 10^3/uL (1.5-5.0); MEAN CORPUSCULAR HEMOGLOBIN 29.4 pg (27.0-33.0); MEAN CORPUSCULAR HGB CONC 32.6 g/dl (32.0-36.5); MONO # 0.9 10^3/uL (0.0-0.8); MONO % 12.6 % (2.0-8.0); NEUTROPHILS # 4.6 10^3/uL (1.5-8.5); NEUTROPHILS % 61.9 % (36.0-66.0); PLATELET COUNT, AUTOMATED 200 10^3/uL (150-450); RED BLOOD COUNT 3.71 10^6/uL (4.00-5.40); WHITE BLOOD COUNT 7.4 10^3/uL (4.0-10.0)
[2024-03-03 07:26] LABS: CALCIUM LEVEL 8.1 MG/DL (8.3-10.6); CREATININE FOR GFR 1.03 MG/DL (0.55-1.30); GLOMERULAR FILTRATION RATE 54.5 (>32); MAGNESIUM LEVEL 1.9 MG/DL (1.8-2.4); POTASSIUM SERUM 3.9 MMOL/L (3.5-5.1)
[2024-03-03] MEDS: LACTOBACILLUS ACIDOPHILUS CAP (BACID) PO SCH (09:00)
[2024-03-03] MEDS ORDERED: propofoL 200 MG/20 ML VIAL As Ordered ONE (09:55)
[2024-03-03] MEDS ORDERED: ROCURONIUM BROMIDE 50MG/5ML VIAL As Ordered ONE (09:55)
[2024-03-03] MEDS ORDERED: fentaNYL 100 MCG/2 ML INJECTION As Ordered ONE (09:55)
[2024-03-03] MEDS ORDERED: SUGAMMADEX SODIUM 500 MG/5 ML VIAL (BRIDION) As Ordered ONE (09:55)
[2024-03-03] MEDS ORDERED: ONDANSETRON 4MG 2ML VIAL As Ordered ONE (09:55)
[2024-03-03] MEDS ORDERED: LIDOCAINE 2% 100MG/5ML SDV (FOR ANES.) As Ordered ONE (09:55)
[2024-03-03] MEDS ORDERED: ACETAMINOPHEN 1000MG 100ML IV BAG As Ordered ONE (09:56)
[2024-03-03] MEDS: FAMOTIDINE 20 MG TAB PO SCH (09:59)
[2024-03-03] MEDS: predniSONE 2.5 MG TAB PO SCH (09:59)
[2024-03-03] MEDS: PREGABALIN 25 MG CAP (LYRICA) PO SCH (09:59)
[2024-03-03] MEDS: DULoxetine 20MG CAP (CYMBALTA) PO SCH (09:59)
[2024-03-03] MEDS ORDERED: PHENYLEPHRINE 10MG/ML 1ML VIAL As Ordered ONE (10:52)
[2024-03-03] MEDS: ceFAZolin 2 GM/D5W 50 ML IV BAG As Ordered ONE (11:00)
[2024-03-03] MEDS: TRANEXAMIC ACID 100 MG/ML 10ML VIAL As Ordered ONE (11:00)
[2024-03-03] MEDS ORDERED: ONDANSETRON 4MG 2ML VIAL IV PRN (11:30)
[2024-03-03] MEDS ORDERED: fentaNYL 100 MCG/2 ML INJECTION IV PRN (11:30)
[2024-03-03] MEDS ORDERED: HYDROMORPHONE HCL 0.5 MG/ 0.5 ML SYRINGE IV PRN (11:30)
[2024-03-03] MEDS ORDERED: oxyCODONE 5MG TAB PO PRN (11:30)
[2024-03-03] MEDS ORDERED: MEPERIDINE 25 MG/ML 1ML VIAL IV PRN (11:30)
[2024-03-03] MEDS: INSULIN LISPRO (NovoLOG) PER UNIT SC SCH (12:00)
[2024-03-03] MEDS: VANCOMYCIN 1000MG/20ML VIAL As Ordered ONE (14:00)
[2024-03-03] MEDS: fentaNYL 100 MCG/2 ML INJECTION IV PRN (14:45)
[2024-03-04] VITALS (8 sets, daily range): BP systolic 110–157; BP diastolic 52–70; TEMP 97.2–98.6; O2SAT 91–98
[2024-03-04 05:14] LABS: BASO % 0.2 % (0.0-1.0); EOS % 0.3 % (0.0-3.0); HEMATOCRIT 29.2 % (36.0-47.0); HEMOGLOBIN 9.2 g/dl (12.0-15.5); LYMPH # 1.6 10^3/uL (1.5-5.0); LYMPH % 17.6 % (24.0-44.0); MEAN CORPUSCULAR HEMOGLOBIN 28.8 pg (27.0-33.0); MEAN CORPUSCULAR HGB CONC 31.5 g/dl (32.0-36.5); MEAN CORPUSCULAR VOLUME 91.3 fl (80.0-96.0); MONO # 1.2 10^3/uL (0.0-0.8); MONO % 13.2 % (2.0-8.0); NEUTROPHILS # 6.1 10^3/uL (1.5-8.5); NEUTROPHILS % 68.3 % (36.0-66.0); PLATELET COUNT, AUTOMATED 183 10^3/uL (150-450); WHITE BLOOD COUNT 8.9 10^3/uL (4.0-10.0)
[2024-03-04 05:29] LABS: CALCIUM LEVEL 8.1 MG/DL (8.3-10.6); CREATININE FOR GFR 1.04 MG/DL (0.55-1.30); GLOMERULAR FILTRATION RATE 53.9 (>32); MAGNESIUM LEVEL 1.9 MG/DL (1.8-2.4); POTASSIUM SERUM 4.4 MMOL/L (3.5-5.1)
[2024-03-04] MEDS: PERCOCET 5MG/325MG TAB PO PRN ×2 (09:30→16:48)
[2024-03-04] MEDS: NS 1,000 ML IV SCH (17:34)
[2024-03-04] MEDS: RIVAROXABAN 15MG TAB (XARELTO) PO SCH (17:42)
[2024-03-05 03:31] VITALS: BP 133/63; TEMP 98.9; O2SAT 94
[2024-03-05] MEDS: TAMSULOSIN 0.4 MG CAP PO SCH (03:59)
[2024-03-05 06:16] LABS: BASO % 0.1 % (0.0-1.0); EOS # 0.1 10^3/uL (0.0-0.5); HEMOGLOBIN 7.6 g/dl (12.0-15.5); LYMPH # 1.6 10^3/uL (1.5-5.0); LYMPH % 18.4 % (24.0-44.0); MEAN CORPUSCULAR HGB CONC 31.7 g/dl (32.0-36.5); MEAN CORPUSCULAR VOLUME 91.6 fl (80.0-96.0); MONO # 0.9 10^3/uL (0.0-0.8); MONO % 10.3 % (2.0-8.0); NEUTROPHILS # 6.2 10^3/uL (1.5-8.5); NEUTROPHILS % 69.8 % (36.0-66.0); PLATELET COUNT, AUTOMATED 178 10^3/uL (150-450); RED BLOOD COUNT 2.62 10^6/uL (4.00-5.40); WHITE BLOOD COUNT 8.9 10^3/uL (4.0-10.0)
[2024-03-05 06:38] LABS: CALCIUM LEVEL 7.5 MG/DL (8.3-10.6); CREATININE FOR GFR 1.09 MG/DL (0.55-1.30); MAGNESIUM LEVEL 1.7 MG/DL (1.8-2.4); POTASSIUM SERUM 4.1 MMOL/L (3.5-5.1)
[2024-03-05 07:38] VITALS: BP 116/54; TEMP 96.9; O2SAT 96
[2024-03-05 08:00] VITALS: O2SAT 96
[2024-03-05] MEDS: MAG SULF 1GM/100ML (MAG RUN) 1 GM in IV 1 EA IV ONE (09:33)
[2024-03-05 12:05] VITALS: BP 165/70; TEMP 97; O2SAT 95
[2024-03-05 12:37] LABS: HEMATOCRIT 29.5 % (36.0-47.0); HEMOGLOBIN 8.7 g/dl (12.0-15.5)
[2024-03-05 16:44] VITALS: O2SAT 91
[2024-03-05 19:49] VITALS: BP 122/59; TEMP 97.7; O2SAT 95
[2024-03-06] VITALS (9 sets, daily range): BP systolic 131–177; BP diastolic 60–88; TEMP 96.8–99.1; O2SAT 90–96
[2024-03-06 07:06] LABS: BASO % 0.4 % (0.0-1.0); EOS # 0.2 10^3/uL (0.0-0.5); EOS % 1.9 % (0.0-3.0); HEMOGLOBIN 7.1 g/dl (12.0-15.5); LYMPH # 1.7 10^3/uL (1.5-5.0); LYMPH % 22.5 % (24.0-44.0); MEAN CORPUSCULAR HEMOGLOBIN 29.2 pg (27.0-33.0); MEAN CORPUSCULAR HGB CONC 32.3 g/dl (32.0-36.5); MEAN CORPUSCULAR VOLUME 90.5 fl (80.0-96.0); MONO # 0.8 10^3/uL (0.0-0.8); MONO % 10.2 % (2.0-8.0); NEUTROPHILS % 64.7 % (36.0-66.0); PLATELET COUNT, AUTOMATED 187 10^3/uL (150-450); RED BLOOD COUNT 2.43 10^6/uL (4.00-5.40); WHITE BLOOD COUNT 7.7 10^3/uL (4.0-10.0)
[2024-03-06 07:32] LABS: BLOOD UREA NITROGEN 28 MG/DL (9-23); CALCIUM LEVEL 7.7 MG/DL (8.3-10.6); CARBON DIOXIDE LEVEL 25 MMOL/L (20-31); CHLORIDE LEVEL 110 MMOL/L (98-107); CREATININE FOR GFR 0.91 MG/DL (0.55-1.30); GLOMERULAR FILTRATION RATE > 60.0 (>32); GLUCOSE, FASTING 103 MG/DL (74-106); MAGNESIUM LEVEL 1.9 MG/DL (1.8-2.4); POTASSIUM SERUM 4.1 MMOL/L (3.5-5.1); SODIUM LEVEL 140 MMOL/L (136-145)
[2024-03-06] MEDS ORDERED: MIRA3350 PO (12:49)
[2024-03-06] MEDS ORDERED: COLA100C5 PO (12:49)
[2024-03-06 18:26] LABS: HEMATOCRIT 29.2 % (36.0-47.0)
[2024-03-06 18:37] LABS: HEMOGLOBIN 9.6 g/dl (12.0-15.5)
== END 2024-03-06 21:18 | DRG 522 ==
LOC: EDBD 09:58 → M ED 09:58 → M ED INP 13:09 → M PCU 14:30 → M PM&R 03-06 21:18 → M PCU 03-06 21:18 → UNDODISIN 03-06 22:07
PROVIDERS: ADMIT Internal Medicine; ATTEND Internal Medicine
PROC: 0SRR0J9 Replacement of Right Hip Joint, Femoral Surface with Synthetic Substitute, Cemented, Open Approach (ICD-10-PCS; principal; 2024-03-03 08:30)
PROC: 30233N1 Transfusion of Nonautologous Red Blood Cells into Peripheral Vein, Percutaneous Approach (ICD-10-PCS; 2024-03-06)
DX: S72.121A Displaced fracture of lesser trochanter of right femur, initial encounter for closed fracture (principal); D62 Acute posthemorrhagic anemia; S50.01XA Contusion of right elbow, initial encounter; S00.93XA Contusion of unspecified part of head, initial encounter; W19.XXXA Unspecified fall, initial encounter; Y92.009 Unspecified place in unspecified non-institutional (private) residence as the place of occurrence of the external cause; Y93.9 Activity, unspecified; Z66 Do not resuscitate; I48.0 Paroxysmal atrial fibrillation; E78.5 Hyperlipidemia, unspecified; N18.30 Chronic kidney disease, stage 3 unspecified; E11.22 Type 2 diabetes mellitus with diabetic chronic kidney disease; I12.9 Hypertensive chronic kidney disease with stage 1 through stage 4 chronic kidney disease, or unspecified chronic kidney disease; F41.9 Anxiety disorder, unspecified; F32.A Depression, unspecified; M35.3 Polymyalgia rheumatica; E11.42 Type 2 diabetes mellitus with diabetic polyneuropathy; M06.9 Rheumatoid arthritis, unspecified; M54.9 Dorsalgia, unspecified; M81.0 Age-related osteoporosis without current pathological fracture; K21.9 Gastro-esophageal reflux disease without esophagitis; M70.21 Olecranon bursitis, right elbow; R26.89 Other abnormalities of gait and mobility; H40.9 Unspecified glaucoma; Z90.49 Acquired absence of other specified parts of digestive tract; Z98.41 Cataract extraction status, right eye; Z98.42 Cataract extraction status, left eye; Z95.2 Presence of prosthetic heart valve; Z95.828 Presence of other vascular implants and grafts; Z79.01 Long term (current) use of anticoagulants; Z79.52 Long term (current) use of systemic steroids; Z79.899 Other long term (current) drug therapy; Z88.5 Allergy status to narcotic agent; Z88.8 Allergy status to other drugs, medicaments and biological substances; Z95.0 Presence of cardiac pacemaker; N31.9 Neuromuscular dysfunction of bladder, unspecified; E83.42 Hypomagnesemia

== ENCOUNTER 2024-03-06 15:50 | Inpatient (IN) | payer MEDICARE, BC ==
[~2024-03-06] VITALS: Ht 162.6 cm; Wt 69.1 kg
[~2024-03-06 15:50] MED LIST changes: +ALEN70TA82 PO; +DULO1CAP4 PO; +ETAN50PE SC; +FAMO20TA4 PO; +HYDR50TA70 PO; +MIRA3350 PO; +PRED25TA PO; +PREG25CA PO; +PROBCAP2 PO; +TAMS1CAP17 PO
[2024-03-06] MEDS ORDERED: GLUCOSE 4 GM CHEW PO PRN (17:40)
[2024-03-06] MEDS ORDERED: GLUCAGON INJ 1MG VIAL SC PRN (17:40)
[2024-03-06] MEDS ORDERED: DEXTROSE 50% 50ML SYRINGE IV PRN (17:40)
[2024-03-06] MEDS: ACETAMINOPHEN TAB 650MG DOSE (2X325MG) PO SCH (21:00)
[2024-03-06] MEDS ORDERED: LATANOPROST 0.005% OPHTH SOLN 2.5 ML OU SCH (21:00)
[2024-03-06 21:33] VITALS: BP 167/79; TEMP 99.8; O2SAT 93
[2024-03-06 22:40] VITALS: BP 154/70
[2024-03-06] MEDS: TAMSULOSIN 0.4 MG CAP PO SCH (22:49)
[2024-03-07 04:16] VITALS: BP 148/66; TEMP 97.8; O2SAT 97
[2024-03-07] MEDS: INSULIN LISPRO (NovoLOG) PER UNIT SC SCH ×2 (07:30→20:59)
[2024-03-07] MEDS: LACTOBACILLUS ACIDOPHILUS CAP (BACID) PO SCH (08:28)
[2024-03-07] MEDS: DOCUSATE SODIUM 100MG CAPSULE PO SCH (08:29)
[2024-03-07] MEDS: DULoxetine 20MG CAP (CYMBALTA) PO SCH (08:29)
[2024-03-07] MEDS: PREGABALIN 25 MG CAP (LYRICA) PO SCH ×2 (08:34→16:38)
[2024-03-07] MEDS: predniSONE 2.5 MG TAB PO SCH (08:34)
[2024-03-07] MEDS: FAMOTIDINE 20 MG TAB PO SCH (08:34)
[2024-03-07] MEDS: MIRALAX *UNIT DOSE* 17GM PACKET PO SCH (08:37)
[2024-03-07] MEDS ORDERED: DULoxetine 20MG CAP (CYMBALTA) PO SCH (09:00)
[2024-03-07 09:14] LABS: HEMATOCRIT 28.7 % (36.0-47.0); HEMOGLOBIN 9.5 g/dl (12.0-15.5); MEAN CORPUSCULAR HEMOGLOBIN 29.1 pg (27.0-33.0); MEAN CORPUSCULAR HGB CONC 33.1 g/dl (32.0-36.5); MEAN CORPUSCULAR VOLUME 87.8 fl (80.0-96.0); PLATELET COUNT, AUTOMATED 222 10^3/uL (150-450); RED BLOOD COUNT 3.27 10^6/uL (4.00-5.40); WHITE BLOOD COUNT 7.2 10^3/uL (4.0-10.0)
[2024-03-07] MEDS: ONDANSETRON 4MG TAB PO PRN (11:04)
[2024-03-07] MEDS: LIDOCAINE 5% (LIDODERM) PATCH TD SCH (13:12)
[2024-03-07] MEDS: methocarbamoL 500 MG TAB PO PRN (13:13)
[2024-03-07] MEDS: oxyCODONE 5MG TAB PO PRN ×2 (13:13→20:33)
[2024-03-07 14:40] VITALS: BP 142/62; TEMP 98.9; O2SAT 98
[2024-03-07] MEDS ORDERED: RIVAROXABAN 15MG TAB (XARELTO) PO SCH (18:00)
[2024-03-07 20:00] VITALS: BP 134/61; TEMP 97.5; O2SAT 95
[2024-03-07] MEDS: hydrOXYzine 50 MG TAB PO SCH (20:33)
[2024-03-07] MEDS: ACETAMINOPHEN 500 MG TAB PO SCH (20:59)
[2024-03-07] MEDS: LATANOPROST 0.005% OPHTH SOLN 2.5 ML OU SCH (21:00)
[2024-03-08 04:00] VITALS: BP 139/63; TEMP 98.3; O2SAT 92
[2024-03-08 07:36] LABS: HEMATOCRIT 26.9 % (36.0-47.0); HEMOGLOBIN 8.8 g/dl (12.0-15.5); MEAN CORPUSCULAR HEMOGLOBIN 28.9 pg (27.0-33.0); MEAN CORPUSCULAR HGB CONC 32.7 g/dl (32.0-36.5); MEAN CORPUSCULAR VOLUME 88.2 fl (80.0-96.0); PLATELET COUNT, AUTOMATED 249 10^3/uL (150-450); RED BLOOD COUNT 3.05 10^6/uL (4.00-5.40); WHITE BLOOD COUNT 6.3 10^3/uL (4.0-10.0)
[2024-03-08 14:49] VITALS: BP 133/59; TEMP 98.3; O2SAT 91
[2024-03-08 20:00] VITALS: BP 161/68; TEMP 98.7; O2SAT 91
[2024-03-09] MEDS ORDERED: UNRESOLVED PATIENT OWN MED ORDER XX SCH (00:01)
[2024-03-09 04:00] VITALS: BP 135/71; TEMP 98.7; O2SAT 93
[2024-03-09] MEDS: ETANERCEPT 50 MG/ML SC SCH (08:29)
[2024-03-09 10:50] LABS: HEMATOCRIT 29.2 % (36.0-47.0); HEMOGLOBIN 9.5 g/dl (12.0-15.5); MEAN CORPUSCULAR HGB CONC 32.5 g/dl (32.0-36.5); PLATELET COUNT, AUTOMATED 279 10^3/uL (150-450); RED BLOOD COUNT 3.28 10^6/uL (4.00-5.40)
[2024-03-09 11:15] LABS: BLOOD UREA NITROGEN 23 MG/DL (9-23); CALCIUM LEVEL 7.9 MG/DL (8.3-10.6); CARBON DIOXIDE LEVEL 23 MMOL/L (20-31); CHLORIDE LEVEL 107 MMOL/L (98-107); CREATININE FOR GFR 0.87 MG/DL (0.55-1.30); GLOMERULAR FILTRATION RATE > 60.0 (>32); GLUCOSE, FASTING 141 MG/DL (74-106); POTASSIUM SERUM 3.5 MMOL/L (3.5-5.1); SODIUM LEVEL 136 MMOL/L (136-145)
[2024-03-09 20:00] VITALS: BP 160/60; TEMP 99.7; O2SAT 95
[2024-03-10 04:00] VITALS: BP 138/68; TEMP 98.6; O2SAT 93
[2024-03-10 12:11] VITALS: BP 143/63; TEMP 98.5; O2SAT 100
[2024-03-10 20:00] VITALS: BP 137/60; TEMP 98.3; O2SAT 94
[2024-03-11 04:15] VITALS: BP 170/72; TEMP 97.8; O2SAT 94
[2024-03-11 05:55] VITALS: BP 144/78
[2024-03-11 12:00] VITALS: BP_SYST 138; BP_DIAS 74; BP_DIAS 78; TEMP 98; O2SAT 96
[2024-03-11 20:00] VITALS: BP 148/65; TEMP 98.4; O2SAT 97
[2024-03-12 04:00] VITALS: BP 182/85; TEMP 97.9; O2SAT 93
[2024-03-12 04:34] VITALS: BP 160/78
[2024-03-12 12:00] VITALS: BP 138/64; TEMP 97; O2SAT 96
[2024-03-12] MEDS: amLODIPine 5 MG TAB PO SCH (17:17)
[2024-03-12 20:00] VITALS: BP 164/68; TEMP 98.2; O2SAT 98
[2024-03-13 04:30] VITALS: BP 170/70; TEMP 98.7; O2SAT 92
[2024-03-13 08:40] VITALS: BP 120/56
[2024-03-13] MEDS ORDERED: ANUSOL HC CREAM 30GM TOP PRN (10:50)
[2024-03-13 11:41] LABS: HEMATOCRIT 30.3 % (36.0-47.0); HEMOGLOBIN 9.7 g/dl (12.0-15.5); MEAN CORPUSCULAR HEMOGLOBIN 28.5 pg (27.0-33.0); MEAN CORPUSCULAR VOLUME 89.1 fl (80.0-96.0); PLATELET COUNT, AUTOMATED 408 10^3/uL (150-450); WHITE BLOOD COUNT 8.6 10^3/uL (4.0-10.0)
[2024-03-13 12:00] VITALS: BP 138/64; TEMP 97.7; O2SAT 97
[2024-03-13] MEDS: BISACODYL 10MG SUPP PR ONE (12:00)
[2024-03-13 12:07] LABS: BLOOD UREA NITROGEN 19 MG/DL (9-23); CALCIUM LEVEL 8.2 MG/DL (8.3-10.6); CARBON DIOXIDE LEVEL 25 MMOL/L (20-31); CHLORIDE LEVEL 107 MMOL/L (98-107); CREATININE FOR GFR 0.89 MG/DL (0.55-1.30); GLOMERULAR FILTRATION RATE > 60.0 (>32); GLUCOSE, FASTING 95 MG/DL (74-106); POTASSIUM SERUM 4.1 MMOL/L (3.5-5.1); SODIUM LEVEL 139 MMOL/L (136-145)
[2024-03-13] MEDS: RIVAROXABAN 15MG TAB (XARELTO) PO SCH (17:16)
[2024-03-13 19:43] VITALS: BP 138/74; TEMP 98.5; O2SAT 97
[2024-03-13] MEDS: SENNA 8.6 MG TAB (SENOKOT) PO SCH (21:00)
[2024-03-14] MEDS ORDERED: BISACODYL 10MG SUPP PR PRN
[2024-03-14 04:00] VITALS: BP 142/76; TEMP 97.8; O2SAT 94
[2024-03-14] MEDS: PREGABALIN 50 MG CAP (LYRICA) PO SCH (08:14)
[2024-03-14 12:30] VITALS: BP 124/60; TEMP 98.5; O2SAT 97
[2024-03-14 20:00] VITALS: BP 131/60; TEMP 98; O2SAT 94
[2024-03-14] MEDS: CALCIUM CARBONATE 500 MG CHEW U/D PO ONE (20:49)
[2024-03-15 04:00] VITALS: BP 103/57; TEMP 99; O2SAT 94
[2024-03-15 08:04] LABS: HEMATOCRIT 34.1 % (36.0-47.0); HEMOGLOBIN 10.7 g/dl (12.0-15.5); MEAN CORPUSCULAR HGB CONC 31.4 g/dl (32.0-36.5); MEAN CORPUSCULAR VOLUME 92.4 fl (80.0-96.0); PLATELET COUNT, AUTOMATED 420 10^3/uL (150-450); RED BLOOD COUNT 3.69 10^6/uL (4.00-5.40); WHITE BLOOD COUNT 6.5 10^3/uL (4.0-10.0)
[2024-03-15 08:38] LABS: BLOOD UREA NITROGEN 15 MG/DL (9-23); CALCIUM LEVEL 8.8 MG/DL (8.3-10.6); CARBON DIOXIDE LEVEL 20 MMOL/L (20-31); CHLORIDE LEVEL 110 MMOL/L (98-107); CREATININE FOR GFR 0.91 MG/DL (0.55-1.30); GLOMERULAR FILTRATION RATE > 60.0 (>32); GLUCOSE, FASTING 90 MG/DL (74-106); POTASSIUM SERUM 3.9 MMOL/L (3.5-5.1); SODIUM LEVEL 140 MMOL/L (136-145)
[2024-03-15 12:00] VITALS: BP 115/56; TEMP 98.2; O2SAT 98
[2024-03-15 20:00] VITALS: BP 131/66; TEMP 98.4; O2SAT 94
[2024-03-16 04:00] VITALS: BP 138/68; TEMP 98; O2SAT 94
[2024-03-16 09:00] VITALS: BP 125/81
[2024-03-16 12:00] VITALS: BP 120/59; TEMP 98.6; O2SAT 99
[2024-03-16] MEDS ORDERED: METH-1164 PO (13:10)
[2024-03-16] MEDS ORDERED: OXYC-517 PO (13:10)
[2024-03-16] MEDS ORDERED: XARE15TA PO (13:10)
[2024-03-16] MEDS ORDERED: ACET-683 PO (13:10)
[2024-03-16] MEDS ORDERED: AMLO1TAB24 PO (13:10)
[2024-03-16] MEDS ORDERED: NARC1SPR (13:12)
== END 2024-03-16 14:10 | disposition home health service (06) | DRG 560 ==
LOC: M PM&R 21:21
PROVIDERS: ADMIT Student in an Organized Health Care Education/Training Program; ATTEND Student in an Organized Health Care Education/Training Program
DX: S72.121D Displaced fracture of lesser trochanter of right femur, subsequent encounter for closed fracture with routine healing (principal); D62 Acute posthemorrhagic anemia; M70.31 Other bursitis of elbow, right elbow; M79.81 Nontraumatic hematoma of soft tissue; I48.0 Paroxysmal atrial fibrillation; I12.9 Hypertensive chronic kidney disease with stage 1 through stage 4 chronic kidney disease, or unspecified chronic kidney disease; E78.5 Hyperlipidemia, unspecified; E11.22 Type 2 diabetes mellitus with diabetic chronic kidney disease; N18.30 Chronic kidney disease, stage 3 unspecified; F32.9 Major depressive disorder, single episode, unspecified; F41.9 Anxiety disorder, unspecified; M35.3 Polymyalgia rheumatica; M06.9 Rheumatoid arthritis, unspecified; E11.40 Type 2 diabetes mellitus with diabetic neuropathy, unspecified; Z66 Do not resuscitate; G89.29 Other chronic pain; M75.121 Complete rotator cuff tear or rupture of right shoulder, not specified as traumatic; H40.9 Unspecified glaucoma; M54.9 Dorsalgia, unspecified; K21.9 Gastro-esophageal reflux disease without esophagitis; M81.0 Age-related osteoporosis without current pathological fracture; K58.1 Irritable bowel syndrome with constipation; R33.9 Retention of urine, unspecified; K64.9 Unspecified hemorrhoids; Z96.641 Presence of right artificial hip joint; Z74.09 Other reduced mobility; Z74.1 Need for assistance with personal care; Z90.49 Acquired absence of other specified parts of digestive tract; Z95.0 Presence of cardiac pacemaker; Z98.41 Cataract extraction status, right eye; Z98.42 Cataract extraction status, left eye; Z87.891 Personal history of nicotine dependence; Z79.52 Long term (current) use of systemic steroids; Z79.01 Long term (current) use of anticoagulants; Z79.899 Other long term (current) drug therapy; Z88.5 Allergy status to narcotic agent; Z88.8 Allergy status to other drugs, medicaments and biological substances

== ENCOUNTER → 2024-03-22 | Outpatient (CLI) | payer MEDICARE, BC ==
[~2024-03-22] MED LIST changes: +ACET-683 PO; +NARC1SPR; +OXYC-517 PO
== END ==
LOC: M SOG 12:52
PROVIDERS: ATTEND Physician Assistant
DX: Z96.641 Presence of right artificial hip joint (principal)

== ENCOUNTER → 2024-03-27 | Outpatient (REF) | payer MEDICARE, BC ==
[2024-03-27 11:07] LABS: APPEARANCE, URINE HAZY (CLEAR); BACTERIA, URINE AUTO 1+ (NEGATIVE); BILIRUBIN, URINE AUTO NEGATIVE (NEGATIVE); BLOOD, URINE BLOOD 2+ (NEGATIVE); COLOR, URINE YELLOW (YELLOW); GLUCOSE, URINE (UA) AUTO NEGATIVE (NEGATIVE); KETONE, URINE AUTO NEGATIVE (NEGATIVE); LEUKOCYTE ESTERASE, URINE AUTO 2+ (NEGATIVE); NITRITE, URINE AUTO NEGATIVE (NEGATIVE); PROTEIN, URINE AUTO NEGATIVE (NEGATIVE); RBC, URINE AUTO 8 /HPF (0-3); SPECIFIC GRAVITY URINE AUTO 1.008 (1.002-1.035); SQUAMOUS EPITHELIAL CELL UR AU 0 /HPF (0-6); UROBILINOGEN, URINE AUTO 0.2 mg/dL (0.0-2.0); WBC, URINE AUTO 24 /HPF (0-3)
== END ==
LOC: M LAB REF 10:48
PROVIDERS: ATTEND Registered Nurse
DX: N39.0 Urinary tract infection, site not specified (principal)

== ENCOUNTER → 2024-03-30 | Outpatient (CLI) | payer MEDICARE, BC ==
[2024-03-30 19:13] LABS: BASO % 0.4 % (0.0-1.0); EOS # 0.2 10^3/uL (0.0-0.5); EOS % 2.7 % (0.0-3.0); HEMATOCRIT 33.6 % (36.0-47.0); HEMOGLOBIN 10.7 g/dl (12.0-15.5); LYMPH # 2.6 10^3/uL (1.5-5.0); LYMPH % 36.2 % (24.0-44.0); MEAN CORPUSCULAR HEMOGLOBIN 29.5 pg (27.0-33.0); MEAN CORPUSCULAR HGB CONC 31.8 g/dl (32.0-36.5); MEAN CORPUSCULAR VOLUME 92.6 fl (80.0-96.0); MONO # 0.9 10^3/uL (0.0-0.8); MONO % 12.3 % (2.0-8.0); NEUTROPHILS # 3.4 10^3/uL (1.5-8.5); NEUTROPHILS % 48.3 % (36.0-66.0); PLATELET COUNT, AUTOMATED 327 10^3/uL (150-450); RED BLOOD COUNT 3.63 10^6/uL (4.00-5.40); WHITE BLOOD COUNT 7.1 10^3/uL (4.0-10.0)
[2024-03-30 19:22] LABS: ERYTHROCYTE SEDIMENTATION RATE 27 mm/hr (0-30)
[2024-03-30 19:34] LABS: ALKALINE PHOSPHATASE 159 U/L (46-116); ALT/SGPT < 9 U/L (7.0-40); AST/SGOT 10 U/L (<34); BILIRUBIN,DIRECT 0.1 MG/DL (<0.4); BILIRUBIN,TOTAL 0.4 MG/DL (0.3-1.2); BLOOD UREA NITROGEN 24 MG/DL (9-23); CALCIUM LEVEL 8.7 MG/DL (8.3-10.6); CARBON DIOXIDE LEVEL 26 MMOL/L (20-31); CHLORIDE LEVEL 111 MMOL/L (98-107); CREATININE FOR GFR 1.25 MG/DL (0.55-1.30); GLOMERULAR FILTRATION RATE 43.6 (>32); GLUCOSE, FASTING 144 MG/DL (74-106); SODIUM LEVEL 141 MMOL/L (136-145); TOTAL PROTEIN 6.4 G/DL (5.7-8.2)
== END ==
LOC: M PLALAB 15:21
PROVIDERS: ATTEND Internal Medicine
DX: M06.09 Rheumatoid arthritis without rheumatoid factor, multiple sites (principal)

== ENCOUNTER → 2024-04-23 | Outpatient (REF) | payer MEDICARE, BC ==
[2024-04-23 15:03] LABS: BASO % 0.3 % (0.0-1.0); EOS # 0.1 10^3/uL (0.0-0.5); EOS % 2.8 % (0.0-3.0); HEMATOCRIT 33.4 % (36.0-47.0); HEMOGLOBIN 10.9 g/dl (12.0-15.5); LYMPH # 1.8 10^3/uL (1.5-5.0); LYMPH % 45.5 % (24.0-44.0); MEAN CORPUSCULAR HEMOGLOBIN 28.5 pg (27.0-33.0); MEAN CORPUSCULAR HGB CONC 32.6 g/dl (32.0-36.5); MEAN CORPUSCULAR VOLUME 87.4 fl (80.0-96.0); MONO # 0.4 10^3/uL (0.0-0.8); MONO % 9.3 % (2.0-8.0); NEUTROPHILS # 1.6 10^3/uL (1.5-8.5); NEUTROPHILS % 41.8 % (36.0-66.0); PLATELET COUNT, AUTOMATED 258 10^3/uL (150-450); RED BLOOD COUNT 3.82 10^6/uL (4.00-5.40); WHITE BLOOD COUNT 3.9 10^3/uL (4.0-10.0)
== END ==
LOC: M SHH 14:09
PROVIDERS: ATTEND Registered Nurse
DX: D50.0 Iron deficiency anemia secondary to blood loss (chronic) (principal)

== ENCOUNTER → 2024-04-23 | Outpatient (REF) | payer MEDICARE, BC ==
[2024-04-23 15:04] LABS: BASO % 0.3 % (0.0-1.0); EOS # 0.1 10^3/uL (0.0-0.5); EOS % 2.9 % (0.0-3.0); HEMATOCRIT 33.4 % (36.0-47.0); HEMOGLOBIN 10.8 g/dl (12.0-15.5); LYMPH # 1.8 10^3/uL (1.5-5.0); LYMPH % 45.7 % (24.0-44.0); MEAN CORPUSCULAR HEMOGLOBIN 28.3 pg (27.0-33.0); MEAN CORPUSCULAR HGB CONC 32.3 g/dl (32.0-36.5); MEAN CORPUSCULAR VOLUME 87.7 fl (80.0-96.0); MONO # 0.3 10^3/uL (0.0-0.8); MONO % 8.9 % (2.0-8.0); NEUTROPHILS # 1.6 10^3/uL (1.5-8.5); NEUTROPHILS % 41.9 % (36.0-66.0); PLATELET COUNT, AUTOMATED 262 10^3/uL (150-450); RED BLOOD COUNT 3.81 10^6/uL (4.00-5.40); WHITE BLOOD COUNT 3.8 10^3/uL (4.0-10.0)
[2024-04-23 15:29] LABS: ERYTHROCYTE SEDIMENTATION RATE 18 mm/hr (0-30)
[2024-04-23 15:33] LABS: ALBUMIN 2.7 G/DL (3.2-5.2); ALKALINE PHOSPHATASE 141 U/L (46-116); ALT/SGPT 20 U/L (7.0-40); AST/SGOT 35 U/L (<34); BILIRUBIN,DIRECT 0.2 MG/DL (<0.4); BILIRUBIN,TOTAL 0.3 MG/DL (0.3-1.2); BLOOD UREA NITROGEN 20 MG/DL (9-23); CALCIUM LEVEL 8.2 MG/DL (8.3-10.6); CARBON DIOXIDE LEVEL 25 MMOL/L (20-31); CHLORIDE LEVEL 106 MMOL/L (98-107); CREATININE FOR GFR 0.94 MG/DL (0.55-1.30); GLOMERULAR FILTRATION RATE > 60.0 (>32); GLUCOSE, FASTING 77 MG/DL (74-106); POTASSIUM SERUM 3.6 MMOL/L (3.5-5.1); SODIUM LEVEL 138 MMOL/L (136-145); TOTAL PROTEIN 5.7 G/DL (5.7-8.2)
== END ==
LOC: M SHH 14:11
PROVIDERS: ATTEND Internal Medicine
DX: M06.09 Rheumatoid arthritis without rheumatoid factor, multiple sites (principal); D50.0 Iron deficiency anemia secondary to blood loss (chronic)

== ENCOUNTER 2024-04-26 14:31 | Emergency (ER) | payer MEDICARE, BC ==
[~2024-04-26] VITALS: Ht 162.6 cm; Wt 55.5 kg
[2024-04-26 15:21] LABS: BASO % 0.4 % (0.0-1.0); EOS # 0.1 10^3/uL (0.0-0.5); EOS % 2.3 % (0.0-3.0); HEMATOCRIT 36.8 % (36.0-47.0); HEMOGLOBIN 11.9 g/dl (12.0-15.5); LYMPH # 1.6 10^3/uL (1.5-5.0); MEAN CORPUSCULAR HEMOGLOBIN 28.7 pg (27.0-33.0); MEAN CORPUSCULAR HGB CONC 32.3 g/dl (32.0-36.5); MEAN CORPUSCULAR VOLUME 88.7 fl (80.0-96.0); MONO # 0.5 10^3/uL (0.0-0.8); MONO % 10.1 % (2.0-8.0); NEUTROPHILS # 2.5 10^3/uL (1.5-8.5); NEUTROPHILS % 52.8 % (36.0-66.0); PLATELET COUNT, AUTOMATED 257 10^3/uL (150-450); RED BLOOD COUNT 4.15 10^6/uL (4.00-5.40); WHITE BLOOD COUNT 4.7 10^3/uL (4.0-10.0)
[2024-04-26] MEDS: NS 500 ML IV ONE (15:29)
[2024-04-26 15:47] LABS: LIPASE 41 U/L (12-53)
[2024-04-26 15:50] LABS: ALKALINE PHOSPHATASE 160 U/L (46-116); ALT/SGPT 17 U/L (7.0-40); AST/SGOT 25 U/L (<34); BILIRUBIN,DIRECT 0.2 MG/DL (<0.4); BILIRUBIN,TOTAL 0.5 MG/DL (0.3-1.2); BLOOD UREA NITROGEN 18 MG/DL (9-23); CALCIUM LEVEL 8.7 MG/DL (8.3-10.6); CARBON DIOXIDE LEVEL 22 MMOL/L (20-31); CHLORIDE LEVEL 105 MMOL/L (98-107); CREATININE FOR GFR 0.88 MG/DL (0.55-1.30); GLOMERULAR FILTRATION RATE > 60.0 (>32); GLUCOSE, FASTING 67 MG/DL (74-106); MAGNESIUM LEVEL 1.9 MG/DL (1.8-2.4); POTASSIUM SERUM 4.1 MMOL/L (3.5-5.1); SODIUM LEVEL 138 MMOL/L (136-145); TOTAL PROTEIN 6.2 G/DL (5.7-8.2)
[2024-04-26 17:15] VITALS: BP 132/61; TEMP 97.4; O2SAT 93
== END 2024-04-26 17:24 | disposition home or self-care (01) ==
LOC: EDBD 14:31 → M ED 14:31
DX: U07.1 COVID-19 (principal); Z88.5 Allergy status to narcotic agent; Z88.8 Allergy status to other drugs, medicaments and biological substances; E11.9 Type 2 diabetes mellitus without complications; I12.9 Hypertensive chronic kidney disease with stage 1 through stage 4 chronic kidney disease, or unspecified chronic kidney disease; N18.30 Chronic kidney disease, stage 3 unspecified; E78.5 Hyperlipidemia, unspecified; Z79.01 Long term (current) use of anticoagulants; Z79.899 Other long term (current) drug therapy

== ENCOUNTER 2024-04-30 11:43 | Emergency (ER) | payer MEDICARE, BC ==
[~2024-04-30] VITALS: Ht 162.6 cm; Wt 53.2 kg
[2024-04-30 12:04] VITALS: TEMP 98.5
[2024-04-30 12:55] LABS: BASO % 0.4 % (0.0-1.0); EOS # 0.1 10^3/uL (0.0-0.5); EOS % 1.6 % (0.0-3.0); HEMATOCRIT 39.6 % (36.0-47.0); HEMOGLOBIN 12.8 g/dl (12.0-15.5); LYMPH # 2.2 10^3/uL (1.5-5.0); LYMPH % 32.7 % (24.0-44.0); MEAN CORPUSCULAR HGB CONC 32.3 g/dl (32.0-36.5); MEAN CORPUSCULAR VOLUME 86.7 fl (80.0-96.0); MONO # 0.8 10^3/uL (0.0-0.8); NEUTROPHILS # 3.5 10^3/uL (1.5-8.5); PLATELET COUNT, AUTOMATED 332 10^3/uL (150-450); RED BLOOD COUNT 4.57 10^6/uL (4.00-5.40); WHITE BLOOD COUNT 6.7 10^3/uL (4.0-10.0)
[2024-04-30 13:04] LABS: BILIRUBIN,DIRECT 0.2 MG/DL (<0.4); BILIRUBIN,TOTAL 0.6 MG/DL (0.3-1.2); CALCIUM LEVEL 9.1 MG/DL (8.3-10.6); CREATININE FOR GFR 0.99 MG/DL (0.55-1.30); MAGNESIUM LEVEL 1.7 MG/DL (1.8-2.4); POTASSIUM SERUM 4.5 MMOL/L (3.5-5.1); PREALBUMIN 6.2 MG/DL (10.0-40.0); TOTAL PROTEIN 6.7 G/DL (5.7-8.2)
[2024-04-30 13:06] LABS: FREE T4 1.13 NG/DL (0.89-1.76); THYROID STIMULATING HORMONE 3.059 uIU/ML (0.55-4.78)
[2024-04-30 15:30] VITALS: BP 112/63
[2024-04-30 15:31] VITALS: O2SAT 93
== END 2024-04-30 15:55 | disposition home or self-care (01) ==
LOC: EDBD 11:43 → M ED 11:43
DX: R53.1 Weakness (principal); E46 Unspecified protein-calorie malnutrition; E11.9 Type 2 diabetes mellitus without complications; E78.5 Hyperlipidemia, unspecified; I12.9 Hypertensive chronic kidney disease with stage 1 through stage 4 chronic kidney disease, or unspecified chronic kidney disease; F41.9 Anxiety disorder, unspecified; F32.A Depression, unspecified; Z88.5 Allergy status to narcotic agent; Z88.8 Allergy status to other drugs, medicaments and biological substances; Z79.1 Long term (current) use of non-steroidal anti-inflammatories (NSAID); Z79.52 Long term (current) use of systemic steroids; Z79.01 Long term (current) use of anticoagulants; Z79.899 Other long term (current) drug therapy

== ENCOUNTER → 2024-05-07 | Outpatient (CLI) | payer MEDICARE, BC | LOC: M SOG 07:23 | PROVIDERS: ATTEND Physician Assistant | DX: S72.001A Fracture of unspecified part of neck of right femur, initial encounter for closed fracture (principal); W18.30XA Fall on same level, unspecified, initial encounter; Y92.009 Unspecified place in unspecified non-institutional (private) residence as the place of occurrence of the external cause ==

== ENCOUNTER → 2024-05-28 | Outpatient (REF) | payer MEDICARE, BC ==
[~2024-05-28] MED LIST changes: -ROSU20TA61 PO; +ROSU20TA86 PO
[2024-05-28 13:21] LABS: APPEARANCE, URINE TURBID (CLEAR); BACTERIA, URINE AUTO 3+ (NEGATIVE); BILIRUBIN, URINE AUTO NEGATIVE (NEGATIVE); BLOOD, URINE BLOOD 2+ (NEGATIVE); COLOR, URINE AMBER (YELLOW); GLUCOSE, URINE (UA) AUTO NEGATIVE (NEGATIVE); KETONE, URINE AUTO TRACE mg/dL (NEGATIVE); LEUKOCYTE ESTERASE, URINE AUTO 3+ (NEGATIVE); NITRITE, URINE AUTO NEGATIVE (NEGATIVE); PROTEIN, URINE AUTO 3+ mg/dL (NEGATIVE); RBC, URINE AUTO 85 /HPF (0-3); SPECIFIC GRAVITY URINE AUTO 1.012 (1.002-1.035); SQUAMOUS EPITHELIAL CELL UR AU 0 /HPF (0-6); UROBILINOGEN, URINE AUTO 0.2 mg/dL (0.0-2.0); WBC, URINE AUTO TNTC /HPF (0-3)
== END ==
LOC: M LAB REF 12:22
PROVIDERS: ATTEND Physician Assistant Medical
DX: N39.0 Urinary tract infection, site not specified (principal)

== ENCOUNTER → 2024-06-04 | Outpatient (REF) | payer MEDICARE, BC ==
[2024-06-04 14:50] LABS: C REACTIVE PROTEIN QUANTITATIV 2.8 MG/DL (<1.0)
[2024-06-04 14:52] LABS: ALBUMIN 2.7 G/DL (3.2-5.2); BILIRUBIN,DIRECT 0.2 MG/DL (<0.4); BILIRUBIN,TOTAL 0.4 MG/DL (0.3-1.2); CALCIUM LEVEL 9.4 MG/DL (8.3-10.6); CREATININE FOR GFR 1.04 MG/DL (0.55-1.30); GLOMERULAR FILTRATION RATE 53.9 (>32); POTASSIUM SERUM 3.6 MMOL/L (3.5-5.1); TOTAL PROTEIN 6.5 G/DL (5.7-8.2)
== END ==
LOC: M SHH 13:36
PROVIDERS: ATTEND Internal Medicine
DX: M06.09 Rheumatoid arthritis without rheumatoid factor, multiple sites (principal)

== ENCOUNTER → 2024-06-04 | Outpatient (REF) | payer MEDICARE, BC ==
[2024-06-04 14:24] LABS: BASO % 0.5 % (0.0-1.0); EOS # 0.1 10^3/uL (0.0-0.5); EOS % 2.2 % (0.0-3.0); HEMATOCRIT 37.1 % (36.0-47.0); HEMOGLOBIN 11.9 g/dl (12.0-15.5); LYMPH # 2.4 10^3/uL (1.5-5.0); LYMPH % 40.7 % (24.0-44.0); MEAN CORPUSCULAR HEMOGLOBIN 28.3 pg (27.0-33.0); MEAN CORPUSCULAR HGB CONC 32.1 g/dl (32.0-36.5); MEAN CORPUSCULAR VOLUME 88.3 fl (80.0-96.0); MONO # 0.6 10^3/uL (0.0-0.8); MONO % 9.8 % (2.0-8.0); NEUTROPHILS # 2.8 10^3/uL (1.5-8.5); NEUTROPHILS % 46.5 % (36.0-66.0); PLATELET COUNT, AUTOMATED 385 10^3/uL (150-450)
== END ==
LOC: M LABDRWAD 13:35 → M SHH 13:35
PROVIDERS: ATTEND Family Medicine
DX: D50.0 Iron deficiency anemia secondary to blood loss (chronic) (principal)

== ENCOUNTER → 2024-06-14 | Outpatient (CLI) | payer MEDICARE, BC ==
[~2024-06-14] MED LIST changes: -CYCL5TAB PO; +CYCL5TAB4 PO
== END ==
LOC: M SOG 08:09
PROVIDERS: ATTEND Physician Assistant
DX: S72.001A Fracture of unspecified part of neck of right femur, initial encounter for closed fracture (principal)

== ENCOUNTER → 2024-06-28 | Outpatient (CLI) | payer MEDICARE, BC | LOC: M SOG 07:54 | PROVIDERS: ATTEND Physician Assistant | DX: S72.001A Fracture of unspecified part of neck of right femur, initial encounter for closed fracture (principal); W18.30XA Fall on same level, unspecified, initial encounter; Y92.009 Unspecified place in unspecified non-institutional (private) residence as the place of occurrence of the external cause ==

== ENCOUNTER → 2024-07-02 | Outpatient (REF) | payer MEDICARE, BC ==
[2024-07-03 08:31] LABS: APPEARANCE, URINE MANUAL CLOUDY (CLEAR); BILIRUBIN, URINE MANUAL NEGATIVE (NEGATIVE); BLOOD URINE MANUAL POSITIVE (NEGATIVE); COLOR, URINE MANUAL DK YELLOW (YELLOW); GLUCOSE, URINE (UA) MANUAL NEGATIVE (NEGATIVE); KETONE, URINE MANUAL NEGATIVE (NEGATIVE); LEUKOCYTE ESTERASE, URINE MAN POSITIVE (NEGATIVE); NITRITE, URINE MANUAL NEGATIVE (NEGATIVE); PROTEIN, URINE MANUAL 2+ mg/dL (NEGATIVE); UROBILINOGEN, URINE MANUAL NORMAL (NORMAL)
[2024-07-03 08:32] LABS: RBC, URINE 0-1 /hpf (0-3); SQUAMOUS EPITHELIAL CELL URINE SMALL AMOUNT /hpf (SMALL AMT); TRIPLE PHOSPHATE CRYSTAL,URINE MOD AMOUNT /hpf
[2024-07-03 08:33] LABS: BACTERIA, URINE LARGE AMOUNT; HYALINE CAST, URINE NONE SEEN /lpf (0-1)
== END ==
LOC: M SHH 14:00 → M LAB REF 14:00
PROVIDERS: ATTEND Registered Nurse
DX: N39.0 Urinary tract infection, site not specified (principal)

== ENCOUNTER → 2024-07-26 | Outpatient (CLI) | payer MEDICARE, BC ==
[2024-07-26 16:39] LABS: BASO # 0.1 10^3/uL (0.0-0.2); BASO % 0.7 % (0.0-1.0); EOS # 0.1 10^3/uL (0.0-0.5); EOS % 1.8 % (0.0-3.0); HEMATOCRIT 34.7 % (36.0-47.0); HEMOGLOBIN 11.2 g/dl (12.0-15.5); LYMPH # 2.8 10^3/uL (1.5-5.0); LYMPH % 41.5 % (24.0-44.0); MEAN CORPUSCULAR HEMOGLOBIN 28.4 pg (27.0-33.0); MEAN CORPUSCULAR HGB CONC 32.3 g/dl (32.0-36.5); MEAN CORPUSCULAR VOLUME 88.1 fl (80.0-96.0); MONO # 0.5 10^3/uL (0.0-0.8); MONO % 7.3 % (2.0-8.0); NEUTROPHILS # 3.3 10^3/uL (1.5-8.5); NEUTROPHILS % 48.6 % (36.0-66.0); PLATELET COUNT, AUTOMATED 247 10^3/uL (150-450); RED BLOOD COUNT 3.94 10^6/uL (4.00-5.40); WHITE BLOOD COUNT 6.8 10^3/uL (4.0-10.0)
[2024-07-26 16:59] LABS: ERYTHROCYTE SEDIMENTATION RATE 16 mm/hr (0-30)
[2024-07-26 17:08] LABS: ALBUMIN 2.7 G/DL (3.2-5.2); BILIRUBIN,DIRECT 0.4 MG/DL (<0.4); BILIRUBIN,TOTAL 0.4 MG/DL (0.3-1.2); C REACTIVE PROTEIN QUANTITATIV 1.18 MG/DL (<1.0); CALCIUM LEVEL 8.9 MG/DL (8.3-10.6); CREATININE FOR GFR 1.05 MG/DL (0.55-1.30); GLOMERULAR FILTRATION RATE 53.3 (>32); POTASSIUM SERUM 4.1 MMOL/L (3.5-5.1); TOTAL PROTEIN 6.6 G/DL (5.7-8.2)
== END ==
LOC: M WUC 12:23
PROVIDERS: ATTEND Internal Medicine
DX: M06.9 Rheumatoid arthritis, unspecified (principal)

== ENCOUNTER → 2024-08-06 | Outpatient (REF) | payer MEDICARE, BC ==
[2024-08-06 17:55] LABS: APPEARANCE, URINE HAZY (CLEAR); BACTERIA, URINE AUTO NEGATIVE (NEGATIVE); BILIRUBIN, URINE AUTO NEGATIVE (NEGATIVE); BLOOD, URINE BLOOD NEGATIVE (NEGATIVE); COLOR, URINE YELLOW (YELLOW); GLUCOSE, URINE (UA) AUTO NEGATIVE (NEGATIVE); KETONE, URINE AUTO NEGATIVE (NEGATIVE); LEUKOCYTE ESTERASE, URINE AUTO 1+ (NEGATIVE); MUCUS, URINE SMALL (NEGATIVE); NITRITE, URINE AUTO NEGATIVE (NEGATIVE); PROTEIN, URINE AUTO NEGATIVE (NEGATIVE); RBC, URINE AUTO 1 /HPF (0-3); SPECIFIC GRAVITY URINE AUTO 1.015 (1.002-1.035); SQUAMOUS EPITHELIAL CELL UR AU 1 /HPF (0-6); UROBILINOGEN, URINE AUTO 0.2 mg/dL (0.0-2.0); WBC, URINE AUTO 5 /HPF (0-3)
== END ==
LOC: M SMT 17:02
PROVIDERS: ATTEND Urology
DX: R33.9 Retention of urine, unspecified (principal)

== ENCOUNTER → 2024-08-16 | Outpatient (CLI) | payer MEDICARE, BC | LOC: M SOG 07:54 | PROVIDERS: ATTEND Physician Assistant | DX: S72.001A Fracture of unspecified part of neck of right femur, initial encounter for closed fracture (principal); W18.30XA Fall on same level, unspecified, initial encounter; Y92.009 Unspecified place in unspecified non-institutional (private) residence as the place of occurrence of the external cause ==

== ENCOUNTER → 2024-08-23 | Outpatient (CLI) | payer MEDICARE, BC ==
[2024-08-23 17:24] LABS: BASO % 0.6 % (0.0-1.0); EOS # 0.1 10^3/uL (0.0-0.5); EOS % 1.9 % (0.0-3.0); HEMATOCRIT 36.4 % (36.0-47.0); HEMOGLOBIN 11.9 g/dl (12.0-15.5); LYMPH % 43.3 % (24.0-44.0); MEAN CORPUSCULAR HGB CONC 32.7 g/dl (32.0-36.5); MEAN CORPUSCULAR VOLUME 88.8 fl (80.0-96.0); MONO # 0.6 10^3/uL (0.0-0.8); MONO % 8.7 % (2.0-8.0); NEUTROPHILS # 3.2 10^3/uL (1.5-8.5); NEUTROPHILS % 45.4 % (36.0-66.0); PLATELET COUNT, AUTOMATED 317 10^3/uL (150-450)
[2024-08-23 17:44] LABS: ERYTHROCYTE SEDIMENTATION RATE 25 mm/hr (0-30)
[2024-08-23 17:57] LABS: ALBUMIN 3.3 G/DL (3.2-5.2); BILIRUBIN,DIRECT 0.2 MG/DL (<0.4); BILIRUBIN,TOTAL 0.6 MG/DL (0.3-1.2); C REACTIVE PROTEIN QUANTITATIV 1.68 MG/DL (<1.0); CALCIUM LEVEL 9.1 MG/DL (8.3-10.6); CREATININE FOR GFR 0.99 MG/DL (0.55-1.30); POTASSIUM SERUM 4.8 MMOL/L (3.5-5.1); TOTAL PROTEIN 7.7 G/DL (5.7-8.2)
== END ==
LOC: M WUC 13:00
PROVIDERS: ATTEND Internal Medicine
DX: M06.09 Rheumatoid arthritis without rheumatoid factor, multiple sites (principal)

== ENCOUNTER → 2024-08-23 | Outpatient (CLI) | payer MEDICARE, BC | LOC: M WUC 12:56 | PROVIDERS: ATTEND Nurse Practitioner Family | DX: M54.50 Low back pain, unspecified (principal) ==

== ENCOUNTER → 2024-09-18 | Outpatient (REF) | payer MEDICARE, BC ==
[2024-09-18 17:42] LABS: APPEARANCE, URINE CLOUDY (CLEAR); BACTERIA, URINE AUTO 1+ (NEGATIVE); BILIRUBIN, URINE AUTO NEGATIVE (NEGATIVE); BLOOD, URINE BLOOD 1+ (NEGATIVE); COLOR, URINE YELLOW (YELLOW); GLUCOSE, URINE (UA) AUTO NEGATIVE (NEGATIVE); KETONE, URINE AUTO NEGATIVE (NEGATIVE); LEUKOCYTE ESTERASE, URINE AUTO 3+ (NEGATIVE); MUCUS, URINE SMALL (NEGATIVE); NITRITE, URINE AUTO NEGATIVE (NEGATIVE); PROTEIN, URINE AUTO 1+ mg/dL (NEGATIVE); RBC, URINE AUTO 4 /HPF (0-3); SPECIFIC GRAVITY URINE AUTO 1.011 (1.002-1.035); SQUAMOUS EPITHELIAL CELL UR AU 0 /HPF (0-6); UROBILINOGEN, URINE AUTO 0.2 mg/dL (0.0-2.0); WBC, URINE AUTO TNTC /HPF (0-3)
== END ==
LOC: M SMT 16:18
PROVIDERS: ATTEND Nurse Practitioner Family
DX: R39.9 Unspecified symptoms and signs involving the genitourinary system (principal)

== ENCOUNTER → 2024-09-19 | Outpatient (CLI) | payer MEDICARE, BC ==
[2024-09-19 17:36] LABS: BASO % 0.6 % (0.0-1.0); EOS # 0.1 10^3/uL (0.0-0.5); EOS % 1.1 % (0.0-3.0); HEMATOCRIT 34.8 % (36.0-47.0); HEMOGLOBIN 11.3 g/dl (12.0-15.5); LYMPH # 2.8 10^3/uL (1.5-5.0); LYMPH % 39.3 % (24.0-44.0); MEAN CORPUSCULAR HEMOGLOBIN 29.7 pg (27.0-33.0); MEAN CORPUSCULAR HGB CONC 32.5 g/dl (32.0-36.5); MEAN CORPUSCULAR VOLUME 91.3 fl (80.0-96.0); MONO # 0.7 10^3/uL (0.0-0.8); NEUTROPHILS # 3.5 10^3/uL (1.5-8.5); NEUTROPHILS % 48.9 % (36.0-66.0); PLATELET COUNT, AUTOMATED 264 10^3/uL (150-450); RED BLOOD COUNT 3.81 10^6/uL (4.00-5.40); WHITE BLOOD COUNT 7.2 10^3/uL (4.0-10.0)
[2024-09-19 17:41] LABS: ERYTHROCYTE SEDIMENTATION RATE 26 mm/hr (0-30)
[2024-09-19 18:22] LABS: C REACTIVE PROTEIN QUANTITATIV 0.67 MG/DL (<1.0)
[2024-09-19 18:23] LABS: ALBUMIN 3.2 G/DL (3.2-5.2); ALKALINE PHOSPHATASE 114 U/L (35-104); ALT/SGPT 13 U/L (7.0-40); AST/SGOT 17 U/L (<34); BILIRUBIN,DIRECT < 0.1 MG/DL (<0.4); BILIRUBIN,TOTAL 0.3 MG/DL (0.3-1.2); BLOOD UREA NITROGEN 28 MG/DL (9-23); CALCIUM LEVEL 8.8 MG/DL (8.3-10.6); CARBON DIOXIDE LEVEL 28 MMOL/L (20-31); CHLORIDE LEVEL 106 MMOL/L (98-107); CREATININE FOR GFR 1.11 MG/DL (0.55-1.30); GLOMERULAR FILTRATION RATE 49.9 (>32); GLUCOSE, FASTING 78 MG/DL (74-106); POTASSIUM SERUM 4.6 MMOL/L (3.5-5.1); SODIUM LEVEL 143 MMOL/L (136-145); TOTAL PROTEIN 7.2 G/DL (5.7-8.2)
== END ==
LOC: M WUC 13:51
PROVIDERS: ATTEND Internal Medicine
DX: M06.09 Rheumatoid arthritis without rheumatoid factor, multiple sites (principal)

== ENCOUNTER → 2024-10-10 | Outpatient (REF) | payer MEDICARE, BC ==
[2024-10-11 10:57] LABS: APPEARANCE, URINE MANUAL HAZY (CLEAR); BILIRUBIN, URINE MANUAL NEGATIVE (NEGATIVE); BLOOD URINE MANUAL POSITIVE (NEGATIVE); COLOR, URINE MANUAL YELLOW (YELLOW); GLUCOSE, URINE (UA) MANUAL NEGATIVE (NEGATIVE); KETONE, URINE MANUAL NEGATIVE (NEGATIVE); LEUKOCYTE ESTERASE, URINE MAN POSITIVE (NEGATIVE); NITRITE, URINE MANUAL POSITIVE (NEGATIVE); PH,URINE MAN 5.5 UNITS (5.0 - 7.0); PROTEIN, URINE MANUAL TRACE mg/dL (NEGATIVE); SPECIFIC GRAVITY,URINE MANUAL 1.015 (1.002-1.035); UROBILINOGEN, URINE MANUAL NORMAL (NORMAL)
[2024-10-11 10:59] LABS: BACTERIA, URINE SMALL AMOUNT; HYALINE CAST, URINE NONE SEEN /lpf (0-1); SQUAMOUS EPITHELIAL CELL URINE SMALL AMOUNT /hpf (SMALL AMT); WBC, URINE 40-50 /hpf (0-3)
== END ==
LOC: M SMT 17:21
PROVIDERS: ATTEND Nurse Practitioner Family
DX: R39.9 Unspecified symptoms and signs involving the genitourinary system (principal)

== ENCOUNTER → 2024-10-18 | Outpatient (CLI) | payer MEDICARE, BC ==
[~2024-10-18] MED LIST changes: +GLIP2.5T46 PO; -GLIP2.5T6 PO
[2024-10-18 18:40] LABS: BASO % 0.4 % (0.0-1.0); EOS # 0.2 10^3/uL (0.0-0.5); EOS % 2.2 % (0.0-3.0); LYMPH # 2.5 10^3/uL (1.5-5.0); LYMPH % 36.4 % (24.0-44.0); MEAN CORPUSCULAR HEMOGLOBIN 30.3 pg (27.0-33.0); MEAN CORPUSCULAR HGB CONC 32.4 g/dl (32.0-36.5); MEAN CORPUSCULAR VOLUME 93.7 fl (80.0-96.0); MONO # 0.7 10^3/uL (0.0-0.8); MONO % 9.6 % (2.0-8.0); NEUTROPHILS # 3.5 10^3/uL (1.5-8.5); NEUTROPHILS % 51.3 % (36.0-66.0); PLATELET COUNT, AUTOMATED 311 10^3/uL (150-450); RED BLOOD COUNT 3.63 10^6/uL (4.00-5.40); WHITE BLOOD COUNT 6.9 10^3/uL (4.0-10.0)
[2024-10-18 18:43] LABS: C REACTIVE PROTEIN QUANTITATIV 0.53 MG/DL (<1.0)
[2024-10-18 18:44] LABS: ALBUMIN 3.3 G/DL (3.2-5.2); BILIRUBIN,DIRECT 0.1 MG/DL (<0.4); BILIRUBIN,TOTAL 0.4 MG/DL (0.3-1.2); CALCIUM LEVEL 8.7 MG/DL (8.3-10.6); CREATININE FOR GFR 0.98 MG/DL (0.55-1.30); GLOMERULAR FILTRATION RATE 57.6 (>32); POTASSIUM SERUM 4.4 MMOL/L (3.5-5.1)
[2024-10-18 18:58] LABS: ERYTHROCYTE SEDIMENTATION RATE 26 mm/hr (0-30)
== END ==
LOC: M WUC 12:58
PROVIDERS: ATTEND Internal Medicine
DX: M06.09 Rheumatoid arthritis without rheumatoid factor, multiple sites (principal)

== ENCOUNTER → 2024-10-25 | Outpatient (CLI) | payer MEDICARE, BC | LOC: M SOG 07:51 | PROVIDERS: ATTEND Physician Assistant | DX: S72.001D Fracture of unspecified part of neck of right femur, subsequent encounter for closed fracture with routine healing (principal) ==

== ENCOUNTER → 2024-11-22 | Outpatient (CLI) | payer MEDICARE, BC ==
[2024-11-22 18:12] LABS: BASO % 0.4 % (0.0-1.0); EOS # 0.1 10^3/uL (0.0-0.5); EOS % 1.2 % (0.0-3.0); HEMATOCRIT 39.1 % (36.0-47.0); HEMOGLOBIN 12.3 g/dl (12.0-15.5); LYMPH # 2.9 10^3/uL (1.5-5.0); LYMPH % 41.2 % (24.0-44.0); MEAN CORPUSCULAR HEMOGLOBIN 29.6 pg (27.0-33.0); MEAN CORPUSCULAR HGB CONC 31.5 g/dl (32.0-36.5); MEAN CORPUSCULAR VOLUME 94.2 fl (80.0-96.0); MONO # 0.8 10^3/uL (0.0-0.8); MONO % 11.7 % (2.0-8.0); NEUTROPHILS # 3.1 10^3/uL (1.5-8.5); NEUTROPHILS % 44.6 % (36.0-66.0); PLATELET COUNT, AUTOMATED 269 10^3/uL (150-450); RED BLOOD COUNT 4.15 10^6/uL (4.00-5.40)
[2024-11-22 18:31] LABS: C REACTIVE PROTEIN QUANTITATIV 1.05 MG/DL (<1.0)
[2024-11-22 18:33] LABS: ERYTHROCYTE SEDIMENTATION RATE 27 mm/hr (0-30)
[2024-11-22 18:35] LABS: ALBUMIN 3.4 G/DL (3.2-5.2); BILIRUBIN,DIRECT 0.1 MG/DL (<0.4); BILIRUBIN,TOTAL 0.4 MG/DL (0.3-1.2); CALCIUM LEVEL 8.9 MG/DL (8.3-10.6); CREATININE FOR GFR 1.02 MG/DL (0.55-1.30); GLOMERULAR FILTRATION RATE 54.3 (>32); POTASSIUM SERUM 3.8 MMOL/L (3.5-5.1); TOTAL PROTEIN 7.2 G/DL (5.7-8.2)
== END ==
LOC: M WUC 15:08
PROVIDERS: ATTEND Internal Medicine
DX: M06.09 Rheumatoid arthritis without rheumatoid factor, multiple sites (principal)

== ENCOUNTER → 2024-12-05 | Outpatient (CLI) | payer MEDICARE, BC ==
[~2024-12-05] MED LIST changes: +PRED-1142 PO; -PRED1TABL PO; -PREG25CA PO; +PREG25CA63 PO
== END ==
LOC: M WUC 11:40
PROVIDERS: ATTEND Registered Nurse
DX: M25.511 Pain in right shoulder (principal)

== ENCOUNTER → 2024-12-20 | Outpatient (CLI) | payer MEDICARE, BC | LOC: M PLAIMG 12:26 | PROVIDERS: ATTEND Physician Assistant | DX: I35.8 Other nonrheumatic aortic valve disorders (principal); M06.09 Rheumatoid arthritis without rheumatoid factor, multiple sites ==

== ENCOUNTER → 2024-12-20 | Outpatient (CLI) | payer MEDICARE, BC ==
[2024-12-20 16:14] LABS: BASO % 0.6 % (0.0-1.0); EOS # 0.1 10^3/uL (0.0-0.5); EOS % 1.9 % (0.0-3.0); HEMATOCRIT 40.4 % (36.0-47.0); HEMOGLOBIN 12.8 g/dl (12.0-15.5); LYMPH # 3.4 10^3/uL (1.5-5.0); LYMPH % 48.8 % (24.0-44.0); MEAN CORPUSCULAR HEMOGLOBIN 29.2 pg (27.0-33.0); MEAN CORPUSCULAR HGB CONC 31.7 g/dl (32.0-36.5); MEAN CORPUSCULAR VOLUME 92.2 fl (80.0-96.0); MONO # 0.8 10^3/uL (0.0-0.8); MONO % 11.7 % (2.0-8.0); NEUTROPHILS # 2.6 10^3/uL (1.5-8.5); NEUTROPHILS % 36.9 % (36.0-66.0); PLATELET COUNT, AUTOMATED 284 10^3/uL (150-450); RED BLOOD COUNT 4.38 10^6/uL (4.00-5.40); WHITE BLOOD COUNT 6.9 10^3/uL (4.0-10.0)
[2024-12-20 16:22] LABS: ERYTHROCYTE SEDIMENTATION RATE 26 mm/hr (0-30)
[2024-12-20 16:42] LABS: C REACTIVE PROTEIN QUANTITATIV 0.51 MG/DL (<1.0)
[2024-12-20 16:43] LABS: ALBUMIN 3.7 G/DL (3.2-5.2); BILIRUBIN,DIRECT 0.1 MG/DL (<0.4); BILIRUBIN,TOTAL 0.5 MG/DL (0.3-1.2); CALCIUM LEVEL 9.1 MG/DL (8.3-10.6); CREATININE FOR GFR 1.15 MG/DL (0.55-1.30); POTASSIUM SERUM 4.3 MMOL/L (3.5-5.1); TOTAL PROTEIN 7.5 G/DL (5.7-8.2)
== END ==
LOC: M PLALAB 12:31
PROVIDERS: ATTEND Internal Medicine
DX: M06.09 Rheumatoid arthritis without rheumatoid factor, multiple sites (principal)

== ENCOUNTER → 2025-02-12 | Outpatient (CLI) | payer MEDICARE, BC ==
[2025-02-12 19:23] LABS: BASO # 0.0 10^3/uL (0.0-0.2); BASO % 0.6 % (0.0-1.0); EOS # 0.1 10^3/uL (0.0-0.5); EOS % 2.1 % (0.0-3.0); LYMPH # 2.7 10^3/uL (1.5-5.0); LYMPH % 39.3 % (24.0-44.0); MONO # 0.8 10^3/uL (0.0-0.8); MONO % 11.9 % (2.0-8.0); NEUTROPHILS # 3.1 10^3/uL (1.5-8.5); NEUTROPHILS % 46.0 % (36.0-66.0); PLATELET COUNT, AUTOMATED 264 10^3/uL (150-450)
[2025-02-12 19:26] LABS: ALT/SGPT 19.0 U/L (7.0-40); AST/SGOT 21.0 U/L (<34); C REACTIVE PROTEIN QUANTITATIV 0.81 MG/DL (<1.0); CALCIUM LEVEL 8.8 MG/DL (8.3-10.6); CARBON DIOXIDE LEVEL 27.0 MMOL/L (20-31); CHLORIDE LEVEL 107.0 MMOL/L (98-107); CREATININE FOR GFR 1.34 MG/DL (0.55-1.30); GLOMERULAR FILTRATION RATE 39.1 (>32); POTASSIUM SERUM 4.3 MMOL/L (3.5-5.1); SODIUM LEVEL 143.0 MMOL/L (136-145)
[2025-02-12 19:54] LABS: ERYTHROCYTE SEDIMENTATION RATE 16 mm/hr (0-30)
== END ==
LOC: M WUC 13:26
PROVIDERS: ATTEND Internal Medicine
DX: M06.09 Rheumatoid arthritis without rheumatoid factor, multiple sites (principal)

== ENCOUNTER → 2025-02-27 | Outpatient (CLI) | payer MEDICARE, BC ==
[2025-02-27 18:38] LABS: PLATELET COUNT, AUTOMATED 251 10^3/uL (150-450)
[2025-02-27 18:40] LABS: ALT/SGPT 18.0 U/L (7.0-40); AST/SGOT 20.0 U/L (<34); CALCIUM LEVEL 8.8 MG/DL (8.3-10.6); CARBON DIOXIDE LEVEL 27.0 MMOL/L (20-31); CHLORIDE LEVEL 106.0 MMOL/L (98-107); CREATININE FOR GFR 1.21 MG/DL (0.55-1.30); GLOMERULAR FILTRATION RATE 44.2 (>32); POTASSIUM SERUM 4.4 MMOL/L (3.5-5.1); SODIUM LEVEL 144.0 MMOL/L (136-145)
== END ==
LOC: M WUC 13:27
PROVIDERS: ATTEND Registered Nurse
DX: I50.9 Heart failure, unspecified (principal)

== ENCOUNTER → 2025-03-08 | Outpatient (CLI) | payer MEDICARE, BC ==
[2025-03-08 17:40] LABS: BASO # 0.0 10^3/uL (0.0-0.2); BASO % 0.4 % (0.0-1.0); EOS # 0.1 10^3/uL (0.0-0.5); EOS % 1.6 % (0.0-3.0); LYMPH # 1.7 10^3/uL (1.5-5.0); LYMPH % 33.5 % (24.0-44.0); MONO # 0.4 10^3/uL (0.0-0.8); MONO % 8.4 % (2.0-8.0); NEUTROPHILS # 2.9 10^3/uL (1.5-8.5); NEUTROPHILS % 56.1 % (36.0-66.0); PLATELET COUNT, AUTOMATED 259 10^3/uL (150-450)
[2025-03-08 17:41] LABS: ALT/SGPT 16 U/L (7.0-40); AST/SGOT 18 U/L (<34); C REACTIVE PROTEIN QUANTITATIV 6.30 MG/DL (<1.0); CALCIUM LEVEL 8.2 MG/DL (8.3-10.6); CARBON DIOXIDE LEVEL 25 MMOL/L (20-31); CHLORIDE LEVEL 107 MMOL/L (98-107); CREATININE FOR GFR 1.52 MG/DL (0.55-1.30); GLOMERULAR FILTRATION RATE 33.6 (>32); POTASSIUM SERUM 4.1 MMOL/L (3.5-5.1); SODIUM LEVEL 143 MMOL/L (136-145)
[2025-03-08 17:49] LABS: ERYTHROCYTE SEDIMENTATION RATE 16 mm/hr (0-30)
== END ==
LOC: M WUC 13:47
PROVIDERS: ATTEND Internal Medicine
DX: M06.09 Rheumatoid arthritis without rheumatoid factor, multiple sites (principal)

== ENCOUNTER → 2025-03-08 | Outpatient (CLI) | payer MEDICARE, BC ==
[~2025-03-08] MED LIST changes: +ALPR0.25 PO; +AMIO200T54 PO; +ENTR1TAB PO; +ONDA-83 PO; +TRAZ-252 PO
== END ==
LOC: M PLAIMG 10:51
PROVIDERS: ATTEND Registered Nurse
DX: I50.40 Unspecified combined systolic (congestive) and diastolic (congestive) heart failure (principal); Z95.0 Presence of cardiac pacemaker; I34.0 Nonrheumatic mitral (valve) insufficiency; I36.1 Nonrheumatic tricuspid (valve) insufficiency; I37.1 Nonrheumatic pulmonary valve insufficiency

== ENCOUNTER → 2025-03-08 | Outpatient (CLI) | payer MEDICARE, BC ==
[~2025-03-08] MED LIST changes: -ALPR0.25 PO; -AMIO200T54 PO; -ENTR1TAB PO; -ONDA-83 PO; -TRAZ-252 PO
== END ==
LOC: M SOG 06:52
PROVIDERS: ATTEND Physician Assistant
DX: S72.001D Fracture of unspecified part of neck of right femur, subsequent encounter for closed fracture with routine healing (principal); Z53.9 Procedure and treatment not carried out, unspecified reason

== ENCOUNTER → 2025-03-08 | Outpatient (CLI) | payer MEDICARE, BC ==
[2025-03-08 17:39] LABS: CALCIUM LEVEL 8.2 MG/DL (8.3-10.6); CARBON DIOXIDE LEVEL 25.0 MMOL/L (20-31); CHLORIDE LEVEL 109.0 MMOL/L (98-107); CREATININE FOR GFR 1.54 MG/DL (0.55-1.30); GLOMERULAR FILTRATION RATE 33.1 (>32); POTASSIUM SERUM 4.3 MMOL/L (3.5-5.1); SODIUM LEVEL 146.0 MMOL/L (136-145)
== END ==
LOC: M WUC 13:52
PROVIDERS: ATTEND Physician Assistant
DX: I50.42 Chronic combined systolic (congestive) and diastolic (congestive) heart failure (principal)

== ENCOUNTER → 2025-03-11 | Outpatient (REF) | payer MEDICARE, BC ==
[~2025-03-11] MED LIST changes: +ALPR0.25 PO; +AMIO200T54 PO; +ENTR1TAB PO; +ONDA-83 PO; +TRAZ-252 PO
== END ==
LOC: M LAB REF 12:34
PROVIDERS: ATTEND Physician Assistant
DX: I48.0 Paroxysmal atrial fibrillation (principal)

== ENCOUNTER 2025-03-25 13:43 | Day surgery (SDC) | payer MEDICARE, BC ==
[~2025-03-25] VITALS: Ht 162.6 cm; Wt 54.9 kg
[2025-03-25] MEDS ORDERED: LIDOCAINE 2% 100 MG/5 ML SDV (FOR ANES.) As Ordered ONE (14:41)
[2025-03-25 16:45] VITALS: BP 137/71; TEMP 97.2; O2SAT 96
== END 2025-03-25 17:00 | disposition home or self-care (01) ==
LOC: M SDC 13:43
PROVIDERS: ATTEND Internal Medicine Cardiovascular Disease
DX: I48.92 Unspecified atrial flutter (principal); I48.19 Other persistent atrial fibrillation; I44.2 Atrioventricular block, complete; I11.0 Hypertensive heart disease with heart failure; I50.40 Unspecified combined systolic (congestive) and diastolic (congestive) heart failure; I44.7 Left bundle-branch block, unspecified; Z95.0 Presence of cardiac pacemaker; Z79.01 Long term (current) use of anticoagulants; Z79.899 Other long term (current) drug therapy; E78.00 Pure hypercholesterolemia, unspecified; M35.3 Polymyalgia rheumatica; K21.9 Gastro-esophageal reflux disease without esophagitis; Z88.5 Allergy status to narcotic agent; Z88.8 Allergy status to other drugs, medicaments and biological substances

== ENCOUNTER → 2025-04-10 | Outpatient (CLI) | payer MEDICARE, BC ==
[2025-04-10 15:38] LABS: CALCIUM LEVEL 9.0 MG/DL (8.3-10.6); CARBON DIOXIDE LEVEL 28.0 MMOL/L (20-31); CHLORIDE LEVEL 109.0 MMOL/L (98-107); CREATININE FOR GFR 1.21 MG/DL (0.55-1.30); GLOMERULAR FILTRATION RATE 44.2 (>32); POTASSIUM SERUM 4.5 MMOL/L (3.5-5.1); SODIUM LEVEL 147.0 MMOL/L (136-145)
== END ==
LOC: M WUC 11:23
PROVIDERS: ATTEND Physician Assistant
DX: I50.42 Chronic combined systolic (congestive) and diastolic (congestive) heart failure (principal)

== ENCOUNTER → 2025-04-11 | Outpatient (CLI) | payer MEDICARE, BC ==
[2025-04-11 15:03] LABS: BASO # 0.1 10^3/uL (0.0-0.2); BASO % 0.9 % (0.0-1.0); EOS # 0.1 10^3/uL (0.0-0.5); EOS % 2.2 % (0.0-3.0); LYMPH # 2.0 10^3/uL (1.5-5.0); LYMPH % 37.1 % (24.0-44.0); MONO # 0.9 10^3/uL (0.0-0.8); MONO % 16.1 % (2.0-8.0); NEUTROPHILS # 2.4 10^3/uL (1.5-8.5); NEUTROPHILS % 43.2 % (36.0-66.0); PLATELET COUNT, AUTOMATED 280 10^3/uL (150-450)
[2025-04-11 15:07] LABS: ALT/SGPT 20 U/L (7.0-40); AST/SGOT 22 U/L (<34); C REACTIVE PROTEIN QUANTITATIV 0.83 MG/DL (<1.0); CALCIUM LEVEL 8.5 MG/DL (8.3-10.6); CARBON DIOXIDE LEVEL 28 MMOL/L (20-31); CHLORIDE LEVEL 109 MMOL/L (98-107); CREATININE FOR GFR 1.17 MG/DL (0.55-1.30); GLOMERULAR FILTRATION RATE 46.0 (>32); POTASSIUM SERUM 4.1 MMOL/L (3.5-5.1); SODIUM LEVEL 147 MMOL/L (136-145)
[2025-04-11 15:20] LABS: ERYTHROCYTE SEDIMENTATION RATE 18 mm/hr (0-30)
== END ==
LOC: M WUC 11:26
PROVIDERS: ATTEND Internal Medicine
DX: M06.09 Rheumatoid arthritis without rheumatoid factor, multiple sites (principal)

== ENCOUNTER → 2025-05-07 | Outpatient (CLI) | payer MEDICARE, BC ==
[2025-05-07 14:00] LABS: BASO # 0.0 10^3/uL (0.0-0.2); BASO % 0.2 % (0.0-1.0); EOS # 0.5 10^3/uL (0.0-0.5); EOS % 5.6 % (0.0-3.0); LYMPH # 2.3 10^3/uL (1.5-5.0); LYMPH % 28.5 % (24.0-44.0); MONO # 0.7 10^3/uL (0.0-0.8); MONO % 8.2 % (2.0-8.0); NEUTROPHILS # 4.6 10^3/uL (1.5-8.5); NEUTROPHILS % 57.3 % (36.0-66.0); PLATELET COUNT, AUTOMATED 323 10^3/uL (150-450)
[2025-05-07 14:07] LABS: ERYTHROCYTE SEDIMENTATION RATE 14 mm/hr (0-30)
[2025-05-07 14:32] LABS: ALT/SGPT 38.0 U/L (7.0-40); AST/SGOT 28.0 U/L (<34); C REACTIVE PROTEIN QUANTITATIV 1.95 MG/DL (<1.0); CALCIUM LEVEL 8.2 MG/DL (8.3-10.6); CARBON DIOXIDE LEVEL 27.0 MMOL/L (20-31); CHLORIDE LEVEL 107.0 MMOL/L (98-107); CREATININE FOR GFR 1.22 MG/DL (0.55-1.30); GLOMERULAR FILTRATION RATE 43.8 (>32); POTASSIUM SERUM 4.4 MMOL/L (3.5-5.1); SODIUM LEVEL 142.0 MMOL/L (136-145)
== END ==
LOC: M WUC 09:29
PROVIDERS: ATTEND Internal Medicine
DX: M06.09 Rheumatoid arthritis without rheumatoid factor, multiple sites (principal)

== ENCOUNTER → 2025-05-14 | Outpatient (REF) | payer MEDICARE, BC | LOC: M LAB REF 13:48 | PROVIDERS: ATTEND Physician Assistant | DX: R30.0 Dysuria (principal) ==

== ENCOUNTER → 2025-05-20 | Outpatient (REF) | payer MEDICARE, BC | LOC: M LAB REF 11:50 | PROVIDERS: ATTEND Student in an Organized Health Care Education/Training Program | DX: R30.0 Dysuria (principal) ==

== ENCOUNTER → 2025-05-24 | Outpatient (REF) | payer MEDICARE, BC ==
[2025-05-24 18:46] LABS: APPEARANCE, URINE HAZY (CLEAR); BACTERIA, URINE AUTO 1+ (NEGATIVE); BILIRUBIN, URINE AUTO NEGATIVE (NEGATIVE); BLOOD, URINE BLOOD 1+ (NEGATIVE); GLUCOSE, URINE (UA) AUTO NEGATIVE (NEGATIVE); KETONE, URINE AUTO NEGATIVE (NEGATIVE); LEUKOCYTE ESTERASE, URINE AUTO 3+ (NEGATIVE); MUCUS, URINE SMALL (NEGATIVE); NITRITE, URINE AUTO NEGATIVE (NEGATIVE); PROTEIN, URINE AUTO NEGATIVE (NEGATIVE); RBC, URINE AUTO 5 /HPF (0-3); SPECIFIC GRAVITY URINE AUTO 1.015 (1.002-1.035); SQUAMOUS EPITHELIAL CELL UR AU 1 /HPF (0-6); UROBILINOGEN, URINE AUTO 0.2 mg/dL (0.0-2.0); WBC, URINE AUTO 77 /HPF (0-3)
== END ==
LOC: M SMT 16:48
PROVIDERS: ATTEND Urology
DX: Z87.440 Personal history of urinary (tract) infections (principal); Z79.899 Other long term (current) drug therapy

== ENCOUNTER → 2025-06-04 | Outpatient (CLI) | payer MEDICARE, BC ==
[2025-06-04 14:31] LABS: BASO # 0.0 10^3/uL (0.0-0.2); BASO % 0.6 % (0.0-1.0); EOS # 0.1 10^3/uL (0.0-0.5); EOS % 1.9 % (0.0-3.0); LYMPH # 2.3 10^3/uL (1.5-5.0); LYMPH % 35.0 % (24.0-44.0); MONO # 0.8 10^3/uL (0.0-0.8); MONO % 12.1 % (2.0-8.0); NEUTROPHILS # 3.2 10^3/uL (1.5-8.5); NEUTROPHILS % 50.2 % (36.0-66.0); PLATELET COUNT, AUTOMATED 241 10^3/uL (150-450)
[2025-06-04 14:34] LABS: C REACTIVE PROTEIN QUANTITATIV < 0.50 MG/DL (<1.0)
[2025-06-04 14:35] LABS: ALT/SGPT 15 U/L (7.0-40); AST/SGOT 19 U/L (<34); CALCIUM LEVEL 9.2 MG/DL (8.3-10.6); CARBON DIOXIDE LEVEL 28 MMOL/L (20-31); CHLORIDE LEVEL 108 MMOL/L (98-107); CREATININE FOR GFR 1.34 MG/DL (0.55-1.30); GLOMERULAR FILTRATION RATE 39.1 (>32); POTASSIUM SERUM 4.1 MMOL/L (3.5-5.1); SODIUM LEVEL 144 MMOL/L (136-145)
== END ==
LOC: M WUC 11:19
PROVIDERS: ATTEND Internal Medicine
DX: M06.09 Rheumatoid arthritis without rheumatoid factor, multiple sites (principal)

== ENCOUNTER → 2025-06-06 | Outpatient (CLI) | payer MEDICARE, BC | LOC: M PLAIMG 10:45 | PROVIDERS: ATTEND Physician Assistant | DX: I50.42 Chronic combined systolic (congestive) and diastolic (congestive) heart failure (principal); Z95.0 Presence of cardiac pacemaker; I34.89 Other nonrheumatic mitral valve disorders; I37.1 Nonrheumatic pulmonary valve insufficiency ==

== ENCOUNTER → 2025-07-02 | Outpatient (CLI) | payer MEDICARE, BC ==
[2025-07-02 14:53] LABS: PLATELET COUNT, AUTOMATED 250 10^3/uL (150-450)
[2025-07-02 15:18] LABS: ALT/SGPT 19.0 U/L (7.0-40); AST/SGOT 22.0 U/L (<34); CALCIUM LEVEL 8.4 MG/DL (8.3-10.6); CARBON DIOXIDE LEVEL 26.0 MMOL/L (20-31); CHLORIDE LEVEL 107.0 MMOL/L (98-107); CHOLESTEROL LEVEL 205.0 MG/DL (<200); CHOLESTEROL RISK RATIO 3.26 (<5); CREATININE FOR GFR 1.22 MG/DL (0.55-1.30); GLOMERULAR FILTRATION RATE 43.8 (>32); LDL CHOLESTEROL 117.8 MG/DL (<100); MAGNESIUM LEVEL 1.7 MG/DL (1.8-2.4); NON-HDL-C 142.2 MG/DL; POTASSIUM SERUM 4.3 MMOL/L (3.5-5.1); SODIUM LEVEL 143.0 MMOL/L (136-145); TRIGLYCERIDES LEVEL 122.0 MG/DL (<150)
== END ==
LOC: M WUC 10:35
PROVIDERS: ATTEND Physician Assistant
DX: I48.0 Paroxysmal atrial fibrillation (principal); E78.2 Mixed hyperlipidemia; I50.42 Chronic combined systolic (congestive) and diastolic (congestive) heart failure; M06.09 Rheumatoid arthritis without rheumatoid factor, multiple sites

== ENCOUNTER → 2025-07-02 | Outpatient (CLI) | payer MEDICARE, BC ==
[2025-07-02 14:52] LABS: BASO # 0.0 10^3/uL (0.0-0.2); BASO % 0.7 % (0.0-1.0); EOS # 0.2 10^3/uL (0.0-0.5); EOS % 2.8 % (0.0-3.0); LYMPH # 2.0 10^3/uL (1.5-5.0); LYMPH % 36.2 % (24.0-44.0); MONO # 0.6 10^3/uL (0.0-0.8); MONO % 11.3 % (2.0-8.0); NEUTROPHILS # 2.6 10^3/uL (1.5-8.5); NEUTROPHILS % 48.8 % (36.0-66.0); PLATELET COUNT, AUTOMATED 249 10^3/uL (150-450)
[2025-07-02 15:00] LABS: C REACTIVE PROTEIN QUANTITATIV 1.78 MG/DL (<1.0)
[2025-07-02 15:03] LABS: ALT/SGPT 19.0 U/L (7.0-40); AST/SGOT 21.0 U/L (<34); CALCIUM LEVEL 8.1 MG/DL (8.3-10.6); CARBON DIOXIDE LEVEL 27.0 MMOL/L (20-31); CHLORIDE LEVEL 110.0 MMOL/L (98-107); CREATININE FOR GFR 1.21 MG/DL (0.55-1.30); GLOMERULAR FILTRATION RATE 44.2 (>32); POTASSIUM SERUM 4.5 MMOL/L (3.5-5.1); SODIUM LEVEL 145.0 MMOL/L (136-145)
== END ==
LOC: M WUC 10:38
PROVIDERS: ATTEND Internal Medicine
DX: M06.09 Rheumatoid arthritis without rheumatoid factor, multiple sites (principal)

== ENCOUNTER → 2025-07-21 | Outpatient (REF) | payer MEDICARE, BC | LOC: M LAB REF 18:28 | PROVIDERS: ATTEND Registered Nurse | DX: N39.0 Urinary tract infection, site not specified (principal) ==

== ENCOUNTER → 2025-07-29 | Outpatient (REF) | payer MEDICARE, BC | LOC: M LAB REF 17:23 | DX: R30.0 Dysuria (principal) ==

== ENCOUNTER → 2025-07-30 | Outpatient (CLI) | payer MEDICARE, BC ==
[2025-07-30 18:33] LABS: C REACTIVE PROTEIN QUANTITATIV 0.62 MG/DL (<1.0)
[2025-07-30 18:34] LABS: ALT/SGPT 21 U/L (7.0-40); AST/SGOT 21 U/L (<34); BASO # 0.0 10^3/uL (0.0-0.2); BASO % 0.5 % (0.0-1.0); CALCIUM LEVEL 8.7 MG/DL (8.3-10.6); CARBON DIOXIDE LEVEL 26 MMOL/L (20-31); CHLORIDE LEVEL 110 MMOL/L (98-107); CREATININE FOR GFR 1.18 MG/DL (0.55-1.30); EOS # 0.1 10^3/uL (0.0-0.5); EOS % 2.5 % (0.0-3.0); GLOMERULAR FILTRATION RATE 45.5 (>32); LYMPH # 2.1 10^3/uL (1.5-5.0); LYMPH % 37.8 % (24.0-44.0); MONO # 0.7 10^3/uL (0.0-0.8); MONO % 11.9 % (2.0-8.0); NEUTROPHILS # 2.6 10^3/uL (1.5-8.5); NEUTROPHILS % 47.1 % (36.0-66.0); PLATELET COUNT, AUTOMATED 263 10^3/uL (150-450); POTASSIUM SERUM 4.3 MMOL/L (3.5-5.1); SODIUM LEVEL 146 MMOL/L (136-145)
== END ==
LOC: M WUC 13:29
PROVIDERS: ATTEND Internal Medicine
DX: M06.09 Rheumatoid arthritis without rheumatoid factor, multiple sites (principal)

== ENCOUNTER → 2025-07-30 | Outpatient (CLI) | payer MEDICARE, BC | LOC: M WHC 12:38 | PROVIDERS: ATTEND Registered Nurse | DX: M85.852 Other specified disorders of bone density and structure, left thigh (principal); M06.09 Rheumatoid arthritis without rheumatoid factor, multiple sites; Z13.820 Encounter for screening for osteoporosis ==